=== PATIENT | female | born 1970 | race Caucasian/White ===

== ENCOUNTER 2023-03-22 15:35 | Emergency (ER) | payer OTHER, SELFPAY ==
[2023-03-22 15:43] VITALS: BP 128/84; PULSE 119; RESP 20; TEMP 36.8; O2SAT 96; BMI 32.2
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
== END 2023-03-22 16:57 | disposition home or self-care (01) ==
PROVIDERS: Emergency Provider Emergency Medicine; PCP Family Medicine
DX: S20.211A Contusion of right front wall of thorax, initial encounter (principal); V53.5XXA Driver of pick-up truck or van injured in collision with car, pick-up truck or van in traffic accident, initial encounter
CPT/HCPCS: 71045; 99283

== ENCOUNTER 2023-04-21 08:10 | Outpatient (OUT) | payer OTHER, SELFPAY ==
--- NOTE | 2023-04-21 08:18 | US_ITS ---
The [address] [address] Patient Name: JACQUI SANTIAGO MRN: [id number] date: 1970 Sex: F Assigned Patient Location: US Current Patient Location: US Accession/Order Number: [id number] Exam Date: 04/21/2023 08:25 Report Date: 04/21/2023 09:17 At the request of: JORGE TORRES Procedure: US right upper quadrant EXAM: US right upper quadrant HISTORY: RUQ PAIN R10.11 COMPARISON: None. TECHNIQUE: Grayscale, color and Doppler FINDINGS: The liver is normal in size, contour and echotexture with no focal mass. Liver measures 15.1 cm in length. Hepatopedal flow in the main portal vein with velocity of 39 cm/s. The gallbladder is normal in size. The wall measures 1.7 mm, normal. The common bile duct measures 3.1 mm, normal. Negative sonographic Vee sign. The visualized pancreas is normal The right kidney is normal measuring 10.2 x 4.1 x 4.8 cm with no solid mass or hydronephrosis. US/US right upper quadrant IMPRESSION: Normal exam Electronically authenticated by: GIUSEPPE WHATLEY Date: 04/21/2023 09:17
== END 2023-04-21 08:11 | disposition home or self-care (01) ==
LOC: US 08:10
PROVIDERS: PCP Family Medicine; Visit Provider Family Medicine
DX: R10.11 Right upper quadrant pain (principal)
CPT/HCPCS: 76705

== ENCOUNTER 2023-11-12 07:24 | Outpatient (OUT) | payer OTHER, SELFPAY ==
--- NOTE | 2023-11-12 07:26 | MM_ITS ---
Patient Name: JACQUI SANTIAGO MR#: [id number] : 1970 Exam Date: 11/12/2023 Ordering Doctor: DR JORGE TORRES RADIOLOGY REPORT PROCEDURE: MM TOMOSYNTHESIS SCREENING BI COMPARISON: MG MAMM SCREEN 3D PAMELA CAD, 08/29/2021. MG MAMM SCREEN PAMELA W CAD, 02/20/2019. MG MAMM SCREEN PAMELA W CAD, 12/10/2017. MG MAMM PAMELA SCRN W CAD DIG, 11/20/2013. INDICATIONS: screening Calculator Name NCI Breast Cancer Risk Assessment Tool 5 Year Breast Cancer Risk 1.50% Lifetime Breast Cancer Risk 13.00% Personal Breast Cancer No Personal Ovarian Cancer No Treatments None Family Cancers Father with renal cell cancer at age 62; Grandfather-maternal with bone cancer at age ~70. LOCATION: [facility] BREAST COMPOSITION: Heterogeneously dense,which may obscure small masses. FINDINGS: DIAGNOSTIC CATEGORY 2--BENIGN FINDING: RIGHT BREAST: No significant suspicious finding. Scattered benign-appearing lymph nodes are present. No significant change has occurred. LEFT BREAST: No significant suspicious finding. Stable, chronic scattered asymmetries. No significant change has occurred. RECOMMENDATIONS: ROUTINE MAMMOGRAM AND CLINICAL EVALUATION IN 12 MONTHS. PLEASE NOTE: A NORMAL MAMMOGRAM DOES NOT EXCLUDE THE POSSIBILITY OF BREAST CANCER. A CLINICALLY SUSPICIOUS PALPABLE LUMP SHOULD BE BIOPSIED. Dictated by: Sahhbaz Denny M.D. on 11/14/2023 at 10:35 Approved by: Shahbaz Denny M.D. on 11/14/2023 at 10:47
== END 2023-11-12 07:25 | disposition home or self-care (01) ==
LOC: MAMMO 07:24
PROVIDERS: PCP Family Medicine; Visit Provider Family Medicine
DX: Z12.31 Encounter for screening mammogram for malignant neoplasm of breast (principal); Z80.51 Family history of malignant neoplasm of kidney; Z80.8 Family history of malignant neoplasm of other organs or systems
CPT/HCPCS: 77063; 77067

== ENCOUNTER 2024-11-21 13:20 | Outpatient (OUT) | payer OTHER, SELFPAY ==
--- NOTE | 2024-11-21 13:23 | MM_ITS ---
Patient Name: JACQUI SANTIAGO MR#: [id number] : 1970 Exam Date: 11/21/2024 Ordering Doctor: DONI SANCHES RADIOLOGY REPORT PROCEDURE: MM TOMOSYNTHESIS SCREENING BI COMPARISON: MM TOMOSYNTHESIS SCREENING BI, 11/12/2023. MG MAMM SCREEN 3D PAMELA CAD, 08/29/2021. MG MAMM SCREEN PAMELA W CAD, 02/20/2019. MG MAMM PAMELA SCRN W CAD DIG, 11/20/2013. INDICATIONS: Screening Calculator Name NCI Breast Cancer Risk Assessment Tool 5 Year Breast Cancer Risk 1.60% Lifetime Breast Cancer Risk 12.80% Personal Breast Cancer No Personal Ovarian Cancer No Treatments None Family Cancers Father with renal cell cancer at age 62; Grandfather-maternal with bone cancer at age ~70. LOCATION: [facility] BREAST COMPOSITION: The breasts are heterogeneously dense,which may obscure small masses. FINDINGS: RIGHT BREAST: No significant suspicious finding. LEFT BREAST: No significant suspicious finding. DIAGNOSTIC CATEGORY 1--NEGATIVE. RECOMMENDATIONS: ROUTINE MAMMOGRAM AND CLINICAL EVALUATION IN 12 MONTHS. PLEASE NOTE: A NORMAL MAMMOGRAM DOES NOT EXCLUDE THE POSSIBILITY OF BREAST CANCER. A CLINICALLY SUSPICIOUS PALPABLE LUMP SHOULD BE BIOPSIED. Dictated by: Leonardo Gordon DO on 11/21/2024 at 15:33 Approved by: Leonardo Gordon DO on 11/21/2024 at 15:35
== END 2024-11-21 13:21 | disposition home or self-care (01) ==
LOC: MAMMO 13:20
PROVIDERS: PCP Family Medicine; Visit Provider Nurse Practitioner
DX: Z12.31 Encounter for screening mammogram for malignant neoplasm of breast (principal); Z78.0 Asymptomatic menopausal state; Z13.820 Encounter for screening for osteoporosis; Z80.8 Family history of malignant neoplasm of other organs or systems
CPT/HCPCS: 77063; 77067; 77080

== ENCOUNTER 2025-03-26 09:15 | Outpatient (OUT) | payer OTHER, SELFPAY ==
--- OUTSIDE RECORDS SUMMARY | 2023-11-22 11:00 | XMS_ITS ---
Author Organization [facility] in [place] Address [address] [place] [address] Care Team Providers Care Pump Service Supervisor Name Role Phone None, Unknown or Primary Care Provider Unavailab anh Toya Morgan Unavailable [phone] Allergies No Known Allergies REASON FOR VISIT [...] Encounters Encounter Location Date Provider Diagnosis [facility] (PODIATRY) [address] [place] [address] [place] [address] 11/22/2023 Toya Morgan Nail dystrophy L60.3 Assessments [...] Notes * CHRISHong JONESiDOB:1970 (53 yo F)Acc No.[id number]:11/22/2023 New Patient Patient: Ciarra IVEY Provider: Ifeoma Morgan PA-C :1970 A ge:53 Y S ex:Female Date:11/22/2023 Address[facility] [id number] Pcp:Unknown or None Check In:02:47 PM ESTCheck [...] M usculoskeletal: Bone/Joint Symptoms d enies. C snf Pain d enies.?Leg cramps d enies. N [...] Procedure Codes: * Preventive Medicine: Screenings/Counseling: B [place] ACTION PLAN Above Normal BMI Follow-up D ietary management education, guidance, and counseling * Follow Up: p rn * * Sign off status: Completed Visit Status: C JOHNIE (Check Out) true * Provider: Ifeoma Morgan PA-C Date: 0 11/22/2023 Generated for Bright spicer/Kami/eTransmitting on: 0 03/26/2025 09:19 AM EDT History and Physical Notes * Examination [...]
--- OUTSIDE RECORDS SUMMARY | 2025-03-24 14:00 | XMS_ITS | Encounter Summary ---
Author Organization [facility] Address [id number] [address] [place] [address] Care Team Providers Care Still Operator Batch Or Continuous Name Role Phone Willi Ridley DO Primary Care Provider + [phone] Reason for Visit * Reason Comments Painful Shoulder Encounter Details Date Type Department Care Team (Late st Contact Info) Description 03/24/2025 2:00 PM EDT Office Visit [facility] Internal Medicine - Family Medicine [address] [place] [address] Willi Ridley DO [address], [place] [address] Trigger point of right shoulder region (Primary Dx) Social History Tobacco Use Types Packs/Day Years Used Date Smoking Tobacco: Former Cigarettes 0.5 20 Smokeless Tobacco: Never Alcohol Use Standard Drinks/Week Comments Never 0 (1 standard drink = 0.6 oz pur e alcohol) [facility] Utilities Answer Date Recorded In the past 12 months has [employer], gas, oil, or water [employer] threatened to shut off services in your home? No 11/06/2023 Social Connection and Isolat ion Panel [NHANES] Answer Date Recorded In a typical week, how many times do you talk on the phone with family, friends, or neighbors? More than three times a week 11/14/2022 How often do you get togethe r with friends or relatives? Once a week 11/14/2022 How often do you attend [facility] or sikh services? More than 4 times per year 11/14/2022 Do you belong to any clubs o r organizations such as jew groups, unions, fraternal or athletic groups, or school groups? No 11/14/2022 How often do you attend meet ings of the clubs or organizations you belong to? Never 11/14/2022 Are you , , di vorced, , never , or living with a partner? 11/14/2022 AUDIT-C Answer Date Recorded Q1: How often do you have a drink containing alcohol? Never 11/14/2022 Q2: How many drinks containi ng alcohol do you have on a typical day when you are drinking? Patient does not drink Q3: How often do you have si x or more drinks on one occasion? Never 11/14/2022 Overall Financial Resource Strain (CARDIA) Answe r Date Recorded How hard is it for you to pa y for the very basics like food, housing, medical care, and heating? Not hard at all 11/14/2022 PHQ-2 Answer Date Recorded Total Score 0 03/24/2025 [facility] of Occupat ional Health - Occupational Stress Questionnaire Answer Date Recorded Do you feel stress - tense, restless, nervous, or anxious, or unable to sleep at night because your mind is troubled all the time - these days? Not at all 11/14/2022 Exercise Vital Sign Answer Date Recorde d On average, how many days pe r week do you engage in moderate to strenuous exercise (like a brisk walk)? 0 days 11/06/2023 On average, how many minutes do you engage in exercise at this level? 0 min 11/06/2023 PRAPARE - Transportation Answer Date Re corded In the past 12 months, has l ack of transportation kept you from medical appointments or from getting medications? No 11/2022 In the past 12 months, has l ack of transportation kept you from meetings, work, or from getting things needed for daily living? No 11/14/2022 Housing Instability Answer Date Recorde d Are you worried or concerned that in the next two months you may not have stable housing that you own, rent or stay in as a part of a household? No 11/14/2022 Childcare Answer Date Recorded Do problems getting child ca re make it difficult for you to work or study? No 11/14/2022 Employment Answer Date Recorded Do you need help finding a [facility] career center and/or a training program? No 11/14/2022 Hunger Screening Answer Date Recorded Within the past 12 months we worried whether our food would run out before we got money to buy more. Never True 03/24/2025 Within the past 12 months th e food we bought just didn't last and we didn't have money to get more. Never True 03/24/2025 Purpose - Life Answer Date Recorded I have a purpose and direction in my life. Stron gly Agree 11/14/2022 Comments No Sex and Gender Information Value Date Recorded Sex Assigned at Not on file Legal Sex Female 11:55 AM EDT Gender Identity Not on file Sexual Orientation Not on file documented as of this encounter Last Filed Vital Signs Vital Sign Reading Time Taken Comments Blood Pressure 110/60 03/24/2025 2:11 PM EDT Pulse 86 03/24/2025 2:11 PM EDT Temperature 36.9 C (98.5 F) 03/24/2025 1:50 PM EDT Respiratory Rate 18 03/24/2025 1:50 PM EDT Oxygen Saturation 91% 03/24/2025 2:11 PM EDT Inhaled Oxygen Concentration - - Weight 88.3 kg (194 lb 9.6 oz) 03/24/2025 1:50 P M EDT Height 172.7 cm (5' 7.99 ) 03/24/2025 1:50 PM ED T Body Mass Index 29.6 03/24/2025 1:50 PM EDT documented in this encounter Progress Notes * Willi Ridley, DO - 03/24/2025 2:00 PM EDT Images from the original note were not included. Subjective Patient ID: Ciarra Perez is a 54 y.o. female. Ciarra presents today for right shoulder pain. She has had an off and on for 10 years. She has tried multiple modalities without any success. She has tried topical agents, oral nonsteroidal anti-inflammatories, muscle relaxers, spinal manipulation and stretching exercises. She has done physical therapy in the past as well. She saw orthopedics in the past who told her that she needed to strengthen her muscles. It is aggravated with movement. Pain gets to be a 10/10 when it is at its worst. It has been flared up in the last few days. She has been doing a lot of overhead work. Sometimes at activity bothers her at other times it does not. There is no pattern to the pain. Does not radiate. The following portions of the patient's history were reviewed and updated as appropriate: allergies, current medications, past family history, past medical history, past social history, past surgicalhistory, problem list, and medication reconciliation was completed including current medication andpost discharge medication. Review of Systems Constitutional: Negative. Musculoskeletal: Positive for arthralgias and back pain. Objective Physical Exam Vitals reviewed. Constitutional: General: She is not in acute distress. Appearance: Normal appearance. She is not ill-appearing. HENT: Head: Normocephalic. Musculoskeletal: Thoracic back: Spasms and tenderness present. No swelling, edema, deformity, signs of trauma, lacerations or bony tenderness. Normal range of motion. No scoliosis. Back: Neurological: General: No focal deficit present. Mental Status: She is alert and oriented to person, place, and time. Psychiatric: Mood and Affect: Mood normal. Behavior: Behavior normal. Thought Content: Thought content normal. Judgment: Judgment normal. Assessment/Plan Ciarra was seen today for painful shoulder. Diagnoses and all orders for this visit: Trigger point of right shoulder region - triamcinolone acetonide (KENALOG-40) injection 40 mg She has tried and failed multiple modalities. We did discuss trigger point injection. She seemed tohave a very tender spot over the superior border of the infraspinatus muscle. We identified the most tender spot and did an injection in a flare pattern. 40 mg of triamcinolone mixed with 4 mL of lidocaine injected in 5 different areas with an mL given an each spot. She did become vasovagal after the procedure was done. She was laid down. Her vital signs were monitored. She never lost consciousness. After a few minutes she felt fine and ambulated on her own out of the office. Other orders - Cancel: $ Arthrocentesis documented in this encounter Plan of Treatment Not on file documented as of this encounter Visit Diagnoses Diagnosis Trigger point of right shoulder region- Primary documented in this encounter Administered Medications Inactive Administered Medications - up to 3 most recent administrations Medication Order MAR Action Action Date Dose Rate Site triamcinolone acetonide (KENALOG-40) injection 40 mg 40 mg, intramuscular, Once, On Sun03/24/25 at 1515, For 1 doseIndications:Trigger point of right shoulder region Given 03/24/2025 3:18 PM EDT 40 mg Other documented in this encounter Additional Health Concerns Assessment Noted Time PHQ-9 Depression Total Score: 0 03/24/20 1:50 PM EDT A Body Mass Index follow-up plan has been documented for the patient 10/15/2024 5:09 PM EST documented as of this encounter Care Teams Still Operator Batch Or Continuous Relationship Specialty Start Date End Date Willi Ridley DO [address], [facility] [place] [address] PCP - General Family Medicine 05/19/22 documented as of this encounter
--- OUTSIDE RECORDS SUMMARY | 2025-03-26 09:19 | XMS_ITS | Encounter Summary ---
Author Organization [facility] Address [id number] [address] [place] [address] Care Team Providers Care Steam Distribution Supervisor Name Role Phone Willi Ridley DO Primary Care Provider + [phone] Reason for Visit * Reason Onset Date Comments Med Refill 02/19/2023 Encounter Details Date Type Department Care Team (Late st Contact Info) Description 02/19/2023 Refill [facility] Internal Medicine - Family Medicine [address] [place] [address] Willi Ridley DO [address], [facility] [place] [address] Social History Tobacco Use Types Packs/Day Years Used Date Smoking Tobacco: Former Smokeless Tobacco: Never Alcohol Use Standard Drinks/Week Comments Never 0 (1 standard drink = 0.6 oz pur e alcohol) Social Connection and Isolat ion Panel [NHANES] Answer Date Recorded In a typical week, how many times do you talk on the phone with family, friends, or neighbors? More than three times a week 11/14/2022 How often do you get togethe r with friends or relatives? Once a week 11/14/2022 How often do you attend chur ch or caodaism services? More than 4 times per year 11/14/2022 Do you belong to any clubs o r organizations such as hindu groups, unions, fraternal or athletic groups, or [...] PHQ-2 Answer Date Recorded Total Score 0 12/14/2022 [facility] of Occupat ional Health - Occupational Stress [...] to strenuous exercise (like a brisk walk)? 3 days 11/14/2022 On average, how many minutes do you engage in exercise at this level? 30 min 11/14/2022 PRAPARE - Transportation Answer Date Re corded [...] Recorded Do you need help finding a [facility] career center and/or a training program? No 11/14/2022 Purpose - Life Answer Date Recorded I have a purpose and direction in my life. Stron gly Agree 11/14/2022 Comments No Sex and Gender Information Value Date Recorded Sex Assigned at Not on file Legal Sex Female 11:55 AM EDT Gender Identity Not on file Sexual Orientation Not on file documented as of this encounter Plan of Treatment Not on file documented as of this encounter Visit Diagnoses Not on filedocumented in this encounter Additional Health Concerns Assessment Noted Time PHQ-9 Depression Total Score: 0 12/15/19 23 4:33 PM EDT A Body Mass Index follow-up plan has been documented for the patient 10/19/2022 11:02 AM EST documented as of this encounter Care Teams Steam Distribution Supervisor Relationship Specialty Start Date End Date Willi Ridley DO [address], [facility] [place] [address] PCP - General Family Medicine 05/19/22 documented as of this encounter
--- OUTSIDE RECORDS SUMMARY | 2025-03-26 09:19 | XMS_ITS | Encounter Summary ---
Author Organization [employer] [facility] Address [id number] [address] [place] [address] Care Team Providers Care Automation And Controls Manager Name Role Phone Willi Ridley DO Primary Care Provider + [phone] Encounter Details Date Type Department Care Team (Late st Contact Info) Description 01/01/2023 Telephone [facility] Internal Medicine - Family Medicine [address] [place] [id number] Willi Ridley DO [address], [facility] [address] Social History Tobacco Use Types Packs/Day Years [...] often do you attend chur ch or baptism services? More than 4 times per year 11/14/2022 Do you belong to any clubs o r organizations such as synagogue groups, unions, fraternal or athletic groups, or [...] Answer Date Recorded Total Score 0 12/14/2022 [facility] [place] of Occupat ional Health - Occupational Stress [...] Recorded Do you need help finding a l ocal career center and/or a training program? No 11/14/2022 Purpose - Life Answer Date Recorded I have a purpose and direction in my life. Stron gly Agree 11/14/2022 Comments No Sex and Gender Information Value Date Recorded Sex Assigned at Not on file Legal Sex Female 11:55 AM EDT Gender Identity Not on file Sexual Orientation Not on file documented as of this encounter Miscellaneous Notes * Telephone Encounter - Diane Velasquez - 01/01/2023 12:31 PM EDT Patient called and wanted to let you know that she stopped the adipex, she did not have time to follow it correctly documented in this encounter Plan of Treatment Not on file documented as of this encounter Visit Diagnoses Not on filedocumented in this encounter Additional Health Concerns Assessment Noted Time PHQ-9 Depression Total Score: 0 12/15/19 4:33 PM EDT A Body Mass Index follow-up plan has been documented for the patient 10/19/2022 11:02 AM EST documented as of this encounter Care Teams Automation And Controls Manager Relationship Specialty Start Date End Date Willi Ridley DO [address], [facility] [address] PCP - General Family Medicine 05/19/22 documented as of this encounter
--- OUTSIDE RECORDS SUMMARY | 2025-03-26 09:19 | XMS_ITS | Encounter Summary ---
Author Organization [employer] [facility] [employer] Address [id number] [address] [place] [address] Care Team Providers Care Garnisher Name Role Phone Willi Ridley DO Primary Care Provider + [phone] Encounter Details Date Type Department Care Team (Late st Contact Info) Description 04/13/2023 Orders Only [facility] Internal Medicine - Family Medicine [address] [place] [id number] Willi Ridley DO [address], [facility] [place] [address] Social History Tobacco Use Types Packs/Day Years [...] often do you attend chur ch or sabianism services? More than 4 times per year 11/14/2022 Do you belong to any clubs o r organizations such as jehovah's witness groups, unions, fraternal or athletic groups, or [...] PHQ-2 Answer Date Recorded Total Score 0 04/10/2023 [facility] of Occupat ional Health - Occupational Stress [...] Do you need help finding a l al career center and/or a training program? No 11/14/2022 Hunger Screening Answer Date Recorded Within the past 12 months we worried whether our food would run out before we got money to buy more. Never True 04/10/2023 Within the past 12 months th e food we bought just didn't last and we didn't have money to get more. Never True 04/10/2023 Purpose - Life Answer Date Recorded I [...] on file documented as of this encounter Procedures Procedure Name Priority Date/Time Associated Diagnosis Comments HM COLOGUARD Routine 10/23/2021 11:23 AM EDT documented in this encounter Results * HM COLOGUARD (10/23/2021 11:23 AM EDT) us Willi Ridley DO HEALTH MAINTENANCE Final Res ult MANUALLY TRANSCRIBED RESULTS documented in this encounter Visit Diagnoses Not on filedocumented in this encounter Additional Health Concerns Assessment Noted Time PHQ-9 Depression Total Score: 0 04/10/20 23 3:33 PM EDT A Body Mass Index follow-up plan has been documented for the patient 10/19/2022 11:02 AM EST documented as of this encounter Care Teams Garnisher Relationship Specialty Start Date End Date Willi Ridley DO [address] [facility], [place] [address] PCP - General Family Medicine 05/19/22 documented as of this encounter
--- OUTSIDE RECORDS SUMMARY | 2025-03-26 09:19 | XMS_ITS | Encounter Summary ---
Author Organization [facility] [facility] Address [id number] [address] [place] [address] Care Team Providers Care Composition Siding Worker Name Role Phone KeyanaWilli Cathryn BOTELLO Primary Care Provider + [phone] Encounter Details Date Type Department Care Team (Late st Contact Info) Description 04/24/2023 Orders Only [facility] Internal Medicine - Family Medicine [address] [place] [address] Melody Gonsalez CMA Right upper quadrant pain Social History Tobacco Use Types Packs/Day Years [...] 11/14/2022 How often do you attend chur or voodoo services? More than 4 times per year 11/14/2022 Do you belong to any clubs o r organizations such as spiritism groups, unions, fraternal or athletic groups, or [...] Answer Date Recorded Total Score 0 04/10/2023 [facility] of Occupat ional Health - Occupational Stress [...] Recorded Do you need help finding a [facility] career center and/or a training program? No [...] Procedure Name Priority Date/Time Associated Diagnosis Comments US ABDOMEN LMTD Routine 04/24/2023 8:04 AM EDT Right upper quadrant pain documented in this encounter Results * Ultrasound abdomen limited (04/24/2023 8:04 AM EDT) Anatomical Region Laterality Modality Body, Abdomen Ultrasound us Willi Ridley DO IMG US ORDERABLES Final Resu lt documented in this encounter Visit Diagnoses Diagnosis Right upper quadrant pain Abdominal pain, right upper quadrant documented in this encounter Additional Health Concerns Assessment Noted Time PHQ-9 Depression Total Score: 0 04/10/20 23 3:33 PM EDT A Body Mass Index follow-up plan has been documented for the patient 10/19/2022 11:02 AM EST documented as of this encounter Care Teams Composition Siding Worker Relationship Specialty Start Date End Date Willi Ridley DO [address] [facility] [place] [address] PCP - General Family Medicine 05/19/22 documented as of this encounter
--- OUTSIDE RECORDS SUMMARY | 2025-03-26 09:19 | XMS_ITS | Encounter Summary ---
Author Organization [email or web address] [facility] [employer] Address [id number] [address] [place] [address] Care Team Providers Care Offshore Wind Operations Manager Name Role Phone KeyanaWilli Cathryn BOTELLO Primary Care Provider + [phone] Encounter Details Date Type Department Care Team (Late st Contact Info) Description 12/18/2023 Telephone [facility] Internal Medicine - Family Medicine [address] [place] [address] Jackie Mohan, FRANCISCO J Social History Tobacco Use Types Packs/Day Years Used Date Smoking Tobacco: Former Cigarettes 0.5 20 Smokeless Tobacco: Never Alcohol Use Standard Drinks/Week Comments Never 0 (1 standard drink = 0.6 oz pur e alcohol) [facility] Utilities Answer Date Recorded In the past 12 months has e electric, gas, oil, or water company threatened to shut off services in your [...] often do you attend chur ch or amish services? More than 4 times per year 11/14/2022 Do you belong to any clubs o r organizations such as anabaptist groups, unions, fraternal or athletic groups, or [...] PHQ-2 Answer Date Recorded Total Score 0 11/06/2023 [facility] of Occupat ional Health - Occupational Stress [...] got money to buy more. Never True 11/06/2023 Within the past 12 months th e food we bought just didn't last and we didn't have money to get more. Never True 11/06/2023 Purpose - Life Answer Date Recorded I have a purpose and direction in my life. Jae mas Agree 11/14/2022 Comments No Sex and Gender Information Value Date Recorded Sex Assigned at Not on file Legal Sex Female 11:55 AM EDT Gender Identity Not on file Sexual Orientation Not on file documented as of this encounter Miscellaneous Notes * Telephone Encounter - Jackie Mohan CMA - 12/18/2023 1:38 PM EDT Pt called requesting a referral for a uroligist unless she needs to be seen by you first ? If so she would like it for TB * Telephone Encounter - Willi Ridley DO - 12/18/2023 1:38 PM EDT She probably does because I do not know what she needs the referral for * Telephone Encounter - Jackie Mohan CMA - 12/18/2023 1:38 PM EDT I called her and let her know you want to see her , she said she has to look at her schedule and call back to make an appointment documented in this encounter Plan of Treatment Not on file documented as of this encounter Visit Diagnoses Not on filedocumented in this encounter Additional Health Concerns Assessment Noted Time PHQ-9 Depression Total Score: 0 11/06/19 24 2:40 PM EDT A Body Mass Index follow-up plan has been documented for the patient 10/19/2022 11:02 AM EST documented as of this encounter Care Teams Offshore Wind Operations Manager Relationship Specialty Start Date End Date Willi Ridley DO [address], [facility] [place] [address] PCP - General Family Medicine 05/19/22 documented as of this encounter
--- OUTSIDE RECORDS SUMMARY | 2025-03-26 09:19 | XMS_ITS | Clinical Summary ---
Author Organization [facility] Address [address] [facility] [place] [address] Care Team Providers Care Subassemblies Wirer Name Role Phone Willi Ridley MD Primary Care Provider Allergies No known active allergies Medications methylPREDNISol one (Medrol Dospak) 4 MG tabletsIndicati ons:Plantar fasciitis Take as directed on package. 21 tablet 10/10/2024 Active Family History Relation Name Status Comments Father Mother Alive Social History Tobacco Use Types Packs/Day Years Used Date Smoking Tobacco: Former Cigarettes Tobacco Cessation:Counseling Given: Not Answered Alcohol Use Standard Drinks/Week Comments Never 0 (1 standard drink = 0.6 oz pur e alcohol) Comments Unknown Sex and Gender Information Value Date Recorded Sex Assigned at Not on file Legal Sex Female 6:46 PM EDT Gender Identity Not on file Sexual Orientation Not on file Last Filed Vital Signs Vital Sign Reading Time Taken Comments Blood Pressure 117/75 10/21/2021 12:00 PM EST Pulse - - Temperature - - Respiratory Rate - - Oxygen Saturation - - Inhaled Oxygen Concentration - - Weight 86.2 kg (190 lb) 10/10/2024 8:56 AM EST Height 172.7 cm (5' 8 ) 10/10/2024 8:56 AM EST Body Mass Index 28.89 10/10/2024 8:56 AM EST Plan of Treatment Not on file Insurance [employer] Care Teams Subassemblies Wirer Relationship Specialty Start Date End Date Willi Ridley MD PCP - General Family Medicine 10/10/24
--- OUTSIDE RECORDS SUMMARY | 2025-03-26 09:19 | XMS_ITS | Encounter Summary ---
[facility] [id number] [address] [place] [address] Care Team Providers Care Batch Room Technician Name Role Phone JajaWilli simon Primary Care Provider + [phone] Encounter Details Date Type Department Care Team (Late st Contact Info) Description 03/23/2023 Orders Only [facility] - Family Medicine [address] [place] [address] External, Scanning Provider Social History Tobacco Use Types Packs/Day Years [...] often do you attend chur ch or synagogue services? More than 4 times per year 11/14/2022 Do you belong to any clubs o r organizations such as zoroastrian groups, unions, fraternal or athletic groups, or [...] Answer Date Recorded Total Score 0 12/14/2022 [facility] of Occupat ional Health - Occupational Stress [...] Recorded Do you need help finding a [facility] and/or a training program? No [...] Procedure Name Priority Date/Time Associated Diagnosis Comments XR CHEST 1 VW Routine 03/22/2023 10:23 AM EDT documented in this encounter Results * X-ray chest 1 view (03/22/2023 10:23 AM EDT) Anatomical Region Laterality Modality Body, Chest N/A Computed Radiogr aphy us Scanning Provider External IMG DIAGNOSTIC IMAGIN G ORDERABLES Final Result documented in this encounter Visit Diagnoses Not on filedocumented in this encounter Additional Health Concerns Assessment Noted Time PHQ-9 Depression Total Score: 0 12/15/19 4:33 PM EDT A Body Mass Index follow-up plan has been documented for the patient 10/19/2022 11:02 AM EST documented as of this encounter Care Teams Batch Room Technician Relationship Specialty Start Date End Date Willi Ridley DO [address] [facility], [place] [address] PCP - General Family Medicine 05/19/22 documented as of this encounter
--- OUTSIDE RECORDS SUMMARY | 2025-03-26 09:20 | XMS_ITS | Encounter Summary ---
Author Organization [employer] Address [facility] [id number] [address] [place] [address] Care Team Providers Care Fiber Technologist Name Role Phone KeyanaWilli Cathryn BOTELLO Primary Care Provider + [phone] Encounter Details Date Type Department Care Team (Late st Contact Info) Description 03/25/2025 Telephone [facility] - Family Medicine [address] [place] [address] Israel Duran CMA Social History Tobacco Use Types Packs/Day Years Used Date Smoking Tobacco: Former Cigarettes 0.5 20 Smokeless Tobacco: Never Alcohol Use Standard Drinks/Week Comments Never 0 (1 standard drink = 0.6 oz pur e alcohol) [facility] Utilities Answer Date Recorded In the past [...] often do you attend chur ch or worship services? More than 4 times per year 11/14/2022 Do you belong to any clubs o r organizations such as mandaeism groups, unions, fraternal or athletic groups, or [...] Answer Date Recorded Total Score 0 03/24/2025 [facility] of Occupat ional Health - Occupational Stress [...] Recorded Do you need help finding a [facility] career center and/or a training program? [...] encounter Miscellaneous Notes * Telephone Encounter - Israel Duran CMA - 03/25/2025 9:45 AM EDT Cortisone shot 03/24 did nothing. She is still having the pain. In the Shoulder. Please advise. * Telephone Encounter - Willi Ridley DO - 03/25/2025 9:45 AM EDT I will send in an order for an x-ray of her scapula. She had an x-ray of her shoulder many years ago but I want to get 1 dedicated to her scapula * Telephone Encounter - Israel Duran CMA - 03/25/2025 9:45 AM EDT Please send the order to [facility] documented in this encounter Plan of Treatment Not on file documented as of this encounter Visit Diagnoses Not on filedocumented in this encounter Additional Health Concerns Assessment Noted Time PHQ-9 Depression Total Score: 0 03/24/20 25 1:50 PM EDT A Body Mass Index follow-up plan has been documented for the patient 10/15/2024 5:09 PM EST documented as of this encounter Care Teams Fiber Technologist Relationship Specialty Start Date End Date Willi Ridley DO [address] [facility], [facility] [address] PCP - General Family Medicine 05/19/22 documented as of this encounter
--- OUTSIDE RECORDS SUMMARY | 2025-03-26 09:20 | XMS_ITS | Patient Health Record ---
Author Organization [facility] [place] Address [address] [place] [address] Care Team Providers Care Director Underwriter Sales Name Role Phone None, Unknown or Primary Care Provider Unavailab le Allergies No Known Allergies Reason For Referral No Information Medications Medication SIG (Take, Route, Fr equency, Duration) Notes Start Date End Date Status Multi For Her - as directed Orally Active PriLOSEC 2.5 MG as directed Orally Active Social History Tobacco Use: Social History Observation Description Date Details (start date - stop date) Former Smoker NA - NA Tobacco Use/Smoking Question Answer Notes Patient is a former smoker Plan Of Treatment No Information Insurance Providers Payer Name Payer Address Payer Phone Subscriber Number Group Number Insured Name Patient Relationship to Insured Coverage Start Date Coverage End Date [employer] [address] [address] [place] [phone] [id number] [phone] Ciarra Perez Self - patient is the insured Medical (General) History Medical History History ICD Code Arthritis M19.90 Surgical History Surgery Date(Month/Year) hysterectomy heat ablation
--- OUTSIDE RECORDS SUMMARY | 2025-03-26 09:20 | XMS_ITS | Encounter Summary ---
Author Organization [employer] Address [facility] [id number] [address] [place] [address] Care Team Providers Care Teradata Architect Name Role Phone AmarjitWilli spicer Primary Care Provider + [phone] Encounter Details Date Type Department Care Team (Late st Contact Info) Description 12/09/2024 Telephone [facility] - Family Medicine [address] [place] [address] Elisha Vail CMA Social History Tobacco Use Types Packs/Day Years Used Date Smoking Tobacco: Former Cigarettes 0.5 20 Smokeless Tobacco: Never Alcohol Use Standard Drinks/Week Comments Never 0 (1 standard drink = 0.6 oz pur e alcohol) [facility] Utilities Answer Date Recorded In [...] often do you attend chur ch or yarsani services? More than 4 times per year 11/14/2022 Do you belong to any clubs o r organizations such as advent groups, unions, fraternal or athletic groups, or [...] PHQ-2 Answer Date Recorded Total Score 0 10/15/2024 [facility] - Occupational Stress Questionnaire Answer Date [...] Recorded Do you need help finding a [facility] career [facility] and/or a training program? No 11/14/2022 Hunger Screening Answer Date Recorded Within the past 12 months we worried whether our food would run out before we got money to buy more. Never True 10/15/2024 Within the past 12 months th e food we bought just didn't last and we didn't have money to get more. Never True 10/15/2024 Purpose - Life Answer Date Recorded I have a purpose and direction in my life. Jae gly Agree 11/14/2022 Comments No Sex and Gender Information Value Date Recorded Sex Assigned at Not on file Legal Sex Female 11:55 AM EDT Gender Identity Not on file Sexual Orientation Not on file documented as of this encounter Miscellaneous Notes * Telephone Encounter - Elisha Vail CMA - 12/09/2024 9:50 AM EDT Pt called wanting to know about her son Vik Perez, scrotum ultrasound results. She said they were read on the . Please advise. * Telephone Encounter - Willi Ridley DO - 12/09/2024 9:50 AM EDT It just came through. I put recommendations on the report. * Telephone Encounter - Elisha Vail CMA - 12/09/2024 9:50 AM EDT Called pt's mom and spoke with her regarding results. She wants to be referred to Urology at [facility]. documented in this encounter Plan of Treatment Not on file documented as of this encounter Visit Diagnoses Not on filedocumented in this encounter Additional Health Concerns Assessment Noted Time PHQ-9 Depression Total Score: 0 10/16/19 25 4:33 PM EST A Body Mass Index follow-up plan has been documented for the patient 10/15/2024 5:09 PM EST documented as of this encounter Care Teams Teradata Architect Relationship Specialty Start Date End Date Willi Ridley DO [address] [facility], [place] [address] PCP - General Family Medicine 05/19/22 documented as of this encounter
--- OUTSIDE RECORDS SUMMARY | 2025-03-26 09:20 | XMS_ITS | Encounter Summary ---
Author Organization [employer] Address [facility] [id number] [address] [place] [address] Care Team Providers Care Nursing Care Partner Name Role Phone Willi Ridley Primary Care Provider [phone] Encounter Details Date Type Department Care Team (Latest Contact Info) Description 03/24/2025 Travel Social History Tobacco Use Types Packs/Day Years Used Date Smoking Tobacco: Former Cigarettes 0.5 20 Smokeless Tobacco: Never Alcohol Use Standard Drinks/Week Comments Never 0 (1 standard drink = 0.6 oz pur e alcohol) [facility] Utilities Answer Date Recorded In the past 12 months has [employer] electric, gas, oil, or water company threatened [...] How often do you attend chur or mandaeism services? More than 4 times per year 11/14/2022 Do you belong to any clubs o r organizations such as pentecostal groups, unions, fraternal or athletic groups, or [...] Answer Date Recorded Total Score 0 03/24/2025 [facility] of Occupat ional Health - Occupational [...] Recorded Do you need help finding a [facility] career center and/or a training [...] documented as of this encounter Care Teams Nursing Care Partner Relationship Specialty Start Date End Date Willi Ridley DO [address], [facility] [place] [address] PCP - General Family Medicine 05/19/22 documented as of this encounter
--- OUTSIDE RECORDS SUMMARY | 2025-03-26 09:20 | XMS_ITS | Encounter Summary ---
Author Organization [facility] Address [facility] [id number] [address] [place] [address] Care Team Providers Care Cinder Snapper Name Role Phone Willi Ridley DO Primary Care Provider + [phone] Encounter Details Date Type Department Care Team (Late st Contact Info) Description 11/15/2022 Orders Only [facility] - Family Medicine [address] [place] [id number] Willi Ridley DO [address], [facility] [address] Social History Tobacco Use Types Packs/Day Years [...] often do you attend chur ch or mosque services? More than 4 times per year 11/14/2022 Do you belong to any clubs o r organizations such as amish groups, unions, fraternal or athletic groups, or [...] PHQ-2 Answer Date Recorded Total Score 0 11/14/2022 [facility] of Occupat ional Health - Occupational Stress [...] on file Sexual Orientation Not on file COVID-19 Exposure Response Date Recorded In the last month, have you been in contact with someone who was confirmed or suspected to have Coronavirus / COVID-19? No / Unsure 11/14/2022 4:20 PM EDT documented as of this encounter Plan of Treatment Not on file documented as of this encounter Procedures Procedure Name Priority Date/Time Associated Diagnosis Comments HM COLOGUARD Routine 10/23/2021 documented in this encounter Results * HM COLOGUARD (10/23/2021) us Willi Ridley DO HEALTH MAINTENANCE Final Res ult MANUALLY TRANSCRIBED RESULTS documented in this encounter Visit Diagnoses Not on filedocumented in this encounter Additional Health Concerns Assessment Noted Time PHQ-9 Depression Total Score: 0 11/15/19 4:27 PM EDT A Body Mass Index follow-up plan has been documented for the patient 10/19/2022 11:02 AM EST documented as of this encounter Care Teams Cinder Snapper Relationship Specialty Start Date End Date Willi Ridley DO [address], [place] [address] PCP - General Family Medicine 05/19/22 documented as of this encounter
--- OUTSIDE RECORDS SUMMARY | 2025-03-26 09:20 | XMS_ITS | Encounter Summary ---
Author Organization [facility] Address [facility] [id number] [address] [place] [address] Care Team Providers Care Sap Sd Analyst Name Role Phone JajaWilli simon Primary Care Provider + [phone] Encounter Details Date Type Department Care Team (Late st Contact Info) Description 12/15/2024 Telephone [facility] - Family Medicine [address] [place] [address] Elisha Vail CMA Social History Tobacco Use Types Packs/Day Years Used Date Smoking Tobacco: Former Cigarettes 0.5 20 Smokeless Tobacco: Never Alcohol Use Standard Drinks/Week Comments Never 0 (1 standard drink = 0.6 oz pur e alcohol) [facility] Utilities Answer Date Recorded In the [...] Answer Date Recorded Total Score 0 10/15/2024 [facility] - Occupational Stress Questionnaire Answer Date [...] Recorded Do you need help finding a [facility] career center and/or a training program? No [...] Telephone Encounter - Elisha Vail CMA - 12/15/2024 10:07 AM EDT Pt called inquiring about her bone density scan results done at the [facility]. Please advise. * Telephone Encounter - Willi Ridley DO - 12/15/2024 10:07 AM EDT Sakina saw her for her wellness and ordered it so I assumed she was going to address it * Telephone Encounter - MARCO ANTONIO Nixon - 12/15/2024 10:[address] scan is normal. Very low risk for osteoporosis fracture. Recommendations to take daily calcium with D vitamins * Telephone Encounter - Elisha Vail CMA - 12/15/2024 10:07 AM EDT Called pt and read results. Pt understood. documented in this encounter Plan of Treatment Not on file documented as of this encounter Visit Diagnoses Not on filedocumented in this encounter Additional Health Concerns Assessment Noted Time PHQ-9 Depression Total Score: 0 10/16/19 25 4:33 PM EST A Body Mass Index follow-up plan has been documented for the patient 10/15/2024 5:09 PM EST documented as of this encounter Care Teams Sap Sd Analyst Relationship Specialty Start Date End Date Willi Ridley DO [address], [facility] [place] [address] PCP - General Family Medicine 05/19/22 documented as of this encounter
--- OUTSIDE RECORDS SUMMARY | 2025-03-26 09:20 | XMS_ITS | Encounter Summary ---
Author Organization [employer] Address [facility] [id number] [address] [place] [address] Care Team Providers Care Freight Elevator Operator Name Role Phone Willi Ridley DO Primary Care Provider + [phone] Encounter Details Date Type Department Care Team (Late st Contact Info) Description 03/25/2025 Orders Only [facility] - Family Medicine [address] [place] [id number] Willi Ridley DO [address], [place] [address] Pain of right scapula (Primary Dx) Social History Tobacco Use Types Packs/Day Years Used Date Smoking Tobacco: Former Cigarettes 0.5 20 Smokeless Tobacco: Never Alcohol Use Standard Drinks/Week Comments Never 0 (1 standard drink = 0.6 oz pur e alcohol) [facility] Utilities Answer Date Recorded In the past 12 months has [employer], oil, or water [employer] threatened to shut off services in your [...] How often do you attend chur or yazidi services? More than 4 times per year 11/14/2022 Do you belong to any clubs o r organizations such as anabaptism groups, unions, fraternal or athletic groups, or [...] Answer Date Recorded Total Score 0 03/24/2025 [facility] of Occupat ional Health - Occupational [...] Recorded Do you need help finding a [facility] career center and/or a training program? No [...] as of this encounter Plan of Treatment Scheduled Orders Name Type Priority Associated Diagnoses Orde r Schedule X-ray scapula right Imaging Routine Pain of right scapula Expected: 03/25/2025, Expires: 03/25/2026 documented as of this encounter Visit Diagnoses Diagnosis Pain of right scapula- Primary documented in this encounter Additional Health Concerns Assessment Noted Time PHQ-9 Depression Total Score: 0 03/24/20 25 1:50 PM EDT A Body Mass Index follow-up plan has been documented for the patient 10/15/2024 5:09 PM EST documented as of this encounter Care Teams Freight Elevator Operator Relationship Specialty Start Date End Date Willi Ridley DO [address] [facility], [place] [address] PCP - General Family Medicine 05/19/22 documented as of this encounter
--- OUTSIDE RECORDS SUMMARY | 2025-03-26 09:20 | XMS_ITS | Encounter Summary ---
Author Organization [facility] Address [address] [facility] [place] [address] Care Team Providers Care Manager Hi Name Role Phone Willi Ridley MD Primary Care Provider [phone] Reason for Visit * Reason Comments Med Refill Encounter Details Date Type Department Care Team (Late st Contact Info) Description 11/03/2024 Refill [facility] [address] [place] [phone] Kamran Garibay DPM [address] [place] [address] Plantar fasciitis Social History Tobacco Use Types Packs/Day Years Used Date Smoking Tobacco: Former Cigarettes Alcohol Use Standard Drinks/Week Comments Never 0 (1 standard drink = 0.6 oz pur e alcohol) Comments Unknown Sex and Gender Information Value Date Recorded Sex Assigned at Not on file Legal Sex Female 6:46 PM EDT Gender Identity Not on file Sexual Orientation Not on file documented as of this encounter Miscellaneous Notes * Telephone Encounter - Kamran Garibay DPM - 11/03/2024 9:08 AM EDT No refills ordered. documented in this encounter Plan of Treatment Not on file documented as of this encounter Visit Diagnoses Diagnosis Plantar fasciitis Plantar fascial fibromatosis documented in this encounter Care Teams Manager Hi Relationship Specialty Start Date End Date Willi Ridley MD PCP - General Family Medicine 10/10/24 documented as of this encounter
--- OUTSIDE RECORDS SUMMARY | 2025-03-26 09:20 | XMS_ITS | Clinical Summary ---
Author Organization Intercom[employer] tem Address [id number] [address] [place] [address] Care Team Providers Care Batch Still Operator Name Role Phone AmarjitWilli spicer Primary Care Provider [phone] Allergies No known active allergies Medications fish,bora,flax oils-om3,6,9no 1 (OMEGA 3-6-9) 1,200 mg capsule Take 2 capsules by mouth in the morning. 60 capsule 3 Active Additional Information Patient not taking.Reported on 03/24/2025 b complex vitamins tablet Take 1 tablet by mouth in the morning. 100 tablet 3 Active calcium carb,gluc/mag ox,gluc (CALCIUM MAGNESIUM ORAL) Take by mouth. Activ e omeprazole (PriLOSEC OTC) 20 mg EC tablet Take 1 tablet (20 mg total) by mouth in the morning. Active ascorbic acid (VITAMIN C) 500 mg tablet Take 1 tablet (500 mg total) by mouth in the morning. Active turmeric 400 mg capsule Take 500 mg by mouth. 2 025 Discontinu ed(Patient Stopped On Own) methylPREDNISo lone (MEDROL, ALEC,) 4 mg tablet See Admin Instructions. 5 025 Discontinu ed(Therapy completed) Hospital, Clinic, or Other Facility Administered Medication Ordered Dose Route Frequency Start Date End Date Status triamcinolone acetonide (KENALOG-40) injection 40 mgIndications:Trigger point of right shoulder region 40 mg IM Once 03/24/2025 03/24/2025 Ended Active Problems Problem Noted Date Diagnosed Date Constipation 11/06/2023 Class 1 obesity due to exces s calories with serious comorbidity and body mass index (BMI) of 30.0 to 30.9 in adult 11/06/2023 Degeneration of intervertebral disc of lumbar re gion 10/19/2022 Gastroesophageal reflux disease 10/19/2022 Hyperlipidemia 10/19/2022 Resolved Problems Problem Noted Date Diagnosed Date Resolved Date Supraventricular tachycardia 10/19/2022 11/06/2023 Encounters Date Type Department Care Team Description 03/25/2025 Orders Only [facility] - Family Medicine [address] [place] [address] Willi Ridley, Pain of right scapula (Primary Dx) 03/25/2025 Orders Only [facility] [address] [place] [address] Willi Ridley, Pain of right scapula (Primary Dx) 03/25/2025 Telephone [facility] [address] [place] [address] Israel Duran CMA 03/24/2025 2:00 PM EDT Office Visit [facility] [address] [place] [address] Willi Ridley, Trigger point of right shoulder region (Primary Dx) 03/24/2025 Travel from Last 3 Months Immunizations Immunization Administration Dates Next Due Tdap 10/26/2014 Family History Medical History Relation Name Comments Hyperlipidemia Brother Kidney cancer Father Hyperlipidemia Mother Hypertension Mother Lung disease Son Didier Relation Name Status Comments Brother Alive Father Mother Alive Son Didier Alive Social History Tobacco Use Types Packs/Day Years Used Date Smoking Tobacco: Former Cigarettes 0.5 20 Smokeless Tobacco: Never Tobacco Cessation:Counseling Given: Not Answered Alcohol Use Standard Drinks/Week Comments Never 0 (1 standard drink = 0.6 oz pur e alcohol) [facility] Utilities Answer Date Recorded In the past 12 months has [employer], gas, oil, or water company threatened to [...] often do you attend chur ch or confucianism services? More than 4 times per year 11/14/2022 Do you belong to any clubs o r organizations such as sabianism groups, unions, fraternal or athletic groups, or [...] Answer Date Recorded Total Score 0 03/24/2025 [facility] Questionnaire Answer Date Recorded [...] Recorded Do you need help finding a [facility] career center and/or a training [...] Mass Index 29.6 03/24/2025 1:50 PM EDT Plan of Treatment Health Maintenance Due Date Last Done Comments Zoster (Shingles) Vaccine (1 of 2) 2022 DTaP,Tdap and Td Vaccines (2 - Td or Tdap) 10/26/2024 10/26/2014 Influenza Vaccine 04/13/2025 Adult BMI Follow Up Plan 10/15/2025 10/15/2024 Mammogram 11/21/2025 11/21/2024, 11/12/2023 Adult BMI Screening 03/24/2026 03/24/2025 Depression Screening 03/24/2026 03/24/2025 Tobacco Screening 03/24/2026 03/24/2025 Colon Cancer Screening 3 Vishnu ahn Cologuard 11/10/2027 11/09/2024, 10/23/2021, 10/23/2021 Medical Devices Not on file Procedures Procedure Name Priority Date/Time Associated Diagnosis Comments MAMMOGRAPHY Routine 11/21/2024 11:08 AM EDT COLOGUARD NON-[facility] Routine 11/09/2024 1:50 PM EDT Special screening for malignant neoplasm of colon from Last 3 Months or Most Recently Relevant to Health Maintenance Results * MAMMOGRAPHY (11/21/2024 11:08 AM EDT) Anatomical Region Laterality Modality Other us Not In System Ref Prov HEALTH MAINTENANCE Final Result * Cologuard Non[facility] (11/09/2024 1:50 PM EDT) EXTERNAL COLOGUARD Negative Negative 2024 2:09 PM EDT [facility] (CLIA #:[id number]) Comment: NEGATIVE TEST RESULT. A negative Cologuard result indicates a low likelihood that a colorectal cancer (CRC) or advanced adenoma (adenomatous polyps with more advanced pre-malignant features) is present. The chance that a person with a negative Cologuard test has a colorectal cancer is less than 1 in 1500 (negative predictive value >99.9%) or has an advanced adenoma is less than 5.3% (negative predictive value 94.7%). These data are based on a prospective cross-sectional study of 10,000 individuals at average risk for colorectal cancer who were screened with both Cologuard and colonoscopy. (Sarah Blackman al, N Engl J Med 2014;370(14):7693-8328) The normal value (reference range) for this assay is negative. COLOGUARD RE-SCREENING RECOMMENDATION: Periodic colorectal cancer screening is an important part of preventive healthcare for asymptomatic individuals at average risk for colorectal cancer. Following a negative Cologuard result, the [place] Cancer Society and U.S. Multi-Society Task Force screening guidelines recommend a Cologuard re-screening interval of 3 years. References: [place] [employer] Society Guideline for Colorectal Cancer Screening: https://www.cancer.org/cancer/dtyox-fhypkh-sbkdus/kpjstromg-mxfswsvul-tgyykno/ac s-rec ommendations.html.; Jose DK, Sudheer BRYANT, Ervin BrownK, Colorectal Cancer Screening: Recommendations for Physicians and Patients from the U.S. Multi-Society Task Force on Colorectal Cancer Screening , Am J Gastroenterology 2017; 112:9953-6359. TEST DESCRIPTION: Composite algorithmic analysis of stool DNA-biomarkers with hemoglobin immunoassay. Quantitative values of individual biomarkers are not reportable and are not associated with individual biomarker result reference ranges. Cologuard is intended for colorectal cancer screening of adults of either sex, 45 years or older, who are at average-risk for colorectal cancer (CRC). Cologuard has been approved for use by the U.S. FDA. The performance of Cologuard was established in a cross sectional study of average-risk adults aged 50-84. Cologuard performance in patients ages 45 to 49 years was estimated by sub-group analysis of near-age groups. Colonoscopies performed for a positive result may find as the most clinically significant lesion: colorectal cancer [4.0%], advanced adenoma (including sessile serrated polyps greater than or equal to 1cm diameter) [20%] or non- advanced adenoma [31%]; or no colorectal neoplasia [45%]. These estimates are derived from a prospective cross-sectional screening study of 10,000 individuals at average risk for colorectal cancer who were screened with both Cologuard and colonoscopy. (Sarah Siddiqi et al, N Engl J Med 2014;370(14):7567-3830.) Cologuard may produce a false negative or false positive result (no colorectal cancer or precancerous polyp present at colonoscopy follow up). A negative Cologuard test result does not guarantee the absence of CRC or advanced adenoma (pre-cancer). The current Cologuard screening interval is every 3 years. ([place] Cancer Society and U.S. Multi-Society Task Force). Cologuard performance data in a 10,000 patient pivotal study using colonoscopy as the reference method can be accessed at the following location: www.[facility] (Listn).Biocartis/results. Additional description of the Cologuard test process, warnings and precautions can be found at www.cologuard.com. Stool specimen (specimen) Rectum structure / Unknown 11/09/2024 1:50 PM EDT 11/11/2024 12:21 PM EDT Madison Rios CLINICAL PROJECT ASSISTANT-HOTEL SERVICE MANAGER LAB ORDERABLES Zeina luis Result [facility] (CLIA #:[id number]) [address] [place] [address], from Last 3 Months or Most Recently Relevant to Health Maintenance Insurance [employer] Care Teams Batch Still Operator Relationship Specialty Start Date End Date Willi Ridley DO [address] [facility] [place] [address] PCP - General Family Medicine 05/19/22
--- OUTSIDE RECORDS SUMMARY | 2025-03-26 09:20 | XMS_ITS | Clinical Summary ---
Author Organization Hernán Coel[facility] Address [address], [address] [place] [address] Care Team Providers Care Auto Headlight Mechanic Name Role Phone Unavailable Primary Care Provider Unavailabl e Social History Tobacco Use Types Packs/Day Years Used Date Smoking Tobacco: Never Assessed Comments Unknown Sex and Gender Information Value Date Recorded Sex Assigned at Not on file Legal Sex Female 10:03 AM EST Gender Identity Not on file Sexual Orientation Not on file Plan of Treatment Not on file Insurance [place] [address]
--- OUTSIDE RECORDS SUMMARY | 2025-03-26 09:20 | XMS_ITS | Encounter Summary ---
Author Organization [employer] tem Address [id number] [address] [place] [address] Care Team Providers Care Digital Photographer Name Role Phone Willi Ridley DO Primary Care Provider + [phone] Encounter Details Date Type Department Care Team (Late st Contact Info) Description 03/25/2025 Orders Only [facility] - Family Medicine [address] [place] [id number] Willi Ridley DO [address], [place] [address] Pain of right scapula (Primary Dx) Social History Tobacco Use Types Packs/Day Years Used Date Smoking Tobacco: Former Cigarettes 0.5 20 Smokeless Tobacco: Never Alcohol Use Standard Drinks/Week Comments Never 0 (1 standard drink = 0.6 oz pur e alcohol) [facility] Utilities Answer Date Recorded In the past 12 months has [employer], [employer], oil, or water [employer] threatened to shut off services in your [...] How often do you attend chur or holiness services? More than 4 times per year 11/14/2022 Do you belong to any clubs o r organizations such as worship groups, unions, fraternal or athletic groups, or [...] Answer Date Recorded Total Score 0 03/24/2025 [facility] of Occupat ional Health - Occupational Stress [...] Recorded Do you need help finding a [facility] career center and/or a training program? [...] documented as of this encounter Care Teams Digital Photographer Relationship Specialty Start Date End Date Willi Ridley DO [address] [facility] [place] [address] PCP - General Family Medicine 05/19/22 documented as of this encounter
--- OUTSIDE RECORDS SUMMARY | 2025-03-26 09:20 | XMS_ITS | Encounter Summary ---
Author Organization [facility] Address [facility] [place] [place]-[id number] [address] [place] [address] Care Team Providers Care X Ray Service Technician Name Role Phone Willi Ridley Primary Care Provider + [phone] Encounter Details Date Type Department Care Team (Late st Contact Info) Description 12/08/2024 Orders Only [facility] - Family Medicine [address] [place] [id number] Ref Prov, [place] [address] Social History Tobacco Use Types Packs/Day Years Used Date Smoking Tobacco: Former Cigarettes 0.5 20 Smokeless Tobacco: Never Alcohol Use Standard Drinks/Week Comments Never 0 (1 standard drink = 0.6 oz pur e alcohol) [facility] Utilities Answer Date Recorded In the past 12 months has [employer], gas, oil, or water company threatened [...] often do you attend chur ch or hinduism services? More than 4 times per year 11/14/2022 Do you belong to any clubs o r organizations such as mormonism groups, unions, fraternal or athletic groups, or [...] Answer Date Recorded Total Score 0 10/15/2024 [facility] of Occupat ional Health - [...] Recorded Do you need help finding a [facility] career [facility] and/or a training [...] Procedure Name Priority Date/Time Associated Diagnosis Comments DEXA SCAN CENTRAL SKELETAL Routine 11/21/2024 11:11 AM EDT HM MAMMOGRAPHY Routine 11/21/2024 11:08 AM EDT documented in this encounter Results * Dexa scan central skeletal (11/21/2024 11:11 AM EDT) Anatomical Region Laterality Modality N/A Radiographic Blaire ging us Not In System Ref Prov IMG DXA ORDERABLES Final Result * HM MAMMOGRAPHY (11/21/2024 11:08 AM EDT) Anatomical Region Laterality Modality Other us Not In System Ref Prov HEALTH MAINTENANCE Final Result documented in this encounter Visit Diagnoses Not on filedocumented in this encounter Additional Health Concerns Assessment Noted Time PHQ-9 Depression Total Score: 0 10/16/19 25 4:33 PM EST A Body Mass Index follow-up plan has been documented for the patient 10/15/2024 5:09 PM EST documented as of this encounter Care Teams X Ray Service Technician Relationship Specialty Start Date End Date Willi Ridley DO [address] [place] [address] PCP - General Family Medicine 05/19/22 documented as of this encounter
--- OUTSIDE RECORDS SUMMARY | 2025-03-26 09:20 | XMS_ITS | Encounter Summary ---
Author Organization [employer] Address [id number] [address] [place] [address] Care Team Providers Care Wholesale Account Executive Name Role Phone AmarjitWilli spicer Primary Care Provider + [phone] Encounter Details Date Type Department Care Team (Late st Contact Info) Description 12/08/2024 Telephone [facility] - Family Medicine [address] [place] [address] Elisha Vail CMA Social History Tobacco Use Types Packs/Day Years Used Date Smoking Tobacco: Former Cigarettes 0.5 20 Smokeless Tobacco: Never Alcohol Use Standard Drinks/Week Comments Never 0 (1 standard drink = 0.6 oz pur e alcohol) [facility] Utilities Answer Date Recorded In the [...] often do you attend chur ch or mandaen services? More than 4 times per year [...] Answer Date Recorded Total Score 0 10/15/2024 [facility] - Occupational Stress Questionnaire [...] Recorded Do you need help finding a [facility] career [facility] and/or a training program? [...] Telephone Encounter - Elisha Vail CMA - 12/08/2024 8:47 AM EDT Pt called in asking about her bone density test, and to see if the results were read.Please advise. * Telephone Encounter - Willi Ridley DO - 12/08/2024 8:47 AM EDT Looks like Sakina saw her and ordered it so it should have gone to her. I do not see it anywhere. Check with the patient to see where she got and track it down please * Telephone Encounter - MARCO ANTONIO Nixon - 12/08/2024 8:47 AM EDT I see it was ordered in October but it appears it was not done yet. We have no results. * Telephone Encounter - Elisha Vail CMA - 12/08/2024 8:47 AM EDT I called [facility] and they are re-faxing her results. documented in this encounter Plan of Treatment Not on file documented as of this encounter Visit Diagnoses Not on filedocumented in this encounter Additional Health Concerns Assessment Noted Time PHQ-9 Depression Total Score: 0 10/16/19 25 4:33 PM EST A Body Mass Index follow-up plan has been documented for the patient 10/15/2024 5:09 PM EST documented as of this encounter Care Teams Wholesale Account Executive Relationship Specialty Start Date End Date Willi Ridley DO [address] [facility] [place] [address] PCP - General Family Medicine 05/19/22 documented as of this encounter
--- OUTSIDE RECORDS SUMMARY | 2025-03-26 09:20 | XMS_ITS | Encounter Summary ---
Author Organization [employer] Address [id number] [address] [place] [address] Care Team Providers Care Social Welfare Research Worker Name Role Phone AmarjitWilli spicer Primary Care Provider + [phone] Encounter Details Date Type Department Care Team (Late st Contact Info) Description 12/09/2024 Telephone [facility] - Family Medicine [address] [place] [address] Elisha Vail CMA Social History Tobacco Use Types Packs/Day Years Used Date Smoking Tobacco: Former Cigarettes 0.5 20 Smokeless Tobacco: Never Alcohol Use Standard Drinks/Week Comments Never 0 (1 standard drink = 0.6 oz pur e alcohol) [facility] Utilities Answer Date Recorded In the [...] often do you attend chur ch or pentecostal services? More than 4 times per year 11/14/2022 Do you belong to any clubs o r organizations such as baptist groups, unions, fraternal or athletic groups, or [...] Answer Date Recorded Total Score 0 10/15/2024 [facility] - Occupational Stress Questionnaire Answer Date [...] Recorded Do you need help finding a [facility] career [facility] and/or a training program? [...] Encounter - Elisha Vail CMA - 12/09/2024 12:06 PM EDT Spoke to pt's mom and read results. She would like to be referred to Urology at the [facility]. Call mom if any questions or concerns. * Telephone Encounter - Willi Ridley DO - 12/09/2024 12:06 PM EDT Referral sent for Vik documented in this encounter Plan of Treatment Not on file documented as of this encounter Visit Diagnoses Not on filedocumented in this encounter Additional Health Concerns Assessment Noted Time PHQ-9 Depression Total Score: 0 10/16/19 25 4:33 PM EST A Body Mass Index follow-up plan has been documented for the patient 10/15/2024 5:09 PM EST documented as of this encounter Care Teams Social Welfare Research Worker Relationship Specialty Start Date End Date Willi Ridley DO [address], [place] [address] PCP - General Family Medicine 05/19/22 documented as of this encounter
--- OUTSIDE RECORDS SUMMARY | 2025-03-26 09:20 | XMS_ITS | Encounter Summary ---
Author Organization [employer] Address [facility] [place]-[id number] [address] [place] [address] Care Team Providers Care Recording Studio Internship Name Role Phone Willi Ridley DO Primary Care Provider +[phone] Encounter Details Date Type Department Care Team (Late st Contact Info) Description 06/30/2022 [facility] [address] [place] [address] Alona Mejia MA Social History Tobacco Use Types Packs/Day Years Used Date Smoking Tobacco: Former Smokeless Tobacco: Never Alcohol Use Standard Drinks/Week Comments Never 0 (1 standard drink = 0.6 oz pur e alcohol) Childcare Answer Date Recorded Childcare Unknown 01/22/2019 Employment Answer Date Recorded Employment Unknown 01/22/2019 Comments No Sex and Gender Information Value Date Recorded Sex Assigned at Not on file Legal Sex Female 11:55 AM EDT Gender Identity Not on file Sexual Orientation Not on file documented as of this encounter Miscellaneous Notes * Telephone Encounter - Alona Mejia MA - 06/30/2022 12:36 PM EST Patient called asking for lab work, as she has been very tired. Would you like us to just schedule her an appt? * Telephone Encounter - Willi Ridley DO - 06/30/2022 12:36 PM EST Yes-schedule appt * Telephone Encounter - Anabel Yan CMA - 06/30/2022 12:36 PM EST Patient did not want to schedule and said she would call back. documented in this encounter Plan of Treatment Not on file documented as of this encounter Visit Diagnoses Not on filedocumented in this encounter Care Teams Recording Studio Internship Relationship Specialty Start Date End Date Willi Ridley DO [address] [facility] [facility] [place] [address] PCP - General Family Medicine 05/19/22 documented as of this encounter
--- NOTE | 2025-03-26 09:21 | XR_ITS ---
The [place] [id number] Patient Name: JACQUI SANTIAGO MRN: [id number] date: 1970 Sex: F Assigned Patient Location: [facility] Current Patient Location: [facility] Accession/Order Number: [id number] Exam Date: 03/26/2025 09:52 Report Date: 03/26/2025 09:53 At the request of: JORGE TORRES Procedure: XR scapula RT RIGHT SCAPULA - 2 views CLINICAL HISTORY: Right Scapular Pain, Fall COMPARISON: Right shoulder series 12/16/2021 FINDINGS: No acute bony process. Mild degenerative changes AC joint. XR/XR scapula RT IMPRESSION: No acute findings. Impression dictated by: Kaiden Scales Jr., D.O. 03/26/2025 9:53 AM Dictation Location: [place] [address] Electronically authenticated by: [id number] Date: 03/26/2025 09:53
--- OUTSIDE RECORDS SUMMARY | 2025-03-26 09:21 | XMS_ITS | CCD ---
Author Organization [facility] Care Team Providers Care Artificial Insemination Technician Name Role Phone Unavailable Primary Care Provider Unavailabl e RICH, BILL Referring Unavailable RICH, BILL Referring Unavailable RICH, BILL Referring Unavailable RICH, BILL Referring Unavailable RICH, BILL Referring Unavailable RICH, BILL Referring Unavailable RICH, BILL Referring Unavailable RICH, BILL Referring Unavailable RICH, BILL Referring Unavailable RICH, BILL Referring Unavailable Olexa Bull Unavailable BRIAN, DR WILLI Lockett Admitting Unavailable FURLONG, DR WILLI Lockett Attending Unavailable FURLONG, DR WILLI Lockett Primary Care Unavailable FURLONG, DR WILLI Lockett Admitting Unavailable FURLONG, DR WILLI Lockett Attending Unavailable FURLONG, DR WILLI Lockett Primary Care Unavailable FURLONG, DR WILLI Lockett Consulting Unavailable PORTSMOUTH, DR GIUSEPPE Cardoso Consulting Unavailable MARTINEZYAN De Los Santos Consulting Unavailable Furlong Willi BOTELLO Primary Care Provider Willi Ridley MD Primary Care Provider Unavailable Primary Care Provider UnavailKAMRAN Wang Attending Unavailable KAMRAN GARIBAY Referring Unavailable WILLI RIDLEY Referring Unavailable FURLOWILLI CAROLINA Primary Care Unavailable DONI RIOS Referring Unavailable LIZETLOWILLI CAROLINA Primary Care Unavailable Furlong Willi BOTELLO Primary Care Provider [phone] DONI RIOS Attending Unavailable WILLI RIDLEY Referring Unavailable FURLONGWILLI Primary Care Unavailable FURLONGWILLI Attending Unavailable LIZETLONGWILLI Referring Unavailable FURLONGWILLI Primary Care Unavailable Medications Current Medications Medication Drug Class(es) Dates Sig (Normalized) Sig (Original) ascorbic acid 500 mg oral tablet (3 sources) Vitamin C take 1 tablet by mouth in the morning ascorbic acid (VITAMIN C) 500 mg tablet Take 1 tablet (500 mg total) by mouth in the morning. Active Calcium (1 source) Phosphate Binder, Calcium Calcium Active calcium carb,gluc/mag ox,gluc (CALCIUM MAGNESIUM ORAL) (6 sources) calcium carb,gluc/mag ox,gluc (CALCIUM MAGNESIUM ORAL) Take by mouth. Active calcium carb,glu c/mag ox,gluc (CALCIUM MAGNESIUM ORAL) Take by mouth. 0 Active fish,bora,flax oils-om3,6,9no1 (OMEGA 3-6-9) 1,200 mg capsule (6 sources) Start: 11-14-2022 take 2 capsules by mouth in the morning fish,bora,flax oils-om3,6,9no1 (OMEGA 3-6-9) 1,200 mg capsule Take 2 capsules by mouth in the morning. 60 capsule 11/14/2022 Active Start: 11-14-2022 take 2 capsules by m outh in the morning fish,bora,flax oils-om3,6,9no1 (OMEGA 3-6-9) 1,200 mg capsule Take 2 capsules by mouth in the morning. 60 capsule 0 11/14/2022 Active Magnesium (1 source) Magnesium Active meloxicam 15 mg oral tablet (2 sources) Nonsteroidal Anti-inflammatory Drug Start: 5 End: 5 take 1 tablet by mouth once daily meloxicam (Mobic) 15 MG tablet Indications: Plantar fasciitis Take 1 tablet (15 mg) by mouth Daily for 21 days 21 tablet 10/10/2024 10/31/2024 Active omeprazole 20 mg delayed release oral tablet (4 sources) Proton Pump Inhibitor take 1 tablet by mouth in the morning omeprazole (PriLOSEC OTC) 20 mg EC tablet Take 1 tablet (20 mg total) by mouth in the morning. Active Vit D2 (1 source) Vit D2 Active Vitamin B Complex (6 sources) Start: 3 take 1 tablet by mouth in the morning b complex vitamins tablet Take 1 tablet by mouth in the morning. 100 tablet 11/14/2022 Active Start: 11-14-2022 take 1 tablet by meche th in the morning b complex vitamins tablet Take 1 tablet by mouth in the morning. 100 tablet 0 11/14/2022 Active Completed/Discontinued Medications Medication Drug Class(es) Dates Sig (Normalized) Sig (Original) ascorbic acid 200 mg / beta carotene 1000 unt / cuprous oxide 2 mg / dl-alpha tocopheryl acetate 60 unt / lutein 2 mg / sodium selenate 0.055 mg / zinc oxide 40 mg oral tablet (1 source) Vitamin C Start: 2 End: vit A,C and H-paeiwv-ywdxspwk (OCUVITE) 300 mcg-200 mg-27 mg-2 mg tablet Take 1,000 mg by mouth. 0 10/12/2021 11/06/2023 Discontinued (Therapy completed) methylPREDNISolone (4 sources) Corticosteroid Start: 5 End: 5 methylPREDNISolone (MEDROL, ALEC,) 4 mg tablet See Admin Instructions. 10/10/2024 03/24/2025 Discontinued (Therapy completed) Start: 10-10-2024 methylPREDNISo lone (MEDROL, ALEC,) 4 mg tablet See Admin Instructions. 10/10/2024 Active Start: 10-10-2024 methylPREDNISo lone (Medrol Dospak) 4 MG tablets Indications: Plantar fasciitis Take as directed on package. 21 tablet 10/10/2024 Active 1 ml triamcinolone acetonide 40 mg/ml injection (2 sources) Corticosteroid Start: 03-24-2025 End: 03-24-2025 triamcinolone acetonide (KENALOG-40) injection 40 mg Start: 03-24-2025 End: 03-24-2025 inject 40 mg by intramuscular injection once 40 mg, intramuscular, Once, On Sun03/24/25 at 1515, For 1 dose Turmeric extract (4 sources) Start: 10-12-2021 End: 03-24-2025 turmeric 400 mg capsule Take 500 mg by mouth. 10/12/2021 03/24/2025 Discontinued (Patient Stopped On Own) Start: 10-12-2021 turmeric 400 m g capsule Take 500 mg by mouth. 10/12/2021 Active Start: 10-12-2021 turmeric 400 m g capsule Take 500 mg by mouth. 0 10/12/2021 Active ZINC CITRATE (1 source) Start: 10-12-2021 End: 11-06-2023 zinc citrate 11 mg tablet,ch ewable Chew and swallow. 0 10/12/2021 11/06/2023 Discontinued (Therapy completed) Problems Active Problems Problem Classification Problem Date Documented Date Episodic/Chronic Disorders of lipid metabolism (7 sources) Hyperlipidemia; Translations: [Hyperlipidemia, unspecified] Onset: 10-19-2022 11-06-2023 Chronic Esophageal disorders (7 sources) Gastroesophageal reflux disease; Translations: [GERD (gastroesophageal reflux disease)] Onset: 10-19-2022 10-19-2022 Chronic Other acquired deformities (2 sources) Equinus contracture of the ankle; Translations: [Contracture, right ankle] 10-10-2024 Chronic Other bone disease and musculoskeletal deformities (2 sources) Pain of right shoulder blade; Translations: [Other specified disorders of bone, shoulder] 03-25-2025 Episodic Other connective tissue disease (2 sources) Plantar fasciitis; Translations: [Plantar fascial fibromatosis] 10-10-2024 Episodic Other connective tissue disease (2 sources) Pain in right foot; Translations: [Pain in right foot] 10-10-2024 Episodic Other non-traumatic joint disorders (1 source) Shoulder joint pain; Translations: [Pain in right shoulder] 03-24-2025 Episodic Other nutritional; endocrine; and metabolic disorders (7 sources) Obesity caused by energy imbalance; Translations: [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] Onset: 11-06-2023 11-06-2023 Chronic Other nutritional; endocrine; and metabolic disorders (1 source) 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; Translations: [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] Onset: 11-06-2023 Chronic Other nutritional; endocrine; and metabolic disorders (1 source) Body mass index (BMI) 30.0-30.9, adult; Translations: [Body mass index (BMI) 30.0-30.9, adult] Onset: 11-06-2023 Chronic Residual codes; unclassified (1 source) Menopause present; Translations: [Asymptomatic menopausal state] 10-15-2024 Episodic Spondylosis; intervertebral disc disorders; other back problems (6 sources) Degeneration of lumbar intervertebral disc; Translations: [Other intervertebral disc degeneration, lumbar region] Onset: 10-19-2022 10-19-2022 Chronic Unclassified (1 source) Painful Shoulder Onset: 03-24-2025 Unclassified (1 source) Annual Exam Onset: 10-15-2024 Past or Other Problems Problem Classification Problem Date Documented Da te Episodic/Chronic Cardiac dysrhythmias (7 sources) Supraventricular tachycardia; Translations: [Supraventricular tachycardia (CMS-HCC)] Onset: 3 Resolved: 4 11-06-2023 Chronic Mood disorders (6 sources) Mood disorders Onset: 4 Resolved: 5 11-06-2023 Other connective tissue disease (1 source) Other enthesopathies, not elsewhere classified Onset: 2 Resolved: 2 Episodic Other gastrointestinal disorders (7 sources) Constipation; Translations: [Constipation, unspecified] Onset: 4 11-06-2023 Episodic Other non-traumatic joint disorders (1 source) Pain in right shoulder; Translations: [PAIN IN RIGHT SHOULDER] Onset: 2 Episodic Other screening for suspected conditions (not mental disorders or infectious disease) (7 sources) Patient encounter status; Translations: [Encounter for screening mammogram for malignant neoplasm of breast] Onset: 5 11-06-2023 Episodic Residual codes; unclassified (1 source) Asymptomatic menopausal state; Translations: [Asymptomatic menopausal state] Onset: 5 Episodic Spondylosis; intervertebral disc disorders; other back problems (4 sources) Pain in thoracic spine; Translations: [PAIN IN THORACIC SPINE] Onset: 2 Episodic Unclassified (6 sources) Onset: 3 Resolved: 5 10-19-2022 Results Test Name Value Interpretation Reference Range Facility CBC AND AUTO DIFFon 10-16-19 Erythrocyte distribution width (RBC) [Ratio] 14.2 % Normal 11.5-15.0 [facility] Comment on above: Performed By: #### 2 4331-1, HA1C, CBCA, CMP #### [facility] ([id number]) [address] [place] [address] Hematocrit (Bld) [Volume fraction] 38.7 % Normal 35-47 [facility] Comment on above: Performed By: #### 2 4331-1, HA1C, CBCA, CMP #### [facility] ([id number]) [address] [address] Hemoglobin (Bld) [Mass/Vol] 12.8 g/dL Normal 11.7-15.5 [facility] Comment on above: Performed By: #### 2 4331-1, HA1C, CBCA, CMP #### [facility] ([id number]) [address] [address] Lymphocytes (Bld) [#/Vol] 2.7 10*3/uL Normal 1.0-3.5 [facility] Comment on above: Performed By: #### 2 4331-1, HA1C, CBCA, CMP #### [facility] ([id number]) [address] [address] Lymphocytes/100 WBC (Bld) 27.9 % Normal [facility] Comment on above: Performed By: #### 2 4331-1, HA1C, CBCA, CMP #### [facility] ([id number]) [address] [address] MCH (RBC) [Entitic mass] 30.6 pg Normal 27-34 [facility] Comment on above: Performed By: #### 2 4331-1, HA1C, CBCA, CMP #### [facility] ([id number]) [address] [address] MCHC (RBC) [Mass/Vol] 33.0 g/dL Normal 32-36 [facility] Comment on above: Performed By: #### 2 4331-1, HA1C, CBCA, CMP #### [facility] ([id number]) [address], [facility] [address] [place] [address] MCV (RBC) [Entitic vol] 93 fL Normal 80-100 [facility] Comment on above: Performed By: #### 2 4331-1, HA1C, CBCA, CMP #### [facility] ([id number]) [address], [address] [place] [address] Monocytes (Bld) [#/Vol] 0.5 10*3/uL Normal 0-0.9 [facility] Comment on above: Performed By: #### 2 4331-1, HA1C, CBCA, CMP #### [facility] ([id number]) [address], [facility] [address] [place] [address] Monocytes/100 WBC (Bld) 4.8 % Normal [facility] Comment on above: Performed By: #### 2 4331-1, HA1C, CBCA, CMP #### [facility] ([id number]) [address], [facility] [address] [place] [address] Neutrophils (Bld) [#/Vol] 6.5 10*3/uL Normal 1.5-6.6 [facility] Comment on above: Performed By: #### 2 4331-1, HA1C, CBCA, CMP #### [facility] ([id number]) [address], [facility] [address] [place] [address] Platelet mean volume (Bld) [Entitic vol] 10.3 fL Normal 7-12 [facility] Comment on above: Performed By: #### 2 4331-1, HA1C, CBCA, CMP #### [facility] ([id number]) [address], [facility] [address] [place] [address] Platelets (Bld) [#/Vol] 268 10*3/uL Normal 150-450 [facility] Comment on above: Performed By: #### 2 4331-1, HA1C, CBCA, CMP #### [facility] ([id number]) [address], [address] [place] [address] RBC COUNT 4.17 X10E12/L Normal 3.80-5.20 [facility] Comment on above: Performed By: #### 2 4331-1, HA1C, CBCA, CMP #### [facility] ([id number]) [address] [address] RBC morphology finding Nom (Bld) NORMAL Normal [facility] Comment on above: Performed By: #### 2 4331-1, HA1C, CBCA, CMP #### [facility] ([id number]) [address] [address] SEG NEUTROPHIL 67.3 % Normal [facility] Comment on above: Performed By: #### 2 4331-1, HA1C, CBCA, CMP #### [facility] ([id number]) [address], [address] [address] WBC (Bld) [#/Vol] 9.7 10*3/uL Normal 4.0-11.0 [facility] Comment on above: Performed By: #### 2 4331-1, HA1C, CBCA, CMP #### [facility] ([id number]) [address], [address] [address] COMPREHENSIVE METABOLIC PANE Bl[place] 10-15-2024 Albumin [Mass/Vol] 4.4 g/dL Normal 3.2-5.3 [facility] Comment on above: Performed By: #### 2 4331-1, HA1C, CBCA, CMP #### [facility] ([id number]) [address] [address] ALP [Catalytic activity/Vol] 87 U/L Normal 39-130 [facility] Comment on above: Performed By: #### 2 4331-1, HA1C, CBCA, CMP #### [facility] ([id number]) [address], [address] [place] [address] ALT [Catalytic activity/Vol] 19 U/L Normal 0-31 [facility] Comment on above: Performed By: #### 2 4331-1, HA1C, CBCA, CMP #### [facility] ([id number]) [address], [address] [place] [address] Anion gap [Moles/Vol] 10 mmol/L Normal 5-15 [facility] Comment on above: Performed By: #### 2 4331-1, HA1C, CBCA, CMP #### [facility] ([id number]) [address], [address] [place] [address] AST [Catalytic activity/Vol] 16 U/L Normal 0-41 [facility] Comment on above: Performed By: #### 2 4331-1, HA1C, CBCA, CMP #### [facility] ([id number]) [address], [address] [place] [address] Bilirubin [Mass/Vol] 0.3 mg/dL Normal 0.3-1.2 [facility] Comment on above: Performed By: #### 2 4331-1, HA1C, CBCA, CMP #### [facility] ([id number]) [address], [address] [place] [address] Calcium [Mass/Vol] 9.5 mg/dL Normal 8.5-10.5 [facility] Comment on above: Performed By: #### 2 4331-1, HA1C, CBCA, CMP #### [facility] ([id number]) [address], [address] [place] [address] Chloride [Moles/Vol] 102 mmol/L Normal 98-109 [facility] Comment on above: Performed By: #### 2 4331-1, HA1C, CBCA, CMP #### [facility] ([id number]) [address], [address] [place] [address] CO2 [Moles/Vol] 28 mmol/L Normal 22-32 [facility] Comment on above: Performed By: #### 2 4331-1, HA1C, CBCA, CMP #### [facility] ([id number]) [address], [facility] [address] [place] [address] Creatinine [Mass/Vol] 0.76 mg/dL Normal 0.40-1.00 [facility] Comment on above: Result Comment: METH OD TRACEABLE TO IDMS STANDARD Performed By: #### 2 4331-1, HA1C, CBCA, CMP #### [facility] ([id number]) [address], [address] [address] eGFR (CKD-EPI) NON-RACE DEPENDENT >90 Normal >59 [facility] Comment on above: Result Comment: Reported eGFR is based on the CKD-EPI 2020 equation that does not use a race coefficient. Performed By: #### 2 4331-1, HA1C, CBCA, CMP #### [facility] ([id number]) [address], [address] [address] Glucose [Mass/Vol] 111 mg/dL High 65-99 [facility] Comment on above: Performed By: #### 2 4331-1, HA1C, CBCA, CMP #### [facility] ([id number]) [address], [facility] [address] [place] [address] Potassium [Moles/Vol] 3.9 mmol/L Normal 3.5-5.0 [facility] Comment on above: Performed By: #### 2 4331-1, HA1C, CBCA, CMP #### [facility] ([id number]) [address] [address] Protein [Mass/Vol] 7.2 g/dL Normal 6.0-8.0 [facility] Comment on above: Performed By: #### 2 4331-1, HA1C, CBCA, CMP #### [facility] ([id number]) [address], [address] [place] [address] Sodium [Moles/Vol] 140 mmol/L Normal 134-146 [facility] Comment on above: Performed By: #### 2 4331-1, HA1C, CBCA, CMP #### [facility] ([id number]) [address], [facility] [address] [place] [address] Urea nitrogen [Mass/Vol] 25 mg/dL High 5-23 [facility] Comment on above: Performed By: #### 2 4331-1, HA1C, CBCA, CMP #### [facility] ([id number]) [address], [facility] [address] [place] [address] HGB A1C (GLYCO-HGB)on 2024 Glucose [Mass/Vol] 105 mg/dL Normal [facility] Comment on above: Performed By: #### 2 4331-1, HA1C, CBCA, CMP #### [facility] ([id number]) [address], [address] [place] [address] HbA1c (Bld) [Mass fraction] 5.3 % Normal 4.4-5.6 [facility] Comment on above: Result Comment: NOTE ADA Guidelines Result HgbA1c Normal : less than 5.7 % Prediabetes : 5.7 % to 6.4 % Diabetes : > 6.4 % Use with caution in patients with abnormal hemoglobin variants as the half-life of red blood cells and in vivo glycation rates are affected. Performed By: #### 2 4331-1, HA1C, CBCA, CMP #### [facility] ([id number]) [address], [address] [place] [address] Lipid 1996 panelon 5 Cholesterol [Mass/Vol] 210 mg/dL High 150-200 [facility] Comment on above: Performed By: #### 2 4331-1, HA1C, CBCA, CMP #### [facility] ([id number]) [address], [address] [place] [address] Cholesterol in HDL [Mass/Vol] 72 mg/dL Normal >39 [facility] Comment on above: Result Comment: HDL <40 mg/dL - High Risk HDL > or = 40mg/dL- Desirable HDL >60 mg/dL - Negative Risk Performed By: #### 2 4331-1, HA1C, CBCA, CMP #### [facility] ([id number]) [address], [address] [place] [address] Cholesterol in LDL [Mass/Vol] 120 mg/dL Normal <130 [facility] Comment on above: Result Comment: LDL <100 mg/dL - Desirable LDL >160 mg/dL - High Risk Performed By: #### 2 4331-1, HA1C, CBCA, CMP #### [facility] ([id number]) [address], [address] [place] [address] Cholesterol in VLDL [Mass/Vol] 18 mg/dL Normal 0-30 [facility] Comment on above: Performed By: #### 2 4331-1, HA1C, CBCA, CMP #### [facility] ([id number]) [address], [address] [place] [address] CHOLESTEROL:HDL 2.9 Normal 1.0-5.0 [facility] Comment on above: Performed By: #### 2 4331-1, HA1C, CBCA, CMP #### [facility] ([id number]) [address], [address] [address] Triglyceride [Mass/Vol] 92 mg/dL Normal 27-150 [facility] Comment on above: Performed By: #### 2 4331-1, HA1C, CBCA, CMP #### [facility] ([id number]) [address] [place] [address] XR Calcaneus - right 2 Views on 10-10-2024 Imaging Result: Lateral, calcaneal axial views are weight-bearing. Slight 1st ray elevation. Enthesophyte at the insertion of the Achilles tendon and plantar fascia. Joints appear well-maintained. No fractures or dislocations. [facility] (narrative) [facility] Comprehensive metabolic pane blanco 11-07-2023 Albumin [Mass/Vol] 4.5 g/dL 3.2 - 5.3 g/dL [facility] ALP [Catalytic activity/Vol] 78 U/L 39 - 130 U/L [facility] ALT No additional P-5'-P [Catalytic activity/Vol] 33 U/L High 0 - 31 U/L [facility] Anion gap [Moles/Vol] 9 mmol/L 5 - 15 mmol/L [facility] AST [Catalytic activity/Vol] 23 U/L 0 - 41 U/L [facility] Bilirubin [Mass/Vol] 0.4 mg/dL 0.3 - 1.2 mg/dL [facility] Calcium [Mass/Vol] 9.8 mg/dL 8.5 - 10. 5 mg/dL [facility] Chloride [Moles/Vol] 102 mmol/L 98 - 109 mmol/L [facility] CO2 [Moles/Vol] 28 mmol/L 22 - 32 mmol/L [facility] Creatinine [Mass/Vol] 0.65 mg/dL 0.40 - 1.00 mg/dL [facility] Comment on above: METHOD TRACEABLE TO IDMS STANDARD eGFR (CKD-EPI)non-race dependent - PINF [facility] Comment on above: Reported eGFR is based on the CKD-EPI 2020 equation that does not use a race coefficient. Glucose [Mass/Vol] 82 mg/dL 65 - 99 mg/dL [facility] Potassium [Moles/Vol] 3.5 mmol/L 3.5 - 5.0 mmol/L [facility] Protein [Mass/Vol] 7.1 g/dL 6.0 - 8.0 g/dL [facility] Sodium [Moles/Vol] 139 mmol/L 134 - 146 mmol/L [facility] Urea nitrogen [Mass/Vol] 19 mg/dL 5 - 23 mg/dL [facility] Lipid 1996 panelon Cholesterol [Mass/Vol] 230 mg/dL High 150 - 200 mg/dL [facility] Cholesterol in HDL [Mass/Vol] 75 mg/dL 39 - PINF mg/dL [facility] Comment on above: HDL <40 mg/dL - High Risk HDL > or = 40mg/dL- Desirable HDL >60 mg/dL - Negative Risk Cholesterol in LDL [Mass/Vol] 139 mg/dL High NINF - 130 mg/dL [facility] Comment on above: LDL <100 mg/dL - Desirable LDL >160 mg/dL - High Risk Cholesterol in VLDL [Mass/Vol] 16 mg/dL 0 - 30 mg/dL [facility] Cholesterol.total/ Cholesterol in HDL [Mass ratio] 3.1 {ratio} 1.0 - 5.0 [facility] Triglyceride [Mass/Vol] 80 mg/dL 27 - 150 mg/dL [facility] No Panel Informationon 11-06 Interpretation and review of laboratory results Abnormal [facility] COMPREHENSIVE METABOLIC PANE Blanco 11-06-2023 Albumin [Mass/Vol] 4.5 g/dL Normal 3.2-5.3 [facility] Comment on above: Performed By: #### 2 4331-1, 3016-3, CMP #### [facility] ([id number]) [address], [address] [place] [address] ALP [Catalytic activity/Vol] 78 U/L Normal 39-130 [facility] Comment on above: Performed By: #### 2 4331-1, 3016-3, CMP #### [facility] ([id number]) [address], [address] [place] [address] ALT [Catalytic activity/Vol] 33 U/L High 0-31 [facility] Comment on above: Performed By: #### 2 4331-1, 6-3, CMP #### [facility] ([id number]) [address], [address] [place] [address] Anion gap [Moles/Vol] 9 mmol/L Normal 5-15 [facility] Comment on above: Performed By: #### 2 4331-1, 3015-3, CMP #### [facility] ([id number]) [address], [address] [place] [address] AST [Catalytic activity/Vol] 23 U/L Normal 0-41 [facility] Comment on above: Performed By: #### 2 4331-1, 3015-3, CMP #### [facility] ([id number]) [address], [address] [place] [address] Bilirubin [Mass/Vol] 0.4 mg/dL Normal 0.3-1.2 [facility] Comment on above: Performed By: #### 2 4331-1, 6-3, CMP #### [facility] ([id number]) [address], [address] [place] [address] Calcium [Mass/Vol] 9.8 mg/dL Normal 8.5-10.5 [facility] Comment on above: Performed By: #### 2 4331-1, 6-3, CMP #### [facility] ([id number]) [address], [address] [place] [address] Chloride [Moles/Vol] 102 mmol/L Normal 98-109 [facility] Comment on above: Performed By: #### 2 4331-1, 3015-3, CMP #### [facility] ([id number]) [address], [facility] [address] [place] [address] CO2 [Moles/Vol] 28 mmol/L Normal 22-32 [facility] Comment on above: Performed By: #### 2 4331-1, 3015-3, CMP #### [facility] ([id number]) [address] [address] Creatinine [Mass/Vol] 0.65 mg/dL Normal 0.40-1.00 [facility] Comment on above: Result Comment: METH OD TRACEABLE TO IDMS STANDARD Performed By: #### 2 4331-1, 3015-3, CMP #### [facility] ([id number]) [address], [address] [place] [address] eGFR (CKD-EPI) NON-RACE DEPENDENT >90 Normal >59 [facility] Comment on above: Result Comment: Reported eGFR is based on the CKD-EPI 2020 equation that does not use a race coefficient. Performed By: #### 2 4331-1, 3015-3, CMP #### [facility] ([id number]) [address], [facility] [address] [place] [address] Glucose [Mass/Vol] 82 mg/dL Normal 65-99 [facility] Comment on above: Performed By: #### 2 4331-1, 3015-3, CMP #### [facility] ([id number]) [address] [place] [address] Potassium [Moles/Vol] 3.5 mmol/L Normal 3.5-5.0 [facility] Comment on above: Performed By: #### 2 4331-1, 3015-3, CMP #### [facility] ([id number]) [address] [place] [address] Protein [Mass/Vol] 7.1 g/dL Normal 6.0-8.0 [facility] Comment on above: Performed By: #### 2 4331-1, 3015-3, CMP #### [facility] ([id number]) [address], [facility] [address] [place] [address] Sodium [Moles/Vol] 139 mmol/L Normal 134-146 [facility] Comment on above: Performed By: #### 2 4331-1, 3015-3, CMP #### [facility] ([id number]) [address], [facility] [address] [place] [address] Urea nitrogen [Mass/Vol] 19 mg/dL Normal 5-23 [facility] Comment on above: Performed By: #### 2 4331-1, 3015-3, CMP #### [facility] ([id number]) [address] [place] [address] Lipid 1996 panelon 4 Cholesterol [Mass/Vol] 230 mg/dL High 150-200 [facility] Comment on above: Performed By: #### 2 4331-1, 3015-3, CMP #### [facility] ([id number]) [address], [facility] [address] [place] [address] Cholesterol in HDL [Mass/Vol] 75 mg/dL Normal >39 [facility] Comment on above: Result Comment: HDL <40 mg/dL - High Risk HDL > or = 40mg/dL- Desirable HDL >60 mg/dL - Negative Risk Performed By: #### 2 4331-1, 6-3, CMP #### [facility] ([id number]) [address], [facility] [address] [place] [address] Cholesterol in LDL [Mass/Vol] 139 mg/dL High <130 [facility] Comment on above: Result Comment: LDL <100 mg/dL - Desirable LDL >160 mg/dL - High Risk Performed By: #### 2 4331-1, 3016-3, CMP #### [facility] ([id number]) [address] [place] [address] Cholesterol in VLDL [Mass/Vol] 16 mg/dL Normal 0-30 [facility] Comment on above: Performed By: #### 2 4331-1, 6-3, CMP #### [facility] ([id number]) [address] [place] [address] CHOLESTEROL:HDL 3.1 Normal 1.0-5.0 [facility] Comment on above: Performed By: #### 2 4331-1, 6-3, CMP #### [facility] ([id number]) [address] [place] [address] Triglyceride [Mass/Vol] 80 mg/dL Normal 27-150 [facility] Comment on above: Performed By: #### 2 4331-1, 6-3, CMP #### [facility] ([id number]) [address], [facility] [address] [place] [address] TSH Qnon 11-06-2023 TSH 1.97 uIU/mL Normal 0.49-4.67 [facility] Comment on above: Performed By: #### 2 4331-1, 3016-3, CMP #### [facility] ([id number]) [address] [place] [address] XR SHOULDER RT 2V or >on XR SHOULDER RT 2V or > EXAM: XR SHOULDER RT 2V or > HISTORY: Pain of right shoulder joint Exam: XR SHOULDER RT 2V or > Clinical Indication: Pain of right shoulder joint. Comparison: None. FINDINGS: The 3 views of the shoulder show normal alignment at the glenohumeral joint. There are no fractures or dislocations. The acromioclavicular joint and coracoclavicular spaces are intact. The acromion and coracoid processes appear unremarkable. The subacromial space is unremarkable. The visualized scapula and clavicle are unremarkable. There are no radiopaque foreign bodies or soft tissue swelling. If there is further concern, followup radiographs or MRI of the shoulder may be performed for complete assessment. IMPRESSION: 1. No fractures or dislocations of the right shoulder. Normal exam SL: [id number] Electronically authenticated by: YAN MARTINEZ Date: 2021-12-16 16:27 Normal [facility] IntraOperative Documentson 0 10-21-2021 IntraOperative Documents [id number]# 1.00CD:127 Normal [facility] Operative Reporton 2 Operative Report SURGERY DATE: 10/13/2021 PRIMARY CARE PHYSICIAN: Willi Ridley D.O. PREOPERATIVE DIAGNOSIS: Left submandibular sialolithiasis POSTOPERATIVE DIAGNOSIS: Left submandibular sialolithiasis OPERATION: Removal of left submandibular stone ANESTHESIA: General endotracheal COMPLICATIONS: None FINDINGS: Sharp irregularly shaped stone protruding from the left submandibular duct into the floor of mouth against the ventral surface of the tongue approximately 1 cm in length with a markedly irregular shape. INDICATIONS: This 50 year old woman presented to the office yesterday with a submandibular stone protruding into her left floor of mouth and limiting her ability to speak and chew and swallow because the stone was sticking into the ventral surface of the tongue through the floor of mouth. An attempt was made to remove the stone in the office but this was unsuccessful. PROCEDURE: The patient identified in the Holding Area and taken back to the Operating Room where she was placed in the supine position after induction of general endotracheal anesthesia. A rubber tipped self-retaining retractor was used to open the mouth and the tongue was retracted superiorly exposing the left floor of mouth. The floor of mouth was prepped with Betadine around the visible stone protruding into the floor of mouth from the submandibular duct. Then lidocaine 1% with 1:100,000 Epinephrine was infiltrated around the stone and in the course of the infiltration the hydraulic pressure of the injection pushed the stone out of the duct. It was removed with a forceps and sent for pathologic analysis. Then a Normal Saline with an 18 gauge angiocatheter was used to irrigate the submandibular duct and wound. The patient was then awakened and taken to the Recovery Room in good condition. Bettina Ocampo Jr., M.D. lr Dictated: 10/13/2021 [id number] Transcribed: 10/13/2021 cc:Willi Ridley D.O. [facility] Comment on above: Result Comment: Elec tronically Signed By: Bettina Ocampo MD\.br\Date and Time Signed: 10/20/21 08:25 EST Postoperative Documentson Postoperative Documents [id number]# 1.00CD:127 [facility] Main OR Intraoperative Recor don 10-18-2021 Main OR Intraoperative Record IntraOp Document Type FT Summary Primary Physician: Bettina Ocampo MD Finalized Date/Time: 10/18/21 14:18:21 Pt. Name: JACQUI PEREZ/Sex: 1970 Female Med Rec #: [id number] Physician: Bettina Ocampo MD Financial #: [id number] Pt. Type: A Room/Bed: [place] [address] Admit/Disch: 10/13/21 09:52:43 - 10/13/21 13:50:00 Institution: Case Times FT Entry 1 Patient Times In Room 10/13/21 11:33:00 Out Room 10/13/21 12:03:00 Procedure Times Start 10/13/21 11:42:00 Stop 10/13/21 11:57:00 Anesthesia Times Start 10/13/21 11:33:00 Stop 10/13/21 12:03:00 Last Modified By: EMILIA YEE RN 10/13/21 12:03:54 General Comments: 10/18/21 Chart opened to review and send charges [facility]oth CSFA Case Attendance FT Entry 1 Entry 2 Entry 3 Case Attendee Vivek LAU, Anabel Ocampo MD, Bettina Gage TANNERY WORKER, Jenny Garvin Role Performed Anesthesiologist Surgeon - Primary TANNERY WORKER/SA Glass Science Engineer Time In 10/13/21 11:33:00 10/13/21 11:33:00 10/13/21 11:33:00 Time Out 10/13/21 12:03:00 10/13/21 12:03:00 10/13/21 12:03:00 Procedure SUBMANDIBULAR CYST SUBMANDIBULAR CYST SUBMANDIBULAR CYST EXCISION EXCISION EXCISION SIALOLITHOTO(Left) SIALOLITHOTO(Left) SIALOLITHOTO(Left) Comments DR. TELLO SUPERVISING Last Modified By: JOSELITO RN, EMILIA YEE RN, EMILIA YEE RN, EMILIA Brown 10/13/21 12:05:05 10/13/21 12:05:05 10/13/21 12:05:05 Entry 4 Entry 5 Entry 6 Case Attendee Chris STRICKLAND, Toya YEE RN, EMILIA Diaz CST, Elidia Dia Role Performed Optometry Assistant - Primary Optometry Assistant - Primary Scrub - Primary Time In 10/13/21 11:33:00 10/13/21 11:33:00 10/13/21 11:33:00 Time Out 10/13/21 12:03:00 10/13/21 12:03:00 10/13/21 12:03:00 Procedure SUBMANDIBULAR CYST SUBMANDIBULAR CYST SUBMANDIBULAR CYST EXCISION EXCISION EXCISION SIALOLITHOTO(Left) SIALOLITHOTO(Left) SIALOLITHOTO(Left) Comments Last Modified By: JOSELITO STRICKLAND, EMILIA YEE RN, EMILIA YEE RN, EMILIA Brown 10/13/21 12:05:05 10/13/21 12:05:05 10/13/21 12:05:05 Entry 7 Case Attendee Phillip SIMMS, Jose Luis Arnett Role Performed Scrub - Primary Time In 10/13/21 11:33:00 Time Out 10/13/21 12:03:00 Procedure SUBMANDIBULAR CYST EXCISION SIALOLITHOTO(Left) Comments Last Modified By: EMILIA YEE RN 10/13/21 12:05:05 Perioperative Protocols FT Pre-Care Text: Implements protective measures prior to operative or invasive procedure, confirms identity before the operative or invasive procedure, verifies operative procedure, surgical site, and laterality Entry 1 Procedure(s) SUBMANDIBULAR CYST Patient Identity Birthday, ID Band EXCISION Verified (select at Check, Patient SIALOLITHOTO(Left) least 2): Participation Consents / H and P Anesthesia Consent, Operative Site Present Verified HandP, Surgery/Procedure Marking Verified Consent Surgical Site Yes Laterality Verified Yes Verified Procedure Verified Yes Correct Patient Yes Position Verified Availability Equipment, Medication Prep Dry n/a Verified (If Applicable) PreOp Antibiotic No Time Out Vivek LAU, Anabel M, Given Participants Terrence VALLE, Bettina Middleton, Merari SIMMS, Chris Medina RN, JOSELITO Rodriguez RN, Joe VALDES CST, Elidia Dia Time Out Complete 10/13/21 11:42:00 Outcomes Met? Yes Last Modified By: EMILIA YEE RN 10/13/21 13:36:06 Post-Care Text: The patient is free from signs and symptoms of injury caused by extraneous objects Allergy Information FT Pre-Care Text: Verifies allergies Entry 1 Allergies Reviewed? Yes Allergies Reviewed Self/Patient With Outcomes Met? Yes Last Modified By: EMILIA YEE RN 10/13/21 11:38:59 Post-Care Text: The patient received appropriate medication(s) safely administered during the perioperative period Surgical Procedures FT Entry 1 Procedure Description Procedure SUBMANDIBULAR CYST Modifiers Left EXCISION SIALOLITHOTOMY ORAL APPROACH Surgeon Description REMOVAL LEFT SUBMANDIBULAR STONE, SIALODOCHOPLASTY Primary Procedure Yes Primary Surgeon Bettina Ocampo MD Start 10/13/21 11:42:00 Stop 10/13/21 11:57:00 Anesthesia Type General Surgical Service ENT Wound Class 2 - Clean-Contaminated Last Modified By: EMILIA YEE RN 10/13/21 13:36:13 General Case Data FT Pre-Care Text: Classifies surgical wound, implements aseptic technique, initiates traffic control Entry 1 Case Information OR OR 2 FT Case Level Level 3 Wound Class 2 - Clean-Contaminated Specialty ENT ASA Class 2 Preop Diagnosis LEFT SUBMANDIBULAR STONE Postop Same As Preop Yes Postop Diagnosis LEFT SUBMANDIBULAR STONE Outcomes Met? Yes Last Modified By: EMILIA YEE RN 10/13/21 11:39:20 Post-Care Text: The patient is free from signs and symptoms of infection Skin Assessment (Pre Procedure) FT Pre-Care Text: Implements protective measures to prevent skin/ tissue injury due to thermal or mechanical sources Evaluates for signs and symptoms of physical injury to skin and tissue Entry 1 (more content not included)... Normal [facility] Coding Summary.on 10-14-2021 Coding Summary. CD:[id number]:[id number] G h0bWw+PGhlYWQ+MD0GVVR jD32bkSQzbF0QE5kCHI7B TIFGHIUIJU4KTX0deUR9U AqwT3VzlbKu JgquwZVkKC19PAb9QDK4k IraXMivpB3pnTZfQ0a7Xq EmAM35qF47QPwfZBNlYsF 3LjZpbjsgbWFy N7qxMwGiaWYxQtj+PHRhY mxlIHdpZHRoPScxMDAlJy XxtLapWR0mWg6zNGXwLJK vbGxhcHNlOiBj c5arPCKmOTvmQH8pzNoxD 4KrcEY5IAYiu3b3Bm71uI I+RQEhNMY7cVfjPPtpv84 2MePqu3voWRL5 nIPtTNtoYUO3X82aw2W4J NNgHNVuPWQ4wCX5oD4qxR gewkhvS0JniEMvRyU0JQL 2lSPefC0seChm naylmZ5uSvq+U17MOZ0AN GCHBM2GYdq1Q4ZiAkvulL I+JW03RNRiOE60wDEzhPM ci4jnbVl0YjJt LNNfUXD2iUtrMKoil1JhK DYwZ17muTZja8Y7NFUmsE hsoBKhAiWcjPA8rZ6xRWi sulysb1ujvkbp Rckll1fgfm22cU30N36sA PmqPDCpVWW1GYYxTSCebD wxdt8kkU0wIh5+LYtey8r vy4ydlDp1VsNv UYMxgrHmaLumDKF2d9RtS j40E1NovCmet7OjNwu8vm 02eQVdf0D2rII9ZBerHTQ ckY6gMJrqBcK6 QMCwJfDbgI80oXGnFJdnT i4xwOtchGgoWN2kTXYugh ryOPAqhP0yGQTluTQmhPf mAW3tMKHtbqrp v908RlVqSII7QAGfxOLbH 2ZjyQ0iSzNhSLWjLVUaJ4 GvyPFgWIwoL429DXhmBuP 9XTEeizRyV8Me YTHswSbwBcO6h2S6Kz3Zr 0RtwmyhOJS6LRluFZZvMs Y5BuImRbG5U4MtWtl4YHF xtBfgIP2yL0Oj NHYylsfgctmtaTJ0VUOwL WEjlQ08bGAhWUxeVr3ua1 H3d375OTNzPLYvlE11Cn7 udDogMTBwdCBU oC2akxmhc4aovhwhWiHuB EFzXAr3NTu9VRVswEluKr SmCGQ8CvW8SNO7sADopW3 naFvcyoqsaT6r Oyc+F71oeC5gEYC0IER4l jmgJZZbnvAnZL17IO81I1 RyPjwvdGFibGU+PGRpdiB wnMeuTY9eRcSd k8kbx4PlCTppM8IdZTLkX BsiSzt7WPMaKXW0tWZ5vZ 8lNHJdXKcsb2A7qMW0E9C rzcAieo4hi7eg QOPvBMeoV71idEEeq5L7H WWroPI4ZVCarPfkMvWqwD 93Oyc+RXTzdLfml0AsNet cl6rno2jmnMr5 PeQrEOEwqrEclXpnJCU6a 9GgAu82S72tWPydLICgOR JxYSXuJEKjzWjexe9hdI1 wIi8+PGNvbCB3 eQF2lN2oUWLtTfG3WUjaU 894EsUheDPvButdj6rro4 mnrJk8WsGvFXLffoZabLb tGCK1u3WbHp03 B44tIZvvEUKzOJBrJRSbM SRzyCduxx1flF5xBg7+PC 2eo8nhri82yY47eQW+PHR dYXV4gLzuWAab FMNgxY9tQKjjQeW6EVSeV lUmaJ46iDHcRTixCf7xkP bgvAhfUL7sQZCbvshfa93 8BdYmq5kqYQXu cYZsBKmnREJ4V91cw6P4G SDkJKHyEEA2zBS8dN2tpQ lnbjogbGVmdDsgdmVydGl mEIzmQMjrC389 IHRvcDsnPlBhdGllbnQgT eXiXLe1K9EnMol5GCBbjS exXK2byKLfNAteEy2ufVu jeEndDN3uTFDv hyvys060GdJdn5zdLPJjc EJwWKrpONB8X91xe6I8TW KtUOFnWOB9tZH6jO5acJk nbjogbGVmdDsg kmWjpNekRDolBXbaK042Q HRvcDsnPkJpcnRoIERhdG E3OS34KM16bDZze3M8gQP 5W9MqVCBggdkl pazspHE9HPQeWIFzfM44U u4zpTysPq5aQXNpCAB6HB ZsuAYgG5FaoY6yPhQnYFS kVTXqA7StkXIq WKhdY259PMosClJ7OFDbd rMsH2RsVBJviCkaIaE0q3 J4Vn5CU4T2HA31VZ79pQY qh8X6lKH7H5Et ZFFwolqiqzzyxZZ3FCPhA KTfmI36Mm6wlNicEp5lGE OpAYA3JEXjbAJfL6JvpB8 yOiAjMDAwMDAw M5LzbFFqPQwzD198LTikN fL0PIAlyaIgE9DzCDVgcS gpMpN2l1K9Ll7ZICu6AK8 6YV92mZQfx9L8 vOC5P5HyEYTxqbplegjma NK5IEIyLGZajD21Bf0maX yqAm2yDBQhOHX6DJNjuZT tN8CalR2vSmCh WNVhPAPpW4ZdkBOrXBesC 983CApxZgZ5FOYlbzCaC5 VrNDFxnSysJtN5o0O0Nw1 UMCTfMQ35IDP7 rJQ0EH58EE36E7DoAwujx GFibGU+PHRhYmxlIHdpZH RoPScxMDAlJyBzdHlsZT0 vMb1lCELnVVNi jDjebVJqIfIgy9keZIKfS NpbCM0emMukD5SraTE3YP Zhi6a5Vq61S41fH2BvlRW +MEObtIR5hJF7 kB2cNsWuKgW4GCxwG844P rNqfXUlRxdma5vrg2kwgN k6TwQ0DLCjuuOstSxgNKF 5j7MvOg61I78u IHdpZHRoPSIxNSUiIHZhb Npkml8yeK4iBi1+PGNvbC A1wCN7rK8iTeNwRwQ2YYn lH824KhDqxFYa Oxdlu3rgu4qkbLf5VvWfG DPbysUecEoxGEN8o9LnQa 03P9PpoSblm5MhOcv8fz5 0bGDyg3R7vAD1 X2WnBDTqsoqrfEXnrYczR C1bSWFzssvyUGRnzB9eJW LgU0z4JiMiJtW2KVrxV5P tspS9GMLfeZWz CLngHLW6R16hp8H6FGHdL DUxSJH7wXJ4bG2ckBwcdr ogbGVmdDsgdmVydGljYWw iHHtfC352KSXi sLwxTAYqpR5qLESjeJWkf XbrUU6gMQYztbpoTqARBr iUSQ5fOQKCEvj6B5ZlCrx 9GAQgaSoyUT1l qYXrRTthGr8ogBqluFnwU D6mOSSzzxzzBYRnmP9zOW FrrGAxpPenYG8mIDLzedp fy507ZbGkLIT6 ILZukTUvG4OcfM5tRtYpK UOkEUEhD8MqoKXkPVzxF8 42IObcJlH2KNYodzOyV7B sLWFsaWduOiB0 x1P5Ls9sOq4lXD4vSOluT S56PN23dKRcj2L0mJL2Z4 NgQFYjisilxwlvtTY6WQP vWSJnoT99qRLi ERwuZi7qz5V0v616UFDaE SXrwM64Wa7gcPpcUNRewV NVhY8fymjrz8bobwbaIhD cTFHfZYp0GZr6 JWTmlYxbZhLrALN5UaN3G YY1eOHzyS8czSemuhuxoQ 9wOyc+TQppSCTscpI8U5X wDph2LEKuiFir BG1bpDClTNgvEd3eyBypt QeeKG1xGRXxsqqqUDXilE 3qKUOhpKJwcCnuNW5dMAI bqmnnu389AsFc COY8TSXkzZNqY5KenA5zW zTtTMAfZWXmU7ZnjUYxTX rbV825HWgsViQ7MKFuhjJ fB4BtRFYsoJpz HtI1m6B6Az2PHG6exVU9Y 9UbVhm4SOTsfXlwUZ9lbF LnDFqxTh8kuRgfeEdeXB2 wNTBpbjtwYWRk vZ0mLUVpiNWigLroVO4lE BKawwfam308LjFiMPL9YP YrcYFxB3OojI7jByXpSQZ cPTCkM7ZncYNy URolY369CYqpCiG3FMKps gMmG7GpQOKsyNvkDhJ3j2 D7Bt0XgHZ6fTU9v6D8Y1J ajLBbVVT7ICX5 fbrdvsw7O6LyFlrfdGN+P K78VQZpJU08cDIdqVZzd8 mbsWj5LpMiSYTsPBG2xPo qATnmc2AiJZId V75yyHGsg1F0AKBesHtzm FOkMcXpbHF7hD4sSHflzn ahq1uzigofRyxpn9kjis2 5bS09A57tGYec ZHRoPSIzMCUiIHZhbGlnb g9zpL9vPg2+HMJxsJU6iE J0cI8bKrNpRvN3YTenY95 9InRvcCIvPjxj o4rec0cjcGw8FbVgGQYmz yGldHnpVPI5w0OnUq93U1 9sIHdpZHRoPSIyMCUiIHZ riIkuor4lkH7e Ii8+DQ1to0ahzj83cM44i HI+UQXmSTU6gMtdOZlkGX KweZ5pBJhzVeX8JIXsSjF vbF66gZKhJSeb Wz1ryDrmhMzcBL2wBHPoc grud923EzUkc7ciJWDeiE XhTVanWMM4D05nd2K4UPI wPUZtDKB0eTN6 mE9laVqivwqwgFJcwZbqi kZumTcdXQnjBPhdP773JF WymSncKwNntFLtZ8qwzyZ RCW1dWuzeiJF+ UWHgRVF4pEliYJfnONUuu J2zTYVcQ2k4PfOdBkK1IM vwY9VgfnL5FURfrGAyLAK nvJBWxL6lmmdm o4glshteMyPaAYAhJEn4N Ux3SCArtQmbGxZtREH3Un K1KXF1zXAbbG6hoCeucnf taM6qKqf+RklO OjwvdGQ+BCJqXVF1hZwnI QuqLQZzrN5iRDTgF1d8Pm TvBsZ9MUdcU0RtohW4OZD vbGQgMTBwdCBU bG8gllrsu7ofptxyZnPgP GXiJZf6EWf7PSPayCeuPr UfKUQ4AfJ6UDU7nNVcuP2 oaBqbhqwdoK9g Oyc+TVJOOjwvdGQ+PHRkI AX6bEbjTGzbDUKbhB7bFH BkD4r5OvGkAdZ0TCogP1J kyqF5EYAnzMNo XJIxlSMIrZ4bqugfh6xpn tqtLwGnYLXhDTq4AKh7GT MasEnbScWmJCM9RkV4RHQ 1sBWamO9vhAof zeahqR5fAel+GYA4YAY6V Q63IC72U4UvRbbziEXyzU U+PHRhYmxlIHdpZHRoPSc xMDAlJyBzdHls ZT0n (more content not included)... [facility] Consent for Anesthesiaon Consent for Anesthesia [id number]#1 .00CD:127 [facility] Discharge Instructionson Discharge Instructions [id number]#1 .00CD:127 [facility] Physician Orderon 10-14-2021 Physician Order [id number]#1 .00CD:127 [facility] Physician Order [id number]#1 .00CD:127 [facility] Physician Order [id number]#1 .00CD:127 [facility] Preoperative Documentson Preoperative Documents [id number]#1 .00CD:127 [facility] Prescriptions/Work Noteson 0 10-14-2021 Prescriptions/Work Notes [id number]#1 .00CD:127 [facility] Coding Summary.on 10-13-2021 Coding Summary. CD:[id number]:[id number] G h0bWw+PGhlYWQ+KC0GVUU rO54ncZUtaM8VQ7tWHM6A OYQYKWVLUA3VGR7rfZX8H HsfW2RpcxCw LciqgOGxXC30JKq2GMS3c VobBDwwiA7qlSHtL7z1Zw QhWA33kG66COqlJPUpBsH 3LjZpbjsgbWFy Q9zkIjWwpJEaOgh+PHRhY mxlIHdpZHRoPScxMDAlJy LxoXtoRA1jTg2pWEQcIOT vbGxhcHNlOiBj o5cgJMSiQAoqOO4hiSssO 1VckXG0RVCxc1l8Fj60dY I+BVYgRIS7wLkpBSmlb23 1BfIqi4spWMI0 pUKkEAjuLKJ4K70qj1M3V VKrBWTiPKT3bAD2nB6vvT ctwelmK8XxnUZjFiS7ABR 0bBOioW4csMnt gbicsF6sZhq+Z81RQG7XU JGCRG2GVli6Z6FsVrxyoF I+YP29ZPIlST55dRDywRE ig5tmtRa1MfVd PPObJUX0dHyjITzcp5ZiY BCxL61zbYCpe9G2XFCvnP cunEBrAdJztOD6qN6kDIb lsyafy4jkirou Takpk0mprf69vS33J99aV VqiEGQcKZQ1EVVcFCEmvV goka2egW5kGl4+JUrul3n qw2mrbIy5MpFb XBMpbqWrlZarILU5l1QbJ p48E9OwxCvhv3MlSwd6yi 54gJUkj0U7iFF1PNldXCS sbA1lNWgiRfD4 SUOfGrOzvQ44lEMqUJozX o9akVvsnQuxSF7vSXMujn ofYVDyrH0xPCIgaMQlaYa sCY9rJMMeazpy i557GmGeXRG4POCpwBRwB 2MiaG3rZlOsDWQeIUCqS0 EgcRMfYYgkV786FVaoFuM 1GIJvgsAbD2Pv MVBynUxfZiH0z2K8Dh8Bj 7ZswdcyDVS8GXkzCSCpRw SuHoJbJnB3V3PoXxk2MPR rlRhsVN2xZ3Bj IDLqeluiltfolWM9WFCsF PWygA06cYUlENnsXk7gy5 H9v226QTBfYTFaiF99Uq1 udDogMTBwdCBU wG3yobyqp4fhctgdEyUaL VAjNMa4XOo0YUYydEvuEl FmQWC8HsQ7TDG4vRScdN5 fxKqrhwstlX0a Oyc+C26fbM2qZOK0ZDI2m tlqEHCjsaTvZE10MQ22B7 RyPjwvdGFibGU+PGRpdiB pbDwxGG5tBzXu l7obh3JvWMbyI5BxDYHlR KtmYrj3CRXmMJD5eWM9rC 1uNVLqHRnbq0Q9gJA2Q0K qkxPnez0xg3cz YETlWRtwK14vtNCmi5R4U VOtjGN8AVBpkAyiXoKtnO 93Oyc+DQYrxEjiw0JnXqz io0dvd8mtmPi1 NdWiQIOoauWnvKdyLHU9u 7ZdUf62L95zUBggIJSzVG NnINQeKTDvlKgcgx8uaI4 wIi8+PGNvbCB3 cZS8iC4lBGZxZfN5EFcbX 002HlWhrKCsUtwzx5myb3 qppVr1YzYvJCUvwjUgzJf gIGA2j9ZvKy98 C64fJVicKBSiLLMtMHWkP ZGqaOfuom3hpH3mTq3+PC 6jf9ixct12eD36oEN+PHR jEND0pPezBPqy MIVqfP7kRUklXeQ5UMWiX fCkuP69eRBtVPnzKz5wgI vczIyyDE9nZFZglcnnh99 5RlCmr5keOQMm yQGsWCgxVOW4G61rb0L3I FViJLIiHFL9aNS3zJ3jfL lnbjogbGVmdDsgdmVydGl iQLwoLNkpP676 IHRvcDsnPlBhdGllbnQgT rXzYRv2U7TcKns2KSDxpA kjON1bnORvOXogVa8bwYt iaJgdWU0uZXZu nntvy600EjFfc0loJWImi TDdECsxTIJ6L70gv3N7ES EyHJZdLRA0lUO7iZ6bkAl nbjogbGVmdDsg wpLhgGpjXGoqFOjjX187N HRvcDsnPkJpcnRoIERhdG D1CF76KD62cLAqp6K6pYL 1N7SkSWDlzsxj mlekzUL9BQBeLHBbwE46L y4bdScgRb7rFBRsUCR8ML GpaLGfS6BtoA6vUdPjOMA zZKXcX0KkkVXy ZYhmQ909VPnxTbA2HQSiv bNlQ4KpPSJotMxhRoM2p1 S6Vc9JL9C4NN59PF41xJH cw1V1vFT1K8Nh AFLhqdkozbnbaFL3FWIfB VIqoQ36Hs9dwQmeDv6nRS CrHQM8CQLgtMUbM0SauR8 yOiAjMDAwMDAw G8LknXWpICxsO289PPtxP qY5GXDcjsZpK5IkOHRurP diLpW9n9Y7Lq9PHHy8RB4 6WZ67wCTim8P7 vPM3T1KhOVCbgcozpydvs NT8YFYbBWXyuX74Eh1ucO avJd8kTBMfLZY6QOTzvSZ nJ9AlvC2dHrSw EXMnYUEcZ5YswLCpIFguC 287FYreTnQ1DJZtqwFhZ6 SlHTDgrAixJgY0q1P4Vg7 BNLGxQO31YTD0 wYH1BS27BG19A5HhAgmlv GFibGU+PHRhYmxlIHdpZH RoPScxMDAlJyBzdHlsZT0 tDq2qABQqRLLh dUaynCXbYcFxc2pvLMDgK LpvVY4mvTehA0CsqNS2LB Mhb3v7Jl48G74zE1VeaIH +JMBaoHU9jZD2 qY0dBkKoBuD0UEhpB806H rGzqIXcUnoqm0enu4yyuR k5TmT0RXJhobFfaWkdGUW 2f8WcPq63Z35e IHdpZHRoPSIxNSUiIHZhb Ulohg8cfN6iZf6+PGNvbC M7eHT1yH3yIlAvRaU7IZx jS482FtYjaWXg Qavlx9wbc5ifoHq9CiIlR HKkwaKsvWeyWSR2a3WaWl 89O0ZbcZgfa8DpXki1vg4 2qCGej9D1gEK9 T3JwGWNrhqowvLXfeBjlE O8zZFEvblqnVDEdcS1uPE EcH2r2VqCcBzO2QPypS4W svvC4NFSlnZHo VZreFXA6N45as9J9GJZwC TGdOOW0bFQ2vK9ybEpziu ogbGVmdDsgdmVydGljYWw jNCfuG217BGZb yGqwYZXwoY0zTWQohTBro JncHN0sXSAalkblLbZKHy sLQF6aVJEUKsx0V3VaAsx 6ORZalCsxCZ5r aJJwDRqyPt3wjVmkpZxtY H6hQCVlbvflDXSejW4dTV UlmDVxoFunCM3hRCPpeil xf475OoLpRHT9 CMXymPPzT1SheX7xWiWsA KNbRDZjA4FqsVCtMLerD2 55NRwwXjG6YFJppdPjZ5V sLWFsaWduOiB0 w6O5Wg9kGn5pJF9zQYvcD H76XL03zGNjt0K0cWS8B3 ZrINQhniuwifwxjDT5WVV gHBCylP09iMBh LHqmFk0wj6R8d618QKTpW ZLjzD06Nb8hnHwcJINflP BOlQ6vyioki3smklnrZeV qKQAgEEp6HAv6 MCEbnFcdRzUhUUX6CrG5P XX4mTLvlS8hwJhanuqhvF 9wOyc+XHwvINClbeT8C4A wEul5AYBjbXxf DZ4zhEIdTTwxBl1bvGomm NtaHJ6kOSBdjdyhTDRpkP 7hMUAcuRDzxVcdLP9uSEF msnsnp633XuQn OFK7VCLalJOtP4RwpN7mL rJeQALcOJPeB8WqbIWsSK fmG517LWlvCvX3SZSvfiL pY2TuGDNyhAvl KhZ1w5W9Xq9HDL2yvQV6Z 5ErBnf4JAAtcLtmTH1ywU JkVJbqZm9txBnrmJwrDJ4 wNTBpbjtwYWRk qY8nEIMgqCDinDyoMG1wR ZCmykwjd516GnEoBQR1JH KfoGFyC2DvpU6sBhNcJOC aYHNoV9DaqYYw AJwnB358JWocTbB9YIJbs cKnV2FzNRZzbZngFzF1m2 C1Ua7QvXIaKGSsLN06EU4 8GJ96B8LtMave dGFibGU+PHRhYmxlIHdpZ HRoPScxMDAlJyBzdHlsZT 9uBu3lULAdTNWxeAjuwGW dWhCxv0gnUDAa KWtyWY9ibVmnS6PceKO3B UHsn6k8Ay66W46yP0QcqF A+CQFihPO4qVO6cH8dUmI uEfB7BZqgM929 UpErjBNxAvkvb9xxg9itk Ms6PrVvUSRzwdGcpWdjRI O3b8DeUu12O76xNDyhSAZ oPSIyMCUiIHZh uRvkes0czN4wIg1+PGNvb XC8wSO7vR1dFdDmMlI0BR gbG931XgEnvDHiSltvC91 pL9QtoTV+PHRy Lha6SOVcqIlkMY4mzFRkW FksTy7kPZM9NkByBlAcND cqR9UhSIUicogjweycnDW 1YUFaWHSvcD28 Sf9ehIgfMq8eWQCcTEE0Z WUnfJDmB8QvhG7tMsJcTK LqBAYeQ9JcqNInNYaaT37 8FIidJoO8YYJm hvAwZ0VoFQJqsOetKmQ9b 2A9Mg3VwTadqTZbCS0xBu PpEYw0T9ZvEvu9KDAxvFh fTT6owRDrTFlg Rr2lsBbwdJvnWS4pGIJds ogrs349QoAdn4nfMXFqtD YzCTlvVHS7X96ft5Q8ETV kOMYfCHO5vSN6 rC0rxQordibvzOCjuFrvm xUltDzmSOgvAVcvZ560VE CzdFwkLkLSRhr9F3GfLvo 0KJIynBttRJ5v gOJfZAawVl3rpHrpkDlvQ L9aCYXzpvtiy083VbXmg8 ijVRRxkJTgARirBCS5L46 uk5K1AQXiOQJn OGK1dCU6vV1zzIjeetrgl GVmdDsgdmVydGljYWwtYW tgX049AUZprZerJb9CRix 4F6CqLhq4SHBn hZkyAH9vvTTwCHmrCn4lg XbolZnjOU1kGZZnsmbfh2 75DoCoc4ekFGGhxNBuQJy fFUB5U23rn9F3 EEBsKIJxTJZ6fTB0sC3sz GlnbjogbGVmdDsgdmVydG lfMOgmKJjvV825QXWbdOr nPlBheWVyOjwv dGQ+EY49sb17D4KnZxcpV tl2DFXpOND7dMQ8nZ0fRD VeRLoey7E5lAK3S6EekiA liq1yz8noSIDm ZTog (more content not included)... Normal [facility] Consent for Treatmenton Consent for Treatment [id number] [email or web address] Normal [facility] H&P Updateon 10-13-2021 H&P Update [id number] [email or web address] Normal [facility] Inpatient Patient Summaryon 10-13-2021 Inpatient Patient Summary [place] [id number] [facility] Clinical Discharge Instructions PERSON INFORMATION Name: [facility] Admitting Physician: Bettina Ocampo MD Attending Physician: Bettina Ocampo MD PCP: WILLI RIDLEY DO Discharge Diagnosis: Sialolithiasis of submandibular gland Comment: PATIENT EDUCATION INFORMATION Instructions: Post Op Patient Instructions - FT (CUSTOM) Medication Leaflets: Follow up: With: Address: When: Bettina Ocampo Comments: Keep scheduled appointment MEDICATION LIST Medications to Continue with No Changes Other Medications ascorbic acid (Vitamin C 1000 mg oral tablet) 1 Tablets By Mouth every day. cholecalciferol (Vitamin D 1000 intl units Tab) 1 Tablets By Mouth every day. clindamycin (clindamycin 300 mg oral cap) 1 Capsules By Mouth every 6 hours. multivitamin (Cod Liver Oil oral capsule) 1 Capsules By Mouth every day. Turmeric (turmeric 500 mg oral capsule) 1 Capsules By Mouth every day. zinc citrate 1 cap By Mouth every day. Comment: Normal [facility] IntraOperative Documentson 0 10-13-2021 IntraOperative Documents [id number] .[id number]:127 Normal [facility] IntraOperative Documents [id number] .[id number]:127 [facility] Main OR PACU I Recordon Main OR PACU I Record PACU Phase I Document Type FT Summary Primary Physician: Bettina Ocampo MD Finalized Date/Time: 10/13/21 12:45:08 Pt. Name: JACQUI PEREZ /Sex: 1970 Female Med Rec #: [id number] Physician: Bettina Ocampo MD Financial #: [id number] Pt. Type: A Room/Bed: [place] [address] Admit/Disch: 10/13/21 09:52:43 - Institution: Case Times PACU I FT Pre-Care Text: Identifies barriers to communication and implements measures to provide psychological support Develops individualized plan of care, and ensures continuity of care Maintains patient's dignity and privacy, and maintains patient confidentiality Identifies and reports philosophical, cultural, and spiritual beliefs and values Identifies individual values and wishes concerning care Implements aseptic technique, and administers prescribed antibiotic therapy and immunizing agents as ordered Evaluates postoperative tissue perfusion Implements thermoregulation measures, and monitors body temperature Evaluates postoperative respiratory status Evaluates postoperative cardiac status Evaluates postoperative neurological status Assesses pain control, collaborated in initiating patient-controlled analgesia and implements alternative methods of pain control Verifies allergies, administers prescribed medications and solutions, evaluates response to medications Entry 1 In PACU I 10/13/21 12:05:00 Discharge from PACU 10/13/21 12:35:00 I Outcomes Met? Yes Last Modified By: Deanna Alvarez RN 10/13/21 12:44:36 Post-Care Text: The patient demonstrates knowledge of the expected response to the operative or invasive procedure The patient's care is consistent with the individualized perioperative plan of care The patient's right to privacy is maintained The patient's value system, lifestyle, ethnicity, and culture are considered, respected, and incorporated into the perioperative plan of care The patient participates in decisions affecting his or her perioperative plan of care The patient is free from signs and symptoms of infection The patient has wound/tissue perfusion consistent with or improved from baseline levels established preoperatively The patient is at or returning to normothermia at the conclusion of the immediate postoperative period The patient's respiratory function is consistent with or improved from baseline levels established preoperatively The patient's cardiovascular status is consistent with or improved from baseline levels established preoperatively The patient's cardiovascular status is consistent with or improved from baseline levels established preoperatively The patient demonstrates and/or reports adequate pain control throughout the perioperative period The patient received appropriate medication(s), safely administered during the perioperative period Acuity Level PACU I FT Entry 1 Start Time 10/13/21 12:05:00 Stop Time 10/13/21 12:35:00 Acuity Level Acuity Level I Last Modified By: Deanna Alvarez RN 10/13/21 12:45:02 Finalized By: Deanna Alvarez RN Document Signatures Signed By: Deanna Alvarez RN 10/13/21 12:45 Normal [facility] Main OR PACU II Recordon Main OR PACU II Record PACU Phase II Document Type FT Summary Primary Physician: Bettina Ocampo MD Finalized Date/Time: 10/13/21 13:54:02 Pt. Name: JACKJACQUI./Sex: 1970 Female Med Rec #: [id number] Physician: Bettina Ocampo MD Financial #: [id number] Pt. Type: A Room/Bed: [place] [address] Admit/Disch: 10/13/21 09:52:43 - Institution: Case Times PACU II FT Pre-Care Text: Identifies barriers to communication and implements measures to provide psychological support and determines knowledge level Develops individualized plan of care, and ensures continuity of care Maintains patient's dignity and privacy, and maintains patient confidentiality Identifies and reports philosophical, cultural, and spiritual beliefs and values Identifies individual values and wishes concerning care administers prescribed antibiotic therapy and immunizing agents as ordered, Evaluates postoperative tissue perfusion Implements thermoregulation measures, and monitors body temperature Evaluates postoperative respiratory status Evaluates postoperative cardiac status Evaluates postoperative neurological status Assesses pain control, collaborated in initiating patient-controlled analgesia and implements alternative methods of pain control Verifies allergies, administers prescribed medications and solutions, evaluates response to medications Entry 1 In PACU II 10/13/21 12:40:00 Discharge from PACU 10/13/21 13:50:00 II Outcomes Met? Yes Last Modified By: Ophelia Bourne RN 10/13/21 13:54:01 Post-Care Text: The patient demonstrates knowledge of the expected response to the operative or invasive procedure The patient's care is consistent with the individualized perioperative plan of care The patient's right to privacy is maintained The patient's value system, lifestyle, ethnicity, and culture are considered, respected, and incorporated into the perioperative plan of care The patient participates in decisions affecting his or her perioperative plan of care. The patient is free from signs and symptoms of infection The patient has wound/tissue perfusion consistent with or improved from baseline levels established preoperatively The patient is at or returning to normothermia at the conclusion of the immediate postoperative period The patient's respiratory function is consistent with or improved from baseline levels established preoperatively The patient's cardiovascular status is consistent with or improved from baseline levels established preoperatively The patient's neurological status is consistent with or improved from baseline levels established preoperatively The patient demonstrates and/or reports adequate pain control throughout the perioperative period The patient received appropriate medication(s), safely administered during the perioperative period Finalized By: Ophelia Bourne RN Document Signatures Signed By: Ophelia Bourne RN 10/13/21 13:54 Normal [facility] Main OR Preoperative Recordo n 10-13-2021 Main OR Preoperative Record PreOp Document Type FT Summary Primary Physician: Bettina Ocampo MD Finalized Date/Time: 10/13/21 11:37:46 Pt. Name: JACKJACQUI/Sex: 1970 Female Med Rec #: [id number] Physician: Bettina Ocampo MD Financial #: [id number] Pt. Type: A Room/Bed: [place] [address] Admit/Disch: 10/13/21 09:52:43 - Institution: Case Times PreOp FT Pre-Care Text: Verifies consent for planned procedure, identifies individual values and wishes concerning care, includes family members in perioperative teaching Entry 1 Patient Times. In Pre Surgery 10/13/21 09:55:00 Out Pre Surgery 10/13/21 11:31:00 Outcomes Met? Yes Last Modified By: EMILIA YEE RN 10/13/21 11:37:41 Post-Care Text: The patient participates in decisions affecting his or her perioperative plan of care Finalized By: EMILIA YEE RN Document Signatures Signed By: EMILIA YEE RN 10/13/21 11:37 Normal [facility] Monitor Recordon 10-13-2021 Monitor Record [id number]# 1.00CD:127 Normal [facility] Monitor Record [id number] 1.00CD:127 Normal [facility] Outpatient Surgery Discharge Instructionon 10-13-2021 Outpatient Surgery Discharge Instruction [place] [id number] Patient Discharge Instructions PERSON INFORMATION Name: JACQUI PEREZ Date of : 1970 Current Date: 10/13/2021 12:34:16 PHYSICIANS Admitting Physician: Terrence VALLE, Bettina Middleton Discharge Diagnosis: Sialolithiasis of submandibular gland JACK JACQUI has been given the following list of follow-up instructions, prescriptions, and patient education materials: PATIENT FOLLOW-UP INFORMATION Diet: Regular Discharge Activity: Expect mild pain, Expect minimal amount of drainage and/or bleeding, Activity as tolerated Additional Instructions: Maintain good hydration Sour candy, lemon drop, or lemon wedge hourly whil awake till seen IF UNABLE TO CONTACT YOUR PHYSICIAN AND YOU FEEL IT IS AN EMERGENCY, GO TO THE NEAREST EMERGENCY ROOM OR CALL 911 I, JACQUI PEREZ, have received the attached patient education materials/instruction s and have verbalized understanding: May we do a follow up call? Yes No I was present when discharge instructions were given Patient Signature Date Clinican/Nurse Signature Date Follow up: With: Address: When: Bettina Ocampo Comments: Keep scheduled appointment Pharmacy Information: You may receive a survey from [employer] asking you to rate your care experience. Your feedback is important and will help us understand what we do well and how we can improve the quality of care we provide to you, your loved ones and our community. It?s an honor to serve you. Thank you for choosing [facility] HERE ARE THE MEDICATION CHANGES THAT OCCURRED DURING YOUR HOSPITAL STAY Medications to Continue with No Changes Other Medications ascorbic acid (Vitamin C 1000 mg oral tablet) 1 Tablets By Mouth every day. cholecalciferol (Vitamin D 1000 intl units Tab) 1 Tablets By Mouth every day. clindamycin (clindamycin 300 mg oral cap) 1 Capsules By Mouth every 6 hours. multivitamin (Cod Liver Oil oral capsule) 1 Capsules By Mouth every day. Turmeric (turmeric 500 mg oral capsule) 1 Capsules By Mouth every day. zinc citrate 1 cap By Mouth every day. PATIENT EDUCATION INFORMATION Instructions: Medication Leaflets: Normal [facility] Patient Education - Texton 0 10-13-2021 Patient Education - Text Normal [facility] Progress Note-Physicianon Progress Note-Physician Patient: JACQUI PEREZ Age: 50 years Sex: Female : 1970 Associated Diagnoses: None Author: Jayjay Tello JR, DO Postoperative Information Post Operative Note: Post Anesthesia Care Unit. Anesthetic utilized: General, Monitored anesthesia care. Health Status Allergies: Allergic Reactions (Selected) No Known Allergies Current medications: (Selected) Inpatient Medications Ordered Lactated Ringers IV Lelia 1000 mL 1,000 mL: 1,000 mL, IV, 150 mL/hr, Routine, Start date 10/13/21 10:00:00 EST, 6.7 hour(s), Total volume (mL): 1,000 Documented Medications Documented Cod Liver Oil oral capsule: 1 cap(s), Oral, Daily Vitamin C 1000 mg oral tablet: 1,000 mg = 1 tab(s), Oral, Daily, Refills(s) 0, Prophylaxis Vitamin D 1000 intl units Tab: 25 mcg = 1 tab(s), Oral, Daily, Prophylaxis clindamycin 300 mg oral cap: 300 mg = 1 cap(s), Oral, q6hr, Infection or prophylaxis for antibiotics turmeric 500 mg oral capsule: 500 mg = 1 cap(s), Oral, Daily, Prophylaxis zinc citrate: 1 cap, Oral, Daily, Prophylaxis Problem list: All Problems SVT (supraventricular tachycardia) / SNOMED CT 65109205 / Confirmed Heart palpitations / SNOMED CT 723791710 / Confirmed GERD (gastroesophageal reflux disease) / SNOMED CT 561166476 / Confirmed Basal cell carcinoma on nose / SNOMED CT 166563990 / Confirmed DDD (degenerative disc disease), lumbar / SNOMED CT 73876592 / Confirmed Hyperlipidemia / SNOMED CT 79983332 / Confirmed Physical Examination Intake and Output Denies significant n/v and is tolerating p.o. Vital Signs (last 24 hrs) Last Charted Temp Oral 36.5 DegC (OCT 13 10:09) Heart Rate Apical 74 bpm (OCT 13 10:) Resp Rate 20 br/min (OCT 13 12:30) SBP 130 mmHg (OCT 13 12:40) DBP 85 mmHg (OCT 13 12:40) SpO2 98 % (OCT 13 12:40) Pain assessment: Pain Assessment 10/13/2021 12:40 EST Pain Symptoms Self Report No, able to self report Patient Preferred Pain Tool Numeric rating Numeric Pain Scale 0 = No pain Numeric Pain Score 0 10/13/2021 12:30 EST Pain Symptoms Self Report No, able to self report Numeric Pain Scale 0 = No pain Numeric Pain Score 0 10/13/2021 12:05 EST Pain Symptoms Self Report No, able to self report Numeric Pain Scale 0 = No pain Numeric Pain Score 0 10/13/2021 10:09 EST Preliminary Pain Scale 4 10/13/2021 10:09 EST Pain Symptoms Self Report Yes, able to self report Primary Pain Location Mouth Patient Preferred Pain Tool Numeric rating Numeric Pain Scale 4 Numeric Pain Score 4 . Respiratory: Adequate air exchange with anabaptist of preoperative function.. Cardiovascular: Cardiovascular function is stable and has returned to preoperative levels.. Neurologic: Pt has returned to preoperative baseline.. Review / Management Condition: Stable. Assessment Anesthetic outcome No anesthetic complications noted. Plan Transfer/ Discharge: Patient can be discharged from PACU when criteria met. Condition good. Normal [facility] Comment on above: Result Comment: Elec tronically Signed By: Jayjay Tello JR, DO\.br\Date and Time Signed: 10/13/21 13:31 EST Progress Note-Physician Patient: JACQUI PEREZ Age: 50 years Sex: Female : 1970 Associated Diagnoses: None Author: Jayjay Tello JR, DO Postoperative Information Post Operative Note: Post Anesthesia Care Unit. Anesthetic utilized: General, Monitored anesthesia care. Health Status Allergies: No active allergies have been recorded. Problem list: No problem items selected or recorded. Physical Examination Intake and Output Denies significant n/v and is tolerating p.o. No qualifying data available Respiratory: Adequate air exchange with anabaptist of preoperative function.. Cardiovascular: Cardiovascular function is stable and has returned to preoperative levels.. Neurologic: Pt has returned to preoperative baseline.. Review / Management Condition: Stable. Assessment Anesthetic outcome No anesthetic complications noted. Plan Transfer/ Discharge: Patient can be discharged from PACU when criteria met. Condition good. Normal [facility] Comment on above: Result Comment: Elec tronically Signed By: Jayjay Tello JR, DO Auto Diffon 10-12-2021 Basophils/100 WBC (Bld) 0.6 % Normal 0.0-2.0 [facility] Comment on above: Order Comment: Order Added by Discern Expert. Performed By: #### 2 [id number], [id number], [id number] #### [facility] [address] [place] [address]59 Basophils/Leukocyt es Auto (Bld) [Pure # fraction] 0.0 E9/L Normal 0.0-0.2 [facility] Comment on above: Order Comment: Order Added by Discern Expert. Performed By: #### 2 [id number], [id number], [id number] #### [facility] [address] [place] [address] 94936 Eosinophils/100 WBC (Bld) 3.1 % Normal 0.0-8.0 [facility] Comment on above: Order Comment: Order Added by Discern Expert. Performed By: #### 2 [id number], [id number], [id number] #### [facility] [address] [place] [address]179 Eosinophils/Leukoc ytes Auto (Bld) [Pure # fraction] 0.2 E9/L Normal 0.0-0.5 [facility] Comment on above: Order Comment: Order Added by Discern Expert. Performed By: #### 2 549258, [id number], [id number] #### [facility] [address] [place] [address] 07493 Lymphocytes/100 WBC (Bld) 40.9 % Normal 14.0-50.0 [facility] Comment on above: Order Comment: Order Added by Discern Expert. Performed By: #### 2 572879, [id number], [id number] #### [facility] [address] [place] [address] 81360 Lymphocytes/Leukoc ytes Auto (Bld) [Pure # fraction] 2.4 E9/L Normal 1.0-4.0 [facility] Comment on above: Order Comment: Order Added by Discern Expert. Performed By: #### 2 820588, [id number], [id number] #### [facility] [address] [place] [address] 10217 Monocytes/100 WBC (Bld) 4.5 % Normal 4.0-14.0 [facility] Comment on above: Order Comment: Order Added by Discern Expert. Performed By: #### 2 918491, 5699485, [id number] #### [facility] [address] [place] [address] 39881 Monocytes/Leukocyt es Auto (Bld) [Pure # fraction] 0.3 E9/L Normal 0.2-1.0 [facility] Comment on above: Order Comment: Order Added by Discern Expert. Performed By: #### 2 866123, 4452681, [id number] #### [facility] [address] [place] [address] Neutrophils/100 WBC (Bld) 50.9 % Normal 36.0-75.0 [facility] Comment on above: Order Comment: Order Added by Discern Expert. Performed By: #### 2 041112, 6474930, [id number] #### [facility] [address] [place] [address] Neutrophils/Leukoc ytes Auto (Bld) [Pure # fraction] 3.0 E9/L Normal 2.0-7.5 [facility] Comment on above: Order Comment: Order Added by Discern Expert. Performed By: #### 2 549964, 6451844, [id number] #### [facility] [address] [place] [address] BUNon 10-12-2021 Urea nitrogen [Mass/Vol] 21 mg/dL Normal 5-21 [facility] Comment on above: Performed By: #### 1 [id number], 3554161, 0953083, 3168528, [id number] #### [facility] [address] [place] [address] 95[address] CBC w/ Auto Diffon Erythrocyte distribution width (RBC) [Ratio] 14.2 % Normal 10.9-14.2 [facility] Comment on above: Performed By: #### 2 260743, 5256304, [id number] #### [facility] [address] [place] [address] Hematocrit (Bld) [Volume fraction] 40.1 % Normal 34.0-46.0 [facility] Comment on above: Performed By: #### 2 845288, 3289517, [id number] #### [facility] [address] [place] [address] Hemoglobin (Bld) [Mass/Vol] 13.6 g/dL Normal 12.0-16.0 [facility] Comment on above: Performed By: #### 2 799465, 4472054, [id number] #### [facility] [address] [place] [address] 19930 MCH (RBC) [Entitic mass] 29.9 pg Normal 27.0-34.0 [facility] Comment on above: Performed By: #### 2 690940, 9129289, 89060162 #### [facility] [address] [place] [address] 59914 MCHC (RBC) [Mass/Vol] 33.9 g/dL Normal 31.4-36.0 [facility] Comment on above: Performed By: #### 2 902436, 8889256, 23834411 #### [facility] [address] [place] [address] 88155 MCV (RBC) [Entitic vol] 88.4 fL Normal 80.0-100.0 [facility] Comment on above: Performed By: #### 2 771217, 1179320, 52342551 #### [facility] [address] [place] [address] 89569 Platelet mean volume (Bld) [Entitic vol] 9.3 fL Normal 6.4-10.8 [facility] Comment on above: Performed By: #### 2 342257, 0286797, [id number] #### [facility] [address] [place] [address] 13865 Platelets (Bld) [#/Vol] 261.0 E9/L Normal 150.0-500.0 [facility] Comment on above: Performed By: #### 2 795380, 2917760, 19555890 #### [facility] [address] [place] [address] 29129 RBC (Bld) [#/Vol] 4.5 E12/L Normal 4.3-5.9 [facility] Comment on above: Performed By: #### 2 261675, 8423485, [id number] #### [facility] [address] [place] [address] WBC corrected for nucl RBC Auto (Bld) [#/Vol] 5.9 E9/L Normal 4.0-11.0 [facility] Comment on above: Performed By: #### 2 644528, 7615821, [id number] #### [facility] [address] [place] [address] COVID-19 (MC)on 10-12-2021 SARS-CoV-2 (COVID-19) RNA CHANDLER+probe Ql (Resp) Not detected Normal Not Detected [facility] Comment on above: Result Comment: This test result should be correlated with clinical presentations and medical history by a healthcare provider to determine its clinical significance. This assay was performed by a reverse transcriptase real-time polymerase chain reaction (rt PCR) method on the [employer] system. This test has been authorized only for the detection of nucleic acid from SARS-CoV-2, not for any other viruses or pathogens. This test has not been FDA cleared or approved. This test has been authorized by FDA under an Emergency Use Authorization (EUA). This test is only authorized for the duration of time the declaration on that circumstances exist justifying the authorization emergency use of in vitro diagnostic tests for detection and/or diagnosis of COVID-19 infection under section 564 (b) (1) of the Act, 21 U.S.C. 360 bbb-3 (b) (1), unless authorization is terminated or revoked sooner. Performed By: #### 2 [id number] #### [facility] [address] [place] [id number] SARS-CoV-2 (COVID-19) RNA CHANDLER+probe Ql (Unsp spec) Pass Normal Pass [facility] Comment on above: Performed By: #### 2 [id number] #### [facility] [address] [place] [address] Specimen source Nom (Unsp spec) Nasal Normal [facility] Comment on above: Performed By: #### 2 [id number] #### [facility] [address] [place] [address] ADMITTED TO INTENSIVE CARE UNIT FOR CONDITION OF INTEREST:FIND:PT: NO Normal [facility] Comment on above: Performed By: #### 2 [id number] #### [facility] [address] [place] [address] EMPLOYED IN A HEALTHCARE SETTING:FIND:PT: Unknown Normal [facility] Comment on above: Performed By: #### 2 [id number] #### [facility] [address] [place] [address] FIRST TEST FOR CONDITION OF INTEREST:FIND:PT: Unknown Normal [facility] Comment on above: Performed By: #### 2 [id number] #### [facility] [address] [place] [address] HAS SYMPTOMS RELATED TO CONDITION OF INTEREST:FIND:PT: NO Normal [facility] Comment on above: Performed By: #### 2 [id number] #### [facility] [address] [place] [address] HOSPITALIZED FOR CONDITION OF INTEREST:FIND:PT: NO Normal [facility] Comment on above: Performed By: #### 2 [id number] #### [facility] [address] [place] [address] STATUS:FIND:PT: NO Normal [facility] Comment on above: Performed By: #### 2 [id number] #### [facility] [address] [place] [address] RESIDES IN A [facility] SET[facility]:FIND:PT: NO Normal [facility] Comment on above: Performed By: #### 2 [id number] #### [facility] [address] [place] [address] CT Soft Tissue Neck w/o Cont rocío 10-12-2021 CT Soft Tissue Neck w/o Contrast Exam Date/Time: 10/12/2021 13:36 EST Reason for Exam: LEFT SUBMANDIBULAR STONE Report IMPRESSION: 9 mm left and 3 mm right Monroe duct sialoliths prominence of the left Elier's duct. CT Soft Tissue Neck w/o Contrast HISTORY: LEFT SUBMANDIBULAR STONE COMPARISON: None TECHNIQUE: Series of contiguous helical scans from the skull base to the aortic arch following bolus injection of contrast. CONTRAST: iopamidol (ISOVUE-300) intravenous of [address] scans at this facility use dose modulation, iterative reconstruction, and/or weight based dosing when appropriate to reduce radiation dose to as low as reasonably achievable. RESULT: Neck: Nasal cavity and oral cavity are unremarkable within limitations of artifact from dental amalgam. Pharyngeal mucosal space is normal in appearance. Vallecula and epiglottis are within normal limits and the pre-epiglottic fat is maintained. The parotid glands are unremarkable. Submandibular glands are within normal limits. There are 9 mm left and 3 mm right submandibular duct sialoliths. There is mild prominence of the left Elier's duct. Thyroid gland unremarkable. Carotid arteries and jugular veins are unremarkable. Remainder of fascial spaces of the neck and contents are normal. Cervical Lymph Nodes: No lymphadenopathy by size criteria. Brain: Visualized intracranial contents are normal in appearance. Orbits are grossly normal. Visualized paranasal sinuses are clear and the mastoid air cells are well aerated bilaterally. Lung Apices: Imaged lung apices are clear. Infraglottic airway is patent. Report Bones: No acute osseous findings. FINAL REPORT Dictated: 10/12/2021 3:54 pm Lucio Smyth MD Signed (Electronic Signature): 10/12/2021 3:54 pm Signed by: Lucio Smyth MD Transcribed by: KIRK Technologist: SB [facility] Consent for Procedure/Surger yon 10-12-2021 Consent for Procedure/Surgery [id number]# 1.00CD:127 [facility] Consent for Treatmenton 0 Consent for Treatment [id number]#1 .00CD:127 [facility] Consent for Treatment [id number] .00CD:127 [facility] Creatinineon 10-12-2021 Creatinine [Mass/Vol] 0.7 mg/dL Normal 0.5-1.3 [facility] Comment on above: Performed By: #### 1 [id number], [id number], 6815717, 1315964, 6761162 #### [facility] [address] [place] [address] Glucoseon 10-12-2021 Glucose [Mass/Vol] 94 mg/dL Normal 55-199 [facility] Comment on above: Performed By: #### 1 [id number], 0102374, 8953947, 1252810, 1281966 #### [facility] [address] [place] [address] Lyteson 10-12-2021 Anion gap [Moles/Vol] 14 mmol/L Normal 6-16 [facility] Comment on above: Performed By: #### 1 [id number], 7235195, 8954336, 2962295, 0185207 #### [facility] [address] [place] [address] Chloride [Moles/Vol] 102 mmol/L Normal 101-111 [facility] Comment on above: Performed By: #### 1 [id number], 6687757, 2734701, 4656390, 7022938 #### [facility] [address] [place] [address] CO2 [Moles/Vol] 25 mmol/L Normal 21-31 [facility] Comment on above: Performed By: #### 1 [id number], 2320625, 8935599, 7394730, 0923587 #### [facility] [address] [place] [address] Potassium [Moles/Vol] 3.7 mmol/L Normal 3.5-5.3 [facility] Comment on above: Performed By: #### 1 4797597, 5591757, 3053028, 5911837, 6563663 #### [facility] [address] [place] [address] Sodium [Moles/Vol] 137 mmol/L Normal 135-145 [facility] Comment on above: Performed By: #### 1 9302837, 3005427, 2643995, 1799225, 2852991 #### [facility] [address] [place] [address] PT & PTTon 10-12-2021 aPTT Coag (PPP) [Time] 44.4 second(s) High 25.1-36.5 [facility] Comment on above: Result Comment: Hepa rin therapeutic range (represented by Anti-Factor Xa activity of 0.2 - 0.4 U/mL) corresponds to PTT of 56.6 - 109.0 sec. Performed By: #### 2 276112, 3575392, [id number] #### [facility] [address] [place] [address] INR Coag (PPP) [Relative time] 1.2 {INR} Invalid Interpretation Code [facility] Comment on above: Result Comment: INR results are specifically intended to assess patients stabilized on long-term Anticoagulation therapy suggested INR?s ?Less Intensive Anticoagulation? 2.0 ? 3.0 Conventional Range 3.0 ? 4.5 Performed By: #### 2 087952, 8511195, [id number] #### [facility] [address] [place] [address] PT Coag (PPP) [Time] 13.9 second(s) High 10.2-12.9 [facility] Comment on above: Performed By: #### 2 369044, 4937942, [id number] #### [facility] [address] [place] [address] Physician Orderon 10-12-2021 Physician Order [id number] .00CD:127 Normal [facility] Progress Note-Physicianon Progress Note-Physician Patient: JACQUI PEREZ Age: 50 years Sex: Female : 1970 Associated Diagnoses: None Author: Jayjay Tello JR, DO Preoperative Information Anesthesia history: Patient History: Pt./ family denies any personal or family hx of problems/difficulties with anesthesia.. Re-eval prior to induction: Inital eval reviewed: No significant interval change, NPO 10 hours.. Review of Systems Constitutional: See nursing assessment.. Cardiovascular: Cardiac risk assessment performed. Pt. denies any significant change in their cv hx.. Respiratory: Pt. denies any signicant change in their respiratory status.. Neurologic: Pt. denies any acute neurological changes.. Health Status Allergies: No active allergies have been recorded., No qualifying data available Current medications: (Selected) , No qualifying data available Problem list: No problem items selected or recorded., No qualifying data available Histories Past Medical History: No active or resolved past medical history items have been selected or recorded. Family History: No family history items have been selected or recorded. Procedure history: No active procedure history items have been selected or recorded. Social History Social & Psychosocial Habits No Data Available . Physical Examination No qualifying data available Airway: Normal oral/pharyngeal anatomy.. Respiratory: Adequate air exchange.. Cardiovascular: Adequate perfusion and function. Review / Management Results review: No qualifying data available . Plan [place] [employer]hes[employer] (ASA) physical status classification: Class II. Anesthetic Preoperative Plan Anesthesia: General. . Anesthetic plan, risks, benefits, and alternatives discussed with the patient and/or family. Pt. and/or family present and agree to proceed as planned.. Discussed the importance of abstaining from tobacco products, and offered counseling if desired. [facility] Comment on above: Result Comment: Elec tronically Signed By: Jayjay Tello JR, DO\.br\Date and Time Signed: 10/12/21 10:11 EST XR Chest 2 Viewson XR Chest 2 Views Exam Date/Time: 10/12/2021 13:51 EST Reason for Exam: pre op Report IMPRESSION: NO EVIDENCE OF ACTIVE CHEST DISEASE. CLINICAL HISTORY: pre op. COMMENT: The heart is normal in size. The mediastinum is unremarkable. The lungs appear clear. No infiltration nor pleural effusion is evident. FINAL REPORT Dictated: 10/12/2021 2:09 pm Zack Contreras M.D. Signed (Electronic Signature): 10/12/2021 2:09 pm Signed by: Zack Contreras M.D. Transcribed by: KIRK Technologist: LIO [facility] eGFRon 10-12-2021 GFR/1.73 sq M.predicted among blacks MDRD (S/P/Bld) [Vol rate/Area] mL/min/{1.73_m2} Normal >=59 [facility] Comment on above: Order Comment: Order added by Discern Expert. Result Comment: eGFR is race adjusted. AA=. Performed By: #### 1 [id number], 0294039, 4508987, 5129021, 0588893 #### [facility] [address] [place] [address] GFR/1.73 sq M.predicted among non-blacks MDRD (S/P/Bld) [Vol rate/Area] mL/min/{1.73_m2} Normal >=59 [facility] Comment on above: Order Comment: Order added by Discern Expert. Result Comment: Training Program Manager wayne kidney disease could be indicated at eGFR's of less than 60 mL/min/1.73m2. Kidney failure is indicated at less than 15 mL/min/1.73m2. Performed By: #### 1 [id number], 5713771, 4323197, 1191439, 1956964 #### [facility] [address] [place] [address] COMPREHENSIVE METABOLIC PANE [facility] 09-20-2021 Albumin [Mass/Vol] 4.7 g/dL Normal 3.6-5.1 [facility] Comment on above: Performed By: #### 7 600, 91607 #### [facility] [address], [address] [place], [place] [id number] Microwave Supervisor: Rei Esteban MD Albumin/Globulin [Mass ratio] 1.7 {ratio} Normal 1.0-2.5 [facility] Comment on above: Performed By: #### 7 600, 02977 #### [facility] [address], [address] [place], [place] [id number] Microwave Supervisor: Rei Esteban MD ALP [Catalytic activity/Vol] 75 U/L Normal 31-125 [facility] Comment on above: Performed By: #### 7 600, 70425 #### [facility] [address], [address] [place], [place] [id number] Microwave Supervisor: Rei Esteban MD ALT [Catalytic activity/Vol] 12 U/L Normal 6-29 [facility] Comment on above: Performed By: #### 7 600, 39846 #### [facility] of [address], [address] [place] [address] Microwave Supervisor: Rei Esteban MD AST [Catalytic activity/Vol] 13 U/L Normal 10-35 [facility] Comment on above: Performed By: #### 7 600, 92143 #### [facility] of [address], [address] [place] [address] Microwave Supervisor: Rei Esteban MD Bilirubin [Mass/Vol] 0.5 mg/dL Normal 0.2-1.2 [facility] Comment on above: Performed By: #### 7 600, 07187 #### [facility] of [address], [address] [place] [address] Microwave Supervisor: Rei Esteban MD BUN/CREATININE RATIO NOT APPLICABLE Normal 6-22 [facility] Comment on above: Performed By: #### 7 600, 66063 #### [facility] of [address], [address] [place] [address] Microwave Supervisor: Rei Esteban MD Calcium [Mass/Vol] 10.1 mg/dL Normal 8.6-10.2 [facility] Comment on above: Performed By: #### 7 600, 75904 #### [facility] of [address], [address] [place] [address] Microwave Supervisor: Rei Esteban MD Chloride [Moles/Vol] 101 mmol/L Normal 98-110 [facility] Comment on above: Performed By: #### 7 600, 76871 #### [facility] of [address], [address] [place] [address] Microwave Supervisor: Rei Esteban MD CO2 [Moles/Vol] 31 mmol/L Normal 20-32 [facility] Comment on above: Performed By: #### 7 600, 02039 #### [facility] of [address], [address] [place] [address] Microwave Supervisor: Rei Esteban MD Creatinine [Mass/Vol] 0.76 mg/dL Normal 0.50-1.10 [facility] Comment on above: Performed By: #### 7 600, 52538 #### [facility] [place] [address] Microwave Supervisor: Rei Esteban MD eGFR NON-AFR. SAUDI ARABIAN 93 mL/min/1.73m2 Normal > OR = 60 [facility] Comment on above: Performed By: #### 7 600, 65087 #### [facility] of [place] [address] Microwave Supervisor: Rei Esteban MD GFR/1.73 sq M.predicted among blacks MDRD (S/P/Bld) [Vol rate/Area] 108 mL/min/{1.73_m2} Normal > OR = 60 [facility] Comment on above: Performed By: #### 7 600, 14293 #### [facility] of [place] [address] Microwave Supervisor: Rei Esteban MD Globulin (S) [Mass/Vol] 2.7 g/dL Normal 1.9-3.7 [facility] Comment on above: Performed By: #### 7 600, 70482 #### [facility] [place] [address] Microwave Supervisor: Rei Esteban MD Glucose [Mass/Vol] 86 mg/dL Normal 65-99 [facility] Comment on above: Result Comment: Fasting reference interval Performed By: #### 7 600, 87484 #### [facility] [place] [address] Microwave Supervisor: Rei Esteban MD Potassium [Moles/Vol] 3.9 mmol/L Normal 3.5-5.3 [facility] Comment on above: Performed By: #### 7 600, 00589 #### [facility] of [place] [address] Microwave Supervisor: Rei Esteban MD Protein [Mass/Vol] 7.4 g/dL Normal 6.1-8.1 [facility] Comment on above: Performed By: #### 7 600, 07774 #### [facility] [place] [address] Microwave Supervisor: Rei Esteban MD Sodium [Moles/Vol] 140 mmol/L Normal 135-146 [facility] Comment on above: Performed By: #### 7 600, 47255 #### [facility] [place] [address] Microwave Supervisor: Rei Esteban MD Urea nitrogen [Mass/Vol] 13 mg/dL Normal 7-25 [facility] Comment on above: Performed By: #### 7 600, 27862 #### [facility] [place] [address] Microwave Supervisor: Rei Esteban MD LIPID PANEL, [facility] Cholesterol [Mass/Vol] 248 mg/dL High <200 [facility] Comment on above: Order Comment: FASTI NG:YES FASTING: YES Performed By: #### 7 600, 46064 #### [facility] [place] [address] Microwave Supervisor: Rei Esteban MD Cholesterol in HDL [Mass/Vol] 68 mg/dL Normal > OR = 50 [facility] Comment on above: Order Comment: FASTI NG:YES FASTING: YES Performed By: #### 7 600, 75766 #### [facility] [place] [address] Microwave Supervisor: Rei Esteban MD Cholesterol in LDL [Mass/Vol] 157 mg/dL High [facility] Comment on above: Order Comment: FASTI NG:YES FASTING: YES Result Comment: Refe rence range: <100 Desirable range <100 mg/dL for primary prevention; <70 mg/dL for patients with CHD or diabetic patients with > or = 2 CHD risk factors. LDL-C is now calculated using the Keshia calculation, which is a validated novel method providing better accuracy than the Friedewald equation in the estimation of LDL-C. Ed ADAMS et al. FOZIA. 2013;310(19): 3555-9127 (http://education.[employer].Sonarworks/faq/RCI473) Performed By: #### 7 600, 38997 #### [facility] [address], [address] [place] [address] Microwave Supervisor: Rei Esteban MD Cholesterol.total/ Cholesterol in HDL [Mass ratio] 3.6 {ratio} Normal <5.0 [facility] Comment on above: Order Comment: FASTI NG:YES FASTING: YES Performed By: #### 7 600, 79161 #### [facility] [address], [address] [place] [address] Microwave Supervisor: Rei Esteban MD NON HDL CHOLESTEROL 180 mg/dL (calc) High <130 [facility] Comment on above: Order Comment: FASTI NG:YES FASTING: YES Result Comment: For patients with diabetes plus 1 major ASCVD risk factor, treating to a non-HDL-C goal of <100 mg/dL (LDL-C of <70 mg/dL) is considered a therapeutic option. Performed By: #### 7 600, 91453 #### [facility] [place] [address] Microwave Supervisor: Rei Esteban MD Triglyceride [Mass/Vol] 110 mg/dL Normal <150 [facility] Comment on above: Order Comment: FASTI NG:YES FASTING: YES Performed By: #### 7 600, 26689 #### [facility] [place] [address] Microwave Supervisor: Rei Esteban MD CBC (INCLUDES DIFF/PLT)on Basophils (Bld) [#/Vol] 0.032 10*3/uL Normal 0-200 [facility] Comment on above: Performed By: #### 5 8961, 62064, 6399 #### [facility] [place] [address] Microwave Supervisor: Rei Esteban MD Basophils/100 WBC (Bld) 0.4 % Normal [facility] Comment on above: Performed By: #### 5 8984, , 6399 #### [facility] of [address], [address] [place] [address] Microwave Supervisor: Rei Esteban MD Eosinophils (Bld) [#/Vol] 0.205 10*3/uL Normal 15-500 [facility] Comment on above: Performed By: #### 5 8984, , 6399 #### [facility] of [address], [address] [place] [address] Microwave Supervisor: Rei Esteban MD Eosinophils/100 WBC (Bld) 2.6 % Normal [facility] Comment on above: Performed By: #### 5 8984, , 6399 #### [facility] of [place] [address] Microwave Supervisor: Rei Esteban MD Erythrocyte distribution width (RBC) [Ratio] 13.2 % Normal 11.0-15.0 [facility] Comment on above: Performed By: #### 5 8984, , 6399 #### [facility] of [place] [address] Microwave Supervisor: Rei Esteban MD Hematocrit (Bld) [Volume fraction] 39.6 % Normal 35.0-45.0 [facility] Comment on above: Performed By: #### 5 8984, , 6399 #### [facility] of [place] [address] Microwave Supervisor: Rei Esteban MD Hemoglobin (Bld) [Mass/Vol] 13.1 g/dL Normal 11.7-15.5 [facility] Comment on above: Performed By: #### 5 8984, 56893, 6399 #### [facility] of [place] [address] Microwave Supervisor: Rei Esteban MD Lymphocytes (Bld) [#/Vol] 3.042 10*3/uL Normal 850-3900 [facility] Comment on above: Performed By: #### 5 8984, , 6399 #### [facility] of [address], [address] [place] [address] Microwave Supervisor: Rei Esteban MD Lymphocytes/100 WBC (Bld) 38.5 % Normal [facility] Comment on above: Performed By: #### 5 8984, 38136, 6399 #### [facility] of [address], [address] [place] [address] Microwave Supervisor: Rei Esteban MD MCH (RBC) [Entitic mass] 29.6 pg Normal 27.0-33.0 [facility] Comment on above: Performed By: #### 5 89, 76554, 6399 #### [facility] of [address], [address] [place] [address] Microwave Supervisor: Rei Esteban MD MCHC (RBC) [Mass/Vol] 33.1 g/dL Normal 32.0-36.0 [facility] Comment on above: Performed By: #### 5 89, 97066, 6399 #### [facility] of [address], [address] [place] [address] Microwave Supervisor: Rei Esteban MD MCV (RBC) [Entitic vol] 89.4 fL Normal 80.0-100.0 [facility] Comment on above: Performed By: #### 5 89, 54808, 6399 #### [facility] of [address], [address] [place] [address] Microwave Supervisor: Rei Esteban MD Monocytes (Bld) [#/Vol] 0.316 10*3/uL Normal 200-950 [facility] Comment on above: Performed By: #### 5 89, 19630, 6399 #### [facility] of [address], [address] [place] [address] Microwave Supervisor: Rei Esteban MD Monocytes/100 WBC (Bld) 4.0 % Normal [facility] Comment on above: Performed By: #### 5 89, 97337, 6399 #### [facility] of [address], [address] [place] [address] Microwave Supervisor: Rei Esteban MD Neutrophils (Bld) [#/Vol] 4.306 10*3/uL Normal 4272-7436 [facility] Comment on above: Performed By: #### 5 8984, 81967, 6399 #### [facility] of [address], [address] [place] [address] Microwave Supervisor: Rei Esteban MD Neutrophils/100 WBC (Bld) 54.5 % Normal [facility] Comment on above: Performed By: #### 5 8984, 40030, 6399 #### [facility] of [address], [address] [place] [address] Microwave Supervisor: Rei Esteban MD Platelet mean volume (Bld) [Entitic vol] 11.5 fL Normal 7.5-12.5 [facility] Comment on above: Performed By: #### 5 8984, , 6399 #### [facility] of [address], [address] [place] [address] Microwave Supervisor: Rei Esteban MD Platelets (Bld) [#/Vol] 296 10*3/uL Normal 140-400 [facility] Comment on above: Performed By: #### 5 8984, 67215, 6399 #### [facility] of [address], [address] [place] [address] Microwave Supervisor: Rei Esteban MD RBC (Bld) [#/Vol] 4.43 10*6/uL Normal 3.80-5.10 [facility] Comment on above: Performed By: #### 5 8984, 41323, 6399 #### [facility] of [address], [address] [place] [address] Microwave Supervisor: Rei Esteban MD WBC (Bld) [#/Vol] 7.9 10*3/uL Normal 3.8-10.8 [facility] Comment on above: Performed By: #### 5 8984, 77260, 6399 #### [facility] of [address], [address] [place] [address] Microwave Supervisor: Rei Esteban MD COMPREHENSIVE METABOLIC [facility] 07-13-2021 Albumin [Mass/Vol] 4.6 g/dL Normal 3.6-5.1 [facility] Comment on above: Performed By: #### 5 8984, 91654, 6399 #### [facility] of [address], [address] [place] [address] Microwave Supervisor: Rei Esteban MD Albumin/Globulin [Mass ratio] 1.6 {ratio} Normal 1.0-2.5 [facility] Comment on above: Performed By: #### 5 8984, 44151, 6399 #### [facility] of [address], [address] [place] [address] Microwave Supervisor: Rei Esteban MD ALP [Catalytic activity/Vol] 88 U/L Normal 31-125 [facility] Comment on above: Performed By: #### 5 8984, 03920, 6399 #### [facility] of [address], [address] [place] [address] Microwave Supervisor: Rei Esteban MD ALT [Catalytic activity/Vol] 21 U/L Normal 6-29 [facility] Comment on above: Performed By: #### 5 8984, 78721, 6399 #### [facility] of [place] [address] Microwave Supervisor: Rei Esteban MD AST [Catalytic activity/Vol] 18 U/L Normal 10-35 [facility] Comment on above: Performed By: #### 5 8984, 83209, 6399 #### [facility] of [address], [address] [place] [address] Microwave Supervisor: Rei Esteban MD Bilirubin [Mass/Vol] 0.3 mg/dL Normal 0.2-1.2 [facility] Comment on above: Performed By: #### 5 8984, 19459, 6399 #### [facility] of [place] [address] Microwave Supervisor: Rei Esteban MD BUN/CREATININE RATIO NOT APPLICABLE Normal 6-22 [facility] Comment on above: Performed By: #### 5 8984, 77377, 6399 #### [facility] of [address], [address] [place] [address] Microwave Supervisor: Rei Esteban MD Calcium [Mass/Vol] 9.3 mg/dL Normal 8.6-10.2 [facility] Comment on above: Performed By: #### 5 8984, 14131, 6399 #### [facility] of [address], [address] [place] [address] Microwave Supervisor: Rei Esteban MD Chloride [Moles/Vol] 103 mmol/L Normal 98-110 [facility] Comment on above: Performed By: #### 5 8984, , 6399 #### [facility] of [address], [address] [place] [address] Microwave Supervisor: Rei Esteban MD CO2 [Moles/Vol] 26 mmol/L Normal 20-32 [facility] Comment on above: Performed By: #### 5 8984, , 6399 #### [facility] of [address], [address] [place] [address] Microwave Supervisor: Rei Esteban MD Creatinine [Mass/Vol] 0.80 mg/dL Normal 0.50-1.10 [facility] Comment on above: Performed By: #### 5 8984, 70773, 6399 #### [facility] of [place] [address] Microwave Supervisor: Rei Esteban MD eGFR NON-AFR. SAUDI ARABIAN 87 mL/min/1.73m2 Normal > OR = 60 [facility] Comment on above: Performed By: #### 5 8984, 93849, 6399 #### [facility] of [place] [address] Microwave Supervisor: Rei Esteban MD GFR/1.73 sq M.predicted among blacks MDRD (S/P/Bld) [Vol rate/Area] 101 mL/min/{1.73_m2} Normal > OR = 60 [facility] Comment on above: Performed By: #### 5 8984, 29004, 6399 #### [facility] [place] [address] Microwave Supervisor: Rei Esteban MD Globulin (S) [Mass/Vol] 2.8 g/dL Normal 1.9-3.7 [facility] Comment on above: Performed By: #### 5 8984, 36445, 6399 #### [facility] [place] [address] Microwave Supervisor: Rei Esteban MD Glucose [Mass/Vol] 118 mg/dL High 65-99 [facility] Comment on above: Result Comment: Fasting reference interval For someone without known diabetes, a glucose value between 100 and 125 mg/dL is consistent with prediabetes and should be confirmed with a follow-up test. Performed By: #### 5 8984, 12947, 6399 #### [facility] [place] [address] Microwave Supervisor: Rei Esteban MD Potassium [Moles/Vol] 4.0 mmol/L Normal 3.5-5.3 [facility] Comment on above: Performed By: #### 5 8984, 52969, 6399 #### [facility] [place] [address] Microwave Supervisor: Rei Esteban MD Protein [Mass/Vol] 7.4 g/dL Normal 6.1-8.1 [facility] Comment on above: Performed By: #### 5 8984, 21417, 6399 #### [facility] [place] [address] Microwave Supervisor: Rei Esteban MD Sodium [Moles/Vol] 141 mmol/L Normal 135-146 [facility] Comment on above: Performed By: #### 5 8984, 73159, 6399 #### [facility] [place] [address] Microwave Supervisor: Rei Esteban MD Urea nitrogen [Mass/Vol] 18 mg/dL Normal 7-25 [facility] Comment on above: Performed By: #### 5 [id number], [id number], [id number] #### [facility] [address], [address] [place] [address] Microwave Supervisor: Rei Esteban MD TSH+FREE T4on 07-13-2021 Free T4 [Mass/Vol] 1.2 ng/dL Normal 0.8-1.8 [facility] Comment on above: Performed By: #### 5 8984, 26924, 6399 #### [facility] [address], [address] [place] [address] Microwave Supervisor: Rei Esteban MD TSH Qn 2.93 m[IU]/L Normal [facility] Comment on above: Result Comment: Refe rence Range > or = 20 Years 0.40-4.50 Ranges First trimester 0.26-2.66 Second trimester 0.55-2.73 Third trimester 0.43-2.91 Performed By: #### 5 8984, 56090, 6399 #### [facility] [address], [address] [place] [address] Microwave Supervisor: Rei Esteban MD SARS COV 2 AB (IGG) SPIKE, S ABBY QNon 01-26-2021 SARS-CoV-2 (COVID-19) Ab IA Qn 4.65 index High <1.00 [facility] Comment on above: Result Comment: Reference Range INDEX INTERPRETATION <1.00 Negative > or = 1.00 Positive This test is intended to help identify individuals with antibodies to SARS-CoV-2 (COVID-19). The results of this semi-quantitative test should not be interpreted as an indication or degree of immunity or protection from reinfection. A test result that is 1.00 or more (Positive) means antibodies to SARS-CoV-2 were detected in the blood sample by the test. This could mean that the individual may have an immune response to a recent or prior infection with SARS-CoV-2. Positive results may occur after COVID-19 vaccination, but the clinical significance of a positive antibody result for individuals that have received a COVID-19 vaccine is unknown, and the performance of the test has not been established in COVID-19 vaccinees. False positive results for the test may occur due to cross- reactivity from pre-existing antibodies or other possible causes. A test result that is less than 1.00 (Negative) means that antibodies were not detected in the blood sample by the test. This could mean that the individual has not been previously infected with SARS-CoV-2. The clinical significance of a negative antibody result for individuals that have received a COVID-19 vaccine is unknown. The performance of the test has not been established in COVID-19 vaccinees. False negative results for the test may occur if the individual's antibodies have not reached a sufficient level for the test to be able to detect them. Antibodies can take up to two to three weeks (sometimes longer) to develop after someone is infected. How long antibodies to SARS-CoV-2 last after infection is not known. This test should not be used to diagnose an active SARS- CoV-2 infection. If an active infection is suspected, direct molecular or antigen testing for SARS-CoV-2 is recommended. Please review the Fact Sheets available for healthcare providers and patients using the following websites: https://www.[employer].Sonarworks/home/Covid-19/HCP/antibody/ fact-sheet8 https://www.[employer]ar[employer]/home/Covid-19/Patients/ antibody/fact-sheet8 Healthcare Providers: For additional information please refer to: http://education.[employer]/faq/KCH802 (This link is being provided for informational/ educational purposes only.) This test has been authorized by the FDA under an Emergency Use Authorization (EUA) for use by authorized laboratories. The FDA authorized labeling is available on the [employer] website: www.[employer]arworks/Covid19. Performed By: #### 3 [id number] #### [facility] [address], [address] [place], [place] [id number] Microwave Supervisor: Rei Esteban MD CBC (INCLUDES DIFF/PLT)on Basophils (Bld) [#/Vol] 0.017 10*3/uL Normal 0-200 [facility] Comment on above: Performed By: #### 6 399 #### [facility] [address], [address] [place], [place] [id number] Microwave Supervisor: Rei Esteban MD Basophils/100 WBC (Bld) 0.2 % Normal [facility] Comment on above: Performed By: #### 6 399 #### [facility] [place] [address] Microwave Supervisor: Rei Esteban MD Eosinophils (Bld) [#/Vol] 0.252 10*3/uL Normal 15-500 [facility] Comment on above: Performed By: #### 6 399 #### [facility] of [address], [address] [place] [address] Microwave Supervisor: Rei Esteban MD Eosinophils/100 WBC (Bld) 3.0 % Normal [facility] Comment on above: Performed By: #### 6 399 #### [facility] [place] [address] Microwave Supervisor: Rei Esteban MD Erythrocyte distribution width (RBC) [Ratio] 12.7 % Normal 11.0-15.0 [facility] Comment on above: Performed By: #### 6 399 #### [facility] [place] [address] Microwave Supervisor: Rei Esteban MD Hematocrit (Bld) [Volume fraction] 39.4 % Normal 35.0-45.0 [facility] Comment on above: Performed By: #### 6 399 #### [facility] [place] [address] Microwave Supervisor: Rei Esteban MD Hemoglobin (Bld) [Mass/Vol] 13.1 g/dL Normal 11.7-15.5 [facility] Comment on above: Performed By: #### 6 399 #### [facility] [place] [address] Microwave Supervisor: Rei Esteban MD Lymphocytes (Bld) [#/Vol] 2.654 10*3/uL Normal 850-3900 [facility] Comment on above: Performed By: #### 6 399 #### [facility] [place] [address] Microwave Supervisor: Rei Esteban MD Lymphocytes/100 WBC (Bld) 31.6 % Normal [facility] Comment on above: Performed By: #### 6 399 #### [facility] [place] [address] Microwave Supervisor: Rei Esteban MD MCH (RBC) [Entitic mass] 29.9 pg Normal 27.0-33.0 [facility] Comment on above: Performed By: #### 6 399 #### [facility] [place] [address] Microwave Supervisor: Rei Esteban MD MCHC (RBC) [Mass/Vol] 33.2 g/dL Normal 32.0-36.0 [facility] Comment on above: Performed By: #### 6 399 #### [facility] [place] [address] Microwave Supervisor: Rei Esteban MD MCV (RBC) [Entitic vol] 90.0 fL Normal 80.0-100.0 [facility] Comment on above: Performed By: #### 6 399 #### [facility] [place] [address] Microwave Supervisor: Rei Esteban MD Monocytes (Bld) [#/Vol] 0.42 10*3/uL Normal 200-950 [facility] Comment on above: Performed By: #### 6 399 #### [facility] [place] [address] Microwave Supervisor: Rei Esteban MD Monocytes/100 WBC (Bld) 5.0 % Normal [facility] Comment on above: Performed By: #### 6 399 #### [facility] [place] [address] Microwave Supervisor: Rei Esteban MD Neutrophils (Bld) [#/Vol] 5.057 10*3/uL Normal 5492-9630 [facility] Comment on above: Performed By: #### 6 399 #### [facility] [place] [id number] Microwave Supervisor: Rei Esteban MD Neutrophils/100 WBC (Bld) 60.2 % Normal [facility] Comment on above: Performed By: #### 6 399 #### [facility] [place] [address] Microwave Supervisor: Rei Esteban MD Platelet mean volume (Bld) [Entitic vol] 11.6 fL Normal 7.5-12.5 [facility] Comment on above: Performed By: #### 6 399 #### [facility] [place] [address] Microwave Supervisor: Rei Esteban MD Platelets (Bld) [#/Vol] 278 10*3/uL Normal 140-400 [facility] Comment on above: Performed By: #### 6 399 #### [facility] [place] [address] Microwave Supervisor: Rei Esteban MD RBC (Bld) [#/Vol] 4.38 10*6/uL Normal 3.80-5.10 [facility] Comment on above: Performed By: #### 6 399 #### [facility] [place] [address] Microwave Supervisor: Rei Esteban MD WBC (Bld) [#/Vol] 8.4 10*3/uL Normal 3.8-10.8 [facility] Comment on above: Performed By: #### 6 399 #### [facility] [place] [address] Microwave Supervisor: Rei Esteban MD [id number] 10-14-2020 SARS-CoV-2 Not Detected Normal [facility] Comment on above: Result Comment: The specimen is NEGATIVE for SARS-CoV-2, the novel coronavirus associated with COVID-19. A negative result does not rule out COVID-19. [facility] SARS-CoV-2 for use on the [employer] 6800/8800 [employer] is a real-time RT-PCR test intended for the qualitative detection of nucleic acids from SARS-CoV-2 in clinician-collected nasal, nasopharyngeal, and oropharyngeal swab specimens from individuals who meet COVID-19 clinical and/or epidemiological criteria. [facility] SARS-CoV-2 is for use only under Emergency Use Authorization (EUA) in laboratories certified under Clinical Laboratory Improvement Amendments of 1988 (CLIA), 42 U.S.C. ?263a, that meet requirements to perform high or moderate complexity tests. An individual without symptoms of COVID-19 and who is not shedding SARS-CoV-2 virus would expect to have a negative (not detected) result in this assay. Fact sheet for Healthcare Providers: https://www.fda.gov/media/699622/download Fact sheet for Patients: https://www.fda.gov/media/434288/download METHODOLOGY: RT-PCR Performed By: #### C OVID #### [address] [id number] Drying Rack Changer: Rico Puentes MD SARS-CoV-2 [facility] Comment on above: Performed By: #### C OVID #### [facility] [address] [place] [id number] Drying Rack Changer: Rico Puentes MD [id number] 10-13-2020 SARS-CoV-2 Source .NASOPHARYNGEAL SWAB [facility] Comment on above: Performed By: #### C OVID #### [address] [id number] Drying Rack Changer: Rico Puentes MD [id number] 10-07-2020 SARS-CoV-2 Not Detected [facility] Comment on above: Result Comment: The specimen is NEGATIVE for SARS-CoV-2, the novel coronavirus associated with COVID-19. A negative result does not rule out COVID-19. [facility] SARS-CoV-2 for use on the [employer]88[employer] is a real-time RT-PCR test intended for the qualitative detection of nucleic acids from SARS-CoV-2 in clinician-collected nasal, nasopharyngeal, and oropharyngeal swab specimens from individuals who meet COVID-19 clinical and/or epidemiological criteria. [facility] SARS-CoV-2 is for use only under Emergency Use Authorization (EUA) in laboratories certified under Clinical Laboratory Improvement Amendments of 1988 (CLIA), 42 U.S.C. ?263a, that meet requirements to perform high or moderate complexity tests. An individual without symptoms of COVID-19 and who is not shedding SARS-CoV-2 virus would expect to have a negative (not detected) result in this assay. Fact sheet for Healthcare Providers: https://www.fda.gov/media/923106/download Fact sheet for Patients: https://www.fda.gov/media/217064/download METHODOLOGY: RT-PCR Performed By: #### C OVID #### [address] [id number] Drying Rack Changer: Rico Puentes MD SARS-CoV-2 [facility] Comment on above: Performed By: #### C OVID #### [address] [id number] Drying Rack Changer: Rico Puentes MD [id number] 10-06-2020 SARS-CoV-2 Source .NASOPHARYNGEAL SWAB [facility] Comment on above: Performed By: #### C OVID #### [address] [id number] Drying Rack Changer: Rico Puentes MD [id number] 09-20-2020 SARS-CoV-2 Not Detected [facility] Comment on above: Result Comment: The specimen is NEGATIVE for SARS-CoV-2, the novel coronavirus associated with COVID-19. A negative result does not rule out COVID-19. [facility] SARS-CoV-2 for use on the [employer] is a real-time RT-PCR test intended for the qualitative detection of nucleic acids from SARS-CoV-2 in clinician-collected nasal, nasopharyngeal, and oropharyngeal swab specimens from individuals who meet COVID-19 clinical and/or epidemiological criteria. [facility] SARS-CoV-2 is for use only under Emergency Use Authorization (EUA) in laboratories certified under Clinical Laboratory Improvement Amendments of 1988 (CLIA), 42 U.S.C. ?263a, that meet requirements to perform high or moderate complexity tests. An individual without symptoms of COVID-19 and who is not shedding SARS-CoV-2 virus would expect to have a negative (not detected) result in this assay. Fact sheet for Healthcare Providers: https://www.fda.gov/media/828297/download Fact sheet for Patients: https://www.fda.gov/media/680927/download METHODOLOGY: RT-PCR Performed By: #### C OVID #### [address] [address] Drying Rack Changer: Rico Puentes MD SARS-CoV-2 [facility] Comment on above: Performed By: #### C OVID #### [address] [address] Drying Rack Changer: Rico Puentes MD SARS-CoV-2,[facility] Comment on above: Performed By: #### C OVID #### [address] [address] Drying Rack Changer: Rico Puentes MD [id number] 09-18-2020 SARS-CoV-2 Source .NASOPHARYNGEAL SWAB [facility] Comment on above: Performed By: #### C OVID #### [address] [address] Drying Rack Changer: Rico Puentes MD [id number] 09-03-2020 SARS-CoV-2 Not Detected [facility] Comment on above: Result Comment: The specimen is NEGATIVE for SARS-CoV-2, the novel coronavirus associated with COVID-19. A negative result does not rule out COVID-19. [facility] SARS-CoV-2 for use on the [employer]88[employer] is a real-time RT-PCR test intended for the qualitative detection of nucleic acids from SARS-CoV-2 in clinician-collected nasal, nasopharyngeal, and oropharyngeal swab specimens from individuals who meet COVID-19 clinical and/or epidemiological criteria. [facility] SARS-CoV-2 is for use only under Emergency Use Authorization (EUA) in laboratories certified under Clinical Laboratory Improvement Amendments of 1988 (CLIA), 42 U.S.C. ?263a, that meet requirements to perform high or moderate complexity tests. An individual without symptoms of COVID-19 and who is not shedding SARS-CoV-2 virus would expect to have a negative (not detected) result in this assay. Fact sheet for Healthcare Providers: https://www.fda.gov/media/303303/download Fact sheet for Patients: https://www.fda.gov/media/504516/download METHODOLOGY: RT-PCR Performed By: #### C OVID #### [address] [address] Drying Rack Changer: Rico Puentes MD SARS-CoV-2 [facility] Comment on above: Performed By: #### C OVID #### [address] [address] Drying Rack Changer: Rico Puentes MD SARS-CoV-2,Rapid Normal [facility] Comment on above: Performed By: #### C OVID #### [address] [address] Drying Rack Changer: Rico Puentes MD [id number] 09-02-2020 SARS-CoV-2 Source .NASOPHARYNGEAL SWAB Normal [facility] Comment on above: Performed By: #### C OVID #### [address] [address] Drying Rack Changer: Rico Puentes MD [id number] 08-21-2020 SARS-CoV-2 Not Detected Normal Not Detected [facility] Comment on above: Result Comment: (NOT E) This nucleic acid amplification test was developed and its performance characteristics determined by [facility]. Nucleic acid amplification tests include PCR and TMA. This test has not been FDA cleared or approved. This test has been authorized by FDA under an Emergency Use Authorization (EUA). This test is only authorized for the duration of time the declaration that circumstances exist justifying the authorization of the emergency use of in vitro diagnostic tests for detection of SARS-CoV-2 virus and/or diagnosis of COVID-19 infection under section 564(b)(1) of the Act, 21 U.S.C. 360bbb-3(b) (1), unless the authorization is terminated or revoked sooner. When diagnostic testing is negative, the possibility of a false negative result should be considered in the context of a patient's recent exposures and the presence of clinical signs and symptoms consistent with COVID-19. An individual without symptoms of COVID- 19 and who is not shedding SARS-CoV-2 virus would expect to have a negative (not detected) result in this assay. Performed At: [facility] [id number] Roxi Donis PhD Ph:[phone] Performed By: #### A COV #### [facility] [address] [place] [address] Drying Rack Changer: Phillip Schumacher MD [id number] 08-14-2020 SARS-CoV-2 Not Detected Normal Not Detected [facility] Comment on above: Result Comment: (NOT E) This nucleic acid amplification test was developed and its performance characteristics determined by [facility]. Nucleic acid amplification tests include PCR and TMA. This test has not been FDA cleared or approved. This test has been authorized by FDA under an Emergency Use Authorization (EUA). This test is only authorized for the duration of time the declaration that circumstances exist justifying the authorization of the emergency use of in vitro diagnostic tests for detection of SARS-CoV-2 virus and/or diagnosis of COVID-19 infection under section 564(b)(1) of the Act, 21 U.S.C. 360bbb-3(b) (1), unless the authorization is terminated or revoked sooner. When diagnostic testing is negative, the possibility of a false negative result should be considered in the context of a patient's recent exposures and the presence of clinical signs and symptoms consistent with COVID-19. An individual without symptoms of COVID- 19 and who is not shedding SARS-CoV-2 virus would expect to have a negative (not detected) result in this assay. Performed At: [facility] [employer] [place], [place] [id number] Jan Dailey MD Ph:[phone] Performed By: #### A COV #### [facility] [address] [place], [place] [id number] Drying Rack Changer: Phillip Schumacher MD [id number] 07-30-2020 SARS-CoV-2 Not Detected Normal Not Detected [facility] Comment on above: Result Comment: (NOT E) This nucleic acid amplification test was developed and its performance characteristics determined by [facility]. Nucleic acid amplification tests include PCR and TMA. This test has not been FDA cleared or approved. This test has been authorized by FDA under an Emergency Use Authorization (EUA). This test is only authorized for the duration of time the declaration that circumstances exist justifying the authorization of the emergency use of in vitro diagnostic tests for detection of SARS-CoV-2 virus and/or diagnosis of COVID-19 infection under section 564(b)(1) of the Act, 21 U.S.C. 360bbb-3(b) (1), unless the authorization is terminated or revoked sooner. When diagnostic testing is negative, the possibility of a false negative result should be considered in the context of a patient's recent exposures and the presence of clinical signs and symptoms consistent with COVID-19. An individual without symptoms of COVID- 19 and who is not shedding SARS-CoV-2 virus would expect to have a negative (not detected) result in this assay. Performed At: [facility] [place] [address] [employer] [place], [place] [id number] Jan Dailey MD Ph:[phone] Performed By: #### A COV #### [facility] [address] [place] [address] Drying Rack Changer: Phillip Schumacher MD [id number] 07-25-2020 SARS-CoV-2 Not Detected Normal Not Detected [facility] Comment on above: Result Comment: (NOT E) This nucleic acid amplification test was developed and its performance characteristics determined by [facility]. Nucleic acid amplification tests include PCR and TMA. This test has not been FDA cleared or approved. This test has been authorized by FDA under an Emergency Use Authorization (EUA). This test is only authorized for the duration of time the declaration that circumstances exist justifying the authorization of the emergency use of in vitro diagnostic tests for detection of SARS-CoV-2 virus and/or diagnosis of COVID-19 infection under section 564(b)(1) of the Act, 21 U.S.C. 360bbb-3(b) (1), unless the authorization is terminated or revoked sooner. When diagnostic testing is negative, the possibility of a false negative result should be considered in the context of a patient's recent exposures and the presence of clinical signs and symptoms consistent with COVID-19. An individual without symptoms of COVID- 19 and who is not shedding SARS-CoV-2 virus would expect to have a negative (not detected) result in this assay. Performed At: [facility] [address] [place], [place] [id number] Jan Dailey MD Ph:[phone] Performed By: #### A COV #### [facility] [address] [place] [address] Drying Rack Changer: Phillip Schumacher MD [id number] 07-18-2020 SARS-CoV-2 Not Detected Normal Not Detected [facility] Comment on above: Result Comment: (NOT E) Testing was performed using the [employer] SARS-CoV-2 assay. This nucleic acid amplification test was developed and its performance characteristics determined by [facility]. Nucleic acid amplification tests include PCR and TMA. This test has not been FDA cleared or approved. This test has been authorized by FDA under an Emergency Use Authorization (EUA). This test is only authorized for the duration of time the declaration that circumstances exist justifying the authorization of the emergency use of in vitro diagnostic tests for detection of SARS-CoV-2 virus and/or diagnosis of COVID-19 infection under section 564(b)(1) of the Act, 21 U.S.C. 360bbb-3(b) (1), unless the authorization is terminated or revoked sooner. When diagnostic testing is negative, the possibility of a false negative result should be considered in the context of a patient's recent exposures and the presence of clinical signs and symptoms consistent with COVID-19. An individual without symptoms of COVID- 19 and who is not shedding SARS-CoV-2 virus would expect to have a negative (not detected) result in this assay. Performed At: [address] [id number] Lewis Vaughn MD Ph:[phone] Performed By: #### A COV #### [facility] [address] [place] [address] Drying Rack Changer: Phillip Schumacher MD [id number] 07-03-2020 SARS-CoV-2 Not Detected Normal Not Detected [facility] Comment on above: Result Comment: (NOT E) This nucleic acid amplification test was developed and its performance characteristics determined by [facility]. Nucleic acid amplification tests include PCR and TMA. This test has not been FDA cleared or approved. This test has been authorized by FDA under an Emergency Use Authorization (EUA). This test is only authorized for the duration of time the declaration that circumstances exist justifying the authorization of the emergency use of in vitro diagnostic tests for detection of SARS-CoV-2 virus and/or diagnosis of COVID-19 infection under section 564(b)(1) of the Act, 21 U.S.C. 360bbb-3(b) (1), unless the authorization is terminated or revoked sooner. When diagnostic testing is negative, the possibility of a false negative result should be considered in the context of a patient's recent exposures and the presence of clinical signs and symptoms consistent with COVID-19. An individual without symptoms of COVID- 19 and who is not shedding SARS-CoV-2 virus would expect to have a negative (not detected) result in this assay. Performed At: [facility] [address] [facility], [place] [id number] Jan Dailey MD Ph:[phone] Performed By: #### A COV #### [facility] [address] [place] [address] Drying Rack Changer: Phillip Schumacher MD Vital Signs Date Time Vital Sign Value Performing Clinician Facility 03-24-2025 14:11-0400 Diastolic blood pressure 60 mm[Hg] Willi Furlong DO Work Phone: [facility] [employer] 03-24-2025 14:11-0400 Heart rate 86 /min Willi Furlong DO Work Phone: [facility] [employer] [facility] 03-24-2025 14:11-0400 SaO2% (BldA) [Mass fraction] 91 % Willi Furlong DO Work Phone: [facility] [employer] [facility] 03-24-2025 14:11-0400 Systolic blood pressure 110 mm[Hg] Willi Furlong DO Work Phone: [facility] [employer] [facility] 03-24-2025 13:50-0400 Body height 172.7 cm Willi Furlong DO Work Phone: [facility] [employer] [facility] 03-24-2025 13:50-0400 Body mass index (BMI) [Ratio] 29.6 kg/m2 Willi Furlong DO Work Phone: [facility] [employer] 03-24-2025 13:50-0400 Body temperature 98.49 [degF] Willi Wilkinsonlong DO Work Phone: [facility] [facility] [employer] 03-24-2025 13:50-0400 Body weight 88.27 kg Willi Wilkinsonlong DO Work Phone: [facility] [employer] 03-24-2025 13:50-0400 Respiratory rate 18 /min Willijarrell Wilkinsonlong DO Work Phone: [facility] [employer] [facility] 10-15-2024 16:35-0500 Body height 172.7 cm Doni Rios CONTINUOUS [employer]URN BUTTERMAKER-POKER ROOM MANAGER Work Phone: [facility] [employer] 10-15-2024 16:35-0500 Body mass index (BMI) [Ratio] 29.74 kg/m2 Doni Rios CONTINUOUS [employer]URN BUTTERMAKER-POKER ROOM MANAGER Work Phone: [facility] [employer] 10-15-2024 16:35-0500 Body temperature 98.6 [degF] Doni Rios CONTINUOUS [employer]URN BUTTERMAKER-POKER ROOM MANAGER Work Phone: [facility] [employer] [facility] 10-15-2024 16:35-0500 Body weight 88.72 kg Doni Rios APRN-DILIA Work Phone: [facility] 10-15-2024 16:35-0500 Diastolic blood pressure 82 mm[Hg] Doni Rios APRN-DILIA Work Phone: [facility] 10-15-2024 16:35-0500 Heart rate 79 /min Doni Rios APRN-DILIA Work Phone: [facility] [employer] [facility] 10-15-2024 16:35-0500 Respiratory rate 18 /min Doni Rios APRN-DILIA Work Phone: [facility] 10-15-2024 16:35-0500 SaO2% (BldA) [Mass fraction] 99 % Doni Rios APRN-DILIA Work Phone: [facility] 10-15-2024 16:35-0500 Systolic blood pressure 110 mm[Hg] Doni Rios APRN-DILIA Work Phone: [facility] 10-10-2024 08:56-0500 Body height 172.7 cm Kamran Garibay DPM Work Phone: [facility] 10-10-2024 08:56-0500 Body mass index (BMI) [Ratio] 28.89 kg/m2 Kamran Rusher DPM Work Phone: [facility] 10-10-2024 08:56-0500 Body weight 86.18 kg Kamran Rusher DPM Work Phone: [facility] 11-06-2023 14:44-0400 Body height 172.7 cm Willi Furlong DO Work Phone: [facility] [employer] [facility] 11-06-2023 14:44-0400 Body mass index (BMI) [Ratio] 30.71 kg/m2 Willi Furlong DO Work Phone: [employer] 11-06-2023 14:44-0400 Body temperature 97.81 [degF] Willi Ridley DO [facility] 11-06-2023 14:44-0400 Body weight 91.63 kg Willi Wilkinsonlong DO Work Phone[facility] 11-06-2023 14:44-0400 Diastolic blood pressure 70 mm[Hg] Willi Ocasiong DO Work Phone: [facility] 11-06-2023 14:44-0400 Heart rate 77 /min Willi Ocasiong DO Work Phone: [facility] 11-06-2023 14:44-0400 SaO2% (BldA) [Mass fraction] 97 % Willi [facility]asiong DO [facility] 11-06-2023 14:44-0400 Systolic blood pressure 110 mm[Hg] Willi Ocasiong DO [facility] 01-17-2022 14:15-0400 Body height 172.72 cm Bull Gonzalez Other [employer] Other 01-17-2022 14:15-0400 Body mass index (BMI) [Ratio] 30.86 kg/m2 Bull Olexa Other [employer] Other 01-17-2022 14:15-0400 Body weight 92.08 kg Bull Olexa Other [employer] Other Encounters Encounter Date Encounter Type Care Provider Facility Start: 03-25-2025 End: 03-25-2025 Orders Only Willi Ridley DO Work Phone: [facility] Comment on above: Pain of right scapul a (Primary Dx) Start: 03-24-2025 End: 03-24-2025 Office outpatient visit 15 minutes Willi Ridley DO Work Phone: [facility] Comment on above: Trigger point of rig ht shoulder region (Primary Dx) Start: 03-24-2025 End: 03-24-2025 ambulatory [facility] Start: 10-15-2024 End: 10-15-2024 ambulatory [facility] Start: 10-15-2024 End: 10-15-2024 Patient encounter procedure Doni Stephanie [facility] CONTINUOUS CHURN BUTTERMAKER-POKER ROOM MANAGER Work Phone: [facility] Start: 10-15-2024 End: 10-15-2024 Periodic preventive med est patient 40-64yrs Doni Brown Gabriel CONTINUOUS [employer]URN BUTTERMAKER-POKER ROOM MANAGER Work Phone: [facility] Comment on above: Annual physical exam (Primary Dx); Blood tests for routine general physical examination; Encounter for screening mammogram for malignant neoplasm of breast; Asymptomatic menopausal state; Encounter for screening for osteoporosis; Special screening for malignant neoplasm of colon Start: 10-15-2024 End: 10-15-2024 Physical examination [facility] CONTINUOUS CHURN BUTTERMAKER-POKER ROOM MANAGER Work Phone: [facility] Work Phone: Start: 10-15-2024 End: 10-15-2024 ambulatory [facility] Start: 10-15-2024 Encounter for genera l adult medical examination without abnormal findings [facility] Start: 10-10-2024 End: 10-10-2024 Bamboo flowsheet Kamran Garibay DPM Work Phone: [facility] Start: 10-10-2024 End: 10-10-2024 Bamboo flowsheet Kamran Garibay DPM Work Phone: [facility] Start: 10-10-2024 End: 10-10-2024 ambulatory KAMRAN GARIBAY Not Available Start: 10-10-2024 End: 10-10-2024 Office outpatient new 45 minutes Kamran Garibay DPM Work Phone: [facility] Comment on above: Plantar fasciitis (P rimary Dx); Right foot pain; Equinus contracture of right ankle Start: 11-09-2023 Telephone encounter Mel[facility]onsalez C[facility] Start: 11-06-2023 End: 11-06-2023 ambulatory WILLI Lockett LIZETNAYAN [facility] Start: 11-06-2023 Encounter for genera l adult medical examination without abnormal findings [facility] Start: 11-06-2023 End: 11-06-2023 Patient encounter status Willi Cathryn Amarjitnayan DO Work Phone: [employer] Work Phone: Start: 11-06-2023 End: 11-06-2023 Periodic preventive med est patient 40-64yrs Willi Ridley DO Work Phone: [facility] Comment on above: Well adult health nehemias (Primary Dx); Class 1 obesity due to excess calories with serious comorbidity and body mass index (BMI) of 30.0 to 30.9 in adult; Encounter for screening mammogram for malignant neoplasm of breast; Constipation, unspecified constipation type; Supraventricular tachycardia; Hyperlipidemia, unspecified hyperlipidemia type Start: 11-24-[address] WILLI RIDLEY Fac ility:[facility] Start: 01-17-2022 End: 01-17-2022 ambulatory Bull Gonzalez Other [employer] Other Start: 01-17-2022 Office outpatient ne w 30 minutes Bull Gonzalez [facility] Start: 12-16-2021 End: 12-17-[address] WILLI RIDLEY Facility:[facility] Start: 10-13-2020 End: 10-14-2020 Patient encounter procedure AYDE RICH [facility] Start: 10-13-2020 End: 10-13-2020 Subsequent hospital visit by physician NAEEM BUITRAGO LAB DOCTOR Start: 10-06-2020 End: 10-07-2020 Patient encounter procedure BILLVirgie RICH [facility] Start: 10-06-2020 End: 10-06-2020 Subsequent hospital visit by physician NAEEM STARR DOCTOR Start: 09-18-2020 End: 09-19-2020 Patient encounter procedure AYDE RICH [facility] Start: 09-01-2020 End: 09-02-2020 Patient encounter procedure BILLSUN RICH [facility] Start: 09-01-2020 End: 09-01-2020 Subsequent hospital visit by physician NAEEM STARR DOCTOR Start: 08-19-2020 End: 08-20-2020 Patient encounter procedure AYDE RICH [facility] Start: 08-19-2020 End: 08-19-2020 Subsequent hospital visit by physician NAEEM STARR DOCTOR Start: 08-11-2020 End: 08-12-2020 Patient encounter procedure AYDE RICH [facility] Start: 08-11-2020 End: 08-11-2020 Subsequent hospital visit by physician NAEEM STARR DOCTOR Start: 07-29-2020 End: 07-30-2020 Patient encounter procedure AYDE RICH [facility] Start: 07-29-2020 End: 07-29-2020 Subsequent hospital visit by physician NAEEM STARR DOCTOR Start: 07-22-2020 End: 07-23-2020 Patient encounter procedure AYDE RICH [facility] Start: 07-22-2020 End: 07-22-2020 Subsequent hospital visit by physician NAEEM STARR DOCTOR Start: 07-15-2020 End: 07-16-2020 Patient encounter procedure BILLVirgie RICH [facility] Start: 07-15-2020 End: 07-15-2020 Subsequent hospital visit by physician NAEEM STARR DOCTOR Start: 06-30-2020 End: 07-01-2020 Patient encounter procedure BILLSUN RICH [facility] Start: 06-30-2020 End: 06-30-2020 Subsequent hospital visit by physician NAEEM STARR DOCTOR Procedures Date Procedure Procedure Detail Performing Clinician Start: 03-24-2025 Adult depression scr eening assessment Willi Furlong DO Work Phone: Start: 11-21-2024 Mammography Wilil Wilkinson long DO Work Phone: Start: 10-15-2024 Adult depression scr eening assessment Doni Rios CONTINUOUS CHURN BUTTERMAKER-POKER ROOM MANAGER Work Phone: Start: 10-10-2024 Radex calcaneus mini mum 2 views Kamran Garibay DPM Work Phone: Start: 11-12-2023 Mammography Doni haddad CONTINUOUS CHURN BUTTERMAKER-POKER ROOM MANAGER Work Phone: Start: 11-06-2023 Adult depression scr eening assessment Willi Wilkinsonlong DO Work Phone: Start: 07-29-2020 COVID-19 AMBULATORY LEENA S RICH Start: 07-22-2020 COVID-19 AMBULATORY LEENA S RICH Start: 07-15-2020 COVID-19 AMBULATORY LEENA S RICH Start: 06-30-2020 COVID-19 AMBULATORY LEENA S RICH Plan of Treatment Date Care Activity Detail Author Start: 11-10-2027 Screening for malign ant neoplasm of colon Colon Cancer Screening 3 Year Cologuard [facility] Start: 03-24-2026 Adult BMI Screening Adult BMI Screen ing [facility] Start: 03-24-2026 Depression Screening Depression Scre ening [facility] Start: 03-24-2026 Tobacco Screening Tobacco Screening [facility] Start: 11-21-2025 Screening for malign ant neoplasm of breast Mammogram [facility] Start: 10-15-2025 Adult BMI Follow Up Plan Adult BMI Follow Up Plan [facility] Start: 10-15-2025 Adult BMI Screening Adult BMI Screen ing [facility] Start: 10-15-2025 Depression Screening Depression Scre ening [facility] Start: 10-15-2025 Tobacco Screening Tobacco Screening [facility] Start: 04-13-2025 Influenza vaccination Influenza Vacc ine [facility] Start: 03-25-2025 End: 03-25-2026 XR Scapula - right Views X-ray scapula right Imaging Routine Pain of right scapula Expected: 03/25/2025, Expires: 03/25/2026 [employer] Work Phone: Comment on above: Expected: 03/25/2025 , Expires: 03/25/2026 Start: 11-19-2024 End: 11-19-2024 Patient encounter procedure 11/19/2024 4:00 PM EDT Office Visit [facility] [address] [place] [id number] Kamran Garibay, DPM [address] [place] [address] [facility] Start: 11-11-2024 Screening for malign ant neoplasm of breast Mammogram [facility] Start: 11-05-2024 Adult BMI Screening Adult BMI Screen ing [facility] Start: 11-05-2024 Depression Screening Depression Scre ening [facility] Start: 11-05-2024 Tobacco Screening Tobacco Screening [facility] Start: 10-26-2024 DTaP,Tdap and Td Vac cines (2 - Td or Tdap) DTaP,Tdap and Td Vaccines (2 - Td or Tdap) [facility] Start: 10-23-2024 Screening for malign ant neoplasm of colon Colon Cancer Screening 3 Year Cologuard [facility] Start: 10-15-2024 End: 10-15-2025 DBT Breast - bilateral screening Mammography screening bilateral with CAD Imaging Routine Encounter for screening mammogram for malignant neoplasm of breast Expected: 10/15/2024, Expires: 10/15/2025 [facility] Comment on above: Expected: 10/15/2024 , Expires: 10/15/2025 Start: 10-15-2024 End: 10-15-2025 DXA Skeletal system Views for bone density Dexa scan central skeletal Imaging Routine Asymptomatic menopausal state Encounter for screening for osteoporosis Expected: 10/15/2024, Expires: 10/15/2025 [facility] Comment on above: Expected: 10/15/2024 , Expires: 10/15/2025 Start: 04-13-2024 Influenza vaccination Influenza Vacc ine [facility] Start: 11-15-2023 Administration of varicella zoster vaccine Zoster (Shingles) Vaccine (1 of 2) [facility] Comment on above: Postponed from 10/30 (Patient Refused) Start: 11-11-2023 Influenza vaccination Influenza Vacc ine [facility] Comment on above: Postponed from 04/13 (Patient Refused) Start: 11-06-2023 End: 11-05-2024 DBT Breast - bilateral screening Mammography screening bilateral with CAD Imaging Routine Encounter for screening mammogram for malignant neoplasm of breast Expected: 11/06/2023, Expires: 11/05/2024 [facility] Work Phone: Comment on above: Expected: 11/06/2023 , Expires: 11/05/2024 Start: 10-20-2023 Adult BMI Follow Up Plan Adult BMI Follow Up Plan [facility] Start: 2022 Administration of varicella zoster vaccine Zoster (Shingles) Vaccine (1 of 2) [facility] Start: 04-13-2020 Influenza vaccination Flu vaccine (# 1) [place], [place] Start: 2012 Lipid panel Lipid screen [place], [place] Start: 2012 Screening for malign ant neoplasm of breast Mammogram [facility] Start: 1993 Screening for malign ant neoplasm of cervix Cervical cancer screen [place], [place] Start: 10-31-1991 DTaP/Tdap/Td vaccine (1 - Tdap) DTaP/Tdap/Td vaccine (1 - Tdap) [place], [place] Start: 10-31-1987 HIV screening HIV screen [place], [place] Start: 1972 Hepatitis C screening Hepatitis C sc reen [place], [place] End: 10-15-2025 CBC W Auto Differential panel - Blood CBC auto differential Lab Routine Blood tests for routine general physical examination 1 Occurrences starting 10/15/2024 until 10/15/2025 [facility] Comment on above: 1 Occurrences starti ng 10/15/2024 until 10/15/2025 Cologuard [facility] Cologuar d [facility] Lab Routine Special screening for malignant neoplasm of colon Ordered: 10/15/2024 [facility] Comment on above: Ordered: 10/15/2024 End: 10-15-2025 Comprehensive metabolic 2000 panel - Serum or Plasma Comprehensive metabolic panel Lab Routine Blood tests for routine general physical examination 1 Occurrences starting 10/15/2024 until 10/15/2025 [employer] Work Phone: Comment on above: 1 Occurrences starti ng 10/15/2024 until 10/15/2025 End: 09-01-2020 COVID-19 COVID-19 Lab Routine Once for 1 Occurrences starting 09/01/2020 until 09/01/2020 [facility] [place] Comment on above: Once for 1 Occurrenc es starting 09/01/2020 until 09/01/2020 COVID-19 [facility] [place] End: 10-06-2020 COVID-19 COVID-19 Lab Routine Once for 1 Occurrences starting 10/06/2020 until 10/06/2020 [employer] Phone: Comment on above: Once for 1 Occurrenc es starting 10/06/2020 until 10/06/2020 End: 10-13-2020 COVID-19 COVID-19 Lab Routine Once for 1 Occurrences starting 10/13/2020 until 10/13/2020 [employer] Phone: Comment on above: Once for 1 Occurrenc es starting 10/13/2020 until 10/13/2020 End: 07-15-2020 Covid-19 Ambulatory Covid-19 Ambulatory Lab Routine Once for 1 Occurrences starting 07/15/2020 until 07/15/2020 [facility], [place] Comment on above: Once for 1 Occurrenc es starting 07/15/2020 until 07/15/2020 Covid-19 Ambulatory [facility] [place] End: 07-22-2020 Covid-19 Ambulatory Covid-19 Ambulatory Lab Routine Once for 1 Occurrences starting 07/22/2020 until 07/22/2020 [facility], [place] Comment on above: Once for 1 Occurrenc es starting 07/22/2020 until 07/22/2020 End: 07-29-2020 Covid-19 Ambulatory Covid-19 Ambulatory Lab Routine Once for 1 Occurrences starting 07/29/2020 until 07/29/2020 [facility], [place] Comment on above: Once for 1 Occurrenc es starting 07/29/2020 until 07/29/2020 End: 08-11-2020 Covid-19 Ambulatory Covid-19 Ambulatory Lab Routine Once for 1 Occurrences starting 08/11/2020 until 08/11/2020 [facility], [place] Comment on above: Once for 1 Occurrenc es starting 08/11/2020 until 08/11/2020 End: 08-19-2020 Covid-19 Ambulatory Covid-19 Ambulatory Lab Routine Once for 1 Occurrences starting 08/19/2020 until 08/19/2020 [facility] [place] Comment on above: Once for 1 Occurrenc es starting 08/19/2020 until 08/19/2020 End: 06-30-2020 Covid-19 Ambulatory Covid-19 Ambulatory Lab Routine Once for 1 Occurrences starting 06/30/2020 until 06/30/[facility] Comment on above: Once for 1 Occurrenc es starting 06/30/2020 until 06/30/2020 End: 10-15-2025 Hemoglobin A1c/Hemoglobin.total in Blood Hemoglobin A1c Lab Routine Blood tests for routine general physical examination 1 Occurrences starting 10/15/2024 until 10/15/2025 [facility] Comment on above: 1 Occurrences starti ng 10/15/2024 until 10/15/2025 End: 10-15-2025 Lipid 1996 panel - Serum or Plasma Lipid profile Lab Routine Blood tests for routine general physical examination 1 Occurrences starting 10/15/2024 until 10/15/2025 [facility] Comment on above: 1 Occurrences starti ng 10/15/2024 until 10/15/2025 End: 11-05-2024 Thyrotropin [Units/volume] in Serum or Plasma TSH Lab Routine Class 1 obesity due to excess calories with serious comorbidity and body mass index (BMI) of 30.0 to 30.9 in adult 1 Occurrences starting 11/06/2023 until 11/05/2024 [facility] Comment on above: 1 Occurrences starti ng 11/06/2023 until 11/05/2024 Thyrotropin [Units/volume] in Serum or Plasma TSH Lab Routine Class 1 obesity due to excess calories with serious comorbidity and body mass index (BMI) of 30.0 to 30.9 in adult 11/06/2023 10:01 PM EDT [employer] Immunizations Immunization Date Immunization Notes Care Provider Kulwinder castellanos 10-26-2014 tetanus toxoid, redu charo diphtheria toxoid, and acellular pertussis vaccine, adsorbed Willi Ridley DO Work Phone: [employer] Payers Date Payer Category Payer Managed Care Other (unspecified) [employer] [id number] 2022 Private Health Insurance [id number] 2022 Unknown [id number] 1972 Unknown [id number] 2.16.840.1.132336.3.579. 2.175 1972 Unknown [id number] 2.16.840.1.126777.3.579. 2.175 1972 Unknown [id number] 2.16.840.1.392047.3.579. 2.175 1972 Unknown [id number] 2.16.840.1.697634.3.579. 2.175 1972 Unknown [id number] 2.16.840.1.068269.3.579. 2.175 1972 Unknown [id number] 2.16.840.1.936932.3.579. 2.175 1972 Unknown [id number] 2.16.840.1.173041.3.579. 2.175 1972 Unknown [id number] 2.16.840.1.940868.3.579. 2.175 1972 Unknown [id number] 2.16.840.1.222960.3.579. 2.175 1972 Unknown [id number] 2.16.840.1.220705.3.579. 2.175 1972 Unknown [id number] 2.16.840.1.212525.3.579. 2.593 1972 Unknown [id number] 2.16.840.1.970964.3.579. 2.593 1972 Unknown [id number] 2.16.840.1.657005.3.579. 2.1259 1972 Unknown [id number] 2.16.840.1.277417.3.579. 2.1259 1972 Unknown [id number] 2.16.840.1.375130.3.579. 2.1286 1972 Unknown [id number] 2.16.840.1.513373.3.579. 2.1286 1972 Unknown [id number] 2.16.840.1.029733.3.579. 2.1286 1972 Unknown [id number] 2.16.840.1.534930.3.579. 2.1286 1959 Self-pay [id number] 1959 Unknown [id number] [id number]. [id number] Social History Date Type Detail Facility Tobacco smoking stat [facility] Unknown if ever smoked [place], [place] Start: 1970 Sex Assigned At Not on file [facility] [place] Start: 11-14-2022 End: 11-06-2023 Sex Assigned At [facility] [employer] Other Start: 11-06-2023 End: 10-10-2024 Tobacco smoking status NHIS Ex-smoker [facility] History of tobacco use Current smoker [facility] History of tobacco use Cigarette Smoker P [facility] Start: 11-14-2022 End: 11-06-2023 Cigarettes smoked current (pack per day) - Reported 0.5 [facility] Start: 11-06-2023 Tobacco use and exposure Smokeless tobacco non-user [facility] Start: 11-06-2023 End: 03-24-2025 Alcohol intake Lifetime non-drinker (finding) [facility] Has the [employer], oil, or water [employer] threatened to shut off services in your home in past 12Mo No [facility] Are you now , , , , never or living with a partner? [facility] How often to you hav e a drink containing alcohol? Never [facility] How many standard drinks containing alcohol do you have on a typical day? Patient does not drink [facility] Do you feel stress - tense, restless, nervous, or anxious, or unable to sleep at night because your mind is troubled all the time - these days [OSQ] Not at all [facility] Tobacco smoking stat [facility] Tobacco smoking consumption unknown [facility] Start: 03-18-2015 Sex Female (finding) [facility] tem Clinical Notes 10-12-2021 to 03-24-2025 Willi Ridley, DO - 03/24/2025 2:00 PM EDTDoni Rios APRN-DILIA - 10/15/2024 4:40 PM Derrick Garibay DPM - 10/10/2024 8:45 AM Montse Ridley, DO - 11/06/2023 2:50 PM EDT Note Date & Type Note Facility 03-24-2025 History of Presen t illness Narrative Images from the original note were not included. Subjective Patient ID: Jacqui Perez is a 54 y.o. female. Jacqui presents today for right shoulder pain. She [...] past medical history, past social history, past surgical history, problem list, and medication reconciliation was completed including current medication and post discharge medication. Review of Systems Constitutional: Negative. [...] Thought content normal. Judgment: Judgment normal. Assessment/Plan Jacqui was seen today for painful shoulder. Diagnoses and all orders for this visit: Trigger point of right shoulder region - triamcinolone acetonide (KENALOG-40) injection 40 mg She has tried and failed multiple modalities. We did discuss trigger point injection. She seemed to have a very tender spot over the superior [...] Cancel: $ Arthrocentesis documented in this encounter [facility] 10-15-2024 History of Presen t illness Narrative Images from the original note were not included. [address] [place] [id number] SUBJECTIVE: Patient ID: Jacqui Perez is a 53 y.o. female. Chief Complaint Patient presents with Annual Exam Presents for annual physical She works in transportation for local nursing facility. She has two grown children. Does not smoke. Offers no complaints today Annual Exam Pertinent negatives include no chest pain, chills or fever. The following portions of the patient's history were reviewed and updated as appropriate: allergies, current medications, past family history, past medical history, past social history, past surgical history and problem list. Past Surgical History: Procedure Laterality Date HYSTERECTOMY Past Medical History: Diagnosis Date Tachycardia Immunization History Administered Date(s) Administered Tdap 10/26/2014 REVIEW OF SYSTEMS: Review of Systems Constitutional: Negative for chills and fever. HENT: Negative. Eyes: Negative for visual disturbance. Respiratory: Negative for chest tightness and shortness of breath. Cardiovascular: Negative for chest pain and palpitations. Gastrointestinal: Negative. Endocrine: Negative. Genitourinary: Negative for menstrual problem and pelvic pain. Musculoskeletal: Negative. Skin: Negative. Allergic/Immunologic: Negative. Neurological: Negative for syncope and facial asymmetry. Hematological: Does not bruise/bleed easily. Psychiatric/Behavioral: Negative. PHYSICAL EXAMINATION: Vitals: 10/15/24 1635 BP: 110/82 BP Site: Left Arm BP Postition: Sitting Pulse: 79 Resp: 18 Temp: 37 C (98.6 F) TempSrc: Oral SpO2: 99% Weight: 88.7 kg (195 lb 9.6 oz) Height: 172.7 cm (5' 8 ) Patient noted to have elevated BMI and the following intervention(s) were applied: encouragement to exercise. Physical Exam Vitals and nursing note reviewed. Constitutional: General: She is not in acute distress. Appearance: She is well-developed. She is not diaphoretic. HENT: Head: Normocephalic and atraumatic. Right Ear: Tympanic membrane and external ear normal. Left Ear: Tympanic membrane and external ear normal. Nose: Nose normal. Mouth/Throat: Mouth: Mucous membranes are moist. Pharynx: No oropharyngeal exudate. Eyes: General: Right eye: No discharge. Left eye: No discharge. Conjunctiva/sclera: Conjunctivae normal. Pupils: Pupils are equal, round, and reactive to light. Neck: Thyroid: No thyromegaly. Vascular: No JVD. Cardiovascular: Rate and Rhythm: Normal rate and regular rhythm. Heart sounds: Normal heart sounds. No murmur heard. No friction rub. No gallop. Pulmonary: Effort: Pulmonary effort is normal. Breath sounds: Normal breath sounds. Abdominal: General: Bowel sounds are normal. There is no distension. Palpations: Abdomen is soft. There is no mass. Tenderness: There is no abdominal tenderness. Musculoskeletal: General: Normal range of motion. Cervical back: Normal range of motion and neck supple. Lymphadenopathy: Cervical: No cervical adenopathy. Skin: General: Skin is warm and dry. Capillary Refill: Capillary refill takes less than 2 seconds. Neurological: Mental Status: She is alert and oriented to person, place, and time. Deep Tendon Reflexes: Reflexes are normal and symmetric. Psychiatric: Mood and Affect: Mood normal. Behavior: Behavior normal. Thought Content: Thought content normal. Judgment: Judgment normal. ASSESSMENT/PLAN: Jacqui was seen today for annual exam. Diagnoses and all orders for this visit: Annual physical exam Blood tests for routine general physical examination - Comprehensive metabolic panel; Future - CBC auto differential; Future - Lipid profile; Future - Hemoglobin A1c; Future Encounter for screening mammogram for malignant neoplasm of breast - Mammography screening bilateral with CAD; Future Asymptomatic menopausal state - Dexa scan central skeletal; Future Encounter for screening for osteoporosis - Dexa scan central skeletal; Future Special screening for malignant neoplasm of colon - Cologuard Non-[facility] labs drawn in office today Colonoscopy screening discussed today. Risk and benefits of procedure explained. Patient completed Cologuard in 2021, she would like to proceed with Cologuard for 2024. Body mass index is 29.74 kg/m . Patient noted to have elevated BMI and the following intervention(s) were applied: Discussed current weight today. Consider healthy food choices, portion control. Avoid sugary beverages and high concentrated sweets. Routine exercise regimen encouraged. Mammogram and DEXA screenings ordered Depression: Not at risk (10/15/2024) PHQ-2 PHQ-2 Score: 0 ALL QUESTIONS ANSWERED Total time spent was 30 minutes: Preparing to see the patient (e.g., review of tests) Obtaining and/or reviewing separately obtained history Performing a medically appropriate examination and/or evaluation Counseling and educating the patient/family/caregiver Ordering medications, tests, or procedures Follow-up: One year Annual physical MARCO ANTONIO Nixon 10/15/24 1700 documented in this encounter [facility] 10-10-2024 History of Presen t illness Narrative Images from the original note were not included. Subjective Patient ID: Jacqui Perez is a 53 y.o. female who presents for Foot Pain (Jacqui Perez 53yo, Patient was last seen 2020. Patient presents with Right heel pain. Patient relates pain started around 06/2025 when patient purchased a pair of Hooka shoes. Patient has stopped wearing that pair, she is not sure if coincidence and has returned to her old shoes, with Powerteps. Patient states pain is after resting, stabbing at times and hard to put weight on. SS 11). HPI This is a new patient who presents to clinic with concerns of right heel pain. Symptoms have been present for about 3 months. She describes sharp, stabbing pain along the plantar aspect of the heel. Symptoms are worse when getting out of bed in the morning as well as when getting up from periods of rest. She has not tried any treatment. Review of Systems Constitutional: Negative for activity change and appetite change. Respiratory: Negative for chest tightness and shortness of breath. Cardiovascular: Negative for chest pain. Musculoskeletal: Positive for arthralgias and gait problem. Skin: Negative for color change and wound. Neurological: Negative for weakness and numbness. Psychiatric/Behavioral: Negative for agitation and behavioral problems. Hematological: Does not bruise/bleed easily. Endocrine: Negative for cold intolerance and heat intolerance. Allergic/Immunologic: Negative for immunocompromised state. Past medical History Past Medical History: Diagnosis Date Basal cell carcinoma nose Medications Current Outpatient Medications: meloxicam (Mobic) 15 MG tablet, Take 1 tablet (15 mg) by mouth Daily for 21 days, Disp: 21 tablet, Rfl: 0 methylPREDNISolone (Medrol Dospak) 4 MG tablets, Take as directed on package., Disp: 21 tablet, Rfl: 0 Allergies Patient has no known allergies. Past Surgical History Past Surgical History: Procedure Laterality Date HYSTERECTOMY 2009 Family History No family history on file. Objective Physical Exam HENT: Head: Normocephalic and atraumatic. Cardiovascular: Pulses: Normal pulses. Pulmonary: Effort: Pulmonary effort is normal. No respiratory distress. Abdominal: Palpations: There is no mass. Musculoskeletal: Cervical back: No rigidity. Comments: Weightbearing examination reveals pes planovalgus morphology. She is able to perform a double heel rise test which invert the hindfoot. Right foot: Isolated and maximal tenderness along the medial and lateral calcaneal tubercles. She also has some mild tenderness to palpation along the medial and central bands of the plantar fascia at the mid arch. Muscle strength 5/5 for all quadrants without tenderness. Ankle dorsiflexion 0 degrees with the knee extended, 5 degrees with the knee flexed. Weakly positive heel squeeze test. Skin: Capillary Refill: Capillary refill takes less than 2 seconds. Findings: No lesion or rash. Neurological: Mental Status: She is alert. Comments: No loss of protective sensation, gross sensation intact. Psychiatric: Mood and Affect: Mood normal. Behavior: Behavior normal. XR calcaneus 2 views right Imaging Result: Lateral, calcaneal axial views are weight-bearing. Slight 1st ray elevation. Enthesophyte at the insertion of the Achilles tendon and plantar fascia. Joints appear well-maintained. No fractures or dislocations. Assessment/Plan ICD-10-CM 1. Plantar fasciitis M72.2 XR calcaneus 2 views right meloxicam (Mobic) 15 MG tablet methylPREDNISolone (Medrol Dospak) 4 MG tablets 2. Right foot pain M79.671 XR calcaneus 2 views right 3. Equinus contracture of right ankle M24.571 Patient was examined and evaluated. 2 views of the affected foot were taken in office today and I discussed my findings. Causes and treatment options for plantar fasciitis were covered in detail. I discussed and stressed the importance of stretching exercises. I recommended a home exercise program focusing on Stretching the Achilles complex as well as anti-inflammatory modalities. Home stretching program was printed off and given to the patient today. I have instructed that this program be performed at least 3 times daily for the next month. I have recommended an anti-inflammatory regimen consisting of a week-long steroid taper followed by 3 weeks of an anti-inflammatory. I have sent these prescriptions appropriately. I have also recommended nightly ice water bottle massage with contrast bathing. I have discussed the importance of supportive shoe gear and recommended orthotic therapy. Patient already uses power steps daily and I recommend that she continue to use them and avoid barefoot walking. We will see how these modalities work for the next month and follow-up in 1 month. This note was created with the assistance of a speech recognition program. While intending to generate a timely document that accurately reflects the content of the visit, no guarantee can be provided that every grammatical or spelling mistake has been or will be identified or corrected. Thank you for your understanding. Kamran Garibay DPM documented in this encounter [facility] 11-09-2023 Miscellaneous Notes ----- Message from Willi Ridley DO sent at 11/08/2023 3:22 PM EDT ----- Her total cholesterol was high at 230 and her bad cholesterol, or LDL, was high at 139. However her CV risk for heart attack and stroke in the next 10 years is still low at 0.8% so no statin is indicated. Her CMP did show a slight bump in 1 of her liver enzymes. Her ALT was 33. She was having some right upper quadrant pain. Ultrasound last year did not show any abnormality. She does take a number of supplements. I would recommend that she stop taking her supplements and recheck the liver in a couple months. If it is still elevated then we should investigate it further. The rest of her CMP was normal. Her other liver enzymes were normal. Her sugar was fine. Her kidney tests were great. Patient notified and understands documented in this encounter [facility] 11-09-2023 Telephone encounter Note ----- Message from Willi Ridley DO sent at 11/08/2023 3:22 PM EDT ----- Her total cholesterol was high at 230 and her bad cholesterol, or LDL, was high at 139. However her CV risk for heart attack and stroke in the next 10 years is still low at 0.8% so no statin is indicated. Her CMP did show a slight bump in 1 of her liver enzymes. Her ALT was 33. She was having some right upper quadrant pain. Ultrasound last year did not show any abnormality. She does take a number of supplements. I would recommend that she stop taking her supplements and recheck the liver in a couple months. If it is still elevated then we should investigate it further. The rest of her CMP was normal. Her other liver enzymes were normal. Her sugar was fine. Her kidney tests were great. [facility] 11-09-2023 Telephone encounter Note Patient notified and understands [facility] 11-06-2023 History of Presen t illness Narrative Subjective Patient ID: Jacqui Perez is a 53 y.o. female. Jacqui presents today for her annual wellness. She has lost some weight since her last visit. She was doing the Ozempic but it became too expensive for her. She has weakness with chocolate and a lack of exercise in the winter. She still has occasional right upper quadrant discomfort. She would not qualify it as pain. It is usually sharp. She does have issues with constipation. She goes about every other day. The following portions of the patient's history were reviewed and updated as appropriate: allergies, current medications, past family history, past medical history, past social history, past surgical history, problem list, and medication reconciliation was completed including current medication and post discharge medication. Review of Systems Constitutional: Negative. HENT: Negative. Eyes: Negative. Respiratory: Negative. Cardiovascular: Negative. Gastrointestinal: Positive for constipation. Endocrine: Negative. Genitourinary: Negative. Musculoskeletal: Negative. Skin: Negative. Allergic/Immunologic: Negative. Neurological: Negative. Hematological: Negative. Psychiatric/Behavioral: Negative. Objective Physical Exam Vitals reviewed. Constitutional: General: She is not in acute distress. Appearance: She is obese. She is not ill-appearing. HENT: Head: Normocephalic and atraumatic. Right Ear: Tympanic membrane, ear canal and external ear normal. Left Ear: Tympanic membrane, ear canal and external ear normal. Nose: Nose normal. Mouth/Throat: Lips: [place]. Mouth: Mucous membranes are moist. Pharynx: Oropharynx is clear. Eyes: Extraocular Movements: Extraocular movements intact. Conjunctiva/sclera: Conjunctivae normal. Pupils: Pupils are equal, round, and reactive to light. Neck: Vascular: No carotid bruit. Cardiovascular: Rate and Rhythm: Normal rate and regular rhythm. Pulses: Normal pulses. Heart sounds: Normal heart sounds. No murmur heard. No gallop. Pulmonary: Effort: Pulmonary effort is normal. No respiratory distress. Breath sounds: Normal breath sounds. No wheezing, rhonchi or rales. Abdominal: General: Bowel sounds are normal. There is no distension. Palpations: Abdomen is soft. There is no mass. Tenderness: There is no abdominal tenderness. Hernia: No hernia is present. Musculoskeletal: Cervical back: Neck supple. Right lower leg: No edema. Left lower leg: No edema. Lymphadenopathy: Cervical: No cervical adenopathy. Skin: General: Skin is warm. Findings: No lesion or rash. Neurological: General: No focal deficit present. Mental Status: She is alert and oriented to person, place, and time. Cranial Nerves: Cranial nerves 2-12 are intact. No cranial nerve deficit. Gait: Gait is intact. Psychiatric: Attention and Perception: Attention and perception normal. Mood and Affect: Mood normal. Speech: Speech normal. Behavior: Behavior normal. Behavior is cooperative. Thought Content: Thought content normal. Cognition and Memory: Cognition and memory normal. Judgment: Judgment normal. Assessment/Plan Jacqui was seen today for annual exam. Diagnoses and all orders for this visit: Well adult health check - Lipid panel; Future - Comprehensive metabolic panel; Future Class 1 obesity due to excess calories with serious comorbidity and body mass index (BMI) of 30.0 to 30.9 in adult - TSH; Future Encounter for screening mammogram for malignant neoplasm of breast - Mammography screening bilateral with CAD; Future Constipation, unspecified constipation type Supraventricular tachycardia Hyperlipidemia, unspecified hyperlipidemia type Health maintenance discussed. Check CMP and lipids. Recommended vaccines. She will think about the shingles vaccine. She refuses flu vaccine. She will try MiraLax for her constipation. She is obese. She would benefit from weight loss. She had lost some weight with Ozempic and was congratulated. She does not do any physical exercise so she was encouraged to incorporate some into her daily routine. Behavior modification tips given for dietary cravings. She tried Adipex in the past but it aggravated her SVT. Other medications such as Contrave discussed. She will check with her formulary and do research on her own and let us know she wants to try something. Check TSH. documented in this encounter [facility] 01-17-2022 Evaluation note Encounter Date Diagnosis Assessment Notes Jan, Right shoulder tendinitis (ICD-10 - M77.8) This appears to be pain secondary to subacromial bursitis / rotator cuff tendonitis. We discussed and demonstrated gentle motion exercise and rotator cuff strengthening exercise. Discussed the use of non-steroidal anti-inflammator y medication. Patient instructed on use of occasional heat to area and motion exercise. Patient given order for physical therapy Also appears to have trigger point tenderness along the medial scapula. We discussed exercise which can be helpful. This is not a surgical problem [facility] Other 05-06-2022 NotePROCEDURE: XR SCAPULA RT COMPARISON: 12/16/2021 shoulder HISTORY: Pain in thoracic spine FINDINGS: BONES:No fracture, acute abnormality, or significant arthropathy. SOFT TISSUES:Negative. No visible soft tissue swelling. EFFUSION:None visible. OTHER: Negative. IMPRESSION: Normal examination. Electronically authenticated by: GIUSEPPE WHATLEY Date: 2021-12-16 17:06[facility]03-02-2022 [id number]:127 [facility] Diagnosis Well adult health check- Primary Unspecified general medical examination Class 1 obesity due to excess calories with serious comorbidity and body mass index (BMI) of 30.0 to 30.9 in adult Encounter for screening mammogram for malignant neoplasm of breast Constipation, unspecified constipation type Supraventricular tachycardia (CMS-HCC) Other specified cardiac dysrhythmias Hyperlipidemia, unspecified hyperlipidemia type [facility]* Diagnosis Plantar fasciitis- Primary Plantar fascial fibromatosis Right foot pain Pain in soft tissues of limb Equinus contracture of right ankle documented in this encounter [facility]* Diagnosis Annual physical exam- Primary Routine general medical examination at a health care facility Blood tests for routine general physical examination Laboratory examination ordered as part of a routine general medical examination Encounter for screening mammogram for malignant neoplasm of breast Asymptomatic menopausal state Encounter for screening for osteoporosis Special screening for malignant neoplasm of colon Special screening for malignant neoplasms, colon documented [facility]* Diagnosis Trigger point of right shoulder region- Primary documented in this encounter [facility]* Diagnosis Pain of right scapula- Primary [facility]* Diagnosis Pain of right scapula- Primary documented in [facility] System[facility] general Narrative - Reported* Type Description Date Medical History GERD Medical History Supraventricular Tachycardia Surgical History Cardiac ablation 1996 Surgical History total hysterectomy 2012 Hospitalization History see above [facility] Other InstructionsNot on filedocumented in this encounter [facility] [employer] SystemInstructionsNot on filedocumented in this encounter [facility] [employer] SystemInstructions* Attachments The following attachments cannot be sent through Care Everywhere. * Diet and health (Albanian) documented in [facility] SystemInstructionsNot on file [facility] [employer] [facility] Summary Purpose Family History No Family History Records FoundNo Family History Records FoundNo Family History Records FoundNo Family History Records FoundNo Family History Records FoundNo Family History Records FoundNo Family History Records Found Advance Directives No Advanced Directives Records FoundNo Advanced Directives Records FoundNo Advanced Directives Records FoundNo Advanced Directives Records FoundNo Advanced Directives Records FoundNo Advanced Directives Records FoundNo Advanced Directives Records Found Additional Source Comments INFORMATION SOURCE (unrecogn ized section and content) DATE CREATED AUTHOR 10/14/2020 [facility] DATE CREATED AUTHOR AUTHOR'S ORGANIZ ATION 09/20/2021 [facility] DATE CREATED AUTHOR AUTHOR'S ORGANIZ ATION 2021 [facility] DATE CREATED AUTHOR AUTHOR'S ORGANIZ ATION 11/18/2022 [facility] DATE CREATED AUTHOR AUTHOR'S ORGANIZ ATION 10/12/2024 [facility] DATE CREATED AUTHOR AUTHOR'S ORGANIZ ATION 10/18/2024 [facility] DATE CREATED AUTHOR AUTHOR'S ORGANIZ ATION 03/26/2025 [facility] REASON FOR VISIT (unrecogniz ed section and content) Reason Comments Annual Exam Reason Comments Foot Pain Jacqui Perez 53yo, P atient was last seen 2020. Patient presents with Right heel pain. Patient relates pain started around 06/2025 when patient purchased a pair of Hooka shoes. Patient has stopped wearing that pair, she is not sure if coincidence and has returned to her old shoes, with Powerteps. Patient states pain is after resting, stabbing at times and hard to put weight on. SS 11 Reason Comments Painful Shoulder Care Teams (unrecognized sec tion and content) Artificial Insemination Technician Relationship Specialty Start Date End Date Willi Ridley DO [address] [place] [address] PCP - General Family Medicine 05/19/22 Artificial Insemination Technician Relationship Specialty Start Date End Date Willi Ridley DO [address] [place] [address] PCP - General Family Medicine 05/19/22 Artificial Insemination Technician Relationship Specialty Start Date End Date Willi Ridley MD [address] [place] [address] PCP - General Family Medicine 10/10/24 Artificial Insemination Technician Relationship Specialty Start Date End Date Willi Ridley DO [address] [place] [address] PCP - [facility] Medicine 05/19/22 Artificial Insemination Technician Relationship Specialty Start Date End Date Willi Ridley DO [address] [place] [address] PCP - [facility] 05/19/22 Artificial Insemination Technician Relationship Specialty Start Date End Date Willi Ridley DO [address] [place] [address] PCP - [facility] Family Medicine 05/19/22 FOR RECORDS PERTAINING TO PATIENTS WHO ARE OR HAVE BEEN ENROLLED IN A CHEMICAL DEPENDENCY/SUBSTANCEABUSE PROGRAM, SOME INFORMATION MAY BE OMITTED. This clinical summary was aggregated from multiple sources. Caution should be exercised in using it in the provision of clinical care. This summary normalizes information from multiple sources, and as a consequence, information in this document may materially change the coding, format and clinical context of patient data. In addition, data may be omitted in some cases. CLINICAL DECISIONS SHOULD BE BASED ON THE PRIMARY CLINICAL RECORDS. [employer] [facility]. provides no warranty or guarantee of the accuracy or completeness of information in this document.
== END 2025-03-26 09:16 | disposition home or self-care (01) ==
LOC: RAD 09:17
PROVIDERS: PCP Family Medicine; Visit Provider Family Medicine
DX: M89.8X1 Other specified disorders of bone, shoulder (principal)
CPT/HCPCS: 73010

== ENCOUNTER 2025-04-09 18:31 | Emergency (ER) | payer OTHER, SELFPAY ==
--- OUTSIDE RECORDS SUMMARY | 2023-11-22 11:00 | XMS_ITS ---
Author Organization The [facility] in [place] Address [address] [place] [address] Care Team Providers Care Coach Operator Name Role Phone None, Unknown or Primary Care Provider Unavailab anh Toya Morgan Unavailable [phone] Allergies No Known Allergies REASON FOR VISIT fungal nails Medications Medication SIG (Take, Route, Fr equency, Duration) Notes Start Date End Date Status Multi For Her - as directed Orally Active PriLOSEC 2.5 MG as directed Orally Active Social History Tobacco Use: Social History Observation Description Date Details (start date - stop date) Former Smoker NA - NA Tobacco Use/Smoking Question Answer Notes Patient is a former smoker Vital Signs Temperature 98 degrees Fahrenheit 11/22/2023 Heart Rate 70 /min 11/22/2023 Height 68 in 11/22/2023 Weight 198 lbs 11/22/2023 BMI 30.1 kg/m2 11/22/2023 Oximetry 98 % 11/22/2023 Encounters Encounter Location Date Provider Diagnosis [facility] (PODIATRY) [address] [place] [address] [place] [address] 11/22/2023 Toya Morgan Nail dystrophy L60.3 Assessments Encounter Date Diagnosis (ICD Code) Assessment Notes Treatment Notes Treatment Clinical Notes Section Notes 11/22/2023 Nail dystrophy (ICD-10 - L60.3) The patient is a pleasant 53-year-old female who presents for evaluation of dystrophic appearance and thickening of the left hallux toenail. The entire nail is affected and partially detached. The patient was advised that antifungal treatment is unreliable. It is very possible nail trauma damaged the nail matrix and is causing her nail to grow and thickened and unsightly. The nail does not cause her discomfort and there is no sign of infection. I recommend she use fixed VapoRub topically to soften the nail. This will make it easier to trim and file. She was advised that if the nail becomes painful in the future we could consider chemical matrixectomy. The patient states she'll try the fixed VapoRub and follow-up as needed. As a courtesy today, the nail was trimmed using nail nippers without incident. Plan Of Treatment Treatment Notes Assessment Notes Nail dystrophy The patient is a pleasant 53-year-old female who presents for evaluation of dystrophic appearance and thickening of the left hallux toenail. The entire nail is affected and partially detached. The patient was advised that antifungal treatment is unreliable. It is very possible nail trauma damaged the nail matrix and is causing her nail to grow and thickened and unsightly. The nail does not cause her discomfort and there is no sign of infection. I recommend she use fixed VapoRub topically to soften the nail. This will make it easier to trim and file. She was advised that if the nail becomes painful in the future we could consider chemical matrixectomy. The patient states she'll try the fixed VapoRub and follow-up as needed. As a courtesy today, the nail was trimmed using nail nippers without incident. Next Appt Details Follow Up: prn, Reason: Progress Notes * CHRISHong JONESiDOB:1970 (53 yo F)Acc No.[id number]:11/22/2023 New Patient Patient: Ciarra IVEY Provider: Ifeoma Morgan PA-C :1970 A ge:53 Y S ex:Female Date:11/22/2023 [facility] [id number] Pcp:Unknown or None Check In:02:47 PM ESTCheck O ut:03:20 PM EST Subjective: * Chief Complaints: * F ungal nails * HPI: G eneral: pt is here for her left great toe nail. It is thick and has fungus. She has seen rusher in the past. Her nail coems to a point and digs into her skin. * ROS: G eneral/Constitutional: Chills d enies. F ever d enies. W eight gain?denies. W eight loss d enies. S kin: Skin Ulcers d enies. S kin lesion(s) d enies. ? C ardiovascular: Difficulty breathing on exertion d enies. L eg cramps?denies. E sushant d enies. C hest pain d enies. R espiratory: Difficulty breathing d enies. D yspnea d enies.?Cough d enies. G astrointestinal: Diarrhea d enies. N ausea d enies. V omiting?denies. M usculoskeletal: Bone/Joint Symptoms d enies. C halfway Pain d enies.?Leg cramps d enies. N eurologic: Numbness d enies. T ingling d enies . G ait abnormality d enies. ? H ematology: Anemia D enies. E asy bruising d enies. ? A ll Other Systems: Review of Systems (ROS) S HPI for details,All others negative except those mentioned in HPI. * Active Problem List ?Problem List has not been verified* Medical History: * Surgical History: h ysterectomy heat ablation * Hospitalization/Major Diagno stic Procedure: N o Hospitalization History. * Family History: F ather: diagnosed with Cancer. M other: diagnosed with Hypertension. * Social History: T obacco Use: T obacco Use/Smoking P atjenny is a f ormer smoker * Medications: T akingMulti For Her(Multiple Vitamins-Minerals) - Tablet as directed Orally PriLOSEC(Omeprazole Magnesium) 2.5 MG Packet as directed Orally Medication List reviewed and reconciled with the patientTaking Multi For Her(Multiple Vitamins-Minerals) - Tablet as directed Orally Taking PriLOSEC(Omeprazole Magnesium) 2.5 MG Packet as directed Orally Medication List reviewed and reconciled with the patient * Allergies: N .K.D.A.no[Allergies Verified] Objective: * Vitals: W t:198lbs, Ht: 68 in, Temp:98F, HR:70/min, BMI:30.1Index, Pain scale:11-10, Oxygen sat %:98%, Ht-cm: 172.72 cm, Wt-k.81 kg. * Examination: P odiatry Examination: SKIN: s kin intact, n o sign of infection Left hallux toenail is thickened, dystrophic, and incurvated with subungual debris. No evidence of paronychia.. MUSCULOSKELETAL: N o pain on palpation, Range of motion of ankle and foot is within normal limits, Muscle strength is 5/5 in all planes. NEUROLOGICAL: L ight touch sensation is intact in all nerve distributions, Normal muscle tone. VASCULAR: P alpable pedal pulses, No swelling, No calf pain on squeeze Digital hair present. Assessment: * Assessment: 1. N ail dystrophy - L60.3 (Primary) Plan: * Treatment: * Procedure Codes: * Preventive Medicine: Screenings/Counseling: B [place] ACTION PLAN Above Normal BMI Follow-up D ietary management education, guidance, and counseling * Follow Up: p rn * * Sign off status: Completed Visit Status: C JOHNIE (Check Out) true * Provider: Ifeoma Morgan PA-C Date: 0 11/22/2023 Generated for Bright spicer/Kami/eTransmitting on: 0 04/09/2025 06:35 PM EDT History and Physical Notes * Examination Category Sub-Category Detail Notes Category Not es Podiatry Examination SKIN: skin intact , no sign of infection Left hallux toenail is thickened, dystrophic, and incurvated with subungual debris. No evidence of paronychia. MUSCULOSKELETAL: No pain on palpation , Range of motion of ankle and foot is within normal limits, Muscle strength is 5/5 in all planes NEUROLOGICAL: Light touch sensatio n is intact in all nerve distributions, Normal muscle tone VASCULAR: Palpable pedal pulse s, No swelling, No calf pain on squeeze Digital hair present
--- OUTSIDE RECORDS SUMMARY | 2025-04-09 18:35 | XMS_ITS | Encounter Summary ---
Author Organization [facility] Address [facility]-[id number] [address] [place] [address] Care Team Providers Care Production Stage Manager Name Role Phone Willi Ridley DO Primary Care Provider + [phone] Reason for Visit * Reason Onset Date Comments Med Refill 02/19/2023 Encounter Details Date Type Department Care Team (Late st Contact Info) Description 02/19/2023 Refill [facility] Internal [facility] - Family Medicine [address] [place] [address] Willi Ridley DO [address], [facility] [address] Social History Tobacco Use Types Packs/Day Years [...] often do you attend chur ch or yazidism services? More than 4 times per year 11/14/2022 Do you belong to any clubs o r organizations such as roman catholic groups, unions, fraternal or athletic groups, or [...] Answer Date Recorded Total Score 0 12/14/2022 [facility] [place] of Occupat ional Health - Occupational Stress [...] Recorded Do you need help finding a [facility] and/or a training program? [...] as of this encounter Plan of Treatment Upcoming Encounters Date Type Department Care Team (Late st Contact Info) Description 04/14/2025 10:45 AM EDT Appointment [facility] [address] [place] [address] Disorder of right rotator cuff documented as of this encounter Visit Diagnoses Not on filedocumented in this encounter Additional Health Concerns Assessment Noted Time PHQ-9 Depression Total Score: 0 12/15/19 23 4:33 PM EDT A Body Mass Index follow-up plan has been documented for the patient 10/19/2022 11:02 AM EST documented as of this encounter Care Teams Production Stage Manager Relationship Specialty Start Date End Date Willi Ridley DO [address], [place] [address] PCP - General Family Medicine 05/19/22 documented as of this encounter
--- OUTSIDE RECORDS SUMMARY | 2025-04-09 18:35 | XMS_ITS | Encounter Summary ---
Author Organization [employer] s tem Address [facility]-[id number] [address] [place] [address] Care Team Providers Care Operator Receptionist Name Role Phone Willi Ridley DO Primary Care Provider + [phone] Encounter Details Date Type Department Care Team (Late st Contact Info) Description 01/01/2023 Telephone [facility] Internal Medicine - Family Medicine [address] [place] [phone] Willi Ridley DO [address], [facility] [place] [address] Social History Tobacco Use Types Packs/Day Years [...] often do you attend chur ch or bahai services? More than 4 times per year [...] Answer Date Recorded Total Score 0 12/14/[address] [facility] [place] of Occupat ional Health - Occupational Stress [...] Miscellaneous Notes * Telephone Encounter - Diane Ron - 01/01/2023 12:31 PM EDT Patient called and wanted to let you know that she stopped the adipex, she did not have time to follow it correctly documented in this encounter Plan of Treatment Upcoming Encounters Date Type Department Care Team (Late st Contact Info) Description 04/14/2025 10:45 AM EDT Appointment [facility] [address] [place] [address] Disorder of right rotator cuff documented as of this encounter Visit Diagnoses Not on filedocumented in this encounter Additional Health Concerns Assessment Noted Time PHQ-9 Depression Total Score: 0 12/15/19 23 4:33 PM EDT A Body Mass Index follow-up plan has been documented for the patient 10/19/2022 11:02 AM EST documented as of this encounter Care Teams Operator Receptionist Relationship Specialty Start Date End Date Willi Ridley DO [address], [place] [address] PCP - General Family Medicine 05/19/22 documented as of this encounter
--- OUTSIDE RECORDS SUMMARY | 2025-04-09 18:35 | XMS_ITS | Encounter Summary ---
Author Organization [employer] Sys tem Address [facility]-[id number] [address] [place] [address] Care Team Providers Care Hand Stone Polisher Name Role Phone KeyanaWilli Cathryn BOTELLO Primary Care Provider + [phone] Encounter Details Date Type Department Care Team (Late st Contact Info) Description 04/24/2023 Orders Only [facility] Internal [facility] - Family Medicine [address] [place] [address] Melody Gonsalez CMA Right upper [...] How often do you attend chur or latter-day services? More than 4 times per year 11/14/2022 Do you belong to any clubs o r organizations such as gnosticist groups, unions, fraternal or athletic groups, or [...] Answer Date Recorded Total Score 0 04/10/2023 [facility] of Occupat ional Health - Occupational [...] Recorded Do you need help finding a [facility] career center and/or a training program? [...] Description 04/14/2025 10:45 AM EDT Appointment [facility] [address] [place] [address] Disorder of right rotator cuff documented as of this encounter Procedures Procedure [...] quadrant pain Abdominal pain, right upper quadrant Disorder of right rotator cuff documented in this encounter Additional Health Concerns Assessment Noted Time PHQ-9 Depression Total Score: 0 04/10/20 23 3:33 PM EDT A Body Mass Index follow-up plan has been documented for the patient 10/19/2022 11:02 AM EST documented as of this encounter Care Teams Hand Stone Polisher Relationship Specialty Start Date End Date Willi Ridley DO [address], [place] [address] PCP - General Family Medicine 05/19/22 documented as of this encounter
--- OUTSIDE RECORDS SUMMARY | 2025-04-09 18:35 | XMS_ITS | Encounter Summary ---
Author Organization [facility] Address [facility]-[id number] [address] [place] [address] Care Team Providers Care German Instructor Name Role Phone JajaWilli simon Primary Care Provider + [phone] Encounter Details Date Type Department Care Team (Late st Contact Info) Description 03/23/2023 Orders Only [facility] Internal Medicine - Family Medicine [address] [place] [address] External, Scanning Provider Social History [...] often do you attend chur ch or christianity services? More than 4 times per year 11/14/2022 Do you belong to any clubs o r organizations such as uatsdin groups, unions, fraternal or athletic groups, or [...] Answer Date Recorded Total Score 0 12/14/2022 [employer] of Occupat ional Health - Occupational Stress [...] - [facility] [address] [place] [address] Disorder of right rotator cuff documented as [...] documented as of this encounter Care Teams German Instructor Relationship Specialty Start Date End Date Willi Ridley DO [address], [place] [address] PCP - General Family Medicine 05/19/22 documented as of this encounter
--- OUTSIDE RECORDS SUMMARY | 2025-04-09 18:35 | XMS_ITS | Encounter Summary ---
Author Organization [employer] Sys tem Address [id number] [address] [place] [address] Care Team Providers Care Engine Research Engineer Name Role Phone KeyanaWilli Cathryn BOTELLO Primary Care Provider + [phone] Encounter Details Date Type Department Care Team (Late st Contact Info) Description 12/18/2023 Telephone [facility] - Family Medicine [address] [place] [address] Jackie Mohan, FRANICSCO J Social History Tobacco Use Types Packs/Day Years Used Date Smoking Tobacco: Former Cigarettes 0.5 20 Smokeless Tobacco: Never Alcohol Use Standard Drinks/Week Comments Never 0 (1 standard drink = 0.6 oz pur e alcohol) [facility] Utilities Answer Date Recorded In the [...] often do you attend chur ch or buddhist services? More than 4 times per year [...] Answer Date Recorded Total Score 0 11/06/2023 [facility] of Occupat ional Health - [...] Info) Description 04/14/2025 10:45 AM EDT Appointment [facility] [address] [place] [address] Disorder of right rotator cuff documented as of this encounter Visit Diagnoses Not on filedocumented in this encounter Additional Health Concerns Assessment Noted Time PHQ-9 Depression Total Score: 0 11/06/19 24 2:40 PM EDT A Body Mass Index follow-up plan has been documented for the patient 10/19/2022 11:02 AM EST documented as of this encounter Care Teams Engine Research Engineer Relationship Specialty Start Date End Date Willi Ridley DO [address], [place] [address] PCP - General Family Medicine 05/19/22 documented as of this encounter
--- OUTSIDE RECORDS SUMMARY | 2025-04-09 18:36 | XMS_ITS | Encounter Summary ---
Author Organization [employer] Sys tem Address [facility]-[id number] [address] [place] [address] Care Team Providers Care Museum Assistant Name Role Phone AmarjitWilli spicer Primary Care Provider + [phone] Encounter Details Date Type Department Care Team (Late st Contact Info) Description 12/09/2024 Telephone [facility] - Family Medicine [address] [place] [address] Elisha Vail CMA Social History Tobacco Use Types Packs/Day Years Used Date Smoking Tobacco: Former Cigarettes 0.5 20 Smokeless Tobacco: Never Alcohol Use Standard Drinks/Week Comments Never 0 (1 standard drink = 0.6 oz pur e alcohol) [facility] Utilities Answer Date Recorded In the past [...] often do you attend chur ch or latter day services? More than 4 times per year 11/14/2022 Do you belong to any clubs o r organizations such as nondenominational groups, unions, fraternal or athletic groups, or [...] Answer Date Recorded Total Score 0 10/15/2024 [facility]at [facility] - Occupational Stress Questionnaire Answer [...] Recorded Do you need help finding a [facility] career [facility] and/or a training [...] wants to be referred to Urology at [facility]. documented in this encounter Plan of Treatment Upcoming Encounters Date Type Department Care Team (Late st Contact Info) Description 04/14/2025 10:45 AM EDT Appointment [facility] [address] [place] [address] Disorder of right rotator cuff documented as of this encounter Visit Diagnoses Not on filedocumented in this encounter Additional Health Concerns Assessment Noted Time PHQ-9 Depression Total Score: 0 10/16/19 25 4:33 PM EST A Body Mass Index follow-up plan has been documented for the patient 10/15/2024 5:09 PM EST documented as of this encounter Care Teams Museum Assistant Relationship Specialty Start Date End Date Willi Ridley DO [address], [facility] [address] PCP - General Family Medicine 05/19/22 documented as of this encounter
--- OUTSIDE RECORDS SUMMARY | 2025-04-09 18:36 | XMS_ITS | Encounter Summary ---
Author Organization [facility] Address [facility]-[id number] [address] [place] [address] Care Team Providers Care Puller Over Name Role Phone Willi Ridley Primary Care Provider + [phone] Encounter Details Date Type Department Care Team (Late st Contact Info) Description 12/08/2024 Orders Only [facility] Internal [facility] - Family Medicine [address] [place] [address] Ref Prov, [place] [address] Social History Tobacco Use Types Packs/Day Years Used Date Smoking Tobacco: Former Cigarettes 0.5 20 Smokeless Tobacco: Never Alcohol Use Standard Drinks/Week Comments Never 0 (1 standard drink = 0.6 oz pur e alcohol) [facility] Utilities Answer Date Recorded In the past 12 months has [employer] electric, gas, oil, or water company threatened [...] often do you attend chur ch or restorationist services? More than 4 times per year 11/14/2022 Do you belong to any clubs o r organizations such as restorationist groups, unions, fraternal or athletic groups, or [...] Answer Date Recorded Total Score 0 10/15/2024 [facility] of Occupat ional Health - Occupational [...] Do you need help finding a [facility] career center and/or a training [...] - [facility] [address] [place] [address] Disorder of right rotator cuff documented as of this encounter Procedures Procedure Name Priority Date/Time Associated Diagnosis Comments DEXA SCAN CENTRAL SKELETAL Routine 11/21/2024 11:11 AM EDT MAMMOGRAPHY Routine 11/21/2024 11:08 AM EDT documented in this encounter Results * Dexa scan central skeletal (11/21/2024 11:11 AM EDT) Anatomical Region Laterality Modality N/A Radiographic Blaire ging us Not In System Ref Prov IMG DXA ORDERABLES Final Result * MAMMOGRAPHY (11/21/2024 11:08 AM EDT) Anatomical [...] documented as of this encounter Care Teams Puller Over Relationship Specialty Start Date End Date Willi Ridley DO [address], [place] [address] PCP - General Family Medicine 05/19/22 documented as of this encounter
--- OUTSIDE RECORDS SUMMARY | 2025-04-09 18:36 | XMS_ITS | Patient Health Record ---
Author Organization [facility] [place] Address [address] [place] [address] Care Team Providers Care Clinical Veterinarian Name Role Phone None, Unknown or Primary [...] Coverage End Date [employer] [address] [address] [place] [address] [id number] [phone] Ciarra Perez Self - patient is the insured Medical (General) History Medical History History ICD Code Arthritis M19.90 Surgical History Surgery Date(Month/Year) hysterectomy heat ablation
--- OUTSIDE RECORDS SUMMARY | 2025-04-09 18:36 | XMS_ITS | Clinical Summary ---
Author Organization [facility] Address [address] [place] [address] Care Team Providers Care Sr. Consultant Name Role Phone Willi Ridley MD Primary [...] Not on file Insurance [employer] Care Teams Sr. Consultant Relationship Specialty Start Date End Date Willi Ridley MD PCP - General Family Medicine 10/10/24
--- OUTSIDE RECORDS SUMMARY | 2025-04-09 18:36 | XMS_ITS | Encounter Summary ---
Author Organization [employer] Sys tem Address [facility]-[id number] [address] [place] [address] Care Team Providers Care Faucet Polisher Name Role Phone Willi Ridley Primary Care Provider + [phone] Encounter Details Date Type Department Care Team (Latest Contact Info) Description 04/06/2025 Travel Social History Tobacco Use Types Packs/Day Years Used Date Smoking Tobacco: Former Cigarettes 0.5 20 Smokeless Tobacco: Never Alcohol Use Standard Drinks/Week Comments Never 0 (1 standard drink = 0.6 oz pur e alcohol) [facility] Utilities Answer Date Recorded In the past 12 months has [employer] electric, gas, oil, or water company threatened [...] any clubs o r organizations such as orthodox groups, unions, fraternal or athletic groups, or [...] Answer Date Recorded Total Score 0 03/24/2025 [facility] of Occupat ional Health - Occupational [...] Recorded Do you need help finding a [facility] career center and/or a training [...] Description 04/14/2025 10:45 AM EDT Appointment [facility] [address] [place] [address] Disorder of right rotator cuff documented as of this encounter Visit Diagnoses Not on filedocumented in this encounter Additional Health Concerns Assessment Noted Time PHQ-9 Depression Total Score: 0 03/24/20 25 1:50 PM EDT A Body Mass Index follow-up plan has been documented for the patient 10/15/2024 5:09 PM EST documented as of this encounter Care Teams Faucet Polisher Relationship Specialty Start Date End Date Willi Ridley DO [address], [place] [address] PCP - General Family Medicine 05/19/22 documented as of this encounter
--- OUTSIDE RECORDS SUMMARY | 2025-04-09 18:36 | XMS_ITS | Encounter Summary ---
Author Organization [employer] Sys tem Address [facility]-[id number] [address] [place] [address] Care Team Providers Care Brewery Worker Name Role Phone JajaWilli simon Cathryn BOTELLO Primary Care Provider + [phone] Encounter Details Date Type Department Care Team (Late st Contact Info) Description 04/01/2025 Orders Only [facility] Internal Medicine - Family Medicine [address] [place] [address] Melody Gonsalez CMA Pain of right scapula Social History Tobacco Use Types Packs/Day Years Used Date Smoking Tobacco: Former Cigarettes 0.5 20 Smokeless Tobacco: Never Alcohol Use Standard Drinks/Week Comments Never 0 (1 standard drink = 0.6 oz pur e alcohol) [facility] Utilities Answer Date Recorded In [...] any clubs o r organizations such as restorationism groups, unions, fraternal or athletic groups, or [...] Answer Date Recorded Total Score 0 03/24/2025 [facility] of Occupat ional Health - Occupational [...] Recorded Do you need help finding a [facility] career [facility] and/or a training program? [...] - [facility] [address] [place] [address] Disorder of right rotator cuff documented as of this encounter Procedures Procedure Name Priority Date/Time Associated Diagnosis Comments XR SCAPULA RT Routine 04/01/2025 10:55 AM EDT Pain of right scapula documented in this encounter Results * X-ray scapula right (04/01/2025 10:55 AM EDT) Anatomical Region Laterality Modality MSK, Upper Extremities, Scapula Right Computed Radiography us Willi Ridley DO IM DIAGNOSTIC IMAGING ORDER EVE Final Result documented in this encounter Visit Diagnoses Diagnosis Pain of right scapula Disorder of right rotator cuff documented in this encounter Additional Health Concerns Assessment Noted Time PHQ-9 Depression Total Score: 0 03/24/20 25 1:50 PM EDT A Body Mass Index follow-up plan has been documented for the patient 10/15/2024 5:09 PM EST documented as of this encounter Care Teams Brewery Worker Relationship Specialty Start Date End Date Willi Ridley DO [address], [place] [address] PCP - General Family Medicine 05/19/22 documented as of this encounter
--- OUTSIDE RECORDS SUMMARY | 2025-04-09 18:36 | XMS_ITS | Encounter Summary ---
Author Organization [facility] Address [address] [facility] [place] [address] Care Team Providers Care Early Childhood Director Name Role Phone Willi Ridley MD Primary Care Provider [phone] Reason for Visit * Reason Comments Med Refill Encounter Details Date Type Department Care Team (Late st Contact Info) Description 11/03/2024 Refill [facility] [address] [place] [address] Kamran Garibay DPM [address] [place] [address] Plantar fasciitis Social History Tobacco Use Types [...] fibromatosis documented in this encounter Care Teams Early Childhood Director Relationship Specialty Start Date End Date Willi Ridley MD PCP - General Family Medicine 10/10/24 documented as of this encounter
--- OUTSIDE RECORDS SUMMARY | 2025-04-09 18:36 | XMS_ITS | Encounter Summary ---
Author Organization [employer] Sys tem Address [id number] [address] [place] [address] Care Team Providers Care Site Monitor Name Role Phone Willi Ridley DO Primary Care Provider + [phone] Reason for Referral * Rehabilitation - Outpatient (Routine) - Authorized Specialty Diagnoses / Procedures Referred By Contac t Referred To Contact Rehabilitation Diagnoses Disorder of right rotator cuff Willi Ridley DO [address] [place] [address] Phone: tel: fax: [facility] [address] [place] [address] Phone: tel: fax: Referral ID Status Reason Start Date Expiration Date Visits Requested Visits Authorized [id number] Authorized Specialty Services Required 04/02/2025 10/03/2025 12 12 Encounter Details Date Type Department Care Team (Late st Contact Info) Description 04/02/2025 Orders Only [facility] Internal [facility] - Family Medicine [address] [place] [address] Willi Ridley DO [address] [place] [address] Disorder of right rotator cuff (Primary Dx) Social History Tobacco Use Types Packs/Day Years Used Date Smoking Tobacco: Former Cigarettes 0.5 20 Smokeless Tobacco: Never Alcohol Use Standard Drinks/Week Comments Never 0 (1 standard drink = 0.6 oz pur e alcohol) [facility] Utilities Answer Date Recorded In the past 12 months has th e electric, gas, oil, or water company [...] often do you attend chur ch or anabaptism services? More than 4 times per year 11/14/2022 Do you belong to any clubs o r organizations such as shinto groups, unions, fraternal or athletic groups, or [...] Answer Date Recorded Total Score 0 03/24/2025 [facility] of Occupat ional Health - Occupational Stress [...] Do you need help finding a [facility] career center and/or a training program? [...] [facility] [address] [place] [address] Disorder of right rotator cuff Scheduled Referrals Name Type Priority Associated Diagnoses Order Schedule [facility] [place] [place] Outpatient Referral Routine Disorder of right rotator cuff 1 Occurrences starting 04/02/2025 until 04/02/2026 documented as of this encounter Visit Diagnoses Diagnosis Disorder of right rotator cuff- Primary Disorder of right rotator cuff documented in this encounter Additional Health Concerns Assessment Noted Time PHQ-9 Depression Total Score: 0 03/24/20 25 1:50 PM EDT A Body Mass Index follow-up plan has been documented for the patient 10/15/2024 5:09 PM EST documented as of this encounter Care Teams Site Monitor Relationship Specialty Start Date End Date Willi Ridley DO [address] [facility], [place] [address] PCP - General Family Medicine 05/19/22 documented as of this encounter
--- OUTSIDE RECORDS SUMMARY | 2025-04-09 18:36 | XMS_ITS | Encounter Summary ---
Author Organization [facility] Address [facility]-[id number] [address] [place] [address] Care Team Providers Care Sawmill Hand Name Role Phone Willi Ridley DO Primary Care Provider + [phone] Encounter Details Date Type Department Care Team (Late st Contact Info) Description 11/15/2022 Orders Only [facility] - Family Medicine [address] [place] [address] Willi Ridley DO [address], [facility] [place] [place] [address] Social History Tobacco Use Types Packs/Day Years [...] often do you attend chur ch or temple services? More than 4 times per year 11/14/2022 Do you belong to any clubs o r organizations such as sikh groups, unions, fraternal or athletic groups, or [...] Answer Date Recorded Total Score 0 11/14/2022 [facility] [place] of Occupat ional Health - Occupational Stress [...] Info) Description 04/14/2025 10:45 AM EDT Appointment [facility] [address] [place] [address] Disorder of right rotator cuff documented as [...] Time PHQ-9 Depression Total Score: 0 11/15/19 23 4:27 PM EDT A Body Mass Index follow-up plan has been documented for the patient 10/19/2022 11:02 AM EST documented as of this encounter Care Teams Sawmill Hand Relationship Specialty Start Date End Date Willi Ridley DO [address], [place] [address] PCP - General Family Medicine 05/19/22 documented as of this encounter
--- OUTSIDE RECORDS SUMMARY | 2025-04-09 18:36 | XMS_ITS | Encounter Summary ---
Author Organization [employer] Address [facility]-[id number] [address] [place] [address] Care Team Providers Care System Technologist Name Role Phone Willi Ridley DO Primary Care Provider +[phone] Encounter Details Date Type Department Care Team (Late st Contact Info) Description 06/30/2022 [facility]phone [facility] [address] [place] [address] Alona Mejia MA Social History [...] - Total Rehab [address] [place] [address] Disorder of right rotator cuff documented as of this encounter Visit Diagnoses Not on filedocumented in this encounter Care Teams System Technologist Relationship Specialty Start Date End Date Willi Ridley DO [address], [place] [address] PCP - General Family Medicine 05/19/22 documented as of this encounter
--- OUTSIDE RECORDS SUMMARY | 2025-04-09 18:36 | XMS_ITS | Encounter Summary ---
Author Organization [employer] Address [facility] [place]-[id number] [address] [place] [address] Care Team Providers Care Pit Furnace Melter Name Role Phone AmarjitWilli spicer Primary Care Provider + [phone] Encounter Details Date Type Department Care Team (Late st Contact Info) Description 12/08/2024 Telephone [facility] Internal Medicine - Family Medicine [address] [place] [address] Elisha Vail CMA Social History Tobacco Use Types Packs/Day Years Used Date Smoking Tobacco: Former Cigarettes 0.5 20 Smokeless Tobacco: Never Alcohol Use Standard Drinks/Week Comments Never 0 (1 standard drink = 0.6 oz pur e alcohol) [facility] Utilities Answer Date Recorded In the [...] often do you attend chur ch or gnosticist services? More than 4 times per year 11/14/2022 Do you belong to any clubs o r organizations such as cheondoism groups, unions, fraternal or athletic groups, or [...] Answer Date Recorded Total Score 0 10/15/2024 [facility] of Occupat [facility] unional Health - Occupational Stress Questionnaire Answer Date [...] Recorded Do you need help finding a [facility] career center and/or a training program? [...] - 12/08/2024 8:47 AM EDT I called [facility] and they are re-faxing her results. documented in this encounter Plan of Treatment Upcoming Encounters Date Type Department Care Team (Late st Contact Info) Description 04/14/2025 10:45 AM EDT Appointment [facility] [place] [facility] [address] [place] [address] Disorder of right rotator cuff documented as of this encounter Visit Diagnoses Not on filedocumented in this encounter Additional Health Concerns Assessment Noted Time PHQ-9 Depression Total Score: 0 10/16/19 25 4:33 PM EST A Body Mass Index follow-up plan has been documented for the patient 10/15/2024 5:09 PM EST documented as of this encounter Care Teams Pit Furnace Melter Relationship Specialty Start Date End Date Willi Ridley DO [address], [place] [address] PCP - General Family Medicine 05/19/22 documented as of this encounter
--- OUTSIDE RECORDS SUMMARY | 2025-04-09 18:36 | XMS_ITS | Encounter Summary ---
Author Organization [employer] [facility] [employer] Address [facility]-[id number] [address] [place] [address] Care Team Providers Care Round Boner Name Role Phone Willi Ridley DO Primary Care Provider + [phone] Encounter Details Date Type Department Care Team (Late st Contact Info) Description 04/13/2023 Orders Only [facility] Internal Medicine - Family Medicine [address] [place] [phone] Willi Ridley DO [address], [facility] [place] [address] Social History Tobacco Use Types Packs/Day Years [...] any clubs o r organizations such as yazdanism groups, unions, fraternal or athletic groups, or [...] Answer Date Recorded Total Score 0 04/10/2023 [facility] of Occupat ional Health - Occupational Stress [...] - Total Rehab [address] [place] [address] Disorder of right rotator cuff [...] documented as of this encounter Care Teams Round Boner Relationship Specialty Start Date End Date Willi Ridley DO [address] [place] [address] PCP - General Family Medicine 05/19/22 documented as of this encounter
--- OUTSIDE RECORDS SUMMARY | 2025-04-09 18:36 | XMS_ITS | Clinical Summary ---
Author Organization [facility] Address [address], [address] [place] [address] Care Team Providers Care Racing Car Driver Name Role Phone Unavailable Primary Care Provider [...]
--- OUTSIDE RECORDS SUMMARY | 2025-04-09 18:36 | XMS_ITS | Encounter Summary ---
Author Organization [employer] Address [facility]-[id number] [address] [place] [address] Care Team Providers Care Chip Tester Name Role Phone KeynaaWilli Cathryn BOTELLO Primary Care Provider + [phone] Encounter Details Date Type Department Care Team (Late st Contact Info) Description 03/25/2025 Telephone [facility] Internal Medicine - Family Medicine [address] [place] [address] Israel Duran CMA Social [...] often do you attend chur ch or sikhism services? More than 4 times per year 11/14/2022 Do you belong to any clubs o r organizations such as congregational groups, unions, fraternal or athletic groups, or [...] Answer Date Recorded Total Score 0 03/24/2025 [facility] of Occupat ional Health - Occupational Stress [...] Recorded Do you need help finding a [facility] career center and/or [...] AM EDT Please send the order to [facility] documented in this encounter Plan of Treatment Upcoming Encounters Date Type Department Care Team (Late st Contact Info) Description 04/14/2025 10:45 AM EDT Appointment [facility] [place] - [facility] Re[facility] [address] [place] [address] Disorder of right rotator cuff documented as of this encounter Visit Diagnoses Not on filedocumented in this encounter Additional Health Concerns Assessment Noted Time PHQ-9 Depression Total Score: 0 03/24/20 25 1:50 PM EDT A Body Mass Index follow-up plan has been documented for the patient 10/15/2024 5:09 PM EST documented as of this encounter Care Teams Chip Tester Relationship Specialty Start Date End Date Willi Ridley DO [address], [facility] [place] [address] PCP - General Family Medicine 05/19/22 documented as of this encounter
--- OUTSIDE RECORDS SUMMARY | 2025-04-09 18:36 | XMS_ITS | Encounter Summary ---
Author Organization [employer] Address [facility]-[id number] [address] [place] [address] Care Team Providers Care Group Leader Semiconductor Processing Name Role Phone AmarjitWilli spicer Primary Care Provider + [phone] Encounter Details Date Type Department Care Team (Late st Contact Info) Description 12/09/2024 Telephone [facility] Internal Medicine - Family Medicine [address] [place] [address] Elisha Vail CMA Social History Tobacco Use Types Packs/Day Years Used Date Smoking Tobacco: Former Cigarettes 0.5 20 Smokeless Tobacco: Never Alcohol Use Standard Drinks/Week Comments Never 0 (1 standard drink = 0.6 oz pur e alcohol) [facility] Utilities Answer Date Recorded In the [...] often do you attend chur ch or adventism services? More than 4 times per year 11/14/2022 Do you belong to any clubs o r organizations such as pentecostalism groups, unions, fraternal or athletic groups, or [...] Answer Date Recorded Total Score 0 10/15/2024 [facility]at [facility] - Occupational Stress Questionnaire Answer [...] Recorded Do you need help finding a [facility] career center and/or a training [...] to be referred to Urology at the [facility]. Call mom if any questions or concerns. * Telephone Encounter - Willi Ridley DO - 12/09/2024 12:06 PM EDT Referral sent for Vik documented in this encounter Plan of Treatment Upcoming Encounters Date Type Department Care Team (Late st Contact Info) Description 04/14/2025 10:45 AM EDT Appointment [facility] [place] [facility] [address] [place] [phone] Disorder of right rotator cuff documented as of this encounter Visit Diagnoses Not on filedocumented in this encounter Additional Health Concerns Assessment Noted Time PHQ-9 Depression Total Score: 0 10/16/19 25 4:33 PM EST A Body Mass Index follow-up plan has been documented for the patient 10/15/2024 5:09 PM EST documented as of this encounter Care Teams Group Leader Semiconductor Processing Relationship Specialty Start Date End Date Willi Ridley DO [address], [place] [address] PCP - General Family Medicine 05/19/22 documented as of this encounter
--- OUTSIDE RECORDS SUMMARY | 2025-04-09 18:36 | XMS_ITS | Clinical Summary ---
Author Organization [employer] Address [facility] [place]-[id number] [address] [place] [address] Care Team Providers Care Network Security Officer Name Role Phone AmarjitWilli spicer Primary Care Provider [phone] Allergies No known active allergies Medications fish,bora,flax [...] Encounters Date Type Department Care Team Description 04/06/2025 Travel 04/02/2025 Orders Only [facility] Internal Medicine - Family Medicine [address] [place] [address] Willi Ridley, DO Disorder of right rotator cuff (Primary Dx) 04/01/2025 Results Follow-Up [facility] Internal Medicine - Family Medicine [address] [place] [address] Willi Ridley, DO X-ray scapula right 04/01/2025 Orders Only [facility] Internal Medicine - Family Medicine [address] [place] [address] Melody Gonsalez CMA Pain of right scapula 03/31/2025 Telephone [facility] Internal Medicine - Family Medicine [address] [place] [address] [facility] 03/25/2025 Orders Only [facility] Internal Medicine - Family Medicine [address] [place] [address] Willi Ridley, DO Pain of right scapula (Primary Dx) 03/25/2025 Orders Only [facility] Internal Medicine - Family Medicine [address] [place] [address] Willi Ridley, DO Pain of right scapula (Primary Dx) 03/25/2025 Telephone [facility] Internal Medicine - Family Medicine [address] [place] [address] [facility] 03/24/2025 2:00 PM EDT Office Visit [facility] Medicine - Family Medicine [address] [facility] [place] [address] Willi Ridley, Trigger point of right shoulder [...] drink = 0.6 oz pur e alcohol) [facility] Utilities Answer Date Recorded In [...] often do you attend chur ch or samaritan services? More than 4 times per year 11/14/2022 Do you belong to any clubs o r organizations such as methodist groups, unions, fraternal or athletic groups, or [...] Recorded Total Score 0 03/24/2025 [facility] of Occupat ional Health - Occupational [...] Recorded Do you need help finding a [facility] career center and/or a training program? No [...] 03/24/2025 1:50 PM EDT Plan of Treatment Upcoming Encounters Date Type Department Care Team (Late st Contact Info) Description 04/14/2025 10:45 AM EDT Appointment [facility] [place] - Total Rehab [address] [place] [address] Disorder of right rotator cuff Health Maintenance Due Date Last Done Comments Zoster (Shingles) Vaccine (1 of 2) 2022 DTaP,Tdap and Td Vaccines (2 - Td or Tdap) 10/26/2024 10/26/2014 Influenza Vaccine 04/13/2025 Adult BMI Follow Up Plan 10/15/2025 10/15/2024 Mammogram 11/21/2025 11/21/2024, 11/12/2023 Adult BMI Screening 03/24/2026 03/24/2025 Depression Screening 03/24/2026 03/24/2025 Tobacco Screening 03/24/2026 03/24/2025 Colon Cancer Screening 3 Yea r Cologuard 11/10/2027 11/09/2024, 10/23/2021, 10/23/2021 Medical Devices Not on file Procedures Procedure Name Priority Date/Time Associated Diagnosis Comments XR SCAPULA RT Routine 04/01/2025 10:55 AM EDT Pain of right scapula HM MAMMOGRAPHY Routine 11/21/2024 11:08 AM EDT COLOGUARD NON-[facility] Routine 11/09/2024 1:50 PM EDT Special screening for malignant neoplasm of colon from Last 3 Months or Most Recently Relevant to Health Maintenance Results * X-ray scapula right (04/01/2025 10:55 AM EDT) Anatomical Region Laterality Modality MSK, Upper Extremities, Scapula Right Computed Radiography us Willi Ridley DO IMG DIAGNOSTIC IMAGING ORDER EVE Final Result * HM MAMMOGRAPHY (11/21/2024 11:08 AM EDT) Anatomical Region Laterality Modality Other us Not In System Ref Prov HEALTH MAINTENANCE Final Result * Cologuard Non-[facility] (11/09/2024 1:50 PM EDT) EXTERNAL COLOGUARD Negative Negative 2024 2:09 PM EDT [employer] (CLIA #:[id number]) Comment: NEGATIVE TEST RESULT. A negative Cologuard [...] screened with both Cologuard and colonoscopy. (Sarah Figueroa. et al, N Engl J Med 2014;370(14):0530-7653) The normal value (reference range) for this assay is negative. COLOGUARD RE-SCREENING RECOMMENDATION: Periodic colorectal cancer screening is an important part of preventive healthcare for asymptomatic individuals at average risk for colorectal cancer. Following a negative Cologuard result, the [place] Cancer Society and U.S. Multi-Society Task Force screening guidelines recommend a Cologuard re-screening interval of 3 years. References: [place] Cancer Society Guideline for Colorectal Cancer Screening: https://www.cancer.org/cancer/ahssh-htgtad-pjpdcf/tjwasgumb-intpznnnm-zzexnxr/ac s-rec ommendations.html.; Jose CLEANING, Sudheer BRYANT, Ervin BOBBY, Colorectal Cancer Screening: Recommendations for Physicians and Patients from the U.S. Multi-Society Task Force on Colorectal Cancer Screening , Am J Gastroenterology 2017; 112:6255-7521. TEST DESCRIPTION: Composite algorithmic analysis of stool [...] (Sarah Blackman al, N Engl J Med 2014;370(14):4485-9256.) Cologuard may produce a false negative or false positive result (no colorectal cancer or precancerous polyp present at colonoscopy follow up). A negative Cologuard test result does not guarantee the absence of CRC or advanced adenoma (pre-cancer). The current Cologuard screening interval is every 3 years. ([place]izen [place] Cancer Society and U.S. Multi-Society Task Force). Cologuard performance data in a 10,000 patient pivotal study using colonoscopy as the reference method can be accessed at the following location: www.Cloze.Fruitday.com/results. Additional description of the Cologuard test process, warnings and precautions can be found at www.SnapRetailogMocanard.com. Stool specimen (specimen) Rectum structure / Unknown 11/09/2024 1:50 PM EDT 11/11/2024 12:21 PM EDT us [place] Stephanie Rios SALES CLOSER-RACK MAKER LAB ORDERABLES Zeina smith Result [employer] (CLIA #:[id number]) [address] [place] [address], [place] [phone] from Last 3 Months or Most Recently Relevant to Health Maintenance Insurance [employer] Care Teams Network Security Officer Relationship Specialty Start Date End Date Willi Ridley DO [address], [place] [address] PCP - General Family Medicine 05/19/22
--- OUTSIDE RECORDS SUMMARY | 2025-04-09 18:36 | XMS_ITS | Encounter Summary ---
Author Organization [employer] Address [facility]-[id number] [address] [place] [address] Care Team Providers Care License Issuer Name Role Phone JajaWilli simon Primary Care Provider + [phone] Encounter Details Date Type Department Care Team (Late st Contact Info) Description 12/15/2024 Telephone [facility] Internal Medicine - Family Medicine [address] [place] [address] Elisha Vail CMA Social History Tobacco Use Types Packs/Day Years Used Date Smoking Tobacco: Former Cigarettes 0.5 20 Smokeless Tobacco: Never Alcohol Use Standard Drinks/Week Comments Never 0 (1 standard drink = 0.6 oz pur e alcohol) [facility] Utilities Answer Date Recorded In the [...] often do you attend chur ch or jain services? More than 4 times per year [...] Answer Date Recorded Total Score 0 10/15/2024 [facility] - Occupational Stress Questionnaire Answer [...] Recorded Do you need help finding a [facility] career center and/or a training [...] bone density scan results done at the [facility]. Please advise. * Telephone Encounter - Willi [...] - Total Rehab [address] [place] [address] Disorder of right rotator cuff documented as of this encounter Visit Diagnoses Not on filedocumented in this encounter Additional Health Concerns Assessment Noted Time PHQ-9 Depression Total Score: 0 10/16/19 25 4:33 PM EST A Body Mass Index follow-up plan has been documented for the patient 10/15/2024 5:09 PM EST documented as of this encounter Care Teams License Issuer Relationship Specialty Start Date End Date Willi Ridley DO [address], [facility] [place] [address] PCP - General Family Medicine 05/19/22 documented as of this encounter
--- OUTSIDE RECORDS SUMMARY | 2025-04-09 18:36 | XMS_ITS | Encounter Summary ---
Author Organization [employer] Address [facility] [place]-[id number] [address] [place] [address] Care Team Providers Care Mold Closer Helper Name Role Phone AmarjitWilli spicer Primary Care Provider + [phone] Encounter Details Date Type Department Care Team (Late st Contact Info) Description 03/31/2025 Telephone [facility] Internal Medicine - Family Medicine [address] [place] [address] Elisha Vail CMA Social History Tobacco Use Types Packs/Day Years Used Date Smoking Tobacco: Former Cigarettes 0.5 20 Smokeless Tobacco: Never Alcohol Use Standard Drinks/Week Comments Never 0 (1 standard drink = 0.6 oz pur e alcohol) [facility] Utilities Answer Date Recorded In the past [...] often do you attend chur ch or scientology services? More than 4 times per year 11/14/2022 Do you belong to any clubs o r organizations such as faith groups, unions, fraternal or athletic groups, or [...] Answer Date Recorded Total Score 0 03/24/2025 [facility] - Occupational Stress Questionnaire [...] Telephone Encounter - Elisha Vail CMA - 03/31/2025 4:16 PM EDT Pt was calling regarding her results of her X-Ray of the shoulder. Thank you. * Telephone Encounter - Willi Ridley DO - 03/31/2025 4:16 PM EDT I do not have the results yet. Please call [facility] and have them send it over * Telephone Encounter - Elisha Vail CMA - 03/31/2025 4:16 PM EDT Yes, I will call this morning. Thank you. * Telephone Encounter - Elisha Vail CMA - 03/31/2025 4:16 PM EDT Melody scanned results into pt's chart. documented in this encounter Plan of Treatment Upcoming Encounters Date Type Department Care Team (Late st Contact Info) Description 04/14/2025 10:45 AM EDT Appointment [facility] [place] - Total Rehab [address] [place] [address] Disorder of right rotator cuff documented as of this encounter Visit Diagnoses Not on filedocumented in this encounter Additional Health Concerns Assessment Noted Time PHQ-9 Depression Total Score: 0 03/24/20 25 1:50 PM EDT A Body Mass Index follow-up plan has been documented for the patient 10/15/2024 5:09 PM EST documented as of this encounter Care Teams Mold Closer Helper Relationship Specialty Start Date End Date Willi Ridley DO [address] [facility] [place] [place] [address] PCP - General Family Medicine 05/19/22 documented as of this encounter
--- OUTSIDE RECORDS SUMMARY | 2025-04-09 18:36 | XMS_ITS | Encounter Summary ---
Author Organization [facility] Address [facility]-[id number] [address] [place] [address] Care Team Providers Care Overedge Machine Operator Name Role Phone Willi Ridley DO Primary Care Provider + [phone] Encounter Details Date Type Department Care Team (Late st Contact Info) Description 04/01/2025 Results Follow-Up [facility] Internal Medicine - Family Medicine [address] [place] [address] Willi Ridley DO [address], [place] [address] X-ray scapula right Social History Tobacco Use Types Packs/Day Years Used Date Smoking Tobacco: Former Cigarettes 0.5 20 Smokeless Tobacco: Never Alcohol Use Standard Drinks/Week Comments Never 0 (1 standard drink = 0.6 oz pur e alcohol) [facility] Utilities Answer Date Recorded In the past 12 months has [employer], [employer], oil, or water [employer] threatened to shut off services in your [...] How often do you attend chur or sabianist services? More than 4 times per year 11/14/2022 Do you belong to any clubs o r organizations such as jewish groups, unions, fraternal or athletic groups, or [...] Answer Date Recorded Total Score 0 03/24/2025 [facility] of Occupat ional [facility] - Occupational Stress Questionnaire Answer Date [...] Do you need help finding a [facility] career center and/or a training program? [...] Telephone Encounter - Israel Duran CMA - 04/01/2025 3:26 PM EDT ----- Message from Willi Ridley DO sent at 04/01/2025 3:34 PM EDT ----- The x-ray of her scapula was negative. There was no fracture or bony lesions seen. I did review herorthopedic consult from a few years ago and they thought she had a supraspinatus tendonitis. That is in a different area from where I gave her a cortisone shot. We could try a cortisone injection into her subacromial space. Ice after activities and rest can also help. ----- Message ----- From: Melody Gonsalez CMA Sent: 04/01/2025 10:56 AM EDT To: Willi Ridley DO documented in this encounter Plan of Treatment Upcoming Encounters Date Type Department Care Team (Late st Contact Info) Description 04/14/2025 10:45 AM EDT Appointment [facility] [address] [place] [address] Disorder of right rotator cuff documented as of this encounter Visit Diagnoses Not on filedocumented in this encounter Additional Health Concerns Assessment Noted Time PHQ-9 Depression Total Score: 0 03/24/20 25 1:50 PM EDT A Body Mass Index follow-up plan has been documented for the patient 10/15/2024 5:09 PM EST documented as of this encounter Care Teams Overedge Machine Operator Relationship Specialty Start Date End Date Willi Ridley DO [address] [facility], [place] [address] PCP - General Family Medicine 05/19/22 documented as of this encounter
--- OUTSIDE RECORDS SUMMARY | 2025-04-09 18:37 | XMS_ITS | CCD ---
Author Organization [facility] Informat ion Partnership [facility] Care Team Providers Care Recreation Aide Name Role Phone Unavailable Primary Care Provider [...] Unavailable FURLONG, DR WILLI Lockett Consulting Unavailable LONG GROVE, DR GIUSEPPE Cardoso Consulting Unavailable [facility] Consulting Unavailable Furlong Willi BOTELLO Primary Care Provider Willi Ridley MD Primary Care Provider Unavailable Primary Care Provider UnavailKAMRAN Wang Attending Unavailable KAMRAN GARIBAY Referring Unavailable WILLI RIDLEY Referring Unavailable FURLONGWILLI Primary Care Unavailable DONI RIOS Referring Unavailable FURLOWILLI CAROLINA Primary Care Unavailable Furlong Willi BOTELLO Primary Care Provider DONI RIOS Attending Unavailable WILLI RIDLEY Referring Unavailable FURLONGWILLI Primary Care Unavailable FURLOWILLI [place] Attending Unavailable JAJALONGWILLI Referring Unavailable FURLONG, WILLI G Primary Care Unavailable WILLI RIDLEY Referring Unavailable WILLI RIDLEY Primary Care Unavailable Medications Current Medications Medication Drug Class(es) Dates Sig (Normalized) Sig (Original) ascorbic acid 500 mg oral tablet (4 sources) Vitamin C take 1 tablet by mouth in the morning ascorbic acid (VITAMIN C) 500 mg tablet Take 1 tablet (500 mg total) by mouth in the morning. Active Calcium (1 source) Phosphate Binder, Calcium Calcium Active calcium carb,gluc/mag ox,gluc (CALCIUM MAGNESIUM ORAL) (7 sources) calcium carb,gluc/mag ox,gluc (CALCIUM MAGNESIUM ORAL) Take by mouth. Active calcium carb,glu c/mag ox,gluc (CALCIUM MAGNESIUM ORAL) Take by mouth. 0 Active fish,bora,flax oils-om3,6,9no1 (OMEGA 3-6-9) 1,200 mg capsule (7 sources) Start: 11-14-2022 take 2 capsules by [...] omeprazole 20 mg delayed release oral tablet (5 sources) Proton Pump Inhibitor take 1 tablet by mouth in the morning omeprazole (PriLOSEC OTC) 20 mg EC tablet Take 1 tablet (20 mg total) by mouth in the morning. Active Vit D2 (1 source) Vit D2 Active Vitamin B Complex (7 sources) Start: 3 take 1 tablet by [...] (1 source) Vitamin C Start: 2 End: 4 vit A,C and V-zidtfm-zfbyjzzh (OCUVITE) 300 mcg-200 mg-27 mg-2 mg tablet Take 1,000 mg by mouth. 0 10/12/2021 11/06/2023 Discontinued (Therapy completed) methylPREDNISolone (4 sources) Corticosteroid Start: 5 End: methylPREDNISolone (MEDROL, ALEC,) 4 mg tablet See [...] Documented Date Episodic/Chronic Disorders of lipid metabolism (8 sources) Hyperlipidemia; Translations: [Hyperlipidemia, unspecified] Onset: 10-19-2022 11-06-2023 Chronic Esophageal disorders (8 sources) Gastroesophageal reflux disease; Translations: [GERD (gastroesophageal [...] [Pain in right foot] 10-10-2024 Episodic Other connective tissue disease (2 sources) Disorder of rotator cuff; Translations: [Unspecified disorder of synovium and tendon, right shoulder] 04-02-2025 Episodic Other connective tissue disease (1 source) Unspecified disorder of synovium and tendon, right shoulder; Translations: [Unspecified disorder of synovium and tendon, right shoulder] Onset: 04-06-2025 Episodic Other non-traumatic joint disorders (1 source) Shoulder joint pain; Translations: [Pain in right shoulder] 03-24-2025 Episodic Other nutritional; endocrine; and metabolic disorders (8 sources) Obesity caused by energy imbalance; Translations: [...] Spondylosis; intervertebral disc disorders; other back problems (7 sources) Degeneration of lumbar intervertebral disc; Translations: [Other intervertebral disc degeneration, lumbar region] Onset: 10-19-2022 10-19-2022 Chronic Unclassified (1 source) Painful Shoulder Onset: 03-24-2025 Unclassified (1 source) Annual Exam Onset: 10-15-2024 Past or Other Problems Problem Classification Problem Date Documented Da te Episodic/Chronic Cardiac dysrhythmias (8 sources) Supraventricular tachycardia; Translations: [Supraventricular tachycardia (CMS-HCC)] Onset: 3 Resolved: 4 11-06-2023 Chronic Mood disorders (7 sources) Mood disorders Onset: 4 Resolved: 5 11-06-2023 Other connective tissue disease (1 source) Other enthesopathies, not elsewhere classified Onset: 2 Resolved: 2 Episodic Other gastrointestinal disorders (8 sources) Constipation; Translations: [Constipation, unspecified] Onset: 4 [...] IN THORACIC SPINE] Onset: 2 Episodic Unclassified (7 sources) Onset: 3 Resolved: 5 10-19-2022 Results Test Name Value Interpretation Reference Range Facility CBC AND AUTO DIFFon 10-16-19 25 Erythrocyte distribution width (RBC) [Ratio] 14.2 % Normal 11.5-15.0 [facility] Comment on above: Performed By: #### 2 4331-1, HA1C, CBCA, CMP #### [facility] ([id number]) [address] [address] Hematocrit (Bld) [Volume fraction] 38.7 % Normal 35-47 [facility] Comment on above: Performed By: #### 2 4331-1, HA1C, CBCA, CMP #### [facility] ([id number]) [address] [address] Hemoglobin (Bld) [Mass/Vol] 12.8 g/dL Normal 11.7-15.5 [facility] Comment on above: Performed By: #### 2 4331-1, HA1C, CBCA, CMP #### [facility] ([id number]) [address] [address] Lymphocytes (Bld) [#/Vol] 2.7 10*3/uL Normal 1.0-3.5 [facility] Comment on above: Performed By: #### 2 4331-1, HA1C, CBCA, CMP #### [facility] ([id number]) [address] [address] Lymphocytes/100 WBC (Bld) 27.9 % Normal [facility] Comment on above: Performed By: #### 2 4331-1, HA1C, CBCA, CMP #### [facility] ([id number]) [address] [address] MCH (RBC) [Entitic mass] 30.6 pg Normal 27-34 [facility] Comment on above: Performed By: #### 2 4331-1, HA1C, CBCA, CMP #### [facility] ([id number]) [address], [address] [place] [address] MCHC (RBC) [Mass/Vol] 33.0 g/dL Normal 32-36 [facility] Comment on above: Performed By: #### 2 4331-1, HA1C, CBCA, CMP #### [facility] ([id number]) [address], [facility] [address] [place] [address] MCV (RBC) [Entitic vol] 93 fL Normal 80-100 [facility] Comment on above: Performed By: #### 2 4331-1, HA1C, CBCA, CMP #### [facility] ([id number]) [address], [facility] [address] [place] [address] Monocytes (Bld) [#/Vol] 0.5 10*3/uL Normal 0-0.9 [facility] Comment on above: Performed By: #### 2 4331-1, HA1C, CBCA, CMP #### [facility] ([id number]) [address], [address] [place] [address] Monocytes/100 WBC (Bld) 4.8 % Normal [facility] Comment on above: Performed By: #### 2 4331-1, HA1C, CBCA, CMP #### [facility] ([id number]) [address], [facility] [address] [place] [address] Neutrophils (Bld) [#/Vol] 6.5 10*3/uL Normal 1.5-6.6 [facility] Comment on above: Performed By: #### 2 4331-1, HA1C, CBCA, CMP #### [facility] ([id number]) [address], [facility] [address] [place] [address] Platelet mean volume (Bld) [Entitic vol] 10.3 fL Normal 7-12 [facility] Comment on above: Performed By: #### 2 4331-1, HA1C, CBCA, CMP #### [facility] ([id number]) [address], [facility] [address] [place] [address] Platelets (Bld) [#/Vol] 268 10*3/uL Normal 150-450 [facility] Comment on above: Performed By: #### 2 4331-1, HA1C, CBCA, CMP #### [facility] ([id number]) [address], [facility] [address] [place] [address] RBC COUNT 4.17 X10E12/L Normal 3.80-5.20 [facility] Comment on above: Performed By: #### 2 4331-1, HA1C, CBCA, CMP #### [facility] ([id number]) [address], [facility] [address] [place] [address] RBC morphology finding Nom (Bld) NORMAL Normal [facility] Comment on above: Performed By: #### 2 4331-1, HA1C, CBCA, CMP #### [facility] ([id number]) [address] [address] SEG NEUTROPHIL 67.3 % Normal [facility] Comment on above: Performed By: #### 2 4331-1, HA1C, CBCA, CMP #### [facility] ([id number]) [address] [address] WBC (Bld) [#/Vol] 9.7 10*3/uL Normal 4.0-11.0 [facility] Comment on above: Performed By: #### 2 4331-1, HA1C, CBCA, CMP #### [facility] ([id number]) [address], [facility] [address] [place] [address] COMPREHENSIVE METABOLIC PANE Blanco 10-15-2024 Albumin [Mass/Vol] 4.4 g/dL Normal 3.2-5.3 [facility] Comment on above: Performed By: #### 2 4331-1, HA1C, CBCA, CMP #### [facility] ([id number]) [address], [address] [place] [address] ALP [Catalytic activity/Vol] 87 U/L Normal 39-130 [facility] Comment on above: Performed By: #### 2 4331-1, HA1C, CBCA, CMP #### [facility] ([id number]) [address], [address] [place] [address] ALT [Catalytic activity/Vol] 19 U/L Normal 0-31 [facility] Comment on above: Performed By: #### 2 4331-1, HA1C, CBCA, CMP #### [facility] ([id number]) [address] [place] [address] Anion gap [Moles/Vol] 10 mmol/L Normal 5-15 [facility] Comment on above: Performed By: #### 2 4331-1, HA1C, CBCA, CMP #### [facility] ([id number]) [address], [address] [place] [address] AST [Catalytic activity/Vol] 16 U/L Normal 0-41 [facility] Comment on above: Performed By: #### 2 4331-1, HA1C, CBCA, CMP #### [facility] ([id number]) [address], [address] [place] [address] Bilirubin [Mass/Vol] 0.3 mg/dL Normal 0.3-1.2 [facility] Comment on above: Performed By: #### 2 4331-1, HA1C, CBCA, CMP #### [facility] ([id number]) [address], [address] [place] [address] Calcium [Mass/Vol] 9.5 mg/dL Normal 8.5-10.5 [facility] Comment on above: Performed By: #### 2 4331-1, HA1C, CBCA, CMP #### [facility] ([id number]) [address], [address] [place] [address] Chloride [Moles/Vol] 102 mmol/L Normal 98-109 [facility] Comment on above: Performed By: #### 2 4331-1, HA1C, CBCA, CMP #### [facility] ([id number]) [address], [facility] [address] [place] [address] CO2 [Moles/Vol] 28 mmol/L Normal 22-32 [facility] Comment on above: Performed By: #### 2 4331-1, HA1C, CBCA, CMP #### [facility] ([id number]) [address] [address] [place] [address] Creatinine [Mass/Vol] 0.76 mg/dL Normal 0.40-1.00 [facility] Comment on above: Result Comment: METH OD TRACEABLE TO IDMS STANDARD Performed By: #### 2 4331-1, HA1C, CBCA, CMP #### [facility] ([id number]) [address] [address] [place] [address] eGFR (CKD-EPI) NON-RACE DEPENDENT >90 Normal >59 [facility] Comment on above: Result Comment: Reported eGFR is based on the CKD-EPI 2020 equation that does not use a race coefficient. Performed By: #### 2 4331-1, HA1C, CBCA, CMP #### [facility] ([id number]) [address] [address] [place] [address] Glucose [Mass/Vol] 111 mg/dL High 65-99 [facility] Comment on above: Performed By: #### 2 4331-1, HA1C, CBCA, CMP #### [facility] ([id number]) [address] [address] [place] [address] Potassium [Moles/Vol] 3.9 mmol/L Normal 3.5-5.0 [facility] Comment on above: Performed By: #### 2 4331-1, HA1C, CBCA, CMP #### [facility] ([id number]) [address], [address] [place] [address] Protein [Mass/Vol] 7.2 g/dL Normal 6.0-8.0 [facility] Comment on above: Performed By: #### 2 4331-1, HA1C, CBCA, CMP #### [facility] ([id number]) [address], [address] [place] [address] Sodium [Moles/Vol] 140 mmol/L Normal 134-146 [facility] Comment on above: Performed By: #### 2 4331-1, HA1C, CBCA, CMP #### [facility] ([id number]) [address], [address] [place] [address] Urea nitrogen [Mass/Vol] 25 mg/dL High 5-23 [facility] Comment on above: Performed By: #### 2 4331-1, HA1C, CBCA, CMP #### [facility] ([id number]) [address], [address] [place] [address] HGB A1C (GLYCO-HGB)on 2024 Glucose [Mass/Vol] 105 mg/dL Normal [facility] Comment on above: Performed By: #### 2 4331-1, HA1C, CBCA, CMP #### [facility] ([id number]) [address], [address] [place] [address] HbA1c (Bld) [Mass fraction] 5.3 % Normal 4.4-5.6 [facility] Comment on above: Result Comment: NOTE ADA Guidelines Result HgbA1c Normal : less than 5.7 % Prediabetes : 5.7 % to 6.4 % Diabetes : > 6.4 % Use with caution in patients with abnormal hemoglobin variants as the half-life of red blood cells and in vivo glycation rates are affected. Performed By: #### 2 4331-1, HA1C, CBCA, CMP #### [facility] ([id number]) [address], [address] [place] [address] Lipid 1996 panelon 5 Cholesterol [Mass/Vol] 210 mg/dL High 150-200 [facility] Comment on above: Performed By: #### 2 4331-1, HA1C, CBCA, CMP #### [facility] ([id number]) [address] [place] [address] Cholesterol in HDL [Mass/Vol] 72 mg/dL Normal >39 [facility] Comment on above: Result Comment: HDL <40 mg/dL - High Risk HDL > or = 40mg/dL- Desirable HDL >60 mg/dL - Negative Risk Performed By: #### 2 4331-1, HA1C, CBCA, CMP #### [facility] ([id number]) [address] [place] [address] Cholesterol in LDL [Mass/Vol] 120 mg/dL Normal <130 [facility] Comment on above: Result Comment: LDL <100 mg/dL - Desirable LDL >160 mg/dL - High Risk Performed By: #### 2 4331-1, HA1C, CBCA, CMP #### [facility] ([id number]) [address], [address] [place] [address] Cholesterol in VLDL [Mass/Vol] 18 mg/dL Normal 0-30 [facility] Comment on above: Performed By: #### 2 4331-1, HA1C, CBCA, CMP #### [facility] ([id number]) [address], [address] [place] [address] CHOLESTEROL:HDL 2.9 Normal 1.0-5.0 [facility] Comment on above: Performed By: #### 2 4331-1, HA1C, CBCA, CMP #### [facility] ([id number]) [address], [address] [place] [address] Triglyceride [Mass/Vol] 92 mg/dL Normal 27-150 [facility] Comment on above: Performed By: #### 2 4331-1, HA1C, CBCA, CMP #### [facility] ([id number]) [address] [place] [address] XR Calcaneus - right 2 Views on 10-10-2024 Imaging Result: Lateral, calcaneal axial views are weight-bearing. Slight 1st ray elevation. Enthesophyte at the insertion of the Achilles tendon and plantar fascia. Joints appear well-maintained. No fractures or dislocations. [facility] (n[facility]ative[facility] Comprehensive metabolic pane blanco 11-07-2023 Albumin [Mass/Vol] 4.5 g/dL 3.2 - 5.3 g/dL [facility] ALP [Catalytic activity/Vol] 78 U/L 39 - 130 U/L [facility] ALT No additional P-5'-P [Catalytic activity/Vol] 33 U/L High 0 - 31 U/L [facility] Anion gap [Moles/Vol] 9 mmol/L 5 - 15 mmol/L [facility] AST [Catalytic activity/Vol] 23 U/L 0 - 41 U/L [facility] Bilirubin [Mass/Vol] 0.4 mg/dL 0.3 - 1.2 mg/dL [facility] Calcium [Mass/Vol] 9.8 mg/dL 8.5 - 10. 5 mg/dL [facility] Chloride [Moles/Vol] 102 mmol/L 98 - 109 mmol/L [facility] CO2 [Moles/Vol] 28 mmol/L 22 - 32 mmol/L [facility] Creatinine [Mass/Vol] 0.65 mg/dL 0.40 - 1.00 mg/dL [facility] Comment on above: METHOD TRACEABLE TO [facility] STANDARD eGFR (CKD-EPI)non-race dependent - PINF [facility] Comment on above: Reported eGFR is based on the CKD-EPI 2020 equation that does not use a race coefficient. Glucose [Mass/Vol] 82 mg/dL 65 - 99 mg/dL [facility] Potassium [Moles/Vol] 3.5 mmol/L 3.5 - 5.0 mmol/L [facility] Protein [Mass/Vol] 7.1 g/dL 6.0 - 8.0 g/dL [facility] Sodium [Moles/Vol] 139 mmol/L 134 - 146 mmol/L [facility] Urea nitrogen [Mass/Vol] 19 mg/dL 5 - 23 mg/dL [facility] Lipid 1996 panelon Cholesterol [Mass/Vol] 230 mg/dL High 150 - 200 mg/dL [facility] Cholesterol in HDL [Mass/Vol] 75 mg/dL 39 - PINF mg/dL [facility] Comment on above: HDL <40 mg/dL - High Risk HDL > or = 40mg/dL- Desirable HDL >60 mg/dL - Negative Risk Cholesterol in LDL [Mass/Vol] 139 mg/dL High NINF - 130 mg/dL [facility] Comment on above: LDL <100 mg/dL - Desirable LDL >160 mg/dL - High Risk Cholesterol in VLDL [Mass/Vol] 16 mg/dL 0 - 30 mg/dL [facility] Cholesterol.total/ Cholesterol in HDL [Mass ratio] 3.1 {ratio} 1.0 - 5.0 [facility] Triglyceride [Mass/Vol] 80 mg/dL 27 - 150 mg/dL [facility] No Panel Informationon 11-06 Interpretation and review of laboratory results Abnormal [facility] COMPREHENSIVE METABOLIC PANE Blanco 11-06-2023 Albumin [Mass/Vol] 4.5 g/dL Normal 3.2-5.3 [facility] Comment on above: Performed By: #### 2 4331-1, 3016-3, CMP #### [facility] ([id number]) [address], [address] [place] [address] ALP [Catalytic activity/Vol] 78 U/L Normal 39-130 [facility] Comment on above: Performed By: #### 2 4331-1, 6-3, CMP #### [facility] ([id number]) [address], [address] [place] [address] ALT [Catalytic activity/Vol] 33 U/L High 0-31 [facility] Comment on above: Performed By: #### 2 4331-1, 6-3, CMP #### [facility] ([id number]) [address], [address] [place] [address] Anion gap [Moles/Vol] 9 mmol/L Normal 5-15 [facility] Comment on above: Performed By: #### 2 4331-1, 3015-3, CMP #### [facility] ([id number]) [address] [place] [address] AST [Catalytic activity/Vol] 23 U/L Normal 0-41 [facility] Comment on above: Performed By: #### 2 4331-1, 6-3, CMP #### [facility] ([id number]) [address], [address] [place] [address] Bilirubin [Mass/Vol] 0.4 mg/dL Normal 0.3-1.2 [facility] Comment on above: Performed By: #### 2 4331-1, 6-3, CMP #### [facility] ([id number]) [address], [address] [place] [address] Calcium [Mass/Vol] 9.8 mg/dL Normal 8.5-10.5 [facility] Comment on above: Performed By: #### 2 4331-1, 3015-3, CMP #### [facility] ([id number]) [address], [facility] [address] [place] [address] Chloride [Moles/Vol] 102 mmol/L Normal 98-109 [facility] Comment on above: Performed By: #### 2 4331-1, 3015-3, CMP #### [facility] ([id number]) [address], [facility] [address] [place] [address] CO2 [Moles/Vol] 28 mmol/L Normal 22-32 [facility] Comment on above: Performed By: #### 2 4331-1, 3015-3, CMP #### [facility] ([id number]) [address] [place] [address] Creatinine [Mass/Vol] 0.65 mg/dL Normal 0.40-1.00 [facility] Comment on above: Result Comment: METH OD TRACEABLE TO IDMS STANDARD Performed By: #### 2 4331-1, 3, CMP #### [facility] ([id number]) [address] [place] [address] eGFR (CKD-EPI) NON-RACE DEPENDENT >90 Normal >59 [facility] Comment on above: Result Comment: Reported eGFR is based on the CKD-EPI 2020 equation that does not use a race coefficient. Performed By: #### 2 4331-1, 3015-3, CMP #### [facility] ([id number]) [address], [address] [place] [address] Glucose [Mass/Vol] 82 mg/dL Normal 65-99 [facility] Comment on above: Performed By: #### 2 4331-1, 3015-3, CMP #### [facility] ([id number]) [address] [place] [address] Potassium [Moles/Vol] 3.5 mmol/L Normal 3.5-5.0 [facility] Comment on above: Performed By: #### 2 4331-1, 6-3, CMP #### [facility] ([id number]) [address] [place] [address] Protein [Mass/Vol] 7.1 g/dL Normal 6.0-8.0 [facility] Comment on above: Performed By: #### 2 4331-1, 3015-3, CMP #### [facility] ([id number]) [address], [address] [place] [address] Sodium [Moles/Vol] 139 mmol/L Normal 134-146 [facility] Comment on above: Performed By: #### 2 4331-1, 3015-3, CMP #### [facility] ([id number]) [address], [address] [place] [address] Urea nitrogen [Mass/Vol] 19 mg/dL Normal 5-23 [facility] Comment on above: Performed By: #### 2 4331-1, 3015-3, CMP #### [facility] ([id number]) [address], [address] [place] [address] Lipid 1996 panelon 4 Cholesterol [Mass/Vol] 230 mg/dL High 150-200 [facility] Comment on above: Performed By: #### 2 4331-1, 6-3, CMP #### [facility] ([id number]) [address], [address] [place] [address] Cholesterol in HDL [Mass/Vol] 75 mg/dL Normal >39 [facility] Comment on above: Result Comment: HDL <40 mg/dL - High Risk HDL > or = 40mg/dL- Desirable HDL >60 mg/dL - Negative Risk Performed By: #### 2 4331-1, 3016-3, CMP #### [facility] ([id number]) [address] [place] [address] Cholesterol in LDL [Mass/Vol] 139 mg/dL High <130 [facility] Comment on above: Result Comment: LDL <100 mg/dL - Desirable LDL >160 mg/dL - High Risk Performed By: #### 2 4331-1, 3016-3, CMP #### [facility] ([id number]) [address] [place] [address] Cholesterol in VLDL [Mass/Vol] 16 mg/dL Normal 0-30 [facility] Comment on above: Performed By: #### 2 4331-1, 3016-3, CMP #### [facility] ([id number]) [address], [address] [place] [address] CHOLESTEROL:HDL 3.1 Normal 1.0-5.0 [facility] Comment on above: Performed By: #### 2 4331-1, 3016-3, CMP #### [facility] ([id number]) [address] [place] [address] Triglyceride [Mass/Vol] 80 mg/dL Normal 27-150 [facility] Comment on above: Performed By: #### 2 4331-1, 3016-3, CMP #### [facility] ([id number]) [address] [place] [address] TSH Qnon 11-06-2023 TSH 1.97 uIU/mL Normal 0.49-4.67 [facility] Comment on above: Performed By: #### 2 4331-1, 3016-3, [facility] #### [facility] ([id number]) [address] [place] [address] XR SHOULDER RT 2V or >on XR [...] by: YAN MARTINEZ Date: 2021-12-16 16:27 Normal [facility] IntraOperative Documentson 0 10-21-2021 IntraOperative Documents [id number]# 1.00CD:127 Normal [facility] Operative Reporton Operative Report SURGERY DATE: 10/13/2021 PRIMARY CARE [...] to the Recovery Room in good condition. Mariya Tobar Jr. Dictated: 10/13/2021 [id number] Transcribed: 10/13/2021 cc:Willi Ridley D.O. [facility] Comment on above: Result Comment: Elec tronically Signed By: Bettina Ocampo MD\.br\Date and Time Signed: 10/20/21 08:25 EST Postoperative Documentson Postoperative Documents [id number] 1.00CD:[address] [facility] Main OR Intraoperative Recor don 10-18-2021 Main OR Intraoperative Record IntraOp Document Type FT Summary Primary Physician: Bettina Ocampo MD Finalized Date/Time: 10/18/21 14:18:21 Pt. Name: JACQUI PEREZ/Sex: 1970 Female Med Rec #: [id number] Physician: Bettina Ocampo MD Financial #: [id number] Pt. Type: A Room/Bed: AS18/01 Admit/Disch: 10/13/21 09:52:43 - 10/13/21 13:50:00 Institution: Case Times FT Entry 1 Patient Times In Room 10/13/21 11:33:00 Out Room 10/13/21 12:03:00 Procedure Times Start 10/13/21 11:42:00 Stop 10/13/21 11:57:00 Anesthesia Times Start 10/13/21 11:33:00 Stop 10/13/21 12:03:00 Last Modified By: JOSELITO RN, EMILIA Brown 10/13/21 12:03:54 General Comments: 10/18/21 Chart opened to review and send charges [facility] Case Attendance FT Entry 1 Entry 2 Entry 3 Case Attendee Vivek LAU, Anabel Ocampo MD, Bettina Gage [employer], Jenny Garvin Role Performed Anesthesiologist Surgeon - Primary [employer]ER/[facility] Emergency Medical Services Coordinator Time In 10/13/21 11:33:00 10/13/21 11:33:00 10/13/21 11:33:00 Time Out 10/13/21 12:03:00 10/13/21 12:03:00 10/13/21 12:03:00 Procedure SUBMANDIBULAR CYST SUBMANDIBULAR CYST SUBMANDIBULAR CYST EXCISION EXCISION EXCISION SIALOLITHOTO(Left) SIALOLITHOTO(Left) SIALOLITHOTO(Left) Comments DR. TELLO SUPERVISING Last Modified By: JOSELITO RN, EMILIA YEE RN, EMILIA YEE RN, EMILAI Brown 10/13/21 12:05:05 10/13/21 12:05:05 10/13/21 12:05:05 Entry 4 Entry 5 Entry 6 Case Attendee Chris RN, Toya YEE RN, EMILIA Diaz [employer]ER, Elidia Dia Role Performed Front Office Help - Primary Front Office Help - Primary Scrub - Primary Time In 10/13/21 11:33:00 10/13/21 11:33:00 10/13/21 11:33:00 Time Out 10/13/21 12:03:00 10/13/21 12:03:00 10/13/21 12:03:00 Procedure SUBMANDIBULAR CYST SUBMANDIBULAR CYST SUBMANDIBULAR CYST EXCISION EXCISION EXCISION SIALOLITHOTO(Left) SIALOLITHOTO(Left) SIALOLITHOTO(Left) Comments Last Modified By: JOSELITO RN, EMILIA YEE [...] LAU, Anabel M, Given Participants Terrence VALLE, Merari Enrique CST, Chris Medina RN, JOSELITO Rodriguez RN, Joe [...] Entry 1 (more content not included)... [facility] Coding Summary.on 10-14-2021 Coding Summary. CD:[id number] G h0bWw+PGhlYWQ+FV3XVBP gX91skSQchI3QA4eWIJ2P QZBJVNYRQX1SKQ2guGR3D LhhO3NsjyFi WcmpiKSdDB51IMs8CJB2b EwePLygwL5ciEYkY9b5Or KeGT17zZ44EMjnDGXeTxF 3LjZpbjsgbWFy O9cqStGyiSSoRkr+PHRhY mxlIHdpZHRoPScxMDAlJy EoaFtsEO4zRl0bSZBlUYU vbGxhcHNlOiBj m4evSSJuIRjbSA3cpHuaA 6HswUV7ZIWvl9a7Wi26fW I+TELxNOP0nWflLVblb55 7IwTkd7mfTJV4 jSSiJAvqVBB2B14ws4T5M RMjZEQmDXN6uJJ8jR3bgI djjhmtG4SgpBRjBoI1OXF 4vSWyuK3crLmy fggdjX4pOiu+C13ZMZ5HE PRTXW2BTbl0Q2PnDvssrM I+PQ78GDRqUB72mMBqbOA td8rhzWh4HqXp GDUcGHH3jUpfNIgsq1CrW NHpJ56mvPWin8S4GSZmqK wdqWLtYsLxpGQ4hG6pAHz nrkxfj5hxoqss Jwysf0gwwf72jM79P57pY OueHHSjIZZ3LRWgDLKodM arkw6wqB9gWm7+KHvnj4f vf1mpqCt3HnFs FIBubbStgEqhVIG2o5DsC j36Y2QxwNwxw0DfPgk7fl 27bADsg4T3eON6RBirPKW dwR5qCSxbYzM6 DPStEcXesM33oSXgRXzoZ f9qoMdtdCziZH7wVRFhsl qbRFCehU2gTNRbbLLguBo uRO6mGOZvmylf y298HtDkNVZ3TQVqjBAeU 8ExeE3oBqDvNGDnOEFdO6 VpiWJvXJjvJ739XDfbFfB 9NKCdjmPcD0Wi NJXgbSreKnQ4r1G3Nn9Xw 3TzuqveUME3SRdoRVTdEj R5RuDsKmD3V0HzLiw0YNM azVbrNJ6cC5Gz OIYeskrvkkuwmUV4NYDuG JNrhY74iFJqIItzCd7tz5 B7j439ZSRvETQfuD62Bb6 udDogMTBwdCBU cV9xdqvsi9bngaxtAsIeJ LMpHCt8XWr6MBDxhKqsQi HfEBI1KbH5WMZ7xFQddH6 auXgstkvlfP2i Oyc+D50hhB7bQAC5ZZK7n ytcJXJswjGoXR12QJ50M5 RyPjwvdGFibGU+PGRpdiB pnPxaUN1iThLr p9joi2MqDMunJ3YhRBUmF GrpWlw1DZVcGYF8dZM7vG 9dDHRrYLibg9K2iYE4Q3O pkwWugv9ee0ni XCUtCWcjM85jyJFjv9E5Z QZowBQ4LWWflJjjNkGbfA 93Oyc+NLDllFezw5LeWib ac2eoz1bueIv7 TsSvWDDsktNcvQgjPUG1o 1GqMi97R40mVQlwFWDaAG KqIDZxUAAswSsckr0zxJ8 wIi8+PGNvbCB3 iMW9qF3uPNJwYdT7SJucJ 029LuPcuWUcDsmii9mqr7 jfmPt6PvXyFDZtgfGsbZn lIJW0g3AwAr52 J53xJHtdHCPqDXRiQQMgV GNpdEowme6xvN3uNd0+PC 5xo5skgn53pM11aOL+PHR aMFF9pEqfQOfp MOFkcL9bOUllYrY5HQVoX jJktA62pUUlMVnjHk1gwO kkrEkmHZ7iBGJcpsutq03 0DcHgk8yeBBBq bYEmCIhhRBM3Z23wy8K4F PNbGZXrOLU6iPS0lK6oyW lnbjogbGVmdDsgdmVydGl xABluOHkxF474 IHRvcDsnPlBhdGllbnQgT nEbWCh0R5FfAye7MAYbsG ytAK7afTNbQFodGq8dbKa nxRagJL2gOIYm cgjpd080AnIoq0lvQPNbx YMcKHaeSWM7Z17fj0D3RP PxKWGiVMH1cYZ9gC6fhOs nbjogbGVmdDsg qoXqoKtqVRakQNmjN741H HRvcDsnPkJpcnRoIERhdG P8DB48ZT28mYAeu9V7oIM 6Q2RaXDLgyfxx ufeuvXS7BGRaLTBffH31W u3wzBrvMu6hAMCsHUL8LY CwlWKnB3BgtK6nXiCvOVA rULYdF4XlySYa HLaeV487QGvzCzO0BYJhl xWcQ3SvMHRvlEtwFuQ1v2 A1Ic0HW4A6NN21HA12iIK gv5Q1jPX0R8Nb MHVrcuuzrazxaFT4QGGcC WPztQ22Gy6dbIceBg7yID OsMEU2MOMrnJHdB3YvyC5 yOiAjMDAwMDAw M1TlcMLiCOexR333HYrlE rF4FMEibjInQ9OxNHVxtO eoSiW7m6A4Hh2XLHi7TM4 6OT31yKHoy7R0 lIC4N9WlCTLqzhlqmlrem FU2MWPeZCYzbT92Mg4yxB chAc6rVLXzGHG1KKYebJY vZ2SnbF7cDjUy ZRYnZXYhJ4KekAAeZWebY 101KRugKzG2GPWztwToK4 XeGWIalFmwXyC6f2Q1Vk5 ZSMNxUP86ZQX8 uZF3FM57KS57O2QvUblvr GFibGU+PHRhYmxlIHdpZH RoPScxMDAlJyBzdHlsZT0 xOw5aVRWlRTAu uIconAGyNfMkr3jmJHLmS YwcCN4suRidB7RvxVL6UK Ffo8d4Ii19P31xK6DrxLC +UCFptYN4oSC4 iX6iShRsPzK2XNyyH132N yHqeOWcGukoi1thy9ulsK u9YeU0INSoigQazFmrDBO 5i5XdZf71Y64g IHdpZHRoPSIxNSUiIHZhb Xfjfm8fzW5hUy7+PGNvbC K6dWP6tU9uAgLiBeL7GKt sV872NpQfcICp Salsz5ctt3vxnEa7WsFkP VWbdcThmOrbFOS0y2KmQw 28C4TzaSjlr0PxHol9ot2 3dDDmu2I7eRD9 T8QlAUNsahchvJAwmYtnL Y7oJSNwwcspSXGezN0zTQ WpJ1i2UsJhYpP7SJtlV4B knuT9PKJwkAUy KHvrAVJ2E92ws4V7YZUmB PEaQYP2xVY8uG2ifMepez ogbGVmdDsgdmVydGljYWw yDDydW396DWCo gDufPLTfgP5mGQVxrXLzs XuqZD8tSDZpcclqGlJPEm fHID7fSAHTHex5P2GkCev 3LYZhyIktHC2m cTSeITgmOo3dcItdpNwyA B2xMLKmndyhDKUgcL4tRY AmzLMsjFmiZZ0sWKPyxiv pd737FxVzZIZ4 VMHzsBNfB5CrnZ4qHtDyJ XPtDAWiC1JvmZTjFAubM7 55YCknWlY8XIFdmnBfJ6Q sLWFsaWduOiB0 t5L2Bl3xOw5sXR3pMEohB K09OP05xXYdh0H5gFW9Y8 PnIIWywnpnjmagsVV8WJM yPTLyqA12oNMx XDpkNa6qu9Z7f818IEClN MEkuX05Ey3pdQzmUGIzbD JJvR5chhual8rfvkssAmT dNSUkMBu9XNo1 TBVyiBriBoMhIFD2IoL3O NO4aSOusZ3wwFggurzmbK 9wOyc+RZtyRDWnqbS3Z6V aHlm8ZXIcrMzl EN5dhOJwTPcbAc1ldHide MdjGY0yQHIfsczoCEBooB 6aJEOnaFYukCltOU7bVMP xgtdvj712PmGb PQF8CDJtgKVbI3KhoQ9nH lFdSEVvVSFcH7DhuLGzMX vvM614BYjxPlG1GVYbphJ kR0FqAYZmmEjr WhG4z4P0Sl9PNH1stBG6E 2IeJjw1AHRdjJekPD1ufV ZaGEplEo3hvUmylWadZU8 wNTBpbjtwYWRk jO1yPUHnhNSwuYzyES9qA DRavfyzd207MlOjYAG8HH ViiHRhB3WkyO7iBeFaFIT wLKTiC0LitYLd PVdhP822RImwIeV9QOKbn nQkX7LsLDKllSmpEoR4f5 F9Jh7UoQQ3yJH7g0G2U5U sqLKuLYZ3RIX5 lnuxwfu1Q7UdEdhzhYO+P Z21GWWvZC34sAMgyLVne7 lyjQy8JqIoZEDbCSC4zKa tCZqrw2JnHRYg J92ipLIpp8A9WQRxvKpzj HFpQoTotQF3kL4yCZggyo reh2hohuccPogcf5wxvl4 1sF41V42lTXkm ZHRoPSIzMCUiIHZhbGlnb v8ggW4hXd7+ZLZumSG4zZ K9jX9pBeDnKeM6SVpdA85 9InRvcCIvPjxj t1byb4mmeBg4GsMyXEVuh nWavNluWXL9i4JpNj58M3 9sIHdpZHRoPSIyMCUiIHZ kpQojja1ggC9f Ii8+CC9ua1scxw98aO12f HI+PPMmFJK8yRukXQxiNM VywN8gUPrcWyG6WAPnZdI fmM91jXLhBEzu Rh0eoLdrkWrpKL2tKFFmb pedh338RfAyp9gaKCOwkI OnXOncHDL6K29ee5Q6HYD pODUhDOF5aGO3 eT0lzCkwzdhptNVytOqby dSvzRtpNGsnHGxlG103QN OdmEiiCdYleTMdR0viysR NVD5aXqfvdEB+ OUCyNJO0lAekXZsvUREys S8eOXJyR4i1WmAdTmK6VI lpD8IcgwR7AKZreFBgSWE vgLUTiW6ktnzj p9iunaxcQuNlIQCgVFg3Z Uh8HFGkfJuoMnMfPBM0Fo T9NKO9rZPngJ2qmVxsyqt boB2nIyj+RklO OjwvdGQ+GKEuFLZ1tDmuF HjeVXPajA7qVCJbO7k1Ya LxWwU9IQdnM6HllcG2FBX vbGQgMTBwdCBU zU5sdzpye9sktailXvBlI SAuQJk4VBp0CQGbvSizMt ZhDCW0GbG4GBQ4hFIgdT6 rrGlgqpeplE6e Oyc+TVJOOjwvdGQ+PHRkI QH4qPdfFBysMDSihK1kVA MyF4k2JeXxQaE8PDaaQ4L wstH9ZWGdsOKa VUVxjLDEjO1qyiekj2lbd jwfPxReCTHqUYn2GTb4ZI AidAgiLwZzAMN3ZcN5UUS 3jMZxyW0ikCpr kgaaqK5iAyr+QMR8ZSN2R U95OQ55D8PeJenvlERjgF U+PHRhYmxlIHdpZHRoPSc xMDAlJyBzdHls ZT0n (more content not included)... [facility] Consent for Anesthesiaon Consent for Anesthesia [id number]#1 .00CD:[address] [facility] Discharge Instructionson Discharge Instructions [id number]#1 .00CD:[address] [facility] Physician Orderon 10-14-2021 Physician Order [id number]#1 .00CD:[address] [facility] Physician Order [id number]#1 .00CD:[address] [facility] Physician Order [id number]#1 .00CD:[address] [facility] Preoperative Documentson Preoperative Documents [id number]#1 .00CD:[address] [facility] Prescriptions/Work Noteson 0 10-14-2021 Prescriptions/Work Notes [id number]#1 .00CD:127 Normal [facility] Coding Summary.on 10-13-2021 Coding Summary. CD:[id number]:[id number] G h0bWw+PGhlYWQ+KG2TADD bE89pnTOjkQ3XL4pQBH9V HPMOAEAEKT8UJE4dvSA9J UueQ1RhpgGp EjdfyJGeXX75HNv3SUM1u XykSCbkvC4mvYSrD5a7Tb RoDC24bS57MMoaRVHjPuO 3LjZpbjsgbWFy U8ugTrPxgHAmSnl+PHRhY mxlIHdpZHRoPScxMDAlJy OyeJihBF5wFq0oLDBnXYI vbGxhcHNlOiBj f5uuMJBnVHrzYN7wiZslY 7QusPB8DNGao5y9Qr96vL I+RIKwICW2oVbkQMbid02 4BmMkz0maJVP5 uIWnDRnxDOC8D18zj7F6S KYxUEUqXIU4bUN8uJ2piD unvgibA9QdxXFlVkZ1ZMM 7yIEkhX4xsFvp wyvbmO1qYmq+W91IGW4AS SLORI1OKvo9L3JhRdyojT I+ZE83XIOiWA14tSEtiFZ sd3igoEc9VzRk MJZvAIF4jUxlAHfkb6LpD TJlL82lrMKee3E6VBCqmV erlQZfWcKpoAK3eB1wMFg ibfotd7hsderl Gfhlp2dnhx59oP56C39yA QpxVYQoPVQ2CYQxSVMdrX fvle3myM6kDy6+NRoum8y rt3wyiSg0QfKp SBVdhfYwlIeoDSG1n3CgV w85Q2EvzXbxt6VjNde0qv 53kDGaz0B0fCE9VMfeKRK reQ2uDRxgTvE6 ONMfPxYajB33bVAaPDseP j6naCdvfAgkAY7rCGRzyl srSVGfoQ9aTZZgcUDlzSy cRQ9iJQWggvdr h478OkPyLZT9PMMosGOtP 6XiyA1cZqSgTKGjIGKtK0 BpjCJcDYkwS980MPouOqF 7HLNnkgOhV7Yi IOFviUvhVmX5j3A4Zl8Ne 6KrcgjcBIC3DRabCJElFl MkVqHqPzB6Y8GxCxb5KIV duLrhXS1gT0Jf GTGnkpmjnykrrPQ8GVSxR CUglF09pHIiLJykLr9wr7 E8m747NJUgBMErqB41Gc6 udDogMTBwdCBU hA8cxpegm8gatysqStErW JYwPSg7COm5RBPrlXcqCf EqCBM0QjH4PBY3wHZlvW8 owElhpnxusE5d Oyc+A01olN5uJHJ9FOM2r edhSNRfizHvID23HO88L5 RyPjwvdGFibGU+PGRpdiB wiBjtVJ8nSzZg j0oqy9LpRPdlR3OgBTAbC YjqEkj0BGXdIAC9zZM8tU 1aNIPfCTmls1N4oBB2T9L sqzBwjt1vv7dr THKoUXqjA26pcZSoi0J2Q GWmxBL3VJLsyTpwNaFroF 93Oyc+FDYheEkno2FiSqo vy2gqn9pwvLe5 MbAtGAHwvqKkhHtmFLU1q 9RhAt22T75wSAggVPSxFN EsTANbSSDuxQijzb1jlP8 wIi8+PGNvbCB3 fUK2cQ3oJGPiSdS4RRoyM 381GaRzoPSyHytls6bdu0 iihTu8ZxErMGWgtsLirKa rPOX4m8EsIt35 A24lXHxhNHTlWCLjGFXcS CDqvGxqhz5tiA8pUv9+PC 8ee3gdaf80dU05yYA+PHR fIVR7xZlwSBxx XZCdwA3zPXdcMxR1KNVlM lVpjK60rDKpFCepAg2loR nsaDxlTM0rTHEqimsta04 5VmBov6agFMDx pNEaXZtpPOG6Z74bt1A2E CYaDROlCCF6iAW5oE6bdL lnbjogbGVmdDsgdmVydGl pUDpvLUfrA069 IHRvcDsnPlBhdGllbnQgT aQyJSe4X8ToKim8TEGzgM fqJY7zdUVrCZwiSk5hrXm ttTbnFB1iEQGq qotbd081NmLcb5suBBOdo YYtHXsuOLM9S30mv6Z4EW AzRDPtZEG4pEV6qQ9bwRv nbjogbGVmdDsg ebZmwAstSFtdKQxiK640G HRvcDsnPkJpcnRoIERhdG R2OF55UO37kSSku8P5tMQ 2A9WgJASywkph xxisuHD2EBYyEHRnwQ51J q7dxPufNs2zTITpCSC9OO PvrWBkO4ZepE5kBaSdYRR lJFOlX2VolMNg ZBknX243FOivAdQ3ZKOxp qKvA4LmYLDsvYcmNtN1e4 P8Bu1KO0B8IN54HH99zWS me8H5wDF3W8Dj CASpbrskmzzlfCV7IEAmP PYpdS03Nx7ohTrqGa5wRC TpHIF9ETGcvJGvU9QqqT6 yOiAjMDAwMDAw K3XbwFGlCOxoW718HNngI rP6TESiteOtU7YgKHVgsB ldZtK2n6D6Tc7OLIx7LW3 9AO83aWGxn3J6 jSX2G6XcGOSkomxrevgpy FX8YXUgLIFqaC87Ge6ecO rsXf7rMWAwUVV5URXbcCA oL1UelK7nVkUa GELrJPFdF2HzfDZwGOeuE 255YCvyJsW6KCRecyKpE3 CpJUPmaQksMxM3l6S0Fa5 DRYXeIC40AVI1 uJH9PL30DJ19C2AzFokkd GFibGU+PHRhYmxlIHdpZH RoPScxMDAlJyBzdHlsZT0 aPu4vEXBuRJLk gTdeoUAnXdZog2kyJEHyP IdqDS7oyKkbE7UprXX2SW Vom8o0Xl48S88hI9CezRC +QEZtfTQ7dTP4 hE7dMzCeVnE4RXmqP754K vMrgLVeDxqhv5qod3oldD n3IhL6PIUnqtFefBzvTPA 3p2QxNg15W62q IHdpZHRoPSIxNSUiIHZhb Hamcu6vsV9eDa8+PGNvbC F0tDL3rC7ePmWxHlG2MEy xP809AbCfpANt Sgdhq6caw7kxcEs5XsKcB MEcdoTskYzgXLR6f8OfTy 17V4YlzRhbm0HePqo0lm2 0cBCzh4D6cVY1 S7EjBMIaikwukGSelPpcI H1sZSEyykubLPDxbN7dOE EkB6b5MiJwBxD5FAumH0G jtcE9BJClnVVh DGkhGKX0C09tk1W1HZSoZ FPpZQZ1zLJ7gH8aeAnupg ogbGVmdDsgdmVydGljYWw tOAbkR141MPBv vAzxYXZzsZ1tLDRelHOkh NlhTQ9rFYXxswjoTsPFKf qCBT5eRXJHMov6J6CdZsr 4OEGjeBkpVM6k yGWzXKcnZl8bfJyylNwkR T4oYOTtalruNREtgB9wZJ CtiXVlrDqkWN0hDKJbchi dh104UlHlNKC0 UBWbeDJqB7KjxX3uXoWoI ITiXQExR6MxqDSbBLlkY3 16LZckSoP0RMSjydMfJ3Z sLWFsaWduOiB0 j9F3Un1cBr6wXM7aFZpnL G46IH33hNTfc6D4kDY5O2 JeRHNoqnpanqezrBX9QIM eHWGxoD54uLOw FGuoWv5kc8G1z573MMEiU HRxgP40Px9yaBpyLUPtrH ERhE9bxtxdg9diyshlCqV nFHKrPIe0YBq4 RXSkzEftZtYuRWM6EwO3Z FQ6tFDwrD4ujQdxyqhiiS 9wOyc+ZYfwNIVhagI5A5U rKss2NHJztAll HU8acAOsULyrXu6kmQmfc AqmXA3dGNShcyueXPAsfX 4pJSIbsFTkaWuhFJ7xGCF bljeut967IpKl WDE8OLSatDPdY0DxlK3qB jWjDFPmWGLzD6LtpZKzMG bfN108UXlwOxU7OXSudpS mG1SnDLRmjVux DkL9f2I3Qm2NKZ4fgTU5B 2YtTod7TECyjRzaVN9oiW XcDLlpDo3fwUycbZfyCP2 wNTBpbjtwYWRk zJ5jJXHkgXIbmZmoJU4nR JCqgajnv772RaPxKKS8CQ GwzPWdT6DviF8wXfXzQEU qMLUsD1SblXLi ARppV000RXbrJiC8HWSbi vSmQ4AdBXWakOduMyY5k8 S6Ja6PvYNsCRDeJY54XC6 9NU75T2PdDghd dGFibGU+PHRhYmxlIHdpZ HRoPScxMDAlJyBzdHlsZT 6dVy8hDHQxVPKmxQximMR iGzWyy1miXTIw YTtvYJ4vxIddK5QveLD2M ITdl0k9Rz59V46eN1ZuaU A+HNNklJJ2eGD8dF6rVvT qMxH0EKqgU962 XpNyfEYeTewkf6isf4jvs Ve3GsJeJJErwtLysRgaZC V4n2TkZu97G39iYRjqAKY oPSIyMCUiIHZh pNomoi5yhU9sSm7+PGNvb VQ7bZZ2xI2qZySfVlG1CW mmK809QbDldIDkGhkvS37 nR7DvnEI+PHRy Sap0CABoaQyuBI9ecNOjY MziTr7aWPD7AsLrWdJvPN seQ9JySSXsghcfnyctiNU 2EAYsKXVqjA52 Pl3ebQrgIv5rCFDvLQA4H FOfzPUnE7DsbY9zAwKvBZ BpODPcQ7UvsCUtDJmuT24 0EEbpVfX9HDDl oqWcD0PxPPNwkUozDiX1b 2Z8No0OxYiejJXiPZ0bTw VmCLj6J4DyDga7WAXqxIm vOW2xoCTeCOnw Yl4rvXsikSzrUQ6iBDXyt lvml352UkZyu8tpHSUxyV AzMOxcVDY0F85pp6E5YMV jVWArYDJ1dFP3 aN6otMlxfgvshDCmbDucm fZuyGwaOZuiXObpN271ZA RzbRxtPiWQYsh1F4OeCgu 3CTHgwDigCU8b fKZvOAydRu3dyYbtnPylF N6wAQOhuasrr091HcCqi5 ldAGIznGOhGRdxUKW8W01 ja7C1VZSkGIHh AMY8mIV8hN2cmTcgbmcjd GVmdDsgdmVydGljYWwtYW djD031GBHfjBkiJf0YGky 4R8VrOeh5FRYr hSmhWD7xwOQfGZyxQe7nx RlaoXzcKN6bOIMrtacyr1 52RiVag7puOPQmzAEzVDx yCDV1J18en8W7 RUDaFOCnJQU7wYW6jH7oe GlnbjogbGVmdDsgdmVydG jtZVajMCtnI238WKJjtYt nPlBheWVyOjwv dGQ+AE04cg16Q6WgGbxbK tx6BVRfVTO3yUG4rG7cNP SuPWjbr8W2rIW8N6QmldR vxv8wf1arZVLt ZTog (more content not included)... [facility] Consent for Treatmenton Consent for Treatment [id number]#1 .00CD:127 Normal [facility] H&P Updateon 10-13-2021 H&P Update [id number]#1. 00CD:127 Normal [facility] Inpatient Patient Summaryon 10-13-2021 Inpatient Patient Summary [place] [id number] [facility] Clinical Discharge Instructions PERSON INFORMATION Name: [...] cap By Mouth every day. Comment: Normal [facility] IntraOperative Documentson 0 10-13-2021 IntraOperative Documents [id number] .00CD:127 Normal [facility] IntraOperative Documents [id number] .00CD:127 Normal [facility] Main OR PACU I Recordon Main OR PACU I Record PACU Phase I Document Type FT Summary Primary Physician: Bettina Ocampo MD Finalized Date/Time: 10/13/21 12:45:08 Pt. Name: JACQUI PEREZ/Sex: 1970 Female Med Rec #: [id number] Physician: Bettina Ocampo MD Financial #: [id number] Pt. Type: A Room/Bed: [place] [address] Admit/Disch: 10/13/21 09:52:43 - Institution: Case Times [...] By: Deanna Alvarez RN 10/13/21 12:45 Normal [facility] Main OR PACU II Recordon Main OR PACU II Record PACU Phase II Document Type FT Summary Primary Physician: Bettina Ocampo MD Finalized Date/Time: 10/13/21 13:54:02 Pt. Name: JACKJACUQI/Sex: 1970 Female Med Rec #: [id number] Physician: Bettina Ocampo MD Financial #: [id number] Pt. Type: A Room/Bed: [place] [address] Admit/Disch: 10/13/21 09:52:43 - Institution: Case Times [...] By: Ophelia Bourne RN 10/13/21 13:54 Normal [facility] Main OR Preoperative Recordo n 10-13-2021 Main OR Preoperative Record PreOp Document Type FT Summary Primary Physician: Bettina Ocampo MD Finalized Date/Time: 10/13/21 11:37:46 Pt. Name: JACQUI PEREZ/Sex: 1970 Female Med Rec #: [id number] Physician: Bettina Ocampo MD Financial #: [id number] Pt. Type: A Room/Bed: [place] [address] Admit/Disch: 10/13/21 09:52:43 - Institution: Case Times [...] By: EMILIA YEE RN 10/13/21 11:37 Normal [facility] Monitor Recordon 10-13-2021 Monitor Record [id number]# 1.00CD:127 Normal [facility] Monitor Record [id number]# 1.00CD:127 Normal [facility] Outpatient Surgery Discharge Instructionon 10-13-2021 Outpatient Surgery Discharge Instruction [place] [id number] Patient Discharge Instructions PERSON INFORMATION Name: JACQUI PEREZ Date of : 1970 Current Date: 10/13/2021 12:34:16 PHYSICIANS Admitting Physician: Terrence VALLE [facility] Discharge Diagnosis: Sialolithiasis of submandibular gland JACQUI PEREZ has been given the following list of [...] NEAREST EMERGENCY ROOM OR CALL 911 I, JACKESTEBANI, have received the attached patient education materials/instruction s and have verbalized understanding: May we do a follow up call? Yes No I was present when discharge instructions were given Patient Signature Date Clinican/Nurse Signature Date Follow up: With: Address: When: Bettina Ocampo Comments: Keep scheduled appointment Pharmacy Information: You may receive a survey from [employer] asking you to rate your care experience. Your feedback is important and will help us understand what we do well and how we can improve the quality of care we provide to you, your loved ones and our community. It?s an honor to serve you. Thank you for choosing [facility] HERE ARE THE MEDICATION CHANGES THAT OCCURRED [...] PATIENT EDUCATION INFORMATION Instructions: Medication Leaflets: Normal [facility] Patient Education - Texton 0 10-13-2021 Patient Education - Text Normal [facility] Progress Note-Physicianon Progress Note-Physician Patient: JACQUI PEREZ [...] Problems SVT (supraventricular tachycardia) / SNOMED CT 25623391 / Confirmed Heart palpitations / SNOMED CT 286376563 / Confirmed GERD (gastroesophageal reflux disease) / SNOMED CT 979200548 / Confirmed Basal cell carcinoma on nose / SNOMED CT 824409926 / Confirmed DDD (degenerative disc disease), lumbar / SNOMED CT 72861168 / Confirmed Hyperlipidemia / SNOMED CT 80360862 / Confirmed Physical Examination Intake and Output Denies significant n/v and is tolerating p.o. Vital Signs (last 24 hrs) Last Charted Temp Oral 36.5 DegC (OCT 13 10:09) Heart Rate Apical 74 bpm (OCT 13 10:09) Resp Rate 20 br/min (OCT 13 12:30) SBP 130 mmHg (OCT 13 12:40) DBP 85 mmHg (OCT 13 12:40) SpO2 98 % (MAR 03 12:40) Pain assessment: Pain Assessment 10/13/2021 12:40 [...] 4 . Respiratory: Adequate air exchange with scientologist of preoperative function.. Cardiovascular: Cardiovascular function is stable and has returned to preoperative levels.. Neurologic: Pt has returned to preoperative baseline.. Review / Management Condition: Stable. Assessment Anesthetic outcome No anesthetic complications noted. Plan Transfer/ Discharge: Patient can be discharged from PACU when criteria met. Condition good. Normal [facility] Comment on above: Result Comment: Elec [...] data available Respiratory: Adequate air exchange with scientologist of preoperative function.. Cardiovascular: Cardiovascular function is stable and has returned to preoperative levels.. Neurologic: Pt has returned to preoperative baseline.. Review / Management Condition: Stable. Assessment Anesthetic outcome No anesthetic complications noted. Plan Transfer/ Discharge: Patient can be discharged from PACU when criteria met. Condition good. Normal [facility] Comment on above: Result Comment: Elec tronically Signed By: Jayjay Tello JR, DO Auto Diffon 10-12-2021 Basophils/100 WBC (Bld) 0.6 % Normal 0.0-2.0 [facility] Comment on above: Order Comment: Order Added by Discern Expert. Performed By: #### 2 [id number], [id number], [id number] #### [facility] [address] [place] [address] 35172 Basophils/Leukocyt es Auto (Bld) [Pure # fraction] 0.0 E9/L Normal 0.0-0.2 [facility] Comment on above: Order Comment: Order Added by Discern Expert. Performed By: #### 2 955954, [id number], [id number] #### [facility] [address] [place] [address] 87716 Eosinophils/100 WBC (Bld) 3.1 % Normal 0.0-8.0 [facility] Comment on above: Order Comment: Order Added by Discern Expert. Performed By: #### 2 357576, [id number], [id number] #### [facility] [address] [place] [address] 79665 Eosinophils/Leukoc ytes Auto (Bld) [Pure # fraction] 0.2 E9/L Normal 0.0-0.5 [facility] Comment on above: Order Comment: Order Added by Discern Expert. Performed By: #### 2 958743, [id number], [id number] #### [facility] [address] [place] [address] 78524 Lymphocytes/100 WBC (Bld) 40.9 % Normal 14.0-50.0 [facility] Comment on above: Order Comment: Order Added by Discern Expert. Performed By: #### 2 837227, 2841922, [id number] #### [facility] [address] [place] [address] 58209 Lymphocytes/Leukoc ytes Auto (Bld) [Pure # fraction] 2.4 E9/L Normal 1.0-4.0 [facility] Comment on above: Order Comment: Order Added by Discern Expert. Performed By: #### 2 401886, 0306325, [id number] #### [facility] [address] [place] [address] 47929 Monocytes/100 WBC (Bld) 4.5 % Normal 4.0-14.0 [facility] Comment on above: Order Comment: Order Added by Discern Expert. Performed By: #### 2 121304, 3123641, [id number] #### [facility] [address] [place] [address] 21571 Monocytes/Leukocyt es Auto (Bld) [Pure # fraction] 0.3 E9/L Normal 0.2-1.0 [facility] Comment on above: Order Comment: Order Added by Discern Expert. Performed By: #### 2 194237, 5403843, [id number] #### [facility] [address] [place] [address] 12793 Neutrophils/100 WBC (Bld) 50.9 % Normal 36.0-75.0 [facility] Comment on above: Order Comment: Order Added by Discern Expert. Performed By: #### 2 148660, 0844214, [id number] #### [facility] [address] [place] [address] 63889 Neutrophils/Leukoc ytes Auto (Bld) [Pure # fraction] 3.0 E9/L Normal 2.0-7.5 [facility] Comment on above: Order Comment: Order Added by Discern Expert. Performed By: #### 2 045640, 2347705, [id number] #### [facility] [address] [place] [address] 35461 BUNon 10-12-2021 Urea nitrogen [Mass/Vol] 21 mg/dL Normal 5-21 [facility] Comment on above: Performed By: #### 1 [id number], 6302005, 3683524, [id number], [id number] #### [facility] [address] [place] [address] 45833 CBC w/ Auto Diffon Erythrocyte distribution width (RBC) [Ratio] 14.2 % Normal 10.9-14.2 [facility] Comment on above: Performed By: #### 2 726191, 8021964, [id number] #### [facility] [address] [place] [address] Hematocrit (Bld) [Volume fraction] 40.1 % Normal 34.0-46.0 [facility] Comment on above: Performed By: #### 2 928392, 5349912, [id number] #### [facility] [address] [place] [address] Hemoglobin (Bld) [Mass/Vol] 13.6 g/dL Normal 12.0-16.0 [facility] Comment on above: Performed By: #### 2 559988, 6010329, [id number] #### [facility] [address] [place] [address] MCH (RBC) [Entitic mass] 29.9 pg Normal 27.0-34.0 [facility] Comment on above: Performed By: #### 2 308591, 4074197, 80264812 #### [facility] [address] [place] [address] 33917 MCHC (RBC) [Mass/Vol] 33.9 g/dL Normal 31.4-36.0 [facility] Comment on above: Performed By: #### 2 294209, 1343418, [id number] #### [facility] [address] [place] [address] MCV (RBC) [Entitic vol] 88.4 fL Normal 80.0-100.0 [facility] Comment on above: Performed By: #### 2 537145, 8462553, [id number] #### [facility] [address] [place] [address] Platelet mean volume (Bld) [Entitic vol] 9.3 fL Normal 6.4-10.8 [facility] Comment on above: Performed By: #### 2 878557, 7290474, [id number] #### [facility] [address] [place] [address] Platelets (Bld) [#/Vol] 261.0 E9/L Normal 150.0-500.0 [facility] Comment on above: Performed By: #### 2 958247, 4676716, [id number] #### [facility] [address] [place] [address] RBC (Bld) [#/Vol] 4.5 E12/L Normal 4.3-5.9 [facility] Comment on above: Performed By: #### 2 044981, 2945790, [id number] #### [facility] [address] [place] [address] WBC corrected for nucl RBC Auto (Bld) [#/Vol] 5.9 E9/L Normal 4.0-11.0 [facility] Comment on above: Performed By: #### 2 [id number], [id number], [id number] #### [facility] [address] [place] [id number] COVID-19 (MC)on 10-12-2021 SARS-CoV-2 (COVID-19) RNA CHANDLER+probe Ql (Resp) Not detected Normal Not Detected [facility] Comment on above: Result Comment: This test result should be correlated with clinical presentations and medical history by a healthcare provider to determine its clinical significance. This assay was performed by a reverse transcriptase real-time polymerase chain reaction (rt PCR) method on the [employer] system. This test has been authorized only [...] or revoked sooner. Performed By: #### 2 [id number] #### [facility] [address] [place] [address] [id number] SARS-CoV-2 (COVID-19) RNA CHANDLER+probe Ql (Unsp spec) Pass Normal Pass [facility] Comment on above: Performed By: #### 2 [id number] #### [facility] [address] [place] [address] Specimen source Nom (Unsp spec) Nasal Normal [facility] Comment on above: Performed By: #### 2 [id number] #### [facility] [address] [place] [address] ADMITTED TO INTENSIVE CARE UNIT FOR CONDITION OF INTEREST:FIND:PT: NO Normal [facility] Comment on above: Performed By: #### 2 [id number] #### [facility] [address] [place] [address] EMPLOYED IN A HEALTHCARE SETTING:FIND:PT: Unknown Normal [facility] Comment on above: Performed By: #### 2 [id number] #### [facility] [address] [place] [address] FIRST TEST FOR CONDITION OF INTEREST:FIND:PT: Unknown Normal [facility] Comment on above: Performed By: #### 2 [id number] #### [facility] [address] [place] [address] HAS SYMPTOMS RELATED TO CONDITION OF INTEREST:FIND:PT: NO Normal [facility] Comment on above: Performed By: #### 2 [id number] #### [facility] [address] [place] [address] HOSPITALIZED FOR CONDITION OF INTEREST:FIND:PT: NO Normal [facility] Comment on above: Performed By: #### 2 [id number] #### [facility] [address] [place] [address] STATUS:FIND:PT: NO Normal [facility] Comment on above: Performed By: #### 2 [id number] #### [facility] [address] [place] [address] RESIDES IN A CONGREGATE CARE SETTING:FIND:PT: NO Normal [facility] Comment on above: Performed By: #### 2 [id number] #### [facility] [address] [place] [address] CT Soft Tissue Neck w/o Cont rocío 10-12-2021 CT Soft Tissue Neck w/o Contrast Exam Date/Time: 10/12/2021 13:36 EST Reason for Exam: LEFT SUBMANDIBULAR STONE Report IMPRESSION: 9 mm left and 3 mm right Elier duct sialoliths prominence of the left Elier's [...] Lucio Smyth MD Transcribed by: KIRK Technologist: ÁNGEL Normal [facility] Consent for Procedure/Surger yon 10-12-2021 Consent for Procedure/Surgery [id number]# 1.00CD:127 Normal [facility] Consent for Treatmenton Consent for Treatment [id number]#1 .00CD:127 Normal [facility] Consent for Treatment [id number]#1 .00CD:127 Normal [facility] Creatinineon 10-12-2021 Creatinine [Mass/Vol] 0.7 mg/dL Normal 0.5-1.3 [facility] Comment on above: Performed By: #### 1 [id number], 7309162, 9143994, 7698202, 2798853 #### [facility] [address] [place] [address] Glucoseon 10-12-2021 Glucose [Mass/Vol] 94 mg/dL Normal 55-199 [facility] Comment on above: Performed By: #### 1 [id number], 5061564, 7661165, 1151509, 4266883 #### [facility] [address] [place] [address] Lyteson 10-12-2021 Anion gap [Moles/Vol] 14 mmol/L Normal 6-16 [facility] Comment on above: Performed By: #### 1 2129624, 3563382, 6818973, 4039846, 9334693 #### [facility] [address] [place] [address] Chloride [Moles/Vol] 102 mmol/L Normal 101-111 [facility] Comment on above: Performed By: #### 1 2553349, 6826048, 5063591, 7041628, 6445616 #### [facility] [address] [place] [address] CO2 [Moles/Vol] 25 mmol/L Normal 21-31 [facility] Comment on above: Performed By: #### 1 9673181, 4303593, 2806231, 7124893, 5936012 #### [facility] [address] [place] [address] Potassium [Moles/Vol] 3.7 mmol/L Normal 3.5-5.3 [facility] Comment on above: Performed By: #### 1 7280829, 0698525, 4353615, 7920747, 7734723 #### [facility] [address] [place] [address] Sodium [Moles/Vol] 137 mmol/L Normal 135-145 [facility] Comment on above: Performed By: #### 1 0402539, 1996191, 0811067, 2604744, 8916250 #### [facility] [address] [place] [address] PT & PTTon 10-12-2021 aPTT Coag (PPP) [Time] 44.4 second(s) High 25.1-36.5 [facility] Comment on above: Result Comment: Hepa rin therapeutic range (represented by Anti-Factor Xa activity of 0.2 - 0.4 U/mL) corresponds to PTT of 56.6 - 109.0 sec. Performed By: #### 2 768490, 1418625, [id number] #### [facility] [address] [place] [address] INR Coag (PPP) [Relative time] 1.2 {INR} Invalid Interpretation Code [facility] Comment on above: Result Comment: INR results are specifically intended to assess patients stabilized on long-term Anticoagulation therapy suggested INR?s ?Less Intensive Anticoagulation? 2.0 ? 3.0 Conventional Range 3.0 ? 4.5 Performed By: #### 2 117408, 8594390, [id number] #### [facility] [address] [place] [address] PT Coag (PPP) [Time] 13.9 second(s) High 10.2-12.9 [facility] Comment on above: Performed By: #### 2 015028, 5596127, 13776788 #### [facility] [address] [place] [address] Physician Orderon 10-12-2021 Physician Order [id number]#1 .00CD:127 Normal [facility] Progress Note-Physicianon Progress Note-Physician Patient: JACQUI PEREZ [...] review: No qualifying data available . Plan [place] [employer] Anesthesiologists (ASA) physical status classification: Class II. Anesthetic Preoperative Plan Anesthesia: General. . Anesthetic plan, risks, benefits, and alternatives discussed with the patient and/or family. Pt. and/or family present and agree to proceed as planned.. Discussed the importance of abstaining from tobacco products, and offered counseling if desired. Normal [facility] Comment on above: Result Comment: Elec tronically Signed By: Jayjay Tello JR, DO\.br\Date and Time Signed: 10/12/21 10:11 EST XR Chest 2 Viewson 2 XR Chest 2 Views Exam Date/Time: 10/12/2021 [...] Contreras M.D. Transcribed by: KIRK Technologist: LIO Perry [facility] eGFRon 10-12-2021 GFR/1.73 sq M.predicted among blacks MDRD (S/P/Bld) [Vol rate/Area] mL/min/{1.73_m2} Normal >=59 [facility] Comment on above: Order Comment: Order added by Discern Expert. Result Comment: eGFR is race adjusted. AA=. Performed By: #### 1 [id number], 1891239, 1283234, 9711748, 3814449 #### [facility] [address] [place] [address] GFR/1.73 sq M.predicted among non-blacks MDRD (S/P/Bld) [Vol rate/Area] mL/min/{1.73_m2} Normal >=59 [facility] Comment on above: Order Comment: Order added by Discern Expert. Result Comment: [employer] [place] [employer] wayne kidney disease could be indicated at eGFR's of less than 60 mL/min/1.73m2. Kidney failure is indicated at less than 15 mL/min/1.73m2. Performed By: #### 1 0717372, 0299255, 0402627, 6823833, 3956389 #### [facility] [address] [place] [address] [facility]PREH[facility]IVE [facility] 09-20-2021 Albumin [Mass/Vol] 4.7 g/dL Normal 3.6-5.1 [facility] Comment on above: Performed By: #### 7 014, 70304 #### [facility] [address], [address] [place] [id number] Licensed Embalmer: Rei Esteban MD Albumin/Globulin [Mass ratio] 1.7 {ratio} Normal 1.0-2.5 [facility] Comment on above: Performed By: #### 7 538, 66718 #### [facility] [place] [address] Licensed Embalmer: Rei Esteban MD ALP [Catalytic activity/Vol] 75 U/L Normal 31-125 [facility] Comment on above: Performed By: #### 7 600, 83481 #### [facility] of [address], [address] [place] [address] Licensed Embalmer: Rei Esteban MD ALT [Catalytic activity/Vol] 12 U/L Normal 6-29 [facility] Comment on above: Performed By: #### 7 600, 27918 #### [facility] [place] [address] Licensed Embalmer: Rei Esteban MD AST [Catalytic activity/Vol] 13 U/L Normal 10-35 [facility] Comment on above: Performed By: #### 7 600, 09114 #### [facility] [place] [address] Licensed Embalmer: Rei Esteban MD Bilirubin [Mass/Vol] 0.5 mg/dL Normal 0.2-1.2 [facility] Comment on above: Performed By: #### 7 600, 38758 #### [facility] [place] [address] Licensed Embalmer: Rei Esteban MD BUN/CREATININE RATIO NOT APPLICABLE Normal 6-22 [facility] Comment on above: Performed By: #### 7 600, 68480 #### [facility] [place] [address] Licensed Embalmer: Rei Esteban MD Calcium [Mass/Vol] 10.1 mg/dL Normal 8.6-10.2 [facility] Comment on above: Performed By: #### 7 600, 72665 #### [facility] [place] [address] Licensed Embalmer: Rei Esteban MD Chloride [Moles/Vol] 101 mmol/L Normal 98-110 [facility] Comment on above: Performed By: #### 7 600, 70549 #### [facility] [place] [address] Licensed Embalmer: Rei Esteban MD CO2 [Moles/Vol] 31 mmol/L Normal 20-32 [facility] Comment on above: Performed By: #### 7 600, 24102 #### [facility] [place] [address] Licensed Embalmer: Rie Esteban MD Creatinine [Mass/Vol] 0.76 mg/dL Normal 0.50-1.10 [facility] Comment on above: Performed By: #### 7 600, 35221 #### [facility] [place] [address] Licensed Embalmer: Rei Esteban MD eGFR NON-AFR. TOGOLESE 93 mL/min/1.73m2 Normal > OR = 60 [facility] Comment on above: Performed By: #### 7 600, 90916 #### [facility] [place] [address] Licensed Embalmer: Rei Esteban MD GFR/1.73 sq M.predicted among blacks MDRD (S/P/Bld) [Vol rate/Area] 108 mL/min/{1.73_m2} Normal > OR = 60 [facility] Comment on above: Performed By: #### 7 600, 74408 #### [facility] [place] [address] Licensed Embalmer: Rei Esteban MD Globulin (S) [Mass/Vol] 2.7 g/dL Normal 1.9-3.7 [facility] Comment on above: Performed By: #### 7 600, 05926 #### [facility] [place] [address] Licensed Embalmer: Rei Esteban MD Glucose [Mass/Vol] 86 mg/dL Normal 65-99 [facility] Comment on above: Result Comment: Fasting reference interval Performed By: #### 7 600, 19376 #### [facility] of [address] [address] Licensed Embalmer: Rei Esteban MD Potassium [Moles/Vol] 3.9 mmol/L Normal 3.5-5.3 [facility] Comment on above: Performed By: #### 7 600, 88636 #### [facility] of [address], [address] [place] [address] Licensed Embalmer: Rei Esteban MD Protein [Mass/Vol] 7.4 g/dL Normal 6.1-8.1 [facility] Comment on above: Performed By: #### 7 600, 68931 #### [facility] of [address], [address] [place] [address] Licensed Embalmer: Rei Esteban MD Sodium [Moles/Vol] 140 mmol/L Normal 135-146 [facility] Comment on above: Performed By: #### 7 600, 80228 #### [facility] of [address], [address] [place] [address] Licensed Embalmer: Rei Esteban MD Urea nitrogen [Mass/Vol] 13 mg/dL Normal 7-25 [facility] Comment on above: Performed By: #### 7 600, 92155 #### [facility] [place] [address] Licensed Embalmer: Rei Esteban MD LIPID PANEL, STANDARD 02-0 Cholesterol [Mass/Vol] 248 mg/dL High <200 [facility] Comment on above: Order Comment: FASTI NG:YES FASTING: YES Performed By: #### 7 600, 98254 #### [facility] of [address], [address] [place] [address] Licensed Embalmer: Rei Esteban MD Cholesterol in HDL [Mass/Vol] 68 mg/dL Normal > OR = 50 [facility] Comment on above: Order Comment: FASTI NG:YES FASTING: YES Performed By: #### 7 600, 36232 #### [facility] of [address], [address] [place] [address] Licensed Embalmer: Rei Esteban MD Cholesterol in LDL [Mass/Vol] 157 mg/dL High [facility] Comment on above: Order Comment: FASTI NG:YES FASTING: YES Result Comment: Refe rence range: <100 Desirable range <100 mg/dL for primary prevention; <70 mg/dL for patients with CHD or diabetic patients with > or = 2 CHD risk factors. LDL-C is now calculated using the Keshai calculation, which is a validated novel method providing better accuracy than the Friedewald equation in the estimation of LDL-C. Ed SS et al. FOZIA. 2013;310(19): 1299-4425 (http://education.[employer]/faq/NOT740) Performed By: #### 7 600, 43224 #### [facility] [address], [address] [place] [address] Licensed Embalmer: Rei Esteban MD Cholesterol.total/ Cholesterol in HDL [Mass ratio] 3.6 {ratio} Normal <5.0 [facility] Comment on above: Order Comment: FASTI NG:YES FASTING: YES Performed By: #### 7 600, 71487 #### [facility] [address], [address] [place] [address] Licensed Embalmer: Rie Esteban MD NON HDL CHOLESTEROL 180 mg/dL (calc) High <130 [facility] Comment on above: Order Comment: FASTI NG:YES FASTING: YES Result Comment: For patients with diabetes plus 1 major ASCVD risk factor, treating to a non-HDL-C goal of <100 mg/dL (LDL-C of <70 mg/dL) is considered a therapeutic option. Performed By: #### 7 600, 43163 #### [facility] [address], [address] [place] [address] Licensed Embalmer: Rei Esteban MD Triglyceride [Mass/Vol] 110 mg/dL Normal <150 [facility] Comment on above: Order Comment: FASTI NG:YES FASTING: YES Performed By: #### 7 600, 17105 #### [facility] [address], [address] [place] [address] Licensed Embalmer: Rei Esteban MD CBC (INCLUDES DIFF/PLT)on Basophils (Bld) [#/Vol] 0.032 10*3/uL Normal 0-200 [facility] Comment on above: Performed By: #### 5 8984, , 6399 #### [facility] [place] [address] Licensed Embalmer: Rei Esteban MD Basophils/100 WBC (Bld) 0.4 % Normal [facility] Comment on above: Performed By: #### 5 8984, , 6399 #### [facility] of [address], [address] [place] [address] Licensed Embalmer: Rei Esteban MD Eosinophils (Bld) [#/Vol] 0.205 10*3/uL Normal 15-500 [facility] Comment on above: Performed By: #### 5 8984, , 99 #### [facility] [place] [address] Licensed Embalmer: Rei Esteban MD Eosinophils/100 WBC (Bld) 2.6 % Normal [facility] Comment on above: Performed By: #### 5 8984, , 6399 #### [facility] [place] [address] Licensed Embalmer: Rei Esteban MD Erythrocyte distribution width (RBC) [Ratio] 13.2 % Normal 11.0-15.0 [facility] Comment on above: Performed By: #### 5 8984, , 6399 #### [facility] [place] [address] Licensed Embalmer: Rei Esteban MD Hematocrit (Bld) [Volume fraction] 39.6 % Normal 35.0-45.0 [facility] Comment on above: Performed By: #### 5 8984, 66468, 6399 #### [facility] [place] [address] Licensed Embalmer: Rei Esteban MD Hemoglobin (Bld) [Mass/Vol] 13.1 g/dL Normal 11.7-15.5 [facility] Comment on above: Performed By: #### 5 8984, , 6399 #### [facility] [place] [address] Licensed Embalmer: Rei Esteban MD Lymphocytes (Bld) [#/Vol] 3.042 10*3/uL Normal 850-3900 [facility] Comment on above: Performed By: #### 5 89, , 6399 #### [facility] [place] [address] Licensed Embalmer: Rei Esteban MD Lymphocytes/100 WBC (Bld) 38.5 % Normal [facility] Comment on above: Performed By: #### 5 89, , 6399 #### [facility] [place] [address] Licensed Embalmer: Rei Esteban MD MCH (RBC) [Entitic mass] 29.6 pg Normal 27.0-33.0 [facility] Comment on above: Performed By: #### 5 8984, , 6399 #### [facility] [place] [address] Licensed Embalmer: Rei Esteban MD MCHC (RBC) [Mass/Vol] 33.1 g/dL Normal 32.0-36.0 [facility] Comment on above: Performed By: #### 5 8984, , 6399 #### [facility] [place] [address] Licensed Embalmer: Rei Esteban MD MCV (RBC) [Entitic vol] 89.4 fL Normal 80.0-100.0 [facility] Comment on above: Performed By: #### 5 89, 35180, 6399 #### [facility] [place] [address] Licensed Embalmer: Rei Esteban MD Monocytes (Bld) [#/Vol] 0.316 10*3/uL Normal 200-950 [facility] Comment on above: Performed By: #### 5 89, 99170, 6399 #### [facility] of [address], [address] [place] [address] Licensed Embalmer: Rei Esteban MD Monocytes/100 WBC (Bld) 4.0 % Normal [facility] Comment on above: Performed By: #### 5 8984, 24803, 6399 #### [facility] of [address], [address] [place] [address] Licensed Embalmer: Rei Esteban MD Neutrophils (Bld) [#/Vol] 4.306 10*3/uL Normal 4380-7673 [facility] Comment on above: Performed By: #### 5 89, 15721, 6399 #### [facility] of [address], [address] [place] [address] Licensed Embalmer: Rei Esteban MD Neutrophils/100 WBC (Bld) 54.5 % Normal [facility] Comment on above: Performed By: #### 5 8984, , 6399 #### [facility] of [address], [address] [place] [address] Licensed Embalmer: Rei Esteban MD Platelet mean volume (Bld) [Entitic vol] 11.5 fL Normal 7.5-12.5 [facility] Comment on above: Performed By: #### 5 8984, 63328, 6399 #### [facility] of [address], [address] [place] [address] Licensed Embalmer: Rei Esteban MD Platelets (Bld) [#/Vol] 296 10*3/uL Normal 140-400 [facility] Comment on above: Performed By: #### 5 8984, 10935, 6399 #### [facility] of [address], [address] [place] [address] Licensed Embalmer: Rei Esteban MD RBC (Bld) [#/Vol] 4.43 10*6/uL Normal 3.80-5.10 [facility] Comment on above: Performed By: #### 5 8984, , 6399 #### [facility] of [address], [address] [place] [address] Licensed Embalmer: Rei Esteban MD WBC (Bld) [#/Vol] 7.9 10*3/uL Normal 3.8-10.8 [facility] Comment on above: Performed By: #### 5 8984, 96071, 6399 #### [facility] of [address], [address] [place] [address] Licensed Embalmer: Rei Esteban MD [facility] 07-13-2021 Albumin [Mass/Vol] 4.6 g/dL Normal 3.6-5.1 [facility] Comment on above: Performed By: #### 5 8984, 61605, 6399 #### [facility] of [address], [address] [place] [address] Licensed Embalmer: Rei Esteban MD Albumin/Globulin [Mass ratio] 1.6 {ratio} Normal 1.0-2.5 [facility] Comment on above: Performed By: #### 5 8984, 21794, 6399 #### [facility] of [address], [address] [place] [address] Licensed Embalmer: Rei Esteban MD ALP [Catalytic activity/Vol] 88 U/L Normal 31-125 [facility] Comment on above: Performed By: #### 5 8984, 15205, 6399 #### [facility] of [address], [address] [place] [address] Licensed Embalmer: Rei Esteban MD ALT [Catalytic activity/Vol] 21 U/L Normal 6-29 [facility] Comment on above: Performed By: #### 5 8984, 45088, 6399 #### [facility] of [address], [address] [place] [address] Licensed Embalmer: Rei Esteban MD AST [Catalytic activity/Vol] 18 U/L Normal 10-35 [facility] Comment on above: Performed By: #### 5 8984, 11942, 6399 #### [facility] of [address], [address] [place] [address] Licensed Embalmer: Rei Esteban MD Bilirubin [Mass/Vol] 0.3 mg/dL Normal 0.2-1.2 [facility] Comment on above: Performed By: #### 5 8984, 16319, 6399 #### [facility] [place] [address] Licensed Embalmer: Rei Esteban MD BUN/CREATININE RATIO NOT APPLICABLE Normal 6-22 [facility] Comment on above: Performed By: #### 5 8984, , 6399 #### [facility] [place] [address] Licensed Embalmer: Rei Esteban MD Calcium [Mass/Vol] 9.3 mg/dL Normal 8.6-10.2 [facility] Comment on above: Performed By: #### 5 8984, 43759, 6399 #### [facility] [place] [address] Licensed Embalmer: Rei Esteban MD Chloride [Moles/Vol] 103 mmol/L Normal 98-110 [facility] Comment on above: Performed By: #### 5 8984, 19776, 6399 #### [facility] [place] [address] Licensed Embalmer: Rei Esteban MD CO2 [Moles/Vol] 26 mmol/L Normal 20-32 [facility] Comment on above: Performed By: #### 5 8984, 29148, 6399 #### [facility] [place] [address] Licensed Embalmer: Rei Esteban MD Creatinine [Mass/Vol] 0.80 mg/dL Normal 0.50-1.10 [facility] Comment on above: Performed By: #### 5 8984, 60856, 6399 #### [facility] [place] [address] Licensed Embalmer: Rei Esteban MD eGFR NON-AFR. TOGOLESE 87 mL/min/1.73m2 Normal > OR = 60 [facility] Comment on above: Performed By: #### 5 8984, 76299, 6399 #### [facility] [address], [address] [place] [address] Licensed Embalmer: Rei Esteban MD GFR/1.73 sq M.predicted among blacks MDRD (S/P/Bld) [Vol rate/Area] 101 mL/min/{1.73_m2} Normal > OR = 60 [facility] Comment on above: Performed By: #### 5 8984, , 6399 #### [facility] [address], [address] [place] [address] Licensed Embalmer: Rei Esteban MD Globulin (S) [Mass/Vol] 2.8 g/dL Normal 1.9-3.7 [facility] Comment on above: Performed By: #### 5 8984, , 6399 #### [facility] [address], [address] [place] [address] Licensed Embalmer: Rei Esteban MD Glucose [Mass/Vol] 118 mg/dL High 65-99 [facility] Comment on above: Result Comment: Fasting reference interval For someone without known diabetes, a glucose value between 100 and 125 mg/dL is consistent with prediabetes and should be confirmed with a follow-up test. Performed By: #### 5 8984, , 6399 #### [facility] [address], [address] [place] [address] Licensed Embalmer: Rei Esteban MD Potassium [Moles/Vol] 4.0 mmol/L Normal 3.5-5.3 [facility] Comment on above: Performed By: #### 5 8984, 81783, 6399 #### [facility] [address], [address] [place] [address] Licensed Embalmer: Rei Esteban MD Protein [Mass/Vol] 7.4 g/dL Normal 6.1-8.1 [facility] Comment on above: Performed By: #### 5 8984, , 6399 #### [facility] [place] [address] Licensed Embalmer: Rei Esteban MD Sodium [Moles/Vol] 141 mmol/L Normal 135-146 [facility] Comment on above: Performed By: #### 5 8984, 68936, 6399 #### [facility] [place] [address] Licensed Embalmer: Rei Esteban MD Urea nitrogen [Mass/Vol] 18 mg/dL Normal 7-25 [facility] Comment on above: Performed By: #### 5 8984, 04071, 6399 #### [facility] [place] [address] Licensed Embalmer: Rei Esteban MD TSH+FREE T4on 07-13-2021 Free T4 [Mass/Vol] 1.2 ng/dL Normal 0.8-1.8 [facility] Comment on above: Performed By: #### 5 8984, 89027, 6399 #### [facility] [place] [address] Licensed Embalmer: Rei Esteban MD TSH Qn 2.93 m[IU]/L Normal [facility] Comment on above: Result Comment: Refe rence Range > or = 20 Years 0.40-4.50 Ranges First trimester 0.26-2.66 Second trimester 0.55-2.73 Third trimester 0.43-2.91 Performed By: #### 5 8984, 51259, 6399 #### [facility] [place] [address] Licensed Embalmer: Rei Esteban MD SARS COV 2 AB [...] providers and patients using the following websites: [email or web address] fact-sheet8 https://www.Avidbots.YouTube/home/Covid-19/Patients/ antibody/fact-sheet8 Healthcare Providers: For additional information please refer to: http://education.Ogin.YouTube/faq/QFX041 (This link is being provided for informational/ educational purposes only.) This test has been authorized by the FDA under an Emergency Use Authorization (EUA) for use by authorized laboratories. The FDA authorized labeling is available on the [employer] website: www.Avidbots.YouTube/Covid19. Performed By: #### 3 4499 #### [facility] [address], [address] [place] [address] Licensed Embalmer: Rei Esteban MD CBC (INCLUDES DIFF/PLT)on Basophils (Bld) [#/Vol] 0.017 10*3/uL Normal 0-200 [facility] Comment on above: Performed By: #### 6 399 #### [facility] of [place] [address] Licensed Embalmer: Rei Esteban MD Basophils/100 WBC (Bld) 0.2 % Normal [facility] Comment on above: Performed By: #### 6 399 #### [facility] [place] [address] Licensed Embalmer: Rei Esteban MD Eosinophils (Bld) [#/Vol] 0.252 10*3/uL Normal 15-500 [facility] Comment on above: Performed By: #### 6 399 #### [facility] [place] [address] Licensed Embalmer: Rei Esteban MD Eosinophils/100 WBC (Bld) 3.0 % Normal [facility] Comment on above: Performed By: #### 6 399 #### [facility] [place] [address] Licensed Embalmer: Rei Esteban MD Erythrocyte distribution width (RBC) [Ratio] 12.7 % Normal 11.0-15.0 [facility] Comment on above: Performed By: #### 6 399 #### [facility] [place] [address] Licensed Embalmer: Rei Esteban MD Hematocrit (Bld) [Volume fraction] 39.4 % Normal 35.0-45.0 [facility] Comment on above: Performed By: #### 6 399 #### [facility] [place] [address] Licensed Embalmer: Rei Esteban MD Hemoglobin (Bld) [Mass/Vol] 13.1 g/dL Normal 11.7-15.5 [facility] Comment on above: Performed By: #### 6 399 #### [facility] [place] [address] Licensed Embalmer: Rei Esteban MD Lymphocytes (Bld) [#/Vol] 2.654 10*3/uL Normal 850-3900 [facility] Comment on above: Performed By: #### 6 399 #### [facility] [place] [address] Licensed Embalmer: Rei Esteban MD Lymphocytes/100 WBC (Bld) 31.6 % Normal [facility] Comment on above: Performed By: #### 6 399 #### [facility] [place] [address] Licensed Embalmer: Rei Esteban MD MCH (RBC) [Entitic mass] 29.9 pg Normal 27.0-33.0 [facility] Comment on above: Performed By: #### 6 399 #### [facility] [place] [address] Licensed Embalmer: Rei Esteban MD MCHC (RBC) [Mass/Vol] 33.2 g/dL Normal 32.0-36.0 [facility] Comment on above: Performed By: #### 6 399 #### [facility] [place] [address] Licensed Embalmer: Rei Esteban MD MCV (RBC) [Entitic vol] 90.0 fL Normal 80.0-100.0 [facility] Comment on above: Performed By: #### 6 399 #### [facility] [place] [address] Licensed Embalmer: Rei Esteban MD Monocytes (Bld) [#/Vol] 0.42 10*3/uL Normal 200-950 [facility] Comment on above: Performed By: #### 6 399 #### [facility] [place] [address] Licensed Embalmer: Rei Esteban MD Monocytes/100 WBC (Bld) 5.0 % Normal [facility] Comment on above: Performed By: #### 6 399 #### [facility] of [address], [address] [place] [address] Licensed Embalmer: Rei Esteban MD Neutrophils (Bld) [#/Vol] 5.057 10*3/uL Normal 2049-7387 [facility] Comment on above: Performed By: #### 6 399 #### [facility] [place] [address] Licensed Embalmer: Rei Esteban MD Neutrophils/100 WBC (Bld) 60.2 % Normal [facility] Comment on above: Performed By: #### 6 399 #### [facility] [place] [address] Licensed Embalmer: Rei Esteban MD Platelet mean volume (Bld) [Entitic vol] 11.6 fL Normal 7.5-12.5 [facility] Comment on above: Performed By: #### 6 399 #### [facility] [place] [address] Licensed Embalmer: Rei Esteban MD Platelets (Bld) [#/Vol] 278 10*3/uL Normal 140-400 [facility] Comment on above: Performed By: #### 6 399 #### [facility] [place] [address] Licensed Embalmer: Rei Esteban MD RBC (Bld) [#/Vol] 4.38 10*6/uL Normal 3.80-5.10 [facility] Comment on above: Performed By: #### 6 399 #### [facility] of [address], [address] [place] [address] Licensed Embalmer: Rei Esteban MD WBC (Bld) [#/Vol] 8.4 10*3/uL Normal 3.8-10.8 [facility] Comment on above: Performed By: #### 6 399 #### [facility] of [address], [address] [place] [address] Licensed Embalmer: Rei Esteban MD [id number] 10-14-2020 SARS-CoV-2 Not Detected Normal [facility] Comment on above: Result Comment: The specimen is NEGATIVE for SARS-CoV-2, the novel coronavirus associated with COVID-19. A negative result does not rule out COVID-19. Katharina SARS-CoV-2 for use on the Katharina [employer] is a real-time RT-PCR test intended [...] this assay. Fact sheet for Healthcare Providers: https://www.fda.gov/media/346655/download Fact sheet for Patients: https://www.fda.gov/media/611497/download METHODOLOGY: RT-PCR Performed By: #### C OVID #### [place] [address] Clinical Product Specialist: Rico Puentes MD SARS-CoV-2 [facility] Comment on above: Performed By: #### C OVID #### [facility] [address] [place], [place] [id number] Clinical Product Specialist: Rico Puentes MD [id number] 10-13-2020 SARS-CoV-2 Source .NASOPHARYNGEAL SWAB Normal [facility] Comment on above: Performed By: #### C OVID #### [place] [id number] Clinical Product Specialist: Rico Puentes MD [id number] 10-07-2020 SARS-CoV-2 Not Detected Normal [facility] Comment on above: Result Comment: The specimen is NEGATIVE for SARS-CoV-2, the novel coronavirus associated with COVID-19. A negative result does not rule out COVID-19. Katharina SARS-CoV-2 for use on the Katharina [employer] is a real-time RT-PCR test intended [...] this assay. Fact sheet for Healthcare Providers: https://www.fda.gov/media/949990/download Fact sheet for Patients: https://www.fda.gov/media/014362/download METHODOLOGY: RT-PCR Performed By: #### C OVID #### [employer] [address] [place] [address] [id number] Clinical Product Specialist: Rico Puentes MD SARS-CoV-2 [facility] Comment on above: Performed By: #### C OVID #### [employer] [address] [place] [address] Clinical Product Specialist: Rico Puentes MD [id number] 10-06-2020 SARS-CoV-2 Source .NASOPHARYNGEAL SWAB Normal [facility] Comment on above: Performed By: #### C OVID #### [employer] [address] [place] [address] Clinical Product Specialist: Rico Puentes MD [id number] 09-20-2020 SARS-CoV-[address] [facility] Comment on above: Result Comment: The specimen is NEGATIVE for SARS-CoV-2, the novel coronavirus associated with COVID-19. A negative result does not rule out COVID-19. Katharina SARS-CoV-2 for use on the Katharina [employer] is a real-time RT-PCR test intended [...] this assay. Fact sheet for Healthcare Providers: https://www.fda.gov/media/545548/download Fact sheet for Patients: https://www.fda.gov/media/713108/download METHODOLOGY: RT-PCR Performed By: #### C OVID #### [address] [address] Clinical Product Specialist: Rico Puentes MD SARS-CoV-2 [facility] Comment on above: Performed By: #### C OVID #### [address] [id number] Clinical Product Specialist: Rico Puentes MD SARS-CoV-2,Rapid [facility] Comment on above: Performed By: #### C OVID #### [facility] [employer] [address] [place] [address] [id number] Clinical Product Specialist: Rico Puentes MD [id number] 09-18-2020 SARS-CoV-2 Source .NASOPHARYNGEAL SWAB [facility] Comment on above: Performed By: #### C OVID #### [address] [id number] Clinical Product Specialist: Rico Puentes MD [id number] 09-03-2020 SARS-CoV-[address] [facility] Comment on above: Result Comment: The specimen is NEGATIVE for SARS-CoV-2, the novel coronavirus associated with COVID-19. A negative result does not rule out COVID-19. Katharina SARS-CoV-2 for use on the Katharina [employer] is a real-time RT-PCR test intended [...] this assay. Fact sheet for Healthcare Providers: https://www.fda.gov/media/477968/download Fact sheet for Patients: https://www.fda.gov/media/588448/download METHODOLOGY: RT-PCR Performed By: #### C OVID #### [address] [id number] Clinical Product Specialist: Rico Puentes MD SARS-CoV-2 [facility] Comment on above: Performed By: #### C OVID #### [address] [id number] Clinical Product Specialist: Rico Puentes MD SARS-CoV-2,Rapid [facility] Comment on above: Performed By: #### C OVID #### [address] [address] Clinical Product Specialist: Rico Puentes MD [id number] 09-02-2020 SARS-CoV-2 Source .NASOPHARYNGEAL SWAB [facility] Comment on above: Performed By: #### C OVID #### [address] [id number] Clinical Product Specialist: Rico Puentes MD [id number] 08-21-2020 SARS-CoV-2 Not Detected Normal Not Detected [facility] Comment on above: Result Comment: (NOT E) This nucleic acid amplification test was developed and its performance characteristics determined by [employer]. Nucleic acid amplification tests include PCR and [...] detected) result in this assay. Performed At: [address] [id number] Roxi Donis PhD Ph:[phone] Performed By: #### A COV #### [facility] [address] [place] [address] Clinical Product Specialist: Phillip Schumacher MD [id number] 08-14-2020 SARS-CoV-2 Not Detected Normal Not Detected [facility] Comment on above: Result Comment: (NOT E) This nucleic acid amplification test was developed and its performance characteristics determined by [employer]. Nucleic acid amplification tests include PCR and [...] detected) result in this assay. Performed At: [facility] [address] [facility] [place] [id number] Jan Dailey MD Ph:[phone] Performed By: #### A COV #### [facility] [address] [place], [place] [address] Clinical Product Specialist: Phillip Schumacher MD [id number] 07-30-2020 SARS-CoV-2 Not Detected Normal Not Detected [facility] Comment on above: Result Comment: (NOT E) This nucleic acid amplification test was developed and its performance characteristics determined by [employer]. Nucleic acid amplification tests include PCR and [...] detected) result in this assay. Performed At: [facility] [address] [facility] [place] [id number] Jan Dailey MD Ph:[phone] Performed By: #### A COV #### [facility] [address] [place] [address] Clinical Product Specialist: Phillip Schumacher MD [id number] 07-25-2020 SARS-CoV-2 Not Detected Normal Not Detected [facility] Comment on above: Result Comment: (NOT E) This nucleic acid amplification test was developed and its performance characteristics determined by [employer]. Nucleic acid amplification tests include PCR and [...] detected) result in this assay. Performed At: [facility] [address] [facility] [place] [id number] Jan Dailey MD Ph:[phone] Performed By: #### A COV #### [facility] [address] [place] [address] Clinical Product Specialist: Phillip Schumacher MD [id number] 07-18-2020 SARS-CoV-2 Not Detected Normal Not Detected [facility] Comment on above: Result Comment: (NOT E) Testing was performed using the [employer] SARS-CoV-2 assay. This nucleic acid amplification test was developed and its performance characteristics determined by [employer]. Nucleic acid amplification tests include PCR and [...] detected) result in this assay. Performed At: [facility] [address] [id number] Lewis Vaughn MD Ph:[phone] Performed By: #### A COV #### [facility] [address] [place] [address] Clinical Product Specialist: Phillip Schumacher MD [id number] 07-03-2020 SARS-CoV-2 Not Detected Normal Not Detected [facility] Comment on above: Result Comment: (NOT E) This nucleic acid amplification test was developed and its performance characteristics determined by [employer]. Nucleic acid amplification tests include PCR and [...] detected) result in this assay. Performed At: [facility] [address] [facility], [place] [id number] Jan Dailey MD Ph:[phone] Performed By: #### A COV #### [facility] [address] [place], [place] [address] Clinical Product Specialist: Phillip Schumacher MD Vital Signs Date Time Vital Sign Value Performing Clinician Facility 03-24-2025 14:11-0400 Diastolic blood pressure 60 mm[Hg] Willi FurPowerPracticalng DO [facility] 03-24-2025 14:11-0400 Heart rate 86 /min Willi PayPlugng DO [facility] 03-24-2025 14:11-0400 SaO2% (BldA) [Mass fraction] 91 % Willi PayPlugng DO [facility] 03-24-2025 14:11-0400 Systolic blood pressure 110 mm[Hg] Willi FurPowerPracticalng DO [facility] 03-24-2025 13:50-0400 Body height 172.7 cm Boyaa Inter[employer]eng DO [facility] 03-24-2025 13:50-0400 Body mass index (BMI) [Ratio] 29.6 kg/m2 WilliContinuityX Solutionslong DO [facility] 03-24-2025 13:50-0400 Body temperature 98.49 [degF] WilliContinuityX Solutionslong DO [facility] 03-24-2025 13:50-0400 Body weight 88.27 kg Boyaa [employer] DO [facility] 03-24-2025 13:50-0400 Respiratory rate 18 /min Boyaa [employer] DO Work Phone: [facility] 10-15-2024 16:35-0500 Body height 172.7 cm Doni LONGDILIA Work Phone: [facility] [facility] 10-15-2024 16:35-0500 Body mass index (BMI) [Ratio] 29.74 kg/m2 Doni Rios APRN-SOCIAL WORK ASSISTANT Work Phone: [facility] [facility] 10-15-2024 16:35-0500 Body temperature 98.6 [degF] Doni Rios APRN-SOCIAL WORK ASSISTANT Work Phone: [facility] 10-15-2024 16:35-0500 Body weight 88.72 kg Doni Rios APRN-SOCIAL WORK ASSISTANT Work Phone: [facility] 10-15-2024 16:35-0500 Diastolic blood pressure 82 mm[Hg] Doni Rios APRN-SOCIAL WORK ASSISTANT Work Phone: [facility] [facility] 10-15-2024 16:35-0500 Heart rate 79 /min Doni Rios APRN-SOCIAL WORK ASSISTANT Work Phone: [facility] [facility] 10-15-2024 16:35-0500 Respiratory rate 18 /min Doni Rios APRN-DILIA Work Phone: [facility] 10-15-2024 16:35-0500 SaO2% (BldA) [Mass fraction] 99 % Doni Rios APRN-SOCIAL WORK ASSISTANT Work Phone: [facility] [facility] 10-15-2024 16:35-0500 Systolic blood pressure 110 mm[Hg] Doni Rios APRN-SOCIAL WORK ASSISTANT Work Phone: [facility] 10-10-2024 08:56-0500 Body height 172.7 cm Kamran Garibay DPM Work Phone: [facility] 10-10-2024 08:56-0500 Body mass index (BMI) [Ratio] 28.89 kg/m2 Kamran Garibay DPM Work Phone: [facility] 10-10-2024 08:56-0500 Body weight 86.18 kg Kamran Garibay DPM Work Phone: [facility] 11-06-2023 14:44-0400 Body height 172.7 cm Willi Furlong DO Work Phone: [facility] 11-06-2023 14:44-0400 Body mass index (BMI) [Ratio] 30.71 kg/m2 Willi Furlong DO Work Phone: [facility] 11-06-2023 14:44-0400 Body temperature 97.81 [degF] Willi Furlong DO Work Phone: [facility] 11-06-2023 14:44-0400 Body weight 91.63 kg Willi Furlong DO Work Phone: [facility] 11-06-2023 14:44-0400 Diastolic blood pressure 70 mm[Hg] Willi Furlong DO Work Phone: [facility] 11-06-2023 14:44-0400 Heart rate 77 /min Willi Furlong DO Work Phone: [facility] [place] 11-06-2023 14:44-0400 SaO2% (BldA) [Mass fraction] 97 % Willi Furlong DO Work Phone: [facility] 11-06-2023 14:44-0400 Systolic blood pressure 110 mm[Hg] Willi Furlong DO Work Phone: [facility] 01-17-2022 14:15-0400 Body height 172.72 cm Bull O[facility] Other [place] Other 01-17-2022 14:15-0400 Body mass index (BMI) [Ratio] 30.86 kg/m2 Bull [employer] Other [place] Other 01-17-2022 14:15-0400 Body weight 92.08 kg Bull [employer] Other [place] Other Encounters Encounter Date Encounter Type Care Provider Facility Start: 04-06-2025 ambulatory BUTLER Cathryn [facility] Start: 04-02-2025 End: 04-02-2025 Orders Only Willi Ridley DO [facility] Comment on above: Disorder of right ro tator cuff (Primary Dx) Start: 03-25-2025 End: 03-25-2025 Orders Only Willi Ridley DO Work Phone: [facility] Comment on above: Pain of right scapul a (Primary Dx) Start: 03-24-2025 End: 03-24-2025 Office outpatient visit 15 minutes Willi Ridley DO Work Phone: [facility] Comment on above: Trigger point of rig ht shoulder region (Primary Dx) Start: 03-24-2025 End: 03-24-2025 ambulatory [facility] Start: 10-15-2024 End: 10-15-2024 ambulatory [facility] Start: 10-15-2024 End: 10-15-2024 Patient encounter procedure Doni Rios EXPERIENCE SPECIALIST-SOCIAL WORK ASSISTANT Work Phone: [facility] [facility] Start: 10-15-2024 End: 10-15-2024 Periodic preventive med est patient 40-64yrs Doni Rios EXPERIENCE SPECIALIST-SOCIAL WORK ASSISTANT Work Phone: [facility] Comment on above: Annual physical exam (Primary Dx); Blood tests for routine general physical examination; Encounter for screening mammogram for malignant neoplasm of breast; Asymptomatic menopausal state; Encounter for screening for osteoporosis; Special screening for malignant neoplasm of colon Start: 10-15-2024 End: 10-15-2024 Physical examination Doni Rios EXPERIENCE SPECIALIST-SOCIAL WORK ASSISTANT Work Phone: [facility] Work Phone: Start: 10-15-2024 End: 10-15-2024 ambulatory [facility] Start: 10-15-2024 Encounter for genera l adult medical examination without abnormal findings [facility] Start: 10-10-2024 End: 10-10-2024 Bamboo flowsheet Kamran Garibay DPM Work Phone: [facility] Start: 10-10-2024 End: 10-10-2024 Bamboo flowsheet Kamran Garibay DPM Work Phone: [facility] Start: 10-10-2024 End: 10-10-2024 ambulatory KAMRAN GARIBAY Not Available Start: 10-10-2024 End: 10-10-2024 Office outpatient new 45 minutes Kamran Garibay DPM Work Phone: [facility] Comment on above: Plantar fasciitis (P rimary Dx); Right foot pain; Equinus contracture of right ankle Start: 11-09-2023 Telephone encounter Melody Gonsalez CMA [facility] Start: 11-06-2023 End: 11-06-2023 ambulatory [facility] Start: 11-06-2023 Encounter for genera l adult medical examination without abnormal findings [facility] Start: 11-06-2023 End: 11-06-[address] [facility] DO Work Phone: [facility] [facility] Work Phone: Start: 11-06-2023 End: 11-06-2023 Periodic preventive med est patient [age][facility] DO Work Phone[facility] [...] 01-17-2022 End: 01-17-2022 ambulatory Bull Gonzalez Other [place] Other Start: 01-17-2022 Office outpatient ne w 30 minutes Bull Gonzalez [facility] Start: 12-16-2021 End: 12-17-[address] WILLI RIDLEY Facility:[facility] Start: 10-13-2020 End: 10-14-2020 Patient encounter procedure BILL HILARIO [facility] Start: 10-13-2020 End: 10-13-2020 Subsequent hospital visit by physician NAEEM FENTON Start: 10-06-2020 End: 10-07-2020 Patient encounter procedure BILLSUN RICH [facility] Start: 10-06-2020 End: 10-06-2020 Subsequent hospital visit by physician NAEEM FENTON Start: 09-18-2020 End: 09-19-2020 Patient encounter procedure BILLVirgie RICH [facility] Start: 09-01-2020 End: 09-02-2020 Patient encounter procedure AYDE RICH [facility] Start: 09-01-2020 End: 09-01-2020 Subsequent hospital visit by physician NAEEM FENTON Start: 08-19-2020 End: 08-20-2020 Patient encounter procedure BILLVirgie RICH [facility] Start: 08-19-2020 End: 08-19-2020 Subsequent hospital visit by physician NAEEM FENTON Start: 08-11-2020 End: 08-12-2020 Patient encounter procedure BILL RICH [facility] Start: 08-11-2020 End: 08-11-2020 Subsequent hospital visit by physician NAEEM FENTON Start: 07-29-2020 End: 07-30-2020 Patient encounter procedure BILLVirgie SANDSI [facility] Start: 07-29-2020 End: 07-29-2020 Subsequent hospital visit by physician NAEEM BUITRAGO [facility] Start: 07-22-2020 End: 07-23-2020 Patient encounter procedure AYDE RICH [facility] Start: 07-22-2020 End: 07-22-2020 Subsequent hospital visit by physician NAEEM BU[facility]RAGO [facility] Start: 07-15-2020 End: 07-16-2020 Patient encounter procedure AYDE RICH [facility] Start: 07-15-2020 End: 07-15-2020 Subsequent hospital visit by physician NAEEM BUITRAGO [facility] Start: 06-30-2020 End: 07-01-2020 Patient encounter procedure AYDE RICH [facility] Start: 06-30-2020 End: 06-30-2020 Subsequent hospital visit by physician NAEME BUITRAGO [facility] Procedures Date Procedure Procedure Detail Performing Clinician Start: 03-24-2025 Adult depression scr eening assessment Willi Furlong DO Work Phone: Start: 11-21-2024 Mammography Willi Fur long DO Work Phone: Start: 10-15-2024 Adult depression scr eening assessment Doni Rios EXPERIENCE SPECIALIST-SOCIAL WORK ASSISTANT Work Phone: Start: 10-10-2024 Radex calcaneus mini mum 2 views Kamran Garibay DPM Work Phone: Start: 11-12-2023 Mammography Doni Marce tejo EXPERIENCE SPECIALIST-SOCIAL WORK ASSISTANT Work Phone: Start: 11-06-2023 Adult depression scr eening assessment Willi Furlong DO Work Phone: Start: 07-29-2020 COVID-19 AMBULATORY LEENA S RICH Start: 07-22-2020 COVID-19 AMBULATORY LEENA S RICH Start: 07-15-2020 COVID-19 AMBULATORY LEENA S RICH Start: 06-30-2020 COVID-19 AMBULATORY LEENA S RICH Plan of Treatment Date Care Activity Detail Author Start: 11-10-2027 Screening for malign ant neoplasm of colon Colon Cancer Screening 3 Year [facility] Start: 03-24-2026 Adult BMI Screening Adult BMI Screen ing [facility] Start: 03-24-2026 Depression Screening Depression Scre ening [facility] Start: 03-24-2026 Tobacco Screening Tobacco Screening [facility] Start: 11-21-2025 Screening for malign ant neoplasm of breast Mammogram [facility] Start: 10-15-2025 Adult BMI Follow Up Plan Adult BMI Follow Up Plan [facility] Start: 10-15-2025 Adult BMI Screening Adult BMI Screen ing [facility] Start: 10-15-2025 Depression Screening Depression Scre ening [facility] Start: 10-15-2025 Tobacco Screening Tobacco Screening [facility] Start: 04-13-2025 Influenza vaccination Influenza Vacc ine [facility] Start: 03-25-2025 End: 03-25-2026 XR Scapula - right Views X-ray scapula right Imaging Routine Pain of right scapula Expected: 03/25/2025, Expires: 03/25/2026 [facility] Work Phone: Comment on above: Expected: 03/25/2025 , Expires: 03/25/2026 Start: 11-19-2024 End: 11-19-2024 Patient encounter procedure 11/19/2024 4:00 PM EDT Office Visit [facility] [address] [place] [id number] Kamran Garibay, DPM [address] [place], [place] [id number] [facility] Start: 11-11-2024 Screening for malign ant neoplasm of breast Mammogram [facility] Start: 11-05-2024 Adult BMI Screening Adult BMI Screen ing [facility] Start: 11-05-2024 Depression Screening Depression Scre ening [facility] Start: 11-05-2024 Tobacco Screening Tobacco Screening [facility] Start: 10-26-2024 DTaP,Tdap and Td Vac cines (2 - Td or Tdap) DTaP,Tdap and Td Vaccines (2 - Td or Tdap) [facility] Start: 10-23-2024 Screening for malign ant neoplasm of colon Colon Cancer Screening 3 Year Colog[facility]ard [facility] Start: 10-15-2024 End: 10-15-2025 DBT Breast - bilateral screening Mammography screening bilateral with CAD Imaging Routine Encounter for screening mammogram for malignant neoplasm of breast Expected: 10/15/2024, Expires: 10/15/2025 [facility] Comment on above: Expected: 10/15/2024 , Expires: 10/15/2025 Start: 10-15-2024 End: 10-15-2025 DXA Skeletal system Views for bone density Dexa scan central skeletal Imaging Routine Asymptomatic menopausal state Encounter for screening for osteoporosis Expected: 10/15/2024, Expires: 10/15/2025 [facility] Comment on above: Expected: 10/15/2024 , Expires: 10/15/2025 Start: 04-13-2024 Influenza vaccination Influenza Vacc ine [facility] Start: 11-15-2023 Administration of varicella zoster vaccine Zoster (Shingles) Vaccine (1 of 2) [facility] Comment on above: Postponed from 10/30 (Patient Refused) Start: 11-11-2023 Influenza vaccination Influenza Vacc ine [facility] Comment on above: Postponed from 04/13 (Patient Refused) Start: 11-06-2023 End: 11-05-2024 DBT Breast - bilateral screening Mammography screening bilateral with CAD Imaging Routine Encounter for screening mammogram for malignant neoplasm of breast Expected: 11/06/2023, Expires: 11/05/2024 [facility] Work Phone: Comment on above: Expected: 11/06/2023 , Expires: 11/05/2024 Start: 10-20-2023 Adult BMI Follow Up Plan Adult BMI Follow Up Plan [facility] Start: 2022 Administration of varicella zoster vaccine Zoster (Shingles) Vaccine (1 of 2) [facility] Start: 04-13-2020 Influenza vaccination Flu vaccine (# 1) [place], [place] Start: 2012 Lipid panel Lipid screen [place], [place] Start: 2012 Screening for malign ant neoplasm of breast Mammogram [facility] Start: 1993 Screening for malign ant neoplasm of cervix Cervical cancer screen [place] Start: 10-31-1991 DTaP/Tdap/Td vaccine (1 - Tdap) DTaP/Tdap/Td vaccine (1 - Tdap) [place] Start: 10-31-[address] [facility] [place] [place] Start: 1972 Hepatitis C screening Hepatitis C sc reen [place] End: 10-15-2025 CBC W Auto Differential panel - Blood CBC auto differential Lab Routine Blood tests for routine general physical examination 1 Occurrences starting 10/15/2024 until 10/15/2025 [facility] Comment on above: 1 Occurrences starti ng 10/15/2024 until 10/15/2025 [facility] Lab Routine Special screening for malignant neoplasm of colon Ordered: 10/15/2024 [facility] Comment on above: Ordered: 10/15/2024 End: 10-15-2025 Comprehensive metabolic 2000 panel - Serum or Plasma Comprehensive metabolic panel Lab Routine Blood tests for routine general physical examination 1 Occurrences starting 10/15/2024 until 10/15/2025 [employer] Phone: Comment on above: 1 Occurrences starti ng 10/15/2024 until 10/15/2025 End: 09-01-2020 COVID-19 COVID-19 Lab Routine Once for 1 Occurrences starting 09/01/2020 until 09/01/2020 [place] Comment on above: Once for 1 Occurrenc es starting 09/01/2020 until 09/01/2020 COVID-19 [facility] [place] End: 10-06-2020 COVID-19 COVID-19 Lab Routine Once for 1 Occurrences starting 10/06/2020 until 10/06/2020 [facility] Phone: Comment on above: Once for 1 Occurrenc es starting 10/06/2020 until 10/06/2020 End: 10-13-2020 COVID-19 COVID-19 Lab Routine Once for 1 Occurrences starting 10/13/2020 until 10/13/2020 [facility] Phone: Comment on above: Once for 1 Occurrenc es starting 10/13/2020 until 10/13/2020 End: 07-15-2020 Covid-19 Ambulatory Covid-19 Ambulatory Lab Routine Once for 1 Occurrences starting 07/15/2020 until 07/15/2020 [facility], [place] Comment on above: Once for 1 Occurrenc es starting 07/15/2020 until 07/15/2020 Covid-19 Ambulatory [facility], [place] End: 07-22-2020 Covid-19 Ambulatory Covid-19 Ambulatory Lab Routine Once for 1 Occurrences starting 07/22/2020 until 07/22/2020 [facility] Comment on above: Once for 1 Occurrenc es starting 07/22/2020 until 07/22/2020 End: 07-29-2020 Covid-19 Ambulatory Covid-19 Ambulatory Lab Routine Once for 1 Occurrences starting 07/29/2020 until 07/29/2020 [facility], [place] Comment on above: Once for 1 Occurrenc es starting 07/29/2020 until 07/29/2020 End: 08-11-2020 Covid-19 Ambulatory Covid-19 Ambulatory Lab Routine Once for 1 Occurrences starting 08/11/2020 until 08/11/2020 [facility], [place] Comment on above: Once for 1 Occurrenc es starting 08/11/2020 until 08/11/2020 End: 08-19-2020 Covid-19 Ambulatory Covid-19 Ambulatory Lab Routine Once for 1 Occurrences starting 08/19/2020 until 08/19/2020 [facility], [place] Comment on above: Once for 1 Occurrenc es starting 08/19/2020 until 08/19/2020 End: 06-30-2020 Covid-19 Ambulatory Covid-19 Ambulatory Lab Routine Once for 1 Occurrences starting 06/30/2020 until 06/30/2020 [facility], [place] Comment on above: Once for 1 Occurrenc es starting 06/30/2020 until 06/30/2020 End: 10-15-2025 Hemoglobin A1c/Hemoglobin.total in Blood Hemoglobin A1c Lab Routine Blood tests for routine general physical examination 1 Occurrences starting 10/15/2024 until 10/15/2025 [facility] Comment on above: 1 Occurrences starti ng 10/15/2024 until 10/15/2025 End: 10-15-2025 Lipid 1996 panel - Serum or Plasma Lipid profile Lab Routine Blood tests for routine general physical examination 1 Occurrences starting 10/15/2024 until 10/15/2025 [facility] Comment on above: 1 Occurrences starti ng 10/15/2024 until 10/15/2025 End: 11-05-2024 Thyrotropin [Units/volume] in Serum or Plasma TSH Lab Routine Class 1 obesity due to excess calories with serious comorbidity and body mass index (BMI) of 30.0 to 30.9 in adult 1 Occurrences starting 11/06/2023 until 11/05/2024 [facility] Comment on above: 1 Occurrences starti ng 11/06/2023 until 11/05/2024 Thyrotropin [Units/volume] in Serum or Plasma TSH Lab Routine Class 1 obesity due to excess calories with serious comorbidity and body mass index (BMI) of 30.0 to 30.9 in adult 11/06/2023 10:01 PM EDT [facility] Immunizations Immunization Date Immunization Notes Care Provider Kulwinder castellanos 10-26-2014 tetanus toxoid, redu charo diphtheria toxoid, and acellular pertussis vaccine, adsorbed Willi Jajaalfred DO Work Phone: [facility] Payers Date Payer Category Payer Managed Care Other (unspecified) [employer] [id number] 2022 Private Health Insurance [id number]. [id number] 2022 Unknown [id number] 1972 Unknown [id number] 2.16.840.1.228819.3.579. 2.175 1972 Unknown [id number] 2.16.840.1.604325.3.579. 2.175 1972 Unknown [id number] 2.16.840.1.369304.3.579. 2.175 1972 Unknown [id number] 2.16.840.1.858845.3.579. 2.175 1972 Unknown [id number] 2.16.840.1.556892.3.579. 2.175 1972 Unknown [id number] 2.16.840.1.484995.3.579. 2.175 1972 Unknown [id number] 2.16.840.1.159984.3.579. 2.175 1972 Unknown [id number] 2.16.840.1.234467.3.579. 2.175 1972 Unknown [id number] 2.16.840.1.416844.3.579. 2.175 1972 Unknown [id number] 2.16.840.1.479597.3.579. 2.175 1972 Unknown [id number] 2.16.840.1.929607.3.579. 2.593 1972 Unknown [id number] 2.16.840.1.430629.3.579. 2.593 1972 Unknown [id number] 2.16.840.1.244888.3.579. 2.1259 1972 Unknown [id number] 2.16.840.1.136516.3.579. 2.1259 1972 Unknown [id number] 2.16.840.1.672487.3.579. 2.1286 1972 Unknown [id number] 2.16.840.1.791906.3.579. 2.1286 1972 Unknown [id number] 2.16.840.1.236698.3.579. 2.1286 1972 Unknown [id number] 2.16.840.1.447526.3.579. 2.1286 1972 Unknown [id number] 2.16.840.1.820121.3.579. 2.1286 1959 Self-pay [id number] 1959 Unknown [id number] 1.2.840.724631.1.13.239. 2.7.3.432226.315 Social History Date Type Detail Facility Tobacco smoking stat [facility] [place] Start: 1970 Sex Assigned At Not on file [place] Start: 11-14-2022 End: 11-06-2023 Sex Assigned At [facility] [email or web address] Other Start: 11-06-2023 End: 10-10-2024 Tobacco smoking status [facility] Ex-smoker [facility] History of tobacco use Current smoker [facility] History of tobacco use Cigarette Smoker P [facility] Start: 11-14-2022 End: 11-06-2023 Cigarettes smoked current (pack per day) - Reported 0.5 [facility] Start: 11-06-2023 Tobacco use and exposure Smokeless tobacco non-user [facility] Start: 11-06-2023 End: 03-24-2025 Alcohol intake Lifetime non-drinker (finding) [facility] Has the [employer], or [employer] threatened to shut off services in your home in past 12Mo No [facility] Are you now , , , , never or living with a partner? [facility] How often to you hav e a drink containing alcohol? Never [facility] How many standard drinks containing alcohol do you have on a typical day? Patient does not drink [facility] Do you feel stress - tense, restless, nervous, or anxious, or unable to sleep at night because your mind is troubled all the time - these days [OSQ] Not at all [facility] Tobacco smoking stat [facility] Tobacco smoking consumption unknown [facility] Start: 03-18-2015 Sex Female (finding) [facility] Clinical Notes 10-12-2021 to 03-24-2025 Willi Ridley, DO - 03/24/2025 2:00 PM EDTDoni Rios, EXPERIENCE SPECIALIST-SOCIAL WORK ASSISTANT - 10/15/2024 4:40 PM Derrick Garibay, DPM - 10/10/2024 8:45 AM Montse Ridley, [...] Cancel: $ Arthrocentesis documented in this encounter [facility] [employer] [place] 10-15-2024 History of Presen t illness Narrative Images from the original note were not included. [address] [facility] [id number] SUBJECTIVE: Patient ID: Jacqui Perez is a [...] year Annual physical MARCO ANTONIO Nixon 10/15/24 [id number] documented in this encounter [facility] 10-10-2024 History of Presen t illness Narrative [...] Kamran Garibay DPM documented in this encounter [facility] 11-09-2023 Miscellaneous Notes ----- Message from Willi [...] notified and understands documented in this encounter [facility] 11-09-2023 Telephone encounter Note ----- Message [...] was fine. Her kidney tests were great. [facility] 11-09-2023 Telephone encounter Note Patient notified and understands [facility] 11-06-2023 History of Presen t illness [...] ear normal. Nose: Nose normal. Mouth/Throat: Lips: [place]. Mouth: Mucous membranes are moist. Pharynx: Oropharynx [...] something. Check TSH. documented in this encounter [facility] 01-17-2022 Evaluation note Encounter Date Diagnosis Assessment [...] helpful. This is not a surgical problem [facility] Other 05-06-2022 NotePROCEDURE: XR SCAPULA RT COMPARISON: 12/16/2021 shoulder HISTORY: Pain in thoracic spine FINDINGS: BONES:No fracture, acute abnormality, or significant arthropathy. SOFT TISSUES:Negative. No visible soft tissue swelling. EFFUSION:None visible. OTHER: Negative. IMPRESSION: Normal examination. Electronically authenticated by: GIUSEPPE WHATLEY Date: 2021-12-16 17:06[facility]03-02-2022 [id number] [facility] Well adult health check- Primary Unspecified general medical examination Class 1 obesity due to excess calories with serious comorbidity and body mass index (BMI) of 30.0 to 30.9 in adult Encounter for screening mammogram for malignant neoplasm of breast Constipation, unspecified constipation type Supraventricular tachycardia (CMS-HCC) Other specified cardiac dysrhythmias Hyperlipidemia, unspecified hyperlipidemia type documented [facility] this encounter [facility] Diagnosis Plantar fasciitis- Primary Plantar fascial fibromatosis Right foot pain Pain in soft tissues of limb [place] contracture of right ankle documented in this encounter [facility]* Diagnosis Annual physical exam- Primary [...] malignant neoplasms, colon documented [facility] Diagnosis Trigger point of right shoulder region- Primary documented in [facility] encounter [facility]* Diagnosis Pain of right scapula- Primary [facility]* Diagnosis Pain of right scapula- Primary documented in this encounter [facility]* Diagnosis Disorder of right rotator cuff- Primary documented in this encounter [facility] SystemHistory general Narrative - Reported* Type Description Date Medical History GERD Medical History Supraventricular Tachycardia Surgical History Cardiac ablation 1996 Surgical History total hysterectomy 2012 Hospitalization History see above [facility] Other InstructionsNot on filedocumented in this encounter [facility] SystemInstructionsNot on filedocumented in this encounter [facility] SystemInstructions* Attachments The following attachments cannot be sent through Care Everywhere. * Diet and health (Namibian) [facility] SystemInstructionsNot on file documented in [facility] SystemInstructionsNot on file [facility] in [facility] Summary Purpose Family History No Family [...] section and content) DATE CREATED AUTHOR 10/14/2020 [facility] DATE CREATED AUTHOR AUTHOR'S ORGANIZ ATION 09/20/2021 [facility] DATE CREATED AUTHOR AUTHOR'S ORGANIZ ATION 2021 [facility] DATE CREATED AUTHOR AUTHOR'S ORGANIZ ATION 11/18/[address] [facility] DATE CREATED AUTHOR AUTHOR'S ORGANIZ ATION 10/12/2024 [facility] DATE CREATED AUTHOR AUTHOR'S ORGANIZ ATION 10/18/2024 [facility] DATE CREATED AUTHOR AUTHOR'S ORGANIZ ATION 03/26/2025 [facility] DATE CREATED AUTHOR AUTHOR'S ORGANIZ ATION 04/07/2025 [facility] REASON FOR VISIT (unrecogniz ed section and [...] Care Teams (unrecognized sec tion and content) Recreation Aide Relationship Specialty Start Date End Date Willi Ridley DO [address] [place] [address] PCP - General Family Medicine 05/19/22 Recreation Aide Relationship Specialty Start Date End Date Willi Ridley DO [address] [place] [address] PCP - General Family Medicine 05/19/22 Recreation Aide Relationship Specialty Start Date End Date Willi Ridley MD [address] [place] [address] PCP - General Family Medicine 10/10/24 Recreation Aide Relationship Specialty Start Date End Date Willi Ridley DO [address] [place] [address] PCP - General Family Medicine 05/19/22 Recreation Aide Relationship Specialty Start Date End Date Willi Ridley DO [address] [place] [address] PCP - General Family Medicine 05/19/22 Recreation Aide Relationship Specialty Start Date End Date Willi Ridley DO [address] [place] [address] PCP - General Family Medicine 05/19/22 Recreation Aide Relationship Specialty Start Date End Date Willi Ridley DO [address], [place] [address] PCP - General Family Medicine 05/19/22 FOR RECORDS PERTAINING TO [...] BE BASED ON THE PRIMARY CLINICAL RECORDS. [employer] [facility]. provides no warranty or guarantee of the accuracy or completeness of information in this document.
[2025-04-09 18:38] VITALS: BP 120/81; PULSE 89; TEMP 36.8; O2SAT 99; BMI 28.9
--- NOTE | 2025-04-09 19:27 | CT_ITS ---
[address] [address] Patient Name: JACQUI SANTIAGO MRN: [id number] date: 1970 Sex: F Assigned Patient Location: ER Current Patient Location: ER Accession/Order Number: [id number] Exam Date: 04/09/2025 20:00 Report Date: 04/09/2025 20:14 At the request of: MARIE BUITRAGO Procedure: CT abdomen pelvis w con CT abdomen pelvis w con 04/09/2025 8:03 PM SIGNS AND SYMPTOMS: Abdominal pain, diarrhea, bloody stools TECHNIQUE: Multidetector ct axial images of the abdomen and pelvis were obtained with IV contrast. Multiplanar reformats were performed and reviewed to further define anatomy and possible pathology. CT was performed with one or more of the following dose reduction techniques: Automated exposure control, adjustment of the mA and/or kV according to patient size, or use of iterative reconstruction technique. COMPARISON: None. FINDINGS: Lower Chest: Within normal limits. ABDOMEN: Liver: Within normal limits. Bile Ducts: Normal caliber. Gallbladder: No calcified gallstones. Normal caliber wall. Pancreas: Within normal limits. Spleen: Within normal limits. Adrenals: Within normal limits. Kidneys: There is a 5 mm nonobstructing stone in the left renal collecting system. Pelvis: Reproductive Organs: No pelvic masses. Ureters: Within normal limits. Bladder: Within normal limits. Bowel: There is wall thickening involving the transverse, descending, and sigmoid colon with adjacent mild fat stranding suspicious for colitis. This may be infectious or inflammatory. No evidence of bowel obstruction. Mesenteric Lymph Nodes: No enlarged mesenteric lymph nodes. Peritoneum: No ascites or free air, no fluid collection. Vessels: Atherosclerotic changes are noted in the lower abdominal aorta. Retroperitoneum: Within normal limits. Abdominal Wall: Within normal limits. Bones: Degenerative changes are noted in the lumbar spine. CT/CT abdomen pelvis w con IMPRESSION: There is wall thickening involving the transverse, descending, and sigmoid colon with adjacent mild fat stranding suspicious for colitis. This may be infectious or inflammatory. No evidence of bowel obstruction or obstructive uropathy. There is a 5 mm nonobstructing stone in the left renal collecting system. Impression dictated by: David Martines M.D. 04/09/2025 8:14 PM Dictation Location: [place] [address] Electronically authenticated by: [id number] Y Date: 04/09/2025 20:14
--- NOTE | 2025-04-09 19:46 | ED_ITS ---
HPI - Abdominal Pain General Chief Complaint: Abdominal Pain Stated Complaint: ABDOMINAL PAIN/RECTAL BLEEDING Time Seen by Provider: 04/09/25 19:04 Source: patient Mode of arrival: walk-in Limitations: no limitations History of Present Illness HPI narrative: 54-year-old female presents with 2 days of low abdominal pain, described as diffuse pressure without clear exacerbating factors. She reports diarrhea that began this morning, now noting blood in the stool. She experienced nausea earlier today but denies current nausea or vomiting. Denies urinary symptoms, chest pain, shortness of breath, or recent alcohol use. No personal history of diverticulitis. She had a colonoscopy several years ago that was reportedly normal, though she is unsure of the exact year. She reports chills today but has not measured a fever. Related Data Previous Rx's ?Medication ?Instructions ?Recorded ciprofloxacin HCl 500 mg tablet 500 mg PO Q12H #20 tab s 04/09/25 (Cipro) Allergies Allergy/AdvReac Type Severity Reaction Status Date / Time No Known Drug Allergies Allergy Verified 04/09/25 18:38 PFSH PFS Social History Little interest or pleasure in doing things: not at all Feeling down, depressed, or hopeless: not at all Exam Narrative Exam Narrative: General: Alert, oriented ?3, in no acute distress. Vital Signs: Afebrile, BP, HR, RR, and oxygen saturation within normal limits Abdomen: Soft, mildly tender in lower quadrants, no rebound, guarding, or rigidity. No palpable masses, no hepatosplenomegaly. Bowel sounds present and normal. Non-surgical abdomen. : No costovertebral angle tenderness, no suprapubic distension. Cardiac: Regular rate and rhythm, no murmurs, rubs, or gallops. Respiratory: Lungs clear to auscultation bilaterally, normal effort. Neuro: Alert, oriented, cranial nerves II-XII intact, motor and sensory exam normal. Extremities: No edema, pulses intact, no tenderness or deformity. Skin: Warm, dry, no rashes or lesions. Other: No signs of dehydration or acute distress. Constitutional Vital Signs, click to edit/add: Last Vital Signs Temp 98.3 F 04/09/25 18:38 Pulse 89 04/09/25 18:38 Resp 18 04/09/25 18:38 BP 120/81 04/09/25 18:38 Pulse Ox 99 04/09/25 18:38 O2 Del Method Room Air 04/09/25 18:38 Course Reevaluation(s) Reevaluation #1: Patient stil feelin same. Denies needing pain meds still. No vomiting. Colitis on CT. Notified of CT finding of kidney stone. I will treat with cipro outpatient and she can try pepto bismol as needed. Will give a dose of antibiotics here and finish IV hydration, reassess, and plan on DC after PO trial. Time: 20:48 Vital Signs Vital signs: Vital Signs Temperature 98.3 F 04/09/25 18:38 Pulse Rate 89 04/09/25 18:38 Respiratory Rate 18 04/09/25 18:38 Blood Pressure 120/81 04/09/25 18:38 Pulse Oximetry 99 04/09/25 18:38 Oxygen Delivery Method Room Air 04/09/25 18:38 Temperature 98.3 F 04/09/25 18:38 Pulse Rate 89 04/09/25 18:38 Respiratory Rate 18 04/09/25 18:38 Blood Pressure 120/81 04/09/25 18:38 Pulse Oximetry 99 04/09/25 18:38 Oxygen Delivery Method Room Air 04/09/25 18:38 MDM - Abdominal Pain MDM Narrative Medical decision making narrative: 54-year-old female with 2 days of diffuse lower abdominal pain and new-onset bloody diarrhea, but negative fecal occult here in the ED. Exam notable for mild lower abdominal tenderness without peritoneal signs; vitals stable and afebrile. Labs and imaging ordered to evaluate for colitis. CT abdomen/pelvis demonstrates findings consistent with colitis. WBC mildly elevated at 13. Negative fecal occult blood test. No recent travel, antibiotic use, or sick contacts, making infectious etiologies such as C. difficile or Giardia less likely. Patient clinically stable, tolerating oral intake, and declined additional pain medications. Empiric antibiotics (ciprofloxacin) initiated. Hydration with IV fluids administered. Patient advised outpatient follow-up with primary care or gastroenterology. Return precautions reviewed, including worsening abdominal pain, persistent or worsening diarrhea, fever, vomiting, or inability to tolerate fluids. Medical Records Attestation: I reviewed the patient's medical records. Lab Data Attestation: I reviewed the patient's lab results. Labs: Lab Results 04/09/25 04/09/25 Range/Units 19:40 19:44 WBC 13.4 H (4.0-11.0) 10^3/uL RBC 4.46 (4.20-5.40) 10^6/uL Hgb 13.7 (12.0-16.0) g/dL Hct 41.0 (36.0-48.0) % MCV 91.9 (81.0-99.0) fL MCH 30.7 (26.7-34.0) pg MCHC 33.4 (29.9-35.2) g/dL RDW 13.9 (11.0-15.0) % Plt Count 276 (150-450) 10^3/uL MPV 10.7 (9.5-13.5) fL Neut % (Auto) 79.3 H (43.0-75.0) % Lymph % (Auto) 16.7 L (20.5-60.0) % Young % (Auto) 3.5 (1.7-12.0) % Eos % (Auto) 0.2 L (0.9-7.0) % Baso % (Auto) 0.1 L (0.2-2.0) % Neut # (Auto) 10.6 H (1.4-6.5) 10^3/uL Lymph # (Auto) 2.2 (1.2-3.8) 10^3/uL Young # (Auto) 0.5 (0.3-0.8) 10^3/uL Eos # (Auto) 0.0 (0.0-0.7) 10^3/uL Baso # (Auto) 0.0 (0.0-0.1) 10^3/uL Abs Immat Gran (auto) 0.03 (0.00-0.03) 10^3/uL Imm/Tot Granulo (auto) 0.2 (0.0-0.5) % Sodium 140 (136-145) mmol/L Potassium 3.7 (3.5-5.1) mmol/L Chloride 105 (98-107) mmol/L Carbon Dioxide 25.9 (21.0-32.0) mmol/L Anion Gap 12.8 BUN 14.0 (7.0-18.0) mg/dL Creatinine 0.67 (0.55-1.02) mg/dL Est GFR ( Amer) >60 (>=60 mL/min/1.73m^2) Est GFR (Non-Af Amer) >60 (>=60 mL/min/1.73m^2) BUN/Creatinine Ratio 20.9 Glucose 97 (74-106) mg/dL Calcium 9.1 (8.5-10.1) mg/dL Total Bilirubin 0.4 (0.2-1.0) mg/dL AST 18 (15-37) U/L ALT 36 (14-59) U/L Alkaline Phosphatase 92 (46-116) U/L Total Protein 7.3 (6.4-8.2) g/dL Albumin 3.7 (3.4-5.0) g/dL Globulin 3.6 g/dL Albumin/Globulin Ratio 1.0 Urine Color Lt. yellow (YELLOW) Urine Clarity Cloudy A (CLEAR) Urine pH 6.5 (5.0-9.0) Ur Specific Gonzales 1.015 (1.005-1.025) Urine Protein Negative (NEG/TRACE) mg/dL Urine Glucose (UA) Negative (NEGATIVE) mg/dL Urine Ketones Negative (NEGATIVE) mg/dL Urine Occult Blood Negative (NEGATIVE) Urine Nitrite Negative (NEGATIVE) Urine Bilirubin Negative (NEGATIVE) Urine Urobilinogen 0.2 (0.2-1.0) EU/dL Ur Leukocyte Esterase Small A (NEGATIVE) Urine RBC None seen (0-2) #/HPF Urine WBC 5-10 A (NONE SEEN) #/HPF Ur Squamous Epith Cells Moderate A (NONE/RARE) #/LPF Urine Crystals None seen (None Seen) #/HPF Amorphous Sediment Many Urine Bacteria Moderate A (NONE SEEN) #/HPF Urine Casts None seen (NONE SEEN) #/LPF Urine Mucus Small A (NONE SEEN) Ur Culture Indicated[place] [place] Occult Blood Negative Blood Type B Positive Antibody Screen Negative Imaging Data CT scan - abdomen: Attestation: I have reviewed the pertinent imaging results. Radiologist's impression: ITS Impressions Abdomen/Pelvis CT 04/09/25 19:27 IMPRESSION: There is wall thickening involving the transverse, descending, and sigmoid colon with adjacent mild fat stranding suspicious for colitis. This may be infectious or inflammatory. No evidence of bowel obstruction or obstructive uropathy. There is a 5 mm nonobstructing stone in the left renal collecting system. Impression dictated by: David Martines M.D. 04/09/2025 8:14 PM Dictation Location: [place] [address] Electronically authenticated by: [id number] Y Date: 04/09/2025 20:14 Discharge Plan Discharge Chief Complaint: Abdominal Pain Clinical Impression: Colitis Patient Disposition: Home, Self-Care Time of Disposition Decision: 21:49 Condition: Good Prescriptions / Home Meds: New ciprofloxacin HCl [Cipro] 500 mg tablet 500 mg PO Q12H Qty: 20 0RF Print Language: Romanian Instructions: Colitis (ED) Additional Instructions: Discharge Instructions: You were seen in the ED for lower abdominal pain and diarrhea with some blood in your stool. Tests and imaging suggest inflammation of your colon (colitis). You received IV fluids and were started on antibiotics (ciprofloxacin) to help treat the infection. Home Care: * Drink plenty of fluids to stay hydrated. * Take your antibiotics exactly as prescribed. * Rest and avoid heavy meals until your symptoms improve. When to Seek Care: Call or return to the ED if you develop: * Worsening abdominal pain * Persistent or worsening diarrhea * Fever or chills * Vomiting or inability to keep fluids down * Large amounts of blood in your stool Follow up with your primary care provider or boarding machine operator as soon as possible to monitor your recovery. Referrals: JORGE TORRES [Primary Care Provider, Family Practice] - 1 week Discharge Date/Time: 04/09/25 22:09
[2025-04-09 20:00] LABS: Hematocrit 41.0 % (36.0-48.0); Hemoglobin 13.7 g/dL (12.0-16.0); Immature Granulocytes Abs Auto 0.03 10^3/uL (0.00-0.03); Immature Granulocytes Pct Auto 0.2 % (0.0-0.5); Lymphocytes Absolute Auto 2.2 10^3/uL (1.2-3.8); Mean Corpuscular HGB Conc 33.4 g/dL (29.9-35.2); Mean Corpuscular Hemoglobin 30.7 pg (26.7-34.0); Mean Corpuscular Volume 91.9 fL (81.0-99.0); Platelet Count 276 10^3/uL (150-450); Red Blood Count 4.46 10^6/uL (4.20-5.40); White Blood Count 13.4 10^3/uL (4.0-11.0)
[2025-04-09 20:01] LABS: Glucose Urine UA NEGATIVE (NEGATIVE)
[2025-04-09 20:05] VITALS: PULSE 80
[2025-04-09 20:08] LABS: Cast Seen? NONE SEEN #/LPF (NONE SEEN); Crystals Seen? None Seen #/HPF (None Seen); Urine Culture Indicated YES-FRMC
[2025-04-09] MEDS: 0.9 % SODIUM CHLORIDE 1,000 ML 1000 ML IV (20:08)
[2025-04-09 20:12] LABS: Alanine Aminotransferase 36 U/L (14-59); Albumin Globulin Ratio 1.0; Albumin Level 3.7 g/dL (3.4-5.0); Alkaline Phosphatase 92 U/L (46-116); Anion Gap 12.8; Aspartate Amino Transferase 18 U/L (15-37); Blood Urea Nitrogen 14.0 mg/dL (7.0-18.0); Calcium 9.1 mg/dL (8.5-10.1); Carbon Dioxide 25.9 mmol/L (21.0-32.0); Chloride 105 mmol/L (98-107); Estimated GFR (African America >60 (>=60 mL/min/1.73m^2); Estimated GFR (Non-African Ame >60 (>=60 mL/min/1.73m^2); Globulin 3.6 g/dL; Glucose 97 mg/dL (74-106); Potassium 3.7 mmol/L (3.5-5.1); Sodium 140 mmol/L (136-145); Total Protein 7.3 g/dL (6.4-8.2)
[2025-04-09] MEDS: CIPROFLOXACIN HCL 500 MG TABLET PO (21:38)
== END 2025-04-09 22:09 | disposition home or self-care (01) ==
PROVIDERS: Physician Assistant; Emergency Provider Emergency Medicine; PCP Family Medicine
DX: K52.9 Noninfective gastroenteritis and colitis, unspecified (principal)
CPT/HCPCS: 36415; 74177; 80053; 81001; 85025; 86850; 86900; 86901; 87086; 96360; 99285; G0328; Q9967

== ENCOUNTER 2025-05-07 15:01 | Outpatient (OUT) | payer OTHER, SELFPAY ==
--- OUTSIDE RECORDS SUMMARY | 2025-05-07 15:06 | XMS_ITS | CCD ---
Author Organization [facility] Care Team Providers Care Hospitalist Program Director Name Role Phone Unavailable Primary Care Provider Unavailabl e RICH, BILL Referring Unavailable RICH, BILL Referring Unavailable RICH, BILL Referring Unavailable RICH, BILL Referring Unavailable RICH, BILL Referring Unavailable RICH, BILL Referring Unavailable RICH, BILL Referring Unavailable RICH, BILL Referring Unavailable RICH, BILL Referring Unavailable RICH, BILL Referring Unavailable OleBull zapata Unavailable BRIAN, DR WILLI Lockett Admitting Unavailable FURLONG, DR WILLI Lockett Attending Unavailable FURLONG, DR WILLI Lockett Primary Care Unavailable FURLONG, DR WILLI Lockett Admitting Unavailable FURLONG, DR WILLI Lockett Attending Unavailable FURLONG, DR WILLI Lockett Primary Care Unavailable FURLONG, DR WILLI Lockett Consulting Unavailable ORELAND, DR GIUSEPPE Cardoso Consulting Unavailable MATRINEZYAN De Los Santos Consulting Unavailable Furlong Willi BOTELLO Primary Care Provider Willi Ridley MD Primary Care Provider Unavailable Primary Care Provider UnavailKAMRAN Wang Attending Unavailable KAMRAN GARIBAY Referring Unavailable WILLI RIDLEY Referring Unavailable FURLOWILLI CAROLINA Primary Care Unavailable DONI RIOS Referring Unavailable WILLI RIDLEY Primary Care Unavailable Furlong Willi BOTELLO Primary Care Provider [phone] Marker Bernadine BOTELLO Attending Provider WILLI RIDLEY Referring Unavailable LIZETLOWILLI CAROLINA Primary Care Unavailable DONI RIOS Attending Unavailable FURLOWILLI CAROLINA Attending Unavailable FURLONG, WILLI Lockett Referring Unavailable FURLONG, WILLI Lockett Primary Care Unavailable FURLONG, WILLI Lockett Attending Unavailable FURLONG, WILLI Lockett Referring Unavailable FURLONG, WILLI Lockett Primary Care Unavailable Marker, Bernadine Soto Attending Unavailable Marker, Bernadine Soto Admitting Unavailable FURLONG, WILLI Lockett Referring Unavailable FURLONG, WILLI Lockett Primary Care Unavailable Medications Current Medications Medication Drug Class(es) Dates Sig (Normalized) Sig (Original) ascorbic acid 500 mg oral tablet (5 sources) Vitamin C take 1 tablet by mouth in the morning ascorbic acid (VITAMIN C) 500 mg tablet Take 1 tablet (500 mg total) by mouth in the morning. Active Calcium (1 source) Phosphate Binder, Calcium Calcium Active linaclotide 0.072 mg oral capsule (1 source) Guanylate Cyclase-C Agonist Start: 04-23-2025 take 1 capsule by mouth in the morning linaCLOtide (LINZESS) 72 mcg capsule Take 1 capsule (72 mcg total) by mouth in the morning. 8 capsule 04/23/2025 Active Magnesium (1 source) Magnesium Active meloxicam 15 mg oral tablet (2 sources) Nonsteroidal Anti-inflammatory Drug Start: 10-10-2024 End: 10-31-2024 take 1 tablet by mouth once daily meloxicam (Mobic) 15 MG tablet Indications: Plantar fasciitis Take 1 tablet (15 mg) by mouth Daily for 21 days 21 tablet 10/10/2024 10/31/2024 Active omeprazole 20 mg delayed release oral tablet (6 sources) Proton Pump Inhibitor take 1 tablet by mouth in the morning omeprazole (PriLOSEC OTC) 20 mg EC tablet Take 1 tablet (20 mg total) by mouth in the morning. Active Vit D2 (1 source) Vit D2 Active Vitamin B Complex (8 sources) Start: 11-14-2022 take 1 tablet by mouth in the [...] oral tablet (1 source) Vitamin C Start: 10-12-2021 End: 11-06-2023 vit A,C and L-yeaocw-ipygoucx (OCUVITE) 300 mcg-200 mg-27 mg-2 mg tablet Take 1,000 mg by mouth. 0 10/12/2021 11/06/2023 Discontinued (Therapy completed) calcium carb,gluc/mag ox,gluc (CALCIUM MAGNESIUM ORAL) (8 sources) End: 04-23-2025 calcium carb,gluc/mag ox,gluc (CALCIUM MAGNESIUM ORAL) Take by mouth. 04/23/2025 Discontinued (Therapy completed) calcium carb,glu c/mag ox,gluc (CALCIUM MAGNESIUM ORAL) Take by mouth. Active calcium carb,glu c/mag ox,gluc (CALCIUM MAGNESIUM ORAL) Take by mouth. 0 Active fish,bora,flax oils-om3,6,9no1 (OMEGA 3-6-9) 1,200 mg capsule (8 sources) Start: 11-14-2022 End: 04-23-2025 take 2 capsules by mouth in the morning fish,bora,flax oils-om3,6,9no1 (OMEGA 3-6-9) 1,200 mg capsule Take 2 capsules by mouth in the morning. 60 capsule 11/14/2022 04/23/2025 Discontinued (Therapy completed) Start: 11-14-2022 take 2 capsules by m outh in the morning fish,bora,flax oils-om3,6,9no1 (OMEGA 3-6-9) 1,200 mg capsule Take 2 capsules by mouth in the morning. 60 capsule 11/14/2022 Active Start: 11-14-2022 take 2 capsules by m outh in the morning fish,bora,flax oils-om3,6,9no1 (OMEGA 3-6-9) 1,200 mg capsule Take 2 capsules by mouth in the morning. 60 capsule 0 11/14/2022 Active methylPREDNISolone (4 sources) Corticosteroid Start: 10-10-2024 End: 03-24-2025 methylPREDNISolone (MEDROL, ALEC,) 4 mg tablet See [...] Active Problems Problem Classification Problem Date Documented Da te Episodic/Chronic Cardiac dysrhythmias (11 sources) Supraventricular tachycardia; Translations: [Supraventricular tachycardia ([facility])] Onset: 3 Resolved: 4 11-06-2023 Chronic Disorders of lipid metabolism (9 sources) Hyperlipidemia; Translations: [Hyperlipidemia, unspecified] Onset: 3 11-06-2023 Chronic Esophageal disorders (9 sources) Gastroesophageal reflux disease; Translations: [GERD (gastroesophageal reflux disease)] Onset: 3 10-19-2022 Chronic Noninfectious gastroenteritis (3 sources) Colitis; Translations: [Noninfective gastroenteritis and colitis, unspecified] Onset: 5 04-23-2025 Episodic Other acquired deformities (2 sources) Equinus contracture [...] of synovium and tendon, right shoulder] Onset: 5 Episodic Other gastrointestinal disorders (2 sources) Chronic idiopathic constipation; Translations: [Chronic idiopathic constipation] 04-23-2025 Chronic Other gastrointestinal disorders (1 source) Chronic idiopathic constipation; Translations: [Chronic idiopathic constipation] Onset: 4 Chronic Other non-traumatic joint disorders (2 sources) Pain in right shoulder; Translations: [PAIN IN RIGHT SHOULDER] Onset: 2 Episodic Other non-traumatic joint disorders (1 source) Shoulder joint pain; Translations: [Pain in right shoulder] 03-24-2025 Episodic Other nutritional; endocrine; and metabolic disorders (9 sources) Obesity caused by energy imbalance; Translations: [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] Onset: 4 11-06-2023 Chronic Other nutritional; endocrine; and metabolic disorders (1 source) 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; Translations: [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] Onset: 4 Chronic Other nutritional; endocrine; and metabolic disorders (1 source) Body mass index (BMI) 30.0-30.9, adult; Translations: [Body mass index (BMI) 30.0-30.9, adult] Onset: 4 Chronic Residual codes; unclassified (1 source) Menopause present; Translations: [Asymptomatic menopausal state] 10-15-2024 Episodic Spondylosis; intervertebral disc disorders; other back problems (8 sources) Degeneration of lumbar intervertebral disc; Translations: [Other intervertebral disc degeneration, lumbar region] Onset: 3 10-19-2022 Chronic Unclassified (1 source) Supraventricular tachycardia, unspecified; Translations: [Supraventricular tachycardia, unspecified] Onset: 4 Unclassified (1 source) Painful Shoulder Onset: 5 Unclassified (1 source) Annual Exam Onset: 5 Past or Other Problems Problem Classification Problem Date Documented Da te Episodic/Chronic Mood disorders (8 sources) Mood disorders Onset: 11-06-2023 Resolved: 04-23-2025 11-06-2023 Other connective tissue disease (1 source) Other enthesopathies, not elsewhere classified Onset: 01-17-2022 Resolved: 01-17-2022 Episodic Other gastrointestinal disorders (9 sources) Constipation; Translations: [Constipation, unspecified] Onset: 11-06-2023 11-06-2023 Episodic Other screening for suspected conditions (not mental disorders or infectious disease) (7 sources) Patient encounter status; Translations: [Encounter for screening mammogram for malignant neoplasm of breast] Onset: 10-15-2024 11-06-2023 Episodic Residual codes; unclassified (1 source) Asymptomatic menopausal state; Translations: [Asymptomatic menopausal state] Onset: 10-15-2024 Episodic Spondylosis; intervertebral disc disorders; other back problems (4 sources) Pain in thoracic spine; Translations: [PAIN IN THORACIC SPINE] Onset: 12-16-2021 Episodic Unclassified (8 sources) Onset: 10-19-2022 Resolved: 10-15-2024 10-19-2022 Results Test Name Value Interpretation Reference Range Facility Urine Cultureon 04-09-2025 Bacteria identified Cx Nom (U) 50,000 colonies/ml mixed bacterial skin contaminants 2 Days PERFORMED BY: [place] [address] PATHOLOGIST MILL DRESSER MAC Perry [facility] Comment on above: Performed By: #### C UU #### [address] CBC AND AUTO DIFFon 10-16-19 Erythrocyte distribution width (RBC) [Ratio] 14.2 % Normal 11.5-15.0 [facility] Comment on above: Performed By: #### 2 4331-1, HA1C, CBCA, CMP #### [facility] ([id number]) [address], [address] [place] [address] Hematocrit (Bld) [Volume fraction] 38.7 % Normal 35-47 [facility] Comment on above: Performed By: #### 2 4331-1, HA1C, CBCA, CMP #### [facility] ([id number]) [address], [facility] [address] [place] [address] Hemoglobin (Bld) [Mass/Vol] 12.8 g/dL Normal 11.7-15.5 [facility] Comment on above: Performed By: #### 2 4331-1, HA1C, CBCA, CMP #### [facility] ([id number]) [address], [facility] [address] [place] [address] Lymphocytes (Bld) [#/Vol] 2.7 10*3/uL Normal 1.0-3.5 [facility] Comment on above: Performed By: #### 2 4331-1, HA1C, CBCA, CMP #### [facility] ([id number]) [address] [address] Lymphocytes/100 WBC (Bld) 27.9 % Normal [facility] Comment on above: Performed By: #### 2 4331-1, HA1C, CBCA, CMP #### [facility] ([id number]) [address], [facility] [address] [place] [address] MCH (RBC) [Entitic mass] 30.6 pg Normal 27-34 [facility] Comment on above: Performed By: #### 2 4331-1, HA1C, CBCA, CMP #### [facility] ([id number]) [address] [address] [place] [address] MCHC (RBC) [Mass/Vol] 33.0 g/dL Normal 32-36 [facility] Comment on above: Performed By: #### 2 4331-1, HA1C, CBCA, CMP #### [facility] ([id number]) [address] [address] [place] [address] MCV (RBC) [Entitic vol] 93 fL Normal 80-100 [facility] Comment on above: Performed By: #### 2 4331-1, HA1C, CBCA, CMP #### [facility] ([id number]) [address] [address] Monocytes (Bld) [#/Vol] 0.5 10*3/uL Normal 0-0.9 [facility] Comment on above: Performed By: #### 2 4331-1, HA1C, CBCA, CMP #### [facility] ([id number]) [address], [facility] [address] [place] [address] Monocytes/100 WBC (Bld) 4.8 % Normal [facility] Comment on above: Performed By: #### 2 4331-1, HA1C, CBCA, CMP #### [facility] ([id number]) [address] [address] Neutrophils (Bld) [#/Vol] 6.5 10*3/uL Normal 1.5-6.6 [facility] Comment on above: Performed By: #### 2 4331-1, HA1C, CBCA, CMP #### [facility] ([id number]) [address] [address] [place] [address] Platelet mean volume (Bld) [Entitic vol] 10.3 fL Normal 7-12 [facility] Comment on above: Performed By: #### 2 4331-1, HA1C, CBCA, CMP #### [facility] ([id number]) [address], [facility] [address] [place] [address] Platelets (Bld) [#/Vol] 268 10*3/uL Normal 150-450 [facility] Comment on above: Performed By: #### 2 4331-1, HA1C, CBCA, CMP #### [facility] ([id number]) [address] [address] RBC COUNT 4.17 X10E12/L Normal 3.80-5.20 [facility] Comment on above: Performed By: #### 2 4331-1, HA1C, CBCA, CMP #### [facility] ([id number]) [address] [address] RBC morphology finding Nom (Bld) NORMAL Normal [facility] Comment on above: Performed By: #### 2 4331-1, HA1C, CBCA, CMP #### [facility] ([id number]) [address], [address] [place] [address] [address] SEG NEUTROPHIL 67.3 % Normal [facility] Comment on above: Performed By: #### 2 4331-1, HA1C, CBCA, CMP #### [facility] ([id number]) [address] [address] WBC (Bld) [#/Vol] 9.7 10*3/uL Normal 4.0-11.0 [facility] Comment on above: Performed By: #### 2 4331-1, HA1C, CBCA, CMP #### [facility] ([id number]) [address] [address] [place] [address] COMPREHENSIVE METABOLIC PANE Blanco 10-15-2024 Albumin [Mass/Vol] 4.4 g/dL Normal 3.2-5.3 [facility] Comment on above: Performed By: #### 2 4331-1, HA1C, CBCA, CMP #### [facility] ([id number]) [address] [place] [address] ALP [Catalytic activity/Vol] 87 U/L Normal 39-130 [facility] Comment on above: Performed By: #### 2 4331-1, HA1C, CBCA, CMP #### [facility] ([id number]) [address], [address] [place] [address] ALT [Catalytic activity/Vol] 19 U/L Normal 0-31 [facility] Comment on above: Performed By: #### 2 4331-1, HA1C, CBCA, CMP #### [facility] ([id number]) [address], [address] [place] [address] Anion gap [Moles/Vol] 10 mmol/L Normal 5-15 [facility] Comment on above: Performed By: #### 2 4331-1, HA1C, CBCA, CMP #### [facility] ([id number]) [address], [address] [place] [address] AST [Catalytic activity/Vol] 16 U/L Normal 0-41 [facility] Comment on above: Performed By: #### 2 4331-1, HA1C, CBCA, CMP #### [facility] ([id number]) [address], [address] [place] [address] Bilirubin [Mass/Vol] 0.3 mg/dL Normal 0.3-1.2 [facility] Comment on above: Performed By: #### 2 4331-1, HA1C, CBCA, CMP #### [facility] ([id number]) [address], [address] [place] [address] Calcium [Mass/Vol] 9.5 mg/dL Normal 8.5-10.5 [facility] Comment on above: Performed By: #### 2 4331-1, HA1C, CBCA, CMP #### [facility] ([id number]) [address], [address] [place] [address] Chloride [Moles/Vol] 102 mmol/L Normal 98-109 [facility] Comment on above: Performed By: #### 2 4331-1, HA1C, CBCA, CMP #### [facility] ([id number]) [address] [address] CO2 [Moles/Vol] 28 mmol/L Normal 22-32 [facility] Comment on above: Performed By: #### 2 4331-1, HA1C, CBCA, CMP #### [facility] ([id number]) [address] [address] Creatinine [Mass/Vol] 0.76 mg/dL Normal 0.40-1.00 [facility] Comment on above: Result Comment: METH OD TRACEABLE TO IDMS STANDARD Performed By: #### 2 4331-1, HA1C, CBCA, CMP #### [facility] ([id number]) [address] [address] eGFR (CKD-EPI) NON-RACE DEPENDENT >90 Normal >59 [facility] Comment on above: Result Comment: Reported eGFR is based on the CKD-EPI 2020 equation that does not use a race coefficient. Performed By: #### 2 4331-1, HA1C, CBCA, CMP #### [facility] ([id number]) [address] [address] Glucose [Mass/Vol] 111 mg/dL High 65-99 [facility] Comment on above: Performed By: #### 2 4331-1, HA1C, CBCA, CMP #### [facility] ([id number]) [address] [address] Potassium [Moles/Vol] 3.9 mmol/L Normal 3.5-5.0 [facility] Comment on above: Performed By: #### 2 4331-1, HA1C, CBCA, CMP #### [facility] ([id number]) [address], [address] [place] [address] Protein [Mass/Vol] 7.2 g/dL Normal 6.0-8.0 [facility] Comment on above: Performed By: #### 2 4331-1, HA1C, CBCA, CMP #### [facility] ([id number]) [address], [facility] [address] [place] [address] Sodium [Moles/Vol] 140 mmol/L Normal 134-146 [facility] Comment on above: Performed By: #### 2 4331-1, HA1C, CBCA, CMP #### [facility] ([id number]) [address] [address] Urea nitrogen [Mass/Vol] 25 mg/dL High 5-23 [facility] Comment on above: Performed By: #### 2 4331-1, HA1C, CBCA, CMP #### [facility] ([id number]) [address], [facility] [address] [place] [address] HGB A1C (GLYCO-HGB)on 2024 Glucose [Mass/Vol] 105 mg/dL Normal [facility] Comment on above: Performed By: #### 2 4331-1, HA1C, CBCA, CMP #### [facility] ([id number]) [address] [address] HbA1c (Bld) [Mass fraction] 5.3 % Normal 4.4-5.6 [facility] Comment on above: Result Comment: NOTE ADA Guidelines Result HgbA1c Normal : less than 5.7 % Prediabetes : 5.7 % to 6.4 % Diabetes : > 6.4 % Use with caution in patients with abnormal hemoglobin variants as the half-life of red blood cells and in vivo glycation rates are affected. Performed By: #### 2 4331-1, HA1C, CBCA, CMP #### [facility] ([id number]) [address], [address] [place] [address] Lipid 1996 panelon 5 Cholesterol [Mass/Vol] 210 mg/dL High 150-200 [facility] Comment on above: Performed By: #### 2 4331-1, HA1C, CBCA, CMP #### [facility] ([id number]) [address], [address] [place] [address] Cholesterol in HDL [Mass/Vol] 72 mg/dL Normal >39 [facility] Comment on above: Result Comment: HDL <40 mg/dL - High Risk HDL > or = 40mg/dL- Desirable HDL >60 mg/dL - Negative Risk Performed By: #### 2 4331-1, HA1C, CBCA, CMP #### [facility] ([id number]) [address], [address] [place] [address] Cholesterol in LDL [Mass/Vol] 120 mg/dL Normal <130 [facility] Comment on above: Result Comment: LDL <100 mg/dL - Desirable LDL >160 mg/dL - High Risk Performed By: #### 2 4331-1, HA1C, CBCA, CMP #### [facility] ([id number]) [address], [address] [place] [address] Cholesterol in VLDL [Mass/Vol] 18 mg/dL Normal 0-30 [facility] Comment on above: Performed By: #### 2 4331-1, HA1C, CBCA, CMP #### [facility] ([id number]) [address], [address] [place] [address] CHOLESTEROL:HDL 2.9 Normal 1.0-5.0 [facility] Comment on above: Performed By: #### 2 4331-1, HA1C, CBCA, CMP #### [facility] ([id number]) [address], [address] [place] [address] Triglyceride [Mass/Vol] 92 mg/dL Normal 27-150 [facility] Comment on above: Performed By: #### 2 4331-1, HA1C, CBCA, CMP #### [facility] ([id number]) [address], [address] [place] [address] XR Calcaneus - right 2 Views on 10-10-2024 Imaging Result: Lateral, calcaneal axial views are weight-bearing. Slight 1st ray elevation. Enthesophyte at the insertion of the Achilles tendon and plantar fascia. Joints appear well-maintained. No fractures or dislocations. [facility] ([facility] Comprehensive metabolic pane blanco 11-07-2023 Albumin [Mass/Vol] 4.5 g/dL 3.2 - 5.3 g/dL [facility] ALP [Catalytic activity/Vol] 78 U/L 39 - 130 U/L [facility] ALT No additional P-5'-P [Catalytic activity/Vol] 33 U/L High 0 - 31 U/L [facility] Anion gap [Moles/Vol] 9 mmol/L 5 - 15 mmol/L [facility] AST [Catalytic activity/Vol] 23 U/L 0 - 41 U/L [facility] Bilirubin [Mass/Vol] 0.4 mg/dL 0.3 - 1.2 mg/dL [facility] Calcium [Mass/Vol] 9.8 mg/dL 8.5 - 10. 5 mg/dL [facility] Chloride [Moles/Vol] 102 mmol/L 98 - 109 mmol/L [facility] CO2 [Moles/Vol] 28 mmol/L 22 - 32 mmol/L [facility] Creatinine [Mass/Vol] 0.65 mg/dL 0.40 - 1.00 mg/dL [facility] Comment on above: METHOD TRACEABLE TO IDID STANDARD eGFR (CKD-EPI)non-race dependent - PINF [facility] Comment on above: Reported eGFR is based on the CKD-EPI 2020 equation that does not use a race coefficient. Glucose [Mass/Vol] 82 mg/dL 65 - 99 mg/dL [facility] Potassium [Moles/Vol] 3.5 mmol/L 3.5 - 5.0 mmol/L [facility] Protein [Mass/Vol] 7.1 g/dL 6.0 - 8.0 g/dL [facility] Sodium [Moles/Vol] 139 mmol/L 134 - 146 mmol/L [facility] Urea nitrogen [Mass/Vol] 19 mg/dL 5 - 23 mg/dL [facility] Lipid 1996 panelon Cholesterol [Mass/Vol] 230 mg/dL High 150 - 200 mg/dL [facility] Cholesterol in HDL [Mass/Vol] 75 mg/dL 39 - PINF mg/dL [facility] Comment on above: HDL <40 mg/dL - High Risk HDL > or = 40mg/dL- Desirable HDL >60 mg/dL - Negative Risk Cholesterol in LDL [Mass/Vol] 139 mg/dL High NINF - 130 mg/dL [facility] Comment on above: LDL <100 mg/dL - Desirable LDL >160 mg/dL - High Risk Cholesterol in VLDL [Mass/Vol] 16 mg/dL 0 - 30 mg/dL [facility] Cholesterol.total/ Cholesterol in HDL [Mass ratio] 3.1 {ratio} 1.0 - 5.0 [facility] Triglyceride [Mass/Vol] 80 mg/dL 27 - 150 mg/dL [facility] No Panel Informationon 11-06 Interpretation and review of laboratory results Abnormal [facility] COMPREHENSIVE METABOLIC PANE Blanco 11-06-2023 Albumin [Mass/Vol] 4.5 g/dL Normal 3.2-5.3 [facility] Comment on above: Performed By: #### 2 4331-1, 3016-3, CMP #### [facility] ([id number]) [address], [address] [place] [address] ALP [Catalytic activity/Vol] 78 U/L Normal 39-130 [facility] Comment on above: Performed By: #### 2 4331-1, 6-3, CMP #### [facility] ([id number]) [address], [address] [place] [address] ALT [Catalytic activity/Vol] 33 U/L High 0-31 [facility] Comment on above: Performed By: #### 2 4331-1, 3015-3, CMP #### [facility] ([id number]) [address], [address] [place] [address] Anion gap [Moles/Vol] 9 mmol/L Normal 5-15 [facility] Comment on above: Performed By: #### 2 4331-1, 6-3, CMP #### [facility] ([id number]) [address], [address] [place] [address] AST [Catalytic activity/Vol] 23 U/L Normal 0-41 [facility] Comment on above: Performed By: #### 2 4331-1, 6-3, CMP #### [facility] ([id number]) [address], [address] [place] [address] Bilirubin [Mass/Vol] 0.4 mg/dL Normal 0.3-1.2 [facility] Comment on above: Performed By: #### 2 4331-1, 6-3, CMP #### [facility] ([id number]) [address] [address] [place] [address] Calcium [Mass/Vol] 9.8 mg/dL Normal 8.5-10.5 [facility] Comment on above: Performed By: #### 2 4331-1, 6-3, CMP #### [facility] ([id number]) [address], [address] [place] [address] Chloride [Moles/Vol] 102 mmol/L Normal 98-109 [facility] Comment on above: Performed By: #### 2 4331-1, 3015-3, CMP #### [facility] ([id number]) [address], [facility] [address] [place] [address] CO2 [Moles/Vol] 28 mmol/L Normal 22-32 [facility] Comment on above: Performed By: #### 2 4331-1, 3015-3, CMP #### [facility] ([id number]) [address], [address] [place] [address] Creatinine [Mass/Vol] 0.65 mg/dL Normal 0.40-1.00 [facility] Comment on above: Result Comment: METH OD TRACEABLE TO IDMS STANDARD Performed By: #### 2 4331-1, 3015-3, CMP #### [facility] ([id number]) [address], [address] [place] [address] eGFR (CKD-EPI) NON-RACE DEPENDENT >90 Normal >59 [facility] Comment on above: Result Comment: Reported eGFR is based on the CKD-EPI 2020 equation that does not use a race coefficient. Performed By: #### 2 4331-1, 6-3, CMP #### [facility] ([id number]) [address], [address] [place] [address] Glucose [Mass/Vol] 82 mg/dL Normal 65-99 [facility] Comment on above: Performed By: #### 2 4331-1, 3015-3, CMP #### [facility] ([id number]) [address], [address] [place] [address] Potassium [Moles/Vol] 3.5 mmol/L Normal 3.5-5.0 [facility] Comment on above: Performed By: #### 2 4331-1, 3016-3, CMP #### [facility] ([id number]) [address], [address] [place] [address] Protein [Mass/Vol] 7.1 g/dL Normal 6.0-8.0 [facility] Comment on above: Performed By: #### 2 4331-1, 3016-3, CMP #### [facility] ([id number]) [address], [address] [place] [address] Sodium [Moles/Vol] 139 mmol/L Normal 134-146 [facility] Comment on above: Performed By: #### 2 4331-1, 3016-3, CMP #### [facility] ([id number]) [address], [address] [place] [address] Urea nitrogen [Mass/Vol] 19 mg/dL Normal 5-23 [facility] Comment on above: Performed By: #### 2 4331-1, 3016-3, CMP #### [facility] ([id number]) [address], [address] [place] [address] Lipid 1996 panelon 4 Cholesterol [Mass/Vol] 230 mg/dL High 150-200 [facility] Comment on above: Performed By: #### 2 4331-1, 3016-3, CMP #### [facility] ([id number]) [address], [address] [place] [address] Cholesterol in HDL [Mass/Vol] 75 mg/dL Normal >39 [facility] Comment on above: Result Comment: HDL <40 mg/dL - High Risk HDL > or = 40mg/dL- Desirable HDL >60 mg/dL - Negative Risk Performed By: #### 2 4331-1, 6-3, CMP #### [facility] ([id number]) [address], [address] [place] [address] Cholesterol in LDL [Mass/Vol] 139 mg/dL High <130 [facility] Comment on above: Result Comment: LDL <100 mg/dL - Desirable LDL >160 mg/dL - High Risk Performed By: #### 2 4331-1, 6-3, CMP #### [facility] ([id number]) [address], [address] [place] [address] Cholesterol in VLDL [Mass/Vol] 16 mg/dL Normal 0-30 [facility] Comment on above: Performed By: #### 2 4331-1, 6-3, CMP #### [facility] ([id number]) [address], [address] [place] [address] CHOLESTEROL:HDL 3.1 Normal 1.0-5.0 [facility] Comment on above: Performed By: #### 2 4331-1, 6-3, CMP #### [facility] ([id number]) [address], [address] [place] [address] Triglyceride [Mass/Vol] 80 mg/dL Normal 27-150 [facility] Comment on above: Performed By: #### 2 4331-1, 3016-3, CMP #### [facility] ([id number]) [address], [address] [place] [address] TSH Qnon 11-06-2023 TSH 1.97 uIU/mL Normal 0.49-4.67 [facility] Comment on above: Performed By: #### 2 4331-1, 3016-3, [facility] #### [facility] ([id number]) [address] [facility] [facility] [place] [address] XR SHOULDER RT 2V or >on XR [...] by: YAN MARTINEZ Date: 2021-12-16 16:27 Normal [facility] IntraOperative Documentson 0 10-21-2021 IntraOperative Documents [id number]# 1.00CD:127 Normal [facility] Operative Reporton Operative Report SURGERY DATE: 10/13/2021 [...] good condition. Mariya Tobar Jr. Dictated: 10/13/2021 [id number] Transcribed: 10/13/2021 cc:Willi Ridley D.O. [facility] Comment on above: Result Comment: Elec tronically Signed By: Bettina Ocampo MD\.br\Date and Time Signed: 10/20/21 08:25 EST Postoperative Documentson Postoperative Documents [id number]# 1.00CD:127 [facility] Main OR Intraoperative Recor don 10-18-2021 Main OR Intraoperative Record IntraOp Document Type FT Summary Primary Physician: Bettina Ocampo MD Finalized Date/Time: 10/18/21 14:18:21 Pt. Name: JACQUI PEREZ/Sex: 1970 Female Med Rec #: [id number] Physician: Bettina Ocampo MD Financial #: [id number] Pt. Type: A Room/Bed: Admit/Disch: 10/13/21 09:52:43 - 10/13/21 13:50:00 Institution: Case Times FT Entry 1 Patient Times In Room 10/13/21 11:33:00 Out Room 10/13/21 12:03:00 Procedure Times Start 10/13/21 11:42:00 Stop 10/13/21 11:57:00 Anesthesia Times Start 10/13/21 11:33:00 Stop 10/13/21 12:03:00 Last Modified By: JOSELITO RN, EMILAI Brown 10/13/21 12:03:54 General Comments: 10/18/21 Chart opened to review and send charges [facility]FA Case Attendance FT Entry 1 Entry 2 Entry 3 Case Attendee Vivek LAU, Anabel Ocampo MD, Bettina Gage TRIAGE ASSISTANT, Jenny Garvin Role Performed Anesthesiologist Surgeon - Primary TRIAGE ASSISTANT/SA Weapons Mechanic Time In 10/13/21 11:33:00 10/13/21 11:33:00 10/13/21 11:33:00 Time Out 10/13/21 12:03:00 10/13/21 12:03:00 10/13/21 12:03:00 Procedure SUBMANDIBULAR CYST SUBMANDIBULAR CYST SUBMANDIBULAR CYST EXCISION EXCISION EXCISION SIALOLITHOTO(Left) SIALOLITHOTO(Left) SIALOLITHOTO(Left) Comments DR. TELLO SUPERVISING Last Modified By: JOSELITO RN, EMILIA YEE RN, EMILIA MOULTON RN 10/13/21 12:05:05 10/13/21 12:05:05 10/13/21 12:05:05 Entry 4 Entry 5 Entry 6 Case Attendee Chris RN, Toya YEE RN, EMILIA Diaz TRIAGE ASSISTANT, Elidia Dia Role Performed Parachute Folder - Primary Parachute Folder - Primary Scrub - Primary Time In 10/13/21 11:33:00 10/13/21 11:33:00 10/13/21 11:33:00 Time Out 10/13/21 12:03:00 10/13/21 12:03:00 10/13/21 12:03:00 Procedure SUBMANDIBULAR CYST SUBMANDIBULAR CYST SUBMANDIBULAR CYST EXCISION EXCISION EXCISION SIALOLITHOTO(Left) SIALOLITHOTO(Left) SIALOLITHOTO(Left) Comments Last Modified By: JOSELITO RN, EMILIA YEE RN, EMILIA MOULTON RN 10/13/21 12:05:05 10/13/21 12:05:05 10/13/21 12:05:05 Entry [...] Antibiotic No Time Out Vivek LAU, Anabel De Los Santos, Given Participants Terrence VALLE, Bettina Middleton, Merari [...] Entry 1 (more content not included)... Normal [facility] Coding Summary.on 10-14-2021 Coding Summary. CD:[id number] G h0bWw+PGhlYWQ+LU7OZHG jT91dtVTtzZ2XN6rATF1E POZQIRRTMB6OYP8caZC7Q QalG3MnrvSs OfixnDCxRG89LJs6RWR4a VcrBAeucJ2hlBQuZ4f8Du VtTM41mG49FGqtVHUaBnV 3LjZpbjsgbWFy J9mnYaRxpFYsQas+PHRhY mxlIHdpZHRoPScxMDAlJy PjrXhfZL8wWr1pHUCpKGU vbGxhcHNlOiBj f5rhJQKyXQhhNS2irNkiF 6XyuNR8TJBnv5p7Yu32yF I+OPQbQLP5qEzfENdhd81 6FpRpc8hvTZO5 sJVwLOqzZED7C21zy9F7D NQlXOZeFWL6hMG0xS7qlV mfvkpzW3KnrJYoSsO2XFV 8rOXkvV0guCeq tdimfO4eRpy+G85ZXL0PP IDOKO4FHue6Y9SqLdmyrL I+DG72PWGiPA01jKKdxUG yk4eevCd9LuKi VQEgNTD8pXxtYZwgd5DzL CKmB76yoQJeh9Y0CNBlwB qiiARfGwNdqUI2vV9uFIo nyrvuj1evnoze Conhu6xvgx47uP63A38vN UbrWPZfEWD9ZOGaUXYyaX ahzh4mjK2zKr2+QTjif9i qz2duqPc6LfNn EARldoXlfDayGHZ2p4VjT a34Z8RsdUdac4PjGaz7jy 25gBBnm6H0mAU9TFjsNVP erM0sZEtvTeY9 GUJaSdBmpP55nQUaGQhcT r9ccHmyjQtuNC4rHOQqmr xiHKOrtN6qEJYcqLOpaUb eBG8eXLHtpxay i936TiTrJGO9PAGjgHKyT 5BpzZ4dKrGhSYRyOOPeT1 NynFJrMQriV686LVyqYaU 2RZDtgqZjD5Ck IUQxlEohGlQ2w0J8Sj0Vd 7EzuagjWFH4TFwlQZZyQn Q8GjTbUaI0W7EpGac3VOJ geXrgFW9kQ8Ky NZIscqteemxyaVV2CQLwP TNvdZ58dKWcMQlmTu7ms2 P2u182GBFjHXSbhX65Uj2 udDogMTBwdCBU vI1wsipjs6dedxmzIjCnP WDbAOp4ENg5HUBzcRvrZb SiSVV1RvQ5LFQ3sNFyzH8 blYwfscmaoL3n Oyc+Z54ylT1hIQG4QXG8d ynaZEMhirOnPF97ZZ17T3 RyPjwvdGFibGU+PGRpdiB fuNexBY6bIjAh i8pra0PhVUpzA8LpDXRkR AssTji7AEQlPWJ2iBL9lU 5iTILjGPvch4J8cYL4L6G xdiTdrq8sx8mu IHKfNVpdX04fpMLel2E6M EAynBW2AXFfaBloJvXknF 93Oyc+FGUucNplm5DbNdp fq5isc5aqgBj8 AjAiDSBohdJsjLvcZVH3e 0WwYw58I92tOWwkSPPeZK QaWYIlJRRowGjcor4yfU8 wIi8+PGNvbCB3 xRQ6zQ6eHJYxIgS4QDzgV 142OlIqkGVrSicfu0oua5 ehhIa7JiPnWMXesvToeVl qUMZ1j0PqQa78 R45uCPjaDTXvHXUyHPIrY ZFqaJbkdw1quX0gGt2+PC 9ou6yewp96rQ38vRE+PHR pFCC4cRgwJUkc YNOglE3wNUmmLlI7KABmF rJegV85cIKiDVljVa1voN eyrLvrOC2vPBVyzusjc56 6IqUim8ohJVFm eQCaJMpuVMZ2Z87qz2W5W NQuHQIaXVU9rDQ4vK1sgP lnbjogbGVmdDsgdmVydGl gFUfkPLzsM713 IHRvcDsnPlBhdGllbnQgT wTlCZw4N5KbLvq1IHXjiA zvVK8gnVYbKFzdMz2euHf uyIomUQ2fGVRa lloib798QvCri4otYKZyq ZYyWVwfOPM8T14sp4E8IF KtKNCkSVH0rXW6qU1kyYo nbjogbGVmdDsg udYxwJmiULupWOolF958E HRvcDsnPkJpcnRoIERhdG P5YL89TI68cOBhr8C3dEA 2M7AzJCQkxtxa sauoeWR0DLAkROJwwA19V l6dwPphDq5vAYEaIJZ9FP FlzXHqE6AatC4gGcInHXR bVBObF7ApnYXa BZwzT776QJzaGjD9PIZcg tYpV3IbAXNhaVbuGvH3k9 S5Jw1TD6N7YY20UB78bRC pw2A1gXP8V6Mk VLZojfmemmcrwEH9RSKoN YExhD95Xx0plJlfHs8xFQ OuQNM9BYDgwLKmJ9MssM8 yOiAjMDAwMDAw O9SdnYGePOmgA858JWqxZ kZ6FKUioiZtD7IuOKIkrV pdInA0k8J1Ck2QFOm0GP2 3WC84jELaa1C1 iDY4M9LoKNBwayadrmpdz FV3UUWlHAOccU22Fb8ffS dnSp4hHIJtZZZ1WXVxsHN iN2LldN0qYfYf UUGkGJQzT0QweLUtMBviV 990XHcrVeQ8ULVnwvKoY2 PzMUBwhMubLhI4m9Z2Vf3 SQGKuFF56ZGJ1 mQO3LF98IL59K8AyGajqe GFibGU+PHRhYmxlIHdpZH RoPScxMDAlJyBzdHlsZT0 kZc8wKKKoLTHo iQodvDZiDkDhh7yqIWIfA QwtQS4mdWtsZ2RtgWH3ZJ Qzv0q8Kc02S09aA8NtdWP +BXEjtTY7mTS3 hE3mZmVsYjN2XBjvU492C aNkeWBmQdjbn5ggf8zetQ q1ShJ3QDLvdoGjxWkiGSW 1o0FoOb31K04y IHdpZHRoPSIxNSUiIHZhb Vocgk4cdG3cGf9+PGNvbC L2wYY6nJ9qNwIvWxG2TTx aS535RpLbsQZf Hxddn0tem5cyrRa8VlNeQ SRwrlQypOzlZRZ2a1OsOf 75R6ZldJxvz8VqRlt5ay5 6mYPis8E2bVV3 B2GmPKUpucpamRQcoPqeY Q8zSBCovdkmLLLpkU1oXH ZvY7s4SqVvGkK8CUkkX3U ahbN1KKFxrGBq MRubWFB6U24ga4U6WVKyD GFfWIK4rMM6xW3gmPmruq ogbGVmdDsgdmVydGljYWw sSNzwT365MIAx gYpsLDBrwP4pRRGrkPAix SrrPQ3cDKVwyozmQjNHUv vJQB4gROFUPrl8K2YcYyf 4UDGlrUidBG5j oDIpPLoaLb2csRwpbQmxN C1yBFPlxptbOIGsqC7mOZ EyfUExuEzkUC3kEHXqlei pe809CrHlLGH4 GWImtLGhG4AanM8zAbUrM UIaVTPsD5PsiCFrRVvgE8 83LAczFmV9BSCpjcYuB9K sLWFsaWduOiB0 y9R1Je5lEq7dSA0fEBjbT I31GN21wUByg8U9mKL2X0 MmIYOuhrillfpwmJF7FLT fIQFnyJ30fUEv MHudGv6ie7Q8u268QWNiD HLlmY27Bg2hkYsaBNFjgO QAqR9frxzvt4imestvIbB gITJnULk5ZHx1 TGUioEbqLuDbBDV4BwB1M RM6wEUtvQ3wvBqwakoznO 9wOyc+VNbbRXDmsgK8I2F gEie5WLYibMno NQ7haBEcKAuyGg3suRvql UkuFM1zSKVktuyxUGWfxY 8xZZDqgJXgcUhoQH2oPJV fwwidr796LtZx OOI5VXOkrPWmO9FvnU4pN zStUHTzCJKnV6QkaGWdNJ joD287XRtrZgQ9ALRgvuP nA0PrUVNmtYdw ZzF2y2T3Dm8SEN1hjWB8S 6TsCto9NKIwzLpnJA9ivK FiOLkhKm3xqLgmnKwjWF2 wNTBpbjtwYWRk mR6eCYAonQXhwWrtWM1yB JCmecnme633QwOtITM1SA MwiHUaA1DtsC1rIcAjVRW pFMRoG5WqsXNj WDciB389DDvtUmV1CJYay zCnW8ZnEJKyqKipToA5w4 G0Fq5TcLD0yJB3j2U4Z0D bdXNlUEQ2TBN6 dnzmods7H9LuYmjtlCV+P S95SEZeHC52vOZqiGQrn1 ipnDy2BlDdXFDpWFC0sSz lYWqro8CfGYEl X28rvZFlu7R0CTNxwLpkj HCgSnAkyRH2uA2gTGialh kjj0mmicmeWuwje1mbgd5 8vU53S72eEDjo ZHRoPSIzMCUiIHZhbGlnb k7glL3zZm2+VFPehMJ8jP Y4vA7lMaLaYuG5KDiyM04 9InRvcCIvPjxj j9uie5bmxNv4ZiEtWOBkx qSmlGlrGSD2q4SkVd58S3 9sIHdpZHRoPSIyMCUiIHZ vbKyfei5ftI7c Ii8+JA4pj8qdst27gE55l HI+IXEeHVL6zGnvKAszFK KvqR3rQKtzIgL5CWNhLlH fxA23oZFiZWqi Yo7taKmenSrzPL8sNGWzf nffb688EzCbk9lfHCRfvY AyRWnkJCY3A54zg7F9TLW uNJZcJRA1oKM3 sD6voIbfbsnwbYLpbUtcm mKwqZesDDtbDQylX640TH SvtBcxXeZwtEIvH3dxcgW EBQ9tRovwrEO+ UMVpNOA7uKqwNMbtHEUsh M6fHFXdI3x4MuLnPrI0XR reW3RfluU3CSBwiNEdCSX psWJOyN7fapux a1ukixurXcAvYPElNBx5T Cd2GJUepJlpCrPwRJU0Pb W6AQY5bHWfoK0xxCyjrkw jnA9tQiv+RklO OjwvdGQ+MJFpPNO6yWtdA TqnSOIkvS9aNMYmF9x8Nb HhIrN4KNwfI1VvmdY6FWG vbGQgMTBwdCBU aA5vzwimp0ihxtbtHlAlR PKgSSa6PMy3FIYeiSerUy TpCKF5EmQ1TXV2iGEkfF9 dyNeyonkdaO3u Oyc+TVJOOjwvdGQ+PHRkI PS0hGadVShbPTTknO9sRI RtH3k7CuTqTiY9VJykV7D rjtX5PEBseSCr OPDcdHLAhW8bcelda5qjp ifxWhNiHWThNLe4FDq0NB FgbKhkNoQiYJG6GlF9CPE 2pQDdmV6jjNzc butqmO4kNil+DFI0IUV2M R16PS69S2GcAsyxkOCepE U+PHRhYmxlIHdpZHRoPSc xMDAlJyBzdHls ZT0n (more content not included)... [facility] Consent for Anesthesiaon Consent for Anesthesia [id number]#1 .00CD:127 [facility] Discharge Instructionson Discharge Instructions [id number]#1 .00CD:127 [facility] Physician Orderon 10-14-2021 Physician Order [id number]#1 .00CD:127 [facility] Physician Order [id number]#1 .00CD:127 [facility] Physician Order [id number]#1 .00CD:127 [facility] Preoperative Documentson Preoperative Documents [id number]#1 .00CD:127 [facility] Prescriptions/Work Noteson 0 10-14-2021 Prescriptions/Work Notes [id number]#1 .00CD:127 [facility] Coding Summary.on 10-13-2021 Coding Summary. CD:[id number] G h0bWw+PGhlYWQ+AB4BQGL tO17dqLKyiC8FX8gMLA1M PJDGHYHKVZ7OQU9evEH4T ZvpT4AqytVe YpylnHQjQT63PPx0OSN7e RtlBBkspD0fuSNlP3d8Rg XhVG55qA17LUwaTZIoCfG 3LjZpbjsgbWFy B7keDnRziDBwLst+PHRhY mxlIHdpZHRoPScxMDAlJy HkvGroZM8wAu1nSKVcEQQ vbGxhcHNlOiBj e6ycESTxAXwnDR2rqDeiU 5XyjOR5NRTzj2x1Te48rV I+AJXtZXA8bXywJBrxt09 4ViKjq0frLFL4 kRErLJwyWAR8T37bx8X7V UNlJXCuOMD1kHQ3lK6kfJ nevztsT8CjgXYkNzJ5YXA 6vFAxcT8bsMdt tywvhF2nNxu+P32PAT9SO DOZOZ4AXgg2W9ZzJufbyN I+KY72MHPtNN10hAHlhPH gr7kfhRh0FmUq PGOiMVN0yVbjJMbtj9XgB KFoO27pvDCew7L5DRObmV dvuLDeAdMzrXD3lX9yJBb wrueqv9xukkcu Wkpgm9pswf89oP28F08nX TfbPNFuMEA6ZEDrJQRmbC xsba2nxN6dMj9+MLpei9o wd7sovGr4RjPx XHSeblCryJnwIWG1z3HgU q96E7NojRugn2GnGgn0vt 95kGOiw2H2yWB8PLtmYRN dvI7yNBeoHvT6 LEOvGvIxfZ62yKMlNMslD n9vcJamwSahTA0xAIVtfj arUDExvR3dEVQkyFNdcUd aWC9zPSXinonr u798DxSzZFR3XNEctQInP 8UksF2kLtOvJBIgPQBwF8 WpnONbTSseC037TLsmYtR 9UIOqqyMmY1Ii CTPkzFdxMtI9j9M1Hy3In 2HclfcgEGH4GTngKITvDm PzPhAwZgG4B1MdLll3HMZ eyBzmMC9pS7St EYVgphafvhiveFS3VVBoZ TZcyC99wFOyYIzlCb8eq0 H9r976EQHhQZChtC08Yl5 udDogMTBwdCBU kG0fyeded3racuyiYoFrG WGuTXg9CMn6YISmcGqfNm SvYIY5QdB6TYQ7pNXtgA0 koLkjolcklT9z Oyc+A06vhA9vTJF6WCT3w spzDMAzpfRtMC55VF68G3 RyPjwvdGFibGU+PGRpdiB dzGrxDV1rDrMh j8iuc1NmWAtoZ4JfQAGyQ XawEmw3HBSbJWT1dBI4nU 0vIMUmAMrnc6D9uAO3K8C dezZhpv5xr7gj KWAxDOihE15niIVqb3Z1G XLlaNC8VMZyhMkwVfCyiD 93Oyc+PQGlrDdvh6PsNrr lj1bzp2cffAz0 KtZfQDPlohRzfUuhKFY1z 7XkKa64H72qYUisEAUwLY TxJNIyJFKcgPgweg4tpV3 wIi8+PGNvbCB3 mTO9rW8sTFHdFfQ5ELemY 135UsTzgSEeGorwi1bqt2 uluYz1LdTgHSAxchAkaQs bXWB9z4RrYs26 R26aHErrCYJhWLYtETFjC XFywUwjwy7byM7fDr0+PC 4hd2xvwr09uY39tFU+PHR cNHS7aKspEKxq BGMkrW1uRHnhEkM1OGLcK dKdqX93vHXwHCviLl8lgG gcpTwqKL5uHTCmearrd15 2JgKpr8lcVEWu wINnSBxnIKM2U41oa5U0T TXkDMFeLZL2fKL9uE9gfP lnbjogbGVmdDsgdmVydGl oYErzWHhtN591 IHRvcDsnPlBhdGllbnQgT mWhZBu7Y0NsYkr8XHUcnN gzDL2wcYEpUTeqRk3dnLv zhTdyVR1sDYSh ypddz725YtTwd3feERVfy ABcMLqwBWF6P99pe9U9AA QcXCVmTUU1gJK0dM5puNq nbjogbGVmdDsg fpPzdFoxLBnwQNnmH555O HRvcDsnPkJpcnRoIERhdG B1JD71LM98iVAfd8J5sOC 4X6KvKYHwdnda joipzAL5SCPqNXIrzB49S c0jpIomNw9aVQSsVWJ9UG PsmDWiQ6JdiV0jEfWrJPN dCKUvA5MtvVVa PMlhE739SNnjWvP8VKFky dJsF9IzETDxqAmaPqS0n5 E4Vs7LE4H4BY79JQ91fJM ss9Y2uSF5W9Wx UAMuswvieuiwrMB2GZByS SYhaT09Mg8hsKdjXw7rNU GqZMI0SSYgdFFjH2FxsK4 yOiAjMDAwMDAw H3JhmMMlBXgdT560GRceL yC0TMKloiClC7BkCVElgS qoYxC5z3E2Kb2DMQk5QU5 8CJ37kAWye5J6 iUG0O1RyKFLyxrpmdmzpx GV4FTBwPNWlcB19Cm9muD naZi0dLBQpYWB7RCVchPU pF6AsrZ8gIwFr VBKnDENsN1JkpUClTLyaV 824DBbqSoT7JYIltaRgU3 IzGQYlvGttRgX7r5J5Fn2 THFCyFF06AZF2 lOF8TF92RP41P8BkEvjlw GFibGU+PHRhYmxlIHdpZH RoPScxMDAlJyBzdHlsZT0 rOj5sTGHaIDCu tMbafRBcEsLzz6hmXDJkE YutCT1stTirI2SztEC6IW Ryu5r4Uv34E77dS5LnoQZ +HSQboJU9gBF7 dQ4lDuTuCiJ6MTssG875B dFwzLEkVcqhx1hac1uviP l1MkB9WEYfhnYigYanHAH 0o8BxKo98H38u IHdpZHRoPSIxNSUiIHZhb Ikyvy6rpO8iRz7+PGNvbC M3rFA2nR4yWuVkFrR5ZPn oG366LnXvvCEe Pfoiy6pes3ksnTm2UuPhS XCbfuIscGifEXW2y7EbGv 32Y8HvjKmso7PmVpj9sk7 8iVWif2N3jAS4 X4PbNCCqhccwpJYzpXpyC Z0tCMLodqqcAISilE7rOP NgA8b9ZvRaAgM3BGjzV0L zwzW8CIBppZMy KZqqPZI9Y60qn5H4XUSoB WJcBCV5wSH5xB3eiExxpo ogbGVmdDsgdmVydGljYWw uRLsdC525KZXr pKsmKGAabV2cWEOrzHDxq GemRU9rXBQaslmfTlDCMc yAJH8tGFOCEuc5W0NoQfy 9KNVbaLorDM4w iULgDYkyKm2odWsqoHnxF H5fLZAghmqvEJJlfR8pLO RcmZKeyVgeSF7xAUCkvof nf290XsNhVGQ5 OJSbsYFxT6KwxE7zQnRvK HRgFHJiI0XugTLnMDybR3 53CJcmMrI1PNKnzcNyL3M sLWFsaWduOiB0 p3K1Kz2sWo0eJC2mPViqP U33VL43sIIcn5I3fTH9M9 WjEVXtijxssdbtcPP4ZBC kJTGlqA82sAMy DLwwKu6wv0Y0t866NERrN SPtsR36Sy2nmJhdAJFluJ UVsN3xksfkx8ahtiohVxA aILQiJUm3EHm8 EWMlaSaxDjHpMTT2IyI9V QS3qJAisK4giCxeglwliS 9wOyc+AAaqPJIbkbX2K2U xTks9WRQhtOzz AF4xmMSyZWdbDn1ivShiw ZtjOV9uRDEmycykSYDdpL 1qWJIklPWnaSnfIP3dJWL hsdaci498DhNz XHF9LCIylNHqP5JthX7kT zIxQONcKFNdQ5IxwKRoDI vbC604ISenZnZ3IWUqaeS fH8LwUAPijBcf WjR5p2E7Nr5JDA1osME1R 0UkOpb2EJGpbFzaZT4hkO VsGUtoEr1xlUfbiFxnAF7 wNTBpbjtwYWRk cE3gORYzpQIiaCumCX1kJ PFwqzlhc805XcEnPAI1LC EkkJAkS2GffV0hHbZdXVD dKGKnB0AllRVc CGxiN610ALpxYaN9XCEsr mOoQ3PdORPjjDzjVdU1m0 J5Nw5UiBRyKBMhIX89UD1 0JD01K6FjKwlu dGFibGU+PHRhYmxlIHdpZ HRoPScxMDAlJyBzdHlsZT 5iIk2iJCWnDGAxiHarkKS wSvTxi9bfAQOy CQayQO6zpWxgN5EapCG8X FZcd0l9Kz31Y61eM4SetA A+OEJxhKA2pIW9yN7vHpF eHmZ9UGewX814 TbBovFRqLzrys0ysy0tby Qf1QlDnTRZbutFimEnuHO S9x5OvKf65T96sZZkhAHU oPSIyMCUiIHZh dCwnnf4zlB4lTx7+PGNvb AF6zSE5gB2gIiWgJlB5JW hhX723JxPxoTXsUquhM54 fS0NdbFI+PHRy Vlu8TDUbhKjdHN8mgTNsH IhfGl3aCQF8YuZuIzQrMT rcM8CmYWJqjvpykdaeuTC 2FQMiJVUxxR89 Ga5pdPirZw0mOTDoOGT6D QSscQEfA3RdoS6yXpDqBS PmCHMwC5IrgSXdTPrkG42 3MEqiAsE5WUNn keYeV4DqXKEtqPabGpI3l 1U0Wf9WqSupcKKyKI6zBu PcFJc6Z5IwWwg8ZOXpwOo lCT4nhOSjYVbw Cp9xiIoweHhxAD8cNACyw zylt119SmKpc1qaGOBynA WvVLcoBBA8Z37bw8E8VHV pHMEgBFN2vIB1 tD1seEvsdxcntEZlhXlpm sEbgPerDRoxSMgjA377SO VauVkbLqGMPvw7G8TiVwg 6GQDnfIgqEH8e eVKhJSraQv4faJhslAglC D9gGBGgdvevk278HvUbv8 ieEIHxeBLkLGvnYDV4N03 jd0A4JQYrFIIh PIG1kIJ1xF9vbUldnlykc GVmdDsgdmVydGljYWwtYW fnY728POFkyVktYt9GIpi 5F3BjMhp8JZPm dLybGL5vhEPaAWdeOy0fl GgurEigYK8uPMZnhzgzd1 92PgAjx0hkPAUssZPaWUx dTIW5M29ki9H0 IIAkOAZaRTY4kQA5oE6kj GlnbjogbGVmdDsgdmVydG mnCYbkGVmmC772SLFwxYs nPlBheWVyOjwv dGQ+CW43nb07A5LpIjtwX po1JNQmEIE1wRJ3cE5gXU IhCEohe4N5pIA8X9JmgvA wtk4ai5jcKCDo ZTog (more content not included)... Normal [facility] Consent for Treatmenton 03 Consent for Treatment [id number]#1 .00CD:127 Normal [facility] H&P Updateon 10-13-2021 H&P Update [id number]#1. 00CD:127 Normal [facility] Inpatient Patient Summaryon 10-13-2021 Inpatient Patient Summary [place] [id number] [facility] Clinical Discharge Instructions PERSON INFORMATION Name: [...] cap By Mouth every day. Comment: Normal [facility] IntraOperative Documentson 0 10-13-2021 IntraOperative Documents [id number]#1 .00CD:127 Normal [facility] IntraOperative Documents [id number]#1 .00CD:127 Normal [facility] Main OR PACU I Recordon Main OR PACU I Record PACU Phase I Document Type FT Summary Primary Physician: Bettina Ocampo MD Finalized Date/Time: 10/13/21 12:45:08 Pt. Name: JACKJACQUI.O.B./Sex: 1970 Female Med Rec #: [id number] Physician: Bettina Ocampo MD Financial #: [id number] Pt. Type: A Room/Bed: [place] [address] Admit/Disch: 10/13/21 09:52:43 - Institution: Case Times [...] By: Deanna Alvarez RN 10/13/21 12:45 Normal [facility] Main OR PACU II Recordon Main OR PACU II Record PACU Phase II Document Type FT Summary Primary Physician: Bettina Ocampo MD Finalized Date/Time: 10/13/21 13:54:02 Pt. Name: JACQUI PEREZ/Sex: 1970 Female Med Rec #: [id number] Physician: Bettina Ocampo MD Financial #: [id number] Pt. Type: A Room/Bed: [place] [address] Admit/Disch: 10/13/21 09:52:43 - Institution: Case Times [...] By: Ophelia Bourne RN 10/13/21 13:54 Normal [facility] Main OR Preoperative Recordo n 10-13-2021 Main OR Preoperative Record PreOp Document Type FT Summary Primary Physician: Bettina Ocampo MD Finalized Date/Time: 10/13/21 11:37:46 Pt. Name: JACQUI PEREZ/Sex: 1970 Female Med Rec #: [id number] Physician: Bettina Ocampo MD Financial #: [id number] Pt. Type: A Room/Bed: [facility]03/13 Admit/Disch: 10/13/21 09:52:43 - Institution: Case Times [...] By: EMILIA YEE RN 10/13/21 11:37 Normal [facility] Monitor Recordon 10-13-2021 Monitor Record [id number] 1.00CD:127 Normal [facility] Monitor Record [id number]# 1.00CD:127 Normal [facility] Outpatient Surgery Discharge Instructionon 10-13-2021 Outpatient Surgery Discharge Instruction [place] [id number] Patient Discharge Instructions PERSON INFORMATION Name: JACQUI PEREZ Date of : 1970 Current Date: 10/13/2021 12:34:16 PHYSICIANS Admitting Physician: Bettina Ocampo MD Discharge Diagnosis: Sialolithiasis of submandibular gland JACQUI [...] THE NEAREST EMERGENCY ROOM OR CALL 911 JACK Deras TORI, have received the attached patient education materials/instruction s and have verbalized understanding: May we do a follow up call? Yes No I was present when discharge instructions were given Patient Signature Date Clinican/Nurse Signature Date Follow up: With: Address: When: Bettina Ocampo Comments: Keep scheduled appointment Pharmacy Information: You may receive a survey from [facility] asking you to rate your care experience. Your feedback is important and will help us understand what we do well and how we can improve the quality of care we provide to you, your loved ones and our community. It?s an honor to serve you. Thank you for choosing [facility] HERE ARE THE MEDICATION CHANGES THAT OCCURRED [...] PATIENT EDUCATION INFORMATION Instructions: Medication Leaflets: Normal [facility] Patient Education - Texton 0 10-13-2021 Patient Education - Text Normal [facility] Progress Note-Physicianon Progress Note-Physician Patient: JACQUI PEREZ [...] Problems SVT (supraventricular tachycardia) / SNOMED CT 58986785 / Confirmed Heart palpitations / SNOMED CT 445889897 / Confirmed GERD (gastroesophageal reflux disease) / SNOMED CT 248207689 / Confirmed Basal cell carcinoma on nose / SNOMED CT 235395629 / Confirmed DDD (degenerative disc disease), lumbar / SNOMED CT 88466955 / Confirmed Hyperlipidemia / SNOMED CT 39050864 / Confirmed Physical Examination Intake and Output [...] 4 . Respiratory: Adequate air exchange with latter day of preoperative function.. Cardiovascular: Cardiovascular function is stable and has returned to preoperative levels.. Neurologic: Pt has returned to preoperative baseline.. Review / Management Condition: Stable. Assessment Anesthetic outcome No anesthetic complications noted. Plan Transfer/ Discharge: Patient can be discharged from PACU when criteria met. Condition good. Normal [facility] Comment on above: Result Comment: Elec tronically [...] data available Respiratory: Adequate air exchange with latter day of preoperative function.. Cardiovascular: Cardiovascular function is stable and has returned to preoperative levels.. Neurologic: Pt has returned to preoperative baseline.. Review / Management Condition: Stable. Assessment Anesthetic outcome No anesthetic complications noted. Plan Transfer/ Discharge: Patient can be discharged from PACU when criteria met. Condition good. Normal [facility] Comment on above: Result Comment: Elec tronically Signed By: Jayjay Tello JR, DO Auto Diffon 10-12-2021 Basophils/100 WBC (Bld) 0.6 % Normal 0.0-2.0 [facility] Comment on above: Order Comment: Order Added by Discern Expert. Performed By: #### 2 820849, [id number], [id number] #### [facility] [address] [place] [address] 54887 Basophils/Leukocyt es Auto (Bld) [Pure # fraction] 0.0 E9/L Normal 0.0-0.2 [facility] Comment on above: Order Comment: Order Added by Discern Expert. Performed By: #### 2 042193, 7471016, [id number] #### [facility] [address] [place] [address] 19764 Eosinophils/100 WBC (Bld) 3.1 % Normal 0.0-8.0 [facility] Comment on above: Order Comment: Order Added by Discern Expert. Performed By: #### 2 594877, 0139621, 10303939 #### [facility] [address] [place] [address] 16396 Eosinophils/Leukoc ytes Auto (Bld) [Pure # fraction] 0.2 E9/L Normal 0.0-0.5 [facility] Comment on above: Order Comment: Order Added by Discern Expert. Performed By: #### 2 737473, 3462309, 30543551 #### [facility] [address] [place] [address] 60683 Lymphocytes/100 WBC (Bld) 40.9 % Normal 14.0-50.0 [facility] Comment on above: Order Comment: Order Added by Discern Expert. Performed By: #### 2 885887, 9487434, [id number] #### [facility] [address] [place] [address] 95352 Lymphocytes/Leukoc ytes Auto (Bld) [Pure # fraction] 2.4 E9/L Normal 1.0-4.0 [facility] Comment on above: Order Comment: Order Added by Discern Expert. Performed By: #### 2 212686, 0445742, 84237089 #### [facility] [address] [place] [address] 99129 Monocytes/100 WBC (Bld) 4.5 % Normal 4.0-14.0 [facility] Comment on above: Order Comment: Order Added by Discern Expert. Performed By: #### 2 701663, 8293393, 49185968 #### [facility] [address] [place] [address] Monocytes/Leukocyt es Auto (Bld) [Pure # fraction] 0.3 E9/L Normal 0.2-1.0 [facility] Comment on above: Order Comment: Order Added by Discern Expert. Performed By: #### 2 502527, 7380799, 92454900 #### [facility] [address] [place] [address] Neutrophils/100 WBC (Bld) 50.9 % Normal 36.0-75.0 [facility] Comment on above: Order Comment: Order Added by Discern Expert. Performed By: #### 2 724511, 4794462, 83131405 #### [facility] [address] [place] [address] 17457 Neutrophils/Leukoc ytes Auto (Bld) [Pure # fraction] 3.0 E9/L Normal 2.0-7.5 [facility] Comment on above: Order Comment: Order Added by Discern Expert. Performed By: #### 2 101159, 9937252, 00156560 #### [facility] [address] [place] [address] 63223 BUNon 10-12-2021 Urea nitrogen [Mass/Vol] 21 mg/dL Normal 5-21 [facility] Comment on above: Performed By: #### 1 9728975, 8057831, 4751769, 4314358, 7816784 #### [facility] [address] [place] [address] CBC w/ Auto Diffon Erythrocyte distribution width (RBC) [Ratio] 14.2 % Normal 10.9-14.2 [facility] Comment on above: Performed By: #### 2 845088, 7092937, 79308792 #### [facility] [address] [place] [address] Hematocrit (Bld) [Volume fraction] 40.1 % Normal 34.0-46.0 [facility] Comment on above: Performed By: #### 2 666866, 8169195, 33197562 #### [facility] [address] [place] [address] Hemoglobin (Bld) [Mass/Vol] 13.6 g/dL Normal 12.0-16.0 [facility] Comment on above: Performed By: #### 2 342031, 1473242, 75735448 #### [facility] [address] [place] [address] 68302 MCH (RBC) [Entitic mass] 29.9 pg Normal 27.0-34.0 [facility] Comment on above: Performed By: #### 2 256528, 9832091, 28758733 #### [facility] [address] [place] [address] 14016 MCHC (RBC) [Mass/Vol] 33.9 g/dL Normal 31.4-36.0 [facility] Comment on above: Performed By: #### 2 022923, 2159776, 67619884 #### [facility] [address] [place] [address] 41684 MCV (RBC) [Entitic vol] 88.4 fL Normal 80.0-100.0 [facility] Comment on above: Performed By: #### 2 653658, 1625596, 60888237 #### [facility] [address] [place] [address] Platelet mean volume (Bld) [Entitic vol] 9.3 fL Normal 6.4-10.8 [facility] Comment on above: Performed By: #### 2 313065, 6720844, 44781349 #### [facility] [address] [place] [address] Platelets (Bld) [#/Vol] 261.0 E9/L Normal 150.0-500.0 [facility] Comment on above: Performed By: #### 2 092573, 6190610, 29760507 #### [facility] [address] [place] [address] RBC (Bld) [#/Vol] 4.5 E12/L Normal 4.3-5.9 [facility] Comment on above: Performed By: #### 2 641055, 2547154, 67418196 #### [facility] [address] [place] [address] WBC corrected for nucl RBC Auto (Bld) [#/Vol] 5.9 E9/L Normal 4.0-11.0 [facility] Comment on above: Performed By: #### 2 529764, 3407065, 17802010 #### [facility] [address] [place] [address] 59406 COVID-19 ([facility])on 10-12-2021 SARS-CoV-2 (COVID-19) RNA CHANDLER+probe Ql (Resp) Not detected Normal Not Detected [facility] Comment on above: Result Comment: This test result should be correlated with clinical presentations and medical history by a healthcare provider to determine its clinical significance. This assay was performed by a reverse transcriptase real-time polymerase chain reaction (rt PCR) method on the [employer] system. This test has been authorized only [...] or revoked sooner. Performed By: #### 2 [id number] #### [facility] [address] [place] [address] 99720 SARS-CoV-2 (COVID-19) RNA CHANDLER+probe Ql (Unsp spec) Pass Normal Pass [facility] Comment on above: Performed By: #### 2 [id number] #### [facility] [address] [place] [address] Specimen source Nom (Unsp spec) Nasal Normal [facility] Comment on above: Performed By: #### 2 [id number] #### [facility] [address] [place] [address] ADMITTED TO INTENSIVE CARE UNIT FOR CONDITION OF INTEREST:FIND:PT: NO Normal [facility] Comment on above: Performed By: #### 2 [id number] #### [facility] [address] [place] [address] EMPLOYED IN A HEALTHCARE SETTING:FIND:PT: Unknown Normal [facility] Comment on above: Performed By: #### 2 [id number] #### [facility] [address] [place] [address] FIRST TEST FOR CONDITION OF INTEREST:FIND:PT: Unknown Normal [facility] Comment on above: Performed By: #### 2 [id number] #### [facility] [address] [place] [address] HAS SYMPTOMS RELATED TO CONDITION OF INTEREST:FIND:PT: NO Normal [facility] Comment on above: Performed By: #### 2 [id number] #### [facility] [address] [place] [address] HOSPITALIZED FOR CONDITION OF INTEREST:FIND:PT: NO Normal [facility] Comment on above: Performed By: #### 2 [id number] #### [facility] [address] [place] [address] STATUS:FIND:PT: NO Normal [facility] Comment on above: Performed By: #### 2 [id number] #### [facility] [address] [place] [address] RESIDES IN A CONGREGATE CARE SETTING:FIND:PT: NO Normal [facility] Comment on above: Performed By: #### 2 [id number] #### [facility] [address] [place] [address] CT Soft Tissue Neck w/o Cont raston 10-12-2021 CT Soft Tissue Neck w/o Contrast Exam Date/Time: 10/12/2021 13:36 EST Reason for Exam: LEFT SUBMANDIBULAR STONE Report IMPRESSION: 9 mm left and 3 mm right [place] duct sialoliths prominence of the left Duluth's duct. CT Soft Tissue Neck w/o Contrast [...] There is mild prominence of the left [place]'s duct. Thyroid gland unremarkable. Carotid arteries and [...] MD Transcribed by: KIRK Technologist: ÁNGEL Normal [facility] Consent for Procedure/Surger yon 10-12-2021 Consent for Procedure/Surgery [id number]# 1.00CD:127 Normal [facility] Consent for Treatmenton Consent for Treatment [id number]#1 .00CD:127 Normal [facility] Consent for Treatment [id number]#1 .00CD:127 Normal [facility] Creatinineon 10-12-2021 Creatinine [Mass/Vol] 0.7 mg/dL Normal 0.5-1.3 [facility] Comment on above: Performed By: #### 1 9277465, 5524130, 8660415, 0745492, 0311151 #### [facility] [address] [place] [address] Glucoseon 10-12-2021 Glucose [Mass/Vol] 94 mg/dL Normal 55-199 [facility] Comment on above: Performed By: #### 1 9759252, 1767143, 6775476, 0290507, 1678723 #### [facility] [address] [place] [address] Lyteson 10-12-2021 Anion gap [Moles/Vol] 14 mmol/L Normal 6-16 [facility] Comment on above: Performed By: #### 1 6959308, 8915870, 7100500, 6939924, 7635576 #### [facility] [address] [place] [address] Chloride [Moles/Vol] 102 mmol/L Normal 101-111 [facility] Comment on above: Performed By: #### 1 6584822, 8761577, 4360686, 4807829, 1179085 #### [facility] [address] [place] [address] CO2 [Moles/Vol] 25 mmol/L Normal 21-31 [facility] Comment on above: Performed By: #### 1 5722374, 8988229, 2155442, 4949210, 8555718 #### [facility] [address] [place] [address] Potassium [Moles/Vol] 3.7 mmol/L Normal 3.5-5.3 [facility] Comment on above: Performed By: #### 1 5287204, 7239698, 9714355, 1217781, 5969397 #### [facility] [address] [place] [address] Sodium [Moles/Vol] 137 mmol/L Normal 135-145 [facility] Comment on above: Performed By: #### 1 6506681, 6338862, 1925282, 0188952, 4632904 #### [facility] [address] [place] [address] PT & PTTon 10-12-2021 aPTT Coag (PPP) [Time] 44.4 second(s) High 25.1-36.5 [facility] Comment on above: Result Comment: Hepa rin therapeutic range (represented by Anti-Factor Xa activity of 0.2 - 0.4 U/mL) corresponds to PTT of 56.6 - 109.0 sec. Performed By: #### 2 072788, 3566919, 97953989 #### [facility] [address] [place] [address] INR Coag (PPP) [Relative time] 1.2 {INR} Invalid Interpretation Code [facility] Comment on above: Result Comment: INR results are specifically intended to assess patients stabilized on long-term Anticoagulation therapy suggested INR?s ?Less Intensive Anticoagulation? 2.0 ? 3.0 Conventional Range 3.0 ? 4.5 Performed By: #### 2 801616, 9966392, 25198321 #### [facility] [address] [place] [address] PT Coag (PPP) [Time] 13.9 second(s) High 10.2-12.9 [facility] Comment on above: Performed By: #### 2 008856, 4017526, 94010626 #### [facility] [address] [place] [address] Physician Orderon 10-12-2021 Physician Order [id number]#1 .00CD:127 Normal [facility] Progress Note-Physicianon Progress Note-Physician Patient: JACQUI PEREZ [...] review: No qualifying data available . Plan [place] [employer]esthesi[employer] (ASA) physical status classification: Class II. Anesthetic Preoperative Plan Anesthesia: General. . Anesthetic plan, risks, benefits, and alternatives discussed with the patient and/or family. Pt. and/or family present and agree to proceed as planned.. Discussed the importance of abstaining from tobacco products, and offered counseling if desired. Normal [facility] Comment on above: Result Comment: Elec tronically [...] M.D. Transcribed by: KIRK Technologist: LIO Perry [facility] eGFRon 10-12-2021 GFR/1.73 sq M.predicted among blacks MDRD (S/P/Bld) [Vol rate/Area] mL/min/{1.73_m2} Normal >=59 [facility] Comment on above: Order Comment: Order added by Discern Expert. Result Comment: eGFR is race adjusted. AA=. Performed By: #### 1 7437784, 0485665, 0827814, 7321861, 5009657 #### [facility] [address] [place] [address] GFR/1.73 sq M.predicted among non-blacks MDRD (S/P/Bld) [Vol rate/Area] mL/min/{1.73_m2} Normal >=59 [facility] Comment on above: Order Comment: Order added by Discern Expert. Result Comment: Mat Packer wayne kidney disease could be indicated at eGFR's of less than 60 mL/min/1.73m2. Kidney failure is indicated at less than 15 mL/min/1.73m2. Performed By: #### 1 5742677, 3859255, 7646124, 1859997, 0205566 #### [facility] [address] [place] [address] COMPREHENSIVE METABOLIC PANE [place] 09-20-2021 Albumin [Mass/Vol] 4.7 g/dL Normal 3.6-5.1 [facility] Comment on above: Performed By: #### 7 600, 62374 #### [facility] [address] [address] Bead Supervisor: Rei Esteban MD Albumin/Globulin [Mass ratio] 1.7 {ratio} Normal 1.0-2.5 [facility] Comment on above: Performed By: #### 7 600, 74556 #### [facility] [address], [address] [place] [address] Bead Supervisor: Rei Esteban MD ALP [Catalytic activity/Vol] 75 U/L Normal 31-125 [facility] Comment on above: Performed By: #### 7 600, 31224 #### [facility] of [address], [address] [place] [address] Bead Supervisor: Rei Esteban MD ALT [Catalytic activity/Vol] 12 U/L Normal 6-29 [facility] Comment on above: Performed By: #### 7 600, 97952 #### [facility] of [address], [address] [place] [address] Bead Supervisor: Rei Esteban MD AST [Catalytic activity/Vol] 13 U/L Normal 10-35 [facility] Comment on above: Performed By: #### 7 600, 92693 #### [facility] [place] [address] Bead Supervisor: Rei Esteban MD Bilirubin [Mass/Vol] 0.5 mg/dL Normal 0.2-1.2 [facility] Comment on above: Performed By: #### 7 600, 58900 #### [facility] [place] [address] Bead Supervisor: Rei Esteban MD BUN/CREATININE RATIO NOT APPLICABLE Normal 6-22 [facility] Comment on above: Performed By: #### 7 600, 56653 #### [facility] [address], [address] [place] [address] Bead Supervisor: Rei Esteban MD Calcium [Mass/Vol] 10.1 mg/dL Normal 8.6-10.2 [facility] Comment on above: Performed By: #### 7 600, 57920 #### [facility] of [place] [address] Bead Supervisor: Rei Esteban MD Chloride [Moles/Vol] 101 mmol/L Normal 98-110 [facility] Comment on above: Performed By: #### 7 600, 62939 #### [facility] of [place] [address] [place] [address] Bead Supervisor: Rei Esteban MD CO2 [Moles/Vol] 31 mmol/L Normal 20-32 [facility] Comment on above: Performed By: #### 7 600, 19085 #### [facility] of [address], [address] [place] [address] Bead Supervisor: Rei Esteban MD Creatinine [Mass/Vol] 0.76 mg/dL Normal 0.50-1.10 [facility] Comment on above: Performed By: #### 7 600, 92704 #### [facility] of [address], [address] [place] [address] Bead Supervisor: Rei Esteban MD eGFR NON-AFR. EGYPTIAN 93 mL/min/1.73m2 Normal > OR = 60 [facility] Comment on above: Performed By: #### 7 600, 45407 #### [facility] of [address], [address] [place] [address] Bead Supervisor: Rei Esteban MD GFR/1.73 sq M.predicted among blacks MDRD (S/P/Bld) [Vol rate/Area] 108 mL/min/{1.73_m2} Normal > OR = 60 [facility] Comment on above: Performed By: #### 7 600, 66145 #### [facility] of [address], [address] [place] [address] Bead Supervisor: Rei Esteban MD Globulin (S) [Mass/Vol] 2.7 g/dL Normal 1.9-3.7 [facility] Comment on above: Performed By: #### 7 600, 35720 #### [facility] of [address], [address] [place] [address] Bead Supervisor: Rei Esteban MD Glucose [Mass/Vol] 86 mg/dL Normal 65-99 [facility] Comment on above: Result Comment: Fasting reference interval Performed By: #### 7 600, 63035 #### [facility] of [address], [address] [place] [address] Bead Supervisor: Rei Esteban MD Potassium [Moles/Vol] 3.9 mmol/L Normal 3.5-5.3 [facility] Comment on above: Performed By: #### 7 600, 14816 #### [facility] [address], [address] [place] [address] Bead Supervisor: Rei Esteban MD Protein [Mass/Vol] 7.4 g/dL Normal 6.1-8.1 [facility] Comment on above: Performed By: #### 7 600, 06570 #### [facility] [address], [address] [place] [address] Bead Supervisor: Rei Esteban MD Sodium [Moles/Vol] 140 mmol/L Normal 135-146 [facility] Comment on above: Performed By: #### 7 600, 42046 #### [facility] of [address], [address] [place] [address] Bead Supervisor: Rei Esteban MD Urea nitrogen [Mass/Vol] 13 mg/dL Normal 7-25 [facility] Comment on above: Performed By: #### 7 600, 49053 #### [facility] [place] [address] Bead Supervisor: Rei Esteban MD LIPID PANEL, [facility] 0 Cholesterol [Mass/Vol] 248 mg/dL High <200 [facility] Comment on above: Order Comment: FASTI NG:YES FASTING: YES Performed By: #### 7 600, 88449 #### [facility] of [address], [address] [place] [address] Bead Supervisor: Rei Esteban MD Cholesterol in HDL [Mass/Vol] 68 mg/dL Normal > OR = 50 [facility] Comment on above: Order Comment: FASTI NG:YES FASTING: YES Performed By: #### 7 600, 63478 #### [facility] [place] [address] Bead Supervisor: Rei Esteban MD Cholesterol in LDL [...] LDL-C. Ed SS et al. FOZIA. 2013;310(19): 4979-1539 (http://education.[email or web address].1 Traveller/faq/YFM107) Performed By: #### 7 600, 81978 #### [facility] [address], [address] [place] [address] Bead Supervisor: Rei Esteban MD Cholesterol.total/ Cholesterol in HDL [Mass ratio] 3.6 {ratio} Normal <5.0 [facility] Comment on above: Order Comment: FASTI NG:YES FASTING: YES Performed By: #### 7 600, 79485 #### [facility] [address], [address] [place] [address] Bead Supervisor: Rei Esteban MD NON HDL CHOLESTEROL 180 mg/dL (calc) High <130 [facility] Comment on above: Order Comment: FASTI NG:YES FASTING: YES Result Comment: For patients with diabetes plus 1 major ASCVD risk factor, treating to a non-HDL-C goal of <100 mg/dL (LDL-C of <70 mg/dL) is considered a therapeutic option. Performed By: #### 7 600, 86393 #### [facility] [address], [address] [place] [address] Bead Supervisor: Rei Esteban MD Triglyceride [Mass/Vol] 110 mg/dL Normal <150 [facility] Comment on above: Order Comment: FASTI NG:YES FASTING: YES Performed By: #### 7 600, 19863 #### [facility] [address], [address] [place] [address] Bead Supervisor: Rei Esteban MD CBC (INCLUDES DIFF/PLT)on Basophils (Bld) [#/Vol] 0.032 10*3/uL Normal 0-200 [facility] Comment on above: Performed By: #### 5 8984, 48528, 6399 #### [facility] [place] [address] Bead Supervisor: Rei Esteban MD Basophils/100 WBC (Bld) 0.4 % Normal [facility] Comment on above: Performed By: #### 5 8984, , 6399 #### [facility] [place] [address] Bead Supervisor: Rei Esteban MD Eosinophils (Bld) [#/Vol] 0.205 10*3/uL Normal 15-500 [facility] Comment on above: Performed By: #### 5 8984, , 6399 #### [facility] [place] [address] Bead Supervisor: Rei Esteban MD Eosinophils/100 WBC (Bld) 2.6 % Normal [facility] Comment on above: Performed By: #### 5 8984, , 6399 #### [facility] [place] [address] Bead Supervisor: Rei Esteban MD Erythrocyte distribution width (RBC) [Ratio] 13.2 % Normal 11.0-15.0 [facility] Comment on above: Performed By: #### 5 8984, 77545, 6399 #### [facility] [place] [address] Bead Supervisor: Rei Esteban MD Hematocrit (Bld) [Volume fraction] 39.6 % Normal 35.0-45.0 [facility] Comment on above: Performed By: #### 5 8984, 55247, 6399 #### [facility] [place] [address] Bead Supervisor: Rei Esteban MD Hemoglobin (Bld) [Mass/Vol] 13.1 g/dL Normal 11.7-15.5 [facility] Comment on above: Performed By: #### 5 8984, 72815, 6399 #### [facility] of [address], [address] [place] [address] Bead Supervisor: Rei Esteban MD Lymphocytes (Bld) [#/Vol] 3.042 10*3/uL Normal 850-3900 [facility] Comment on above: Performed By: #### 5 8984, 84791, 6399 #### [facility] [place] [address] Bead Supervisor: Rei Esteban MD Lymphocytes/100 WBC (Bld) 38.5 % Normal [facility] Comment on above: Performed By: #### 5 89, 21588, 6399 #### [facility] [place] [address] Bead Supervisor: Rei Esteban MD MCH (RBC) [Entitic mass] 29.6 pg Normal 27.0-33.0 [facility] Comment on above: Performed By: #### 5 89, , 6399 #### [facility] [place] [address] Bead Supervisor: Rei Esteban MD MCHC (RBC) [Mass/Vol] 33.1 g/dL Normal 32.0-36.0 [facility] Comment on above: Performed By: #### 5 89, 95228, 6399 #### [facility] [place] [address] Bead Supervisor: Rei Esteban MD MCV (RBC) [Entitic vol] 89.4 fL Normal 80.0-100.0 [facility] Comment on above: Performed By: #### 5 89, 18163, 6399 #### [facility] [place] [address] Bead Supervisor: Rei Esteban MD Monocytes (Bld) [#/Vol] 0.316 10*3/uL Normal 200-950 [facility] Comment on above: Performed By: #### 5 89, 51465, 6399 #### [facility] [address] [place] [address] Bead Supervisor: Rei Esteban MD Monocytes/100 WBC (Bld) 4.0 % Normal [facility] Comment on above: Performed By: #### 5 8984, 43453, 6399 #### [facility] of [address], [address] [place] [address] Bead Supervisor: Rei Esteban MD Neutrophils (Bld) [#/Vol] 4.306 10*3/uL Normal 2633-7167 [facility] Comment on above: Performed By: #### 5 89, 86407, 6399 #### [facility] of [address], [address] [place] [address] Bead Supervisor: Rei Estbean MD Neutrophils/100 WBC (Bld) 54.5 % Normal [facility] Comment on above: Performed By: #### 5 8984, , 6399 #### [facility] of [address], [address] [place] [address] Bead Supervisor: Rei Esteban MD Platelet mean volume (Bld) [Entitic vol] 11.5 fL Normal 7.5-12.5 [facility] Comment on above: Performed By: #### 5 8984, 50062, 6399 #### [facility] of [address], [address] [place] [address] Bead Supervisor: Rei Esteban MD Platelets (Bld) [#/Vol] 296 10*3/uL Normal 140-400 [facility] Comment on above: Performed By: #### 5 8984, 93602, 6399 #### [facility] of [address], [address] [place] [address] Bead Supervisor: Rei Esteban MD RBC (Bld) [#/Vol] 4.43 10*6/uL Normal 3.80-5.10 [facility] Comment on above: Performed By: #### 5 8984, 31684, 6399 #### [facility] of [address], [address] [place] [address] Bead Supervisor: Rei Esteban MD WBC (Bld) [#/Vol] 7.9 10*3/uL Normal 3.8-10.8 [facility] Comment on above: Performed By: #### 5 8984, 01048, 6399 #### [facility] [place] [address] Bead Supervisor: Rei Esteban MD [facility] METABOLIC PANE [facility] 07-13-2021 Albumin [Mass/Vol] 4.6 g/dL Normal 3.6-5.1 [facility] Comment on above: Performed By: #### 5 8984, 73526, 6399 #### [facility] [place] [address] Bead Supervisor: Rei Esteban MD Albumin/Globulin [Mass ratio] 1.6 {ratio} Normal 1.0-2.5 [facility] Comment on above: Performed By: #### 5 8984, 98059, 6399 #### [facility] [place] [address] Bead Supervisor: Rei Esteban MD ALP [Catalytic activity/Vol] 88 U/L Normal 31-125 [facility] Comment on above: Performed By: #### 5 8984, 84356, 6399 #### [facility] [place] [address] Bead Supervisor: Rei Esteban MD ALT [Catalytic activity/Vol] 21 U/L Normal 6-29 [facility] Comment on above: Performed By: #### 5 8984, 55778, 6399 #### [facility] [place] [address] Bead Supervisor: Rei Esteban MD AST [Catalytic activity/Vol] 18 U/L Normal 10-35 [facility] Comment on above: Performed By: #### 5 8984, 37275, 6399 #### [facility] [place] [address] Bead Supervisor: Rei Esteban MD Bilirubin [Mass/Vol] 0.3 mg/dL Normal 0.2-1.2 [facility] Comment on above: Performed By: #### 5 8984, 73254, 6399 #### [facility] [place] [address] Bead Supervisor: Rei Esteban MD BUN/CREATININE RATIO NOT APPLICABLE Normal 6-22 [facility] Comment on above: Performed By: #### 5 8984, 44843, 6399 #### [facility] [place] [address] Bead Supervisor: Rei Esteban MD Calcium [Mass/Vol] 9.3 mg/dL Normal 8.6-10.2 [facility] Comment on above: Performed By: #### 5 8984, , 6399 #### [facility] [place] [address] Bead Supervisor: Rei Esteban MD Chloride [Moles/Vol] 103 mmol/L Normal 98-110 [facility] Comment on above: Performed By: #### 5 8984, 89883, 6399 #### [facility] [place] [address] Bead Supervisor: Rei Esteban MD CO2 [Moles/Vol] 26 mmol/L Normal 20-32 [facility] Comment on above: Performed By: #### 5 8984, 78381, 6399 #### [facility] [place] [address] Bead Supervisor: Rei Esteban MD Creatinine [Mass/Vol] 0.80 mg/dL Normal 0.50-1.10 [facility] Comment on above: Performed By: #### 5 8984, 83995, 6399 #### [facility] [place] [address] Bead Supervisor: Rei Esteban MD eGFR NON-AFR. EGYPTIAN 87 mL/min/1.73m2 Normal > OR = 60 [facility] Comment on above: Performed By: #### 5 8984, 99736, 6399 #### [facility] [place] [address] Bead Supervisor: Rei Esteban MD GFR/1.73 sq M.predicted among blacks MDRD (S/P/Bld) [Vol rate/Area] 101 mL/min/{1.73_m2} Normal > OR = 60 [facility] Comment on above: Performed By: #### 5 8984, 18854, 6399 #### [facility] [place] [address] Bead Supervisor: Rei Esteban MD Globulin (S) [Mass/Vol] 2.8 g/dL Normal 1.9-3.7 [facility] Comment on above: Performed By: #### 5 8984, 09063, 6399 #### [facility] [place] [address] Bead Supervisor: Rei Esteban MD Glucose [Mass/Vol] 118 mg/dL High 65-99 [facility] Comment on above: Result Comment: Fasting reference interval For someone without known diabetes, a glucose value between 100 and 125 mg/dL is consistent with prediabetes and should be confirmed with a follow-up test. Performed By: #### 5 8984, 60591, 3299 #### [facility] [place] [address] Bead Supervisor: Rei Esteban MD Potassium [Moles/Vol] 4.0 mmol/L Normal 3.5-5.3 [facility] Comment on above: Performed By: #### 5 8984, 36087, 6399 #### [facility] [place] [address] Bead Supervisor: Rei Esteban MD Protein [Mass/Vol] 7.4 g/dL Normal 6.1-8.1 [facility] Comment on above: Performed By: #### 5 8984, 09595, 6399 #### [facility] [place] [address] Bead Supervisor: Rei Esteban MD Sodium [Moles/Vol] 141 mmol/L Normal 135-146 [facility] Comment on above: Performed By: #### 5 8984, 83527, 6399 #### [facility] [place] [address] Bead Supervisor: Rei Esteban MD Urea nitrogen [Mass/Vol] 18 mg/dL Normal 7-25 [facility] Comment on above: Performed By: #### 5 8984, 08853, 6399 #### [facility] [place] [address] Bead Supervisor: Rei Esteban MD TSH+FREE T4on 07-13-2021 Free T4 [Mass/Vol] 1.2 ng/dL Normal 0.8-1.8 [facility] Comment on above: Performed By: #### 5 8984, 66652, 6399 #### [facility] [place] [address] Bead Supervisor: Rei Esteban MD TSH Qn 2.93 m[IU]/L Normal [facility] Comment on above: Result Comment: Refe rence Range > or = 20 Years 0.40-4.50 Ranges First trimester 0.26-2.66 Second trimester 0.55-2.73 Third trimester 0.43-2.91 Performed By: #### 5 8984, 29824, 6399 #### [facility] [place] [address] Bead Supervisor: Rei Esteban MD SARS COV 2 [...] providers and patients using the following websites: https://www.[employer].Tengaged/home/Covid-19/HCP/antibody/ fact-sheet8 https://www.[employer].Tengaged/home/Covid-19/Patients/ antibody/fact-sheet8 Healthcare Providers: For additional information please refer to: http://education.[employer].Tengaged/faq/ZFG407 (This link is being provided for informational/ educational purposes only.) This test has been authorized by the FDA under an Emergency Use Authorization (EUA) for use by authorized laboratories. The FDA authorized labeling is available on the [employer] website: www.[employer].Tengaged/Covid19. Performed By: #### 3 4499 #### [facility] [address], [address] [place] [phone] Bead Supervisor: Rei Esteban MD CBC (INCLUDES DIFF/PLT)on Basophils (Bld) [#/Vol] 0.017 10*3/uL Normal 0-200 [facility] Comment on above: Performed By: #### 6 399 #### [facility] [place] [address] Bead Supervisor: Rei Esteban MD Basophils/100 WBC (Bld) 0.2 % Normal [facility] Comment on above: Performed By: #### 6 399 #### [facility] [place] [address] Bead Supervisor: Rei Esteban MD Eosinophils (Bld) [#/Vol] 0.252 10*3/uL Normal 15-500 [facility] Comment on above: Performed By: #### 6 399 #### [facility] [place] [address] Bead Supervisor: Rei Esteban MD Eosinophils/100 WBC (Bld) 3.0 % Normal [facility] Comment on above: Performed By: #### 6 399 #### [facility] [place] [address] Bead Supervisor: Rei Esteban MD Erythrocyte distribution width (RBC) [Ratio] 12.7 % Normal 11.0-15.0 [facility] Comment on above: Performed By: #### 6 399 #### [facility] [place] [address] Bead Supervisor: Rei Esteban MD Hematocrit (Bld) [Volume fraction] 39.4 % Normal 35.0-45.0 [facility] Comment on above: Performed By: #### 6 399 #### [facility] [place] [address] Bead Supervisor: Rei Esteban MD Hemoglobin (Bld) [Mass/Vol] 13.1 g/dL Normal 11.7-15.5 [facility] Comment on above: Performed By: #### 6 399 #### [facility] of [address] [place] [address] Bead Supervisor: Rei Esteban MD Lymphocytes (Bld) [#/Vol] 2.654 10*3/uL Normal 850-3900 [facility] Comment on above: Performed By: #### 6 399 #### [facility] [place] [address] Bead Supervisor: Rei Esteban MD Lymphocytes/100 WBC (Bld) 31.6 % Normal [facility] Comment on above: Performed By: #### 6 399 #### [facility] [place] [address] Bead Supervisor: Rei Esteban MD MCH (RBC) [Entitic mass] 29.9 pg Normal 27.0-33.0 [facility] Comment on above: Performed By: #### 6 399 #### [facility] [place] [address] Bead Supervisor: Rei Esteban MD MCHC (RBC) [Mass/Vol] 33.2 g/dL Normal 32.0-36.0 [facility] Comment on above: Performed By: #### 6 399 #### [facility] [place] [address] Bead Supervisor: Rei Esteban MD MCV (RBC) [Entitic vol] 90.0 fL Normal 80.0-100.0 [facility] Comment on above: Performed By: #### 6 399 #### [facility] [place] [address] Bead Supervisor: Rei Esteban MD Monocytes (Bld) [#/Vol] 0.42 10*3/uL Normal 200-950 [facility] Comment on above: Performed By: #### 6 399 #### [facility] [place] [address] Bead Supervisor: Rei Esteban MD Monocytes/100 WBC (Bld) 5.0 % Normal [facility] Comment on above: Performed By: #### 6 399 #### [facility] [place] [address] Bead Supervisor: Rei Esteban MD Neutrophils (Bld) [#/Vol] 5.057 10*3/uL Normal 0942-5277 [facility] Comment on above: Performed By: #### 6 399 #### [facility] [place] [address] Bead Supervisor: Rei Esteban MD Neutrophils/100 WBC (Bld) 60.2 % Normal [facility] Comment on above: Performed By: #### 6 399 #### [facility] [place] [address] Bead Supervisor: Rei Esteban MD Platelet mean volume (Bld) [Entitic vol] 11.6 fL Normal 7.5-12.5 [facility] Comment on above: Performed By: #### 6 399 #### [facility] [place] [address] Bead Supervisor: Rei Esteban MD Platelets (Bld) [#/Vol] 278 10*3/uL Normal 140-400 [facility] Comment on above: Performed By: #### 6 399 #### [facility] [place] [address] Bead Supervisor: Rei Esteban MD RBC (Bld) [#/Vol] 4.38 10*6/uL Normal 3.80-5.10 [facility] Comment on above: Performed By: #### 6 399 #### [facility] [place] [address] Bead Supervisor: Rei Esteban MD WBC (Bld) [#/Vol] 8.4 10*3/uL Normal 3.8-10.8 [facility] Comment on above: Performed By: #### 6 399 #### [facility] [place] [address] Bead Supervisor: Rei Esteban MD [id number] 10-14-2020 SARS-CoV-2 Not Detected Normal [facility] Comment on above: Result Comment: The specimen is NEGATIVE for SARS-CoV-2, the novel coronavirus associated with COVID-19. A negative result does not rule out COVID-19. [facility] SARS-CoV-2 for use on the [employer] is a real-time RT-PCR test intended [...] this assay. Fact sheet for Healthcare Providers: https://www.fda.gov/media/178453/download Fact sheet for Patients: https://www.fda.gov/media/932639/download METHODOLOGY: RT-PCR Performed By: #### C OVID #### [employer] [place] [id number] Sharepoint Consultant: Rico Puentes MD SARS-CoV-2 [facility] Comment on above: Performed By: #### C OVID #### [facility] [address] [place] [address] [phone] Sharepoint Consultant: Rico Puentes MD [id number] 10-13-2020 SARS-CoV-2 Source .NASOPHARYNGEAL SWAB Normal [facility] Comment on above: Performed By: #### C OVID #### [address] [address] Sharepoint Consultant: Rico Puentes MD [id number] 10-07-2020 SARS-CoV-2 Not Detected Normal [facility] Comment on above: Result Comment: The specimen is NEGATIVE for SARS-CoV-2, the novel coronavirus associated with COVID-19. A negative result does not rule out COVID-19. Kathar[employer] SARS-CoV-2 for use on the [employer] is a real-time RT-PCR test intended [...] this assay. Fact sheet for Healthcare Providers: https://www.fda.gov/media/792244/download Fact sheet for Patients: https://www.fda.gov/media/652132/download METHODOLOGY: RT-PCR Performed By: #### C OVID #### [address] [id number] Sharepoint Consultant: Rico Puentes MD SARS-CoV-2 [facility] Comment on above: Performed By: #### C OVID #### [facility] [address] [place] [address] [phone] Sharepoint Consultant: Rico Puentes MD [id number] 10-06-2020 SARS-CoV-2 Source .NASOPHARYNGEAL SWAB Normal [facility] Comment on above: Performed By: #### C OVID #### [facility] [address] [place] [address] Sharepoint Consultant: Rico Puentes MD [id number] 09-20-2020 SARS-CoV-2 Not Detected [facility] Comment on above: Result Comment: The specimen is NEGATIVE for SARS-CoV-2, the novel coronavirus associated with COVID-19. A negative result does not rule out COVID-19. [employer] SARS-CoV-2 for use on the [employer] is a real-time RT-PCR test intended [...] this assay. Fact sheet for Healthcare Providers: https://www.fda.gov/media/722356/download Fact sheet for Patients: https://www.fda.gov/media/191304/download METHODOLOGY: RT-PCR Performed By: #### C OVID #### [address] [address] Sharepoint Consultant: Rico Puentes MD SARS-CoV-2 [facility] Comment on above: Performed By: #### C OVID #### [address] [address] Sharepoint Consultant: Rioc Puentes MD SARS-CoV-2,Rapid [facility] Comment on above: Performed By: #### C OVID #### [address] [id number] Sharepoint Consultant: Rico Puentes MD [id number] 09-18-2020 SARS-CoV-2 Source .NASOPHARYNGEAL SWAB [facility] Comment on above: Performed By: #### C OVID #### [address] [phone] Sharepoint Consultant: Rico Puentes MD [id number] 09-03-2020 SARS-CoV-2 [facility]ed [facility] Comment on above: Result Comment: The specimen is NEGATIVE for SARS-CoV-2, the novel coronavirus associated with COVID-19. A negative result does not rule out COVID-19. Katharina SARS-CoV-2 for use on the [employer] is a real-time RT-PCR test intended [...] this assay. Fact sheet for Healthcare Providers: https://www.fda.gov/media/248417/download Fact sheet for Patients: https://www.fda.gov/media/453108/download METHODOLOGY: RT-PCR Performed By: #### C OVID #### [address] [id number] Sharepoint Consultant: Rico Puentes MD SARS-CoV-2 [facility] Comment on above: Performed By: #### C OVID #### [facility] [address] [place] [address] [phone] Sharepoint Consultant: Rico Puentes MD SARS-CoV-2,Rapid [facility] Comment on above: Performed By: #### C OVID #### [facility] [address] [place] [address] [phone] Sharepoint Consultant: Rico Puentes MD [id number] 09-02-2020 SARS-CoV-2 Source .NASOPHARYNGEAL SWAB [facility] Comment on above: Performed By: #### C OVID #### [facility] [address] [place] [address] [phone] Sharepoint Consultant: MD WILD Simpson-CoV-2on 08-21-2020 SARS-CoV-2 Not Detected Normal Not Detected [facility] Comment on above: Result Comment: (NOT E) This nucleic acid amplification test was developed and its performance characteristics determined by [employer]. Nucleic acid amplification tests include PCR and [...] detected) result in this assay. Performed At: [facility] [id number] Roxi Donis PhD Ph:[phone] Performed By: #### A COV #### [facility] [address] [place] [address] Sharepoint Consultant: Phillip Schumacher MD [id number] 08-14-2020 SARS-CoV-2 Not Detected Normal Not Detected [facility] Comment on above: Result Comment: (NOT E) This nucleic acid amplification test was developed and its performance characteristics determined by [employer]. Nucleic acid amplification tests include PCR and [...] detected) result in this assay. Performed At: [facility] [employer] [place], [place] [id number] Jan Dailey MD Ph:[phone] Performed By: #### A COV #### [facility] [address] [place] [address] Sharepoint Consultant: Phillip Schumacher MD [id number] 07-30-2020 SARS-CoV-2 Not Detected Normal Not Detected [facility] Comment on above: Result Comment: (NOT E) This nucleic acid amplification test was developed and its performance characteristics determined by [employer]. Nucleic acid amplification tests include PCR and [...] detected) result in this assay. Performed At: [facility] [employer] [place], [place] [id number] Jan Dailey MD Ph:[phone] Performed By: #### A COV #### [facility] [address] [place] [address] Sharepoint Consultant: Phillip Schumacher MD [id number] 07-25-2020 SARS-CoV-2 Not Detected Normal Not Detected [facility] Comment on above: Result Comment: (NOT E) This nucleic acid amplification test was developed and its performance characteristics determined by [employer]. Nucleic acid amplification tests include PCR and [...] detected) result in this assay. Performed At: [facility] [address] [facility] [place] [id number] Jan Dailey MD Ph:[phone] Performed By: #### A COV #### [facility] [address] [place] [address] Sharepoint Consultant: Phillip Schumacher MD [id number]-VbL-7dd 07-18-2020 SARS-CoV-2 Not Detected Normal Not Detected [facility] Comment on above: Result Comment: (NOT E) Testing was performed using the [employer] SARS-CoV-2 assay. This nucleic acid amplification test was developed and its performance characteristics determined by [employer]. Nucleic acid amplification tests include PCR and [...] detected) result in this assay. Performed At: =[facility] [address] [place] [id number] Lewis Vaughn MD Ph:[phone] Performed By: #### A COV #### [facility] [address] [place] [address] Sharepoint Consultant: Phillip Schumacher MD [id number] 07-03-2020 SARS-CoV-2 Not Detected Normal Not Detected [facility] Comment on above: Result Comment: (NOT E) This nucleic acid amplification test was developed and its performance characteristics determined by [employer]. Nucleic acid amplification tests include PCR and [...] detected) result in this assay. Performed At: [facility] [address] [employer] [facility] [place] [id number] Jan Dailey MD Ph:[phone] Performed By: #### A COV #### [facility] [address] [place], [place] [id number] Sharepoint Consultant: Phillip Schumacher MD Vital Signs Date Time Vital Sign Value Performing Clinician Facility 04-23-2025 12:57-0400 Body height 172.7 cm Willi [facility] 04-23-2025 12:57-0400 Body mass index (BMI) [Ratio] 29.38 kg/m2 Willi Furlong DO [facility] 04-23-2025 12:57-0400 Body temperature 97.9 [degF] Willi Furlong DO [facility] 04-23-2025 12:57-0400 Body weight 87.64 kg Willi [facility] 04-23-2025 12:57-0400 Diastolic blood pressure 68 mm[Hg] Willi Furlong DO [facility] 04-23-2025 12:57-0400 Heart rate 94 /min Willi Furlong DO [facility] 04-23-2025 12:57-0400 Respiratory rate 18 /min Willi Furlong DO [facility] 04-23-2025 12:57-0400 SaO2% (BldA) [Mass fraction] 98 % Willi Furlong DO [facility] 04-23-2025 12:57-0400 Systolic blood pressure 108 mm[Hg] Willi Furlong DO [facility] 03-24-2025 14:11-0400 Diastolic blood pressure 60 mm[Hg] Willi Furlong DO Work Phone: [facility] 03-24-2025 14:11-0400 Heart rate 86 /min Willi Furlong DO Work Phone: [facility] 03-24-2025 14:11-0400 SaO2% (BldA) [Mass fraction] 91 % Willi Furlong DO Work Phone: [facility] 03-24-2025 14:11-0400 Systolic blood pressure 110 mm[Hg] Willi Furlong DO Work Phone: [facility] 03-24-2025 13:50-0400 Body height 172.7 cm Willi Furlong DO Work Phone: [facility] 03-24-2025 13:50-0400 Body mass index (BMI) [Ratio] 29.6 kg/m2 Willi Furlong DO Work Phone: [facility] 03-24-2025 13:50-0400 Body temperature 98.49 [degF] Willi Furlong DO Work Phone: [facility] 03-24-2025 13:50-0400 Body weight 88.27 kg Willi Furlong DO Work Phone: [facility] 03-24-2025 13:50-0400 Respiratory rate 18 /min Willi Furlong DO Work Phone: [facility] 10-15-2024 16:35-0500 Body height 172.7 cm Doni Rios BONE CHAR P[employer]ER[employer]ASH [employer]OP FARMER Work Phone: [facility] 10-15-2024 16:35-0500 Body mass index (BMI) [Ratio] 29.74 kg/m2 Doni Rios BONE [employer] P[employer] FARMER Work Phone: [facility] 10-15-2024 16:35-0500 Body temperature 98.6 [degF] Doni Rios BONE CHAR P[employer]ER[employer]CASH [employer]OP FARMER Work Phone: [facility] 10-15-2024 16:35-0500 Body weight 88.72 kg Doni Rios APRN-DILIA Work Phone: [facility] 10-15-2024 16:35-0500 Diastolic blood pressure 82 mm[Hg] Doni Rios APRN-CASH CROP FARMER Work Phone: [facility] 10-15-2024 16:35-0500 Heart rate 79 /min Doni Rios APRN-DILIA Work Phone: [facility] 10-15-2024 16:35-0500 Respiratory rate 18 /min Doni Rios APRN-DILIA Work Phone: [facility] 10-15-2024 16:35-0500 SaO2% (BldA) [Mass fraction] 99 % Doni Rios APRN-DILIA Work Phone: [facility] 10-15-2024 16:35-0500 Systolic blood pressure 110 mm[Hg] Doni Rios APRN-DILIA Work Phone: [facility] 10-10-2024 08:56-0500 Body height 172.7 cm Kamran Garibay DPM Work Phone: [facility] 10-10-2024 08:56-0500 Body mass index (BMI) [Ratio] 28.89 kg/m2 Kamran Garibay DPM Work Phone: [facility] 10-10-2024 08:56-0500 Body weight 86.18 kg Kamran Garibay DPM Work Phone: [facility] 11-06-2023 14:44-0400 Body height 172.7 cm Willi Furlong DO Work Phone: [facility] 11-06-2023 14:44-0400 Body mass index (BMI) [Ratio] 30.71 kg/m2 Willi Furlong DO Work Phone: [facility] 11-06-2023 14:44-0400 Body temperature 97.81 [degF] Willi Ridley DO Work Phone: [facility] 11-06-2023 14:44-0400 Body weight 91.63 kg Willi Ridley DO Work Phone: [facility] 11-06-2023 14:44-0400 Diastolic blood pressure 70 mm[Hg] Willi Ridley DO Work Phone: [facility] 11-06-2023 14:44-0400 Heart rate 77 /min Willi Ridley DO Work Phone: [facility] 11-06-2023 14:44-0400 SaO2% (BldA) [Mass fraction] 97 % Willi Ridley DO Work Phone: [facility] 11-06-2023 14:44-0400 Systolic blood pressure 110 mm[Hg] Willi Ridley DO Work Phone: [facility] [employer] 01-17-2022 14:15-0400 Body height 172.72 cm Bull Lisa Other [employer] Other 01-17-2022 14:15-0400 Body mass index (BMI) [Ratio] 30.86 kg/m2 Bull Olexa Other [employer] Other 01-17-2022 14:15-0400 Body weight 92.08 kg Bull Chasexa Other [employer] Other Encounters Encounter Date Encounter Type Care Provider Facility Start: 04-23-2025 End: 04-23-2025 Office outpatient visit 25 minutes Willi Ridley DO Work Phone: [facility] Comment on above: Colitis (Primary Dx) ; Chronic idiopathic constipation; Supraventricular tachycardia Start: 04-23-2025 End: 04-23-2025 ambulatory [facility] Start: 04-09-2025 End: 04-09-2025 ambulatory Bernadine Gaitan [facility] Work Phone: Start: 04-09-2025 End: 04-09-2025 Departed Referred Bernadine Gaitan DO -LAB [facility] Start[facility]25 [facility] Start: 04-02-2025 End: 04-02-2025 Orders Only [facility] Comment on above: Disorder of right ro tator cuff (Primary Dx) Start: 03-25-2025 End: 03-25-2025 Orders Only Willi Wilkinsonnayan DO [facility] Comment on above: Pain of right scapul a (Primary Dx) Start: 03-24-2025 End: 03-24-2025 Office outpatient visit 15 minutes Willi Ridley DO [facility] Comment on above: Trigger point of rig ht shoulder region (Primary Dx) Start: 03-24-2025 End: 03-24-2025 ambulatory [facility] Start: 10-15-2024 End: 10-15-2024 ambulatory [facility] Stephanie RIOS [facility] Start: 10-15-2024 End: 10-15-2024 Patient encounter procedure Doni Rios B[employer] F[employer]ER Work Phone: [facility] Start: 10-15-2024 End: 10-15-2024 Periodic preventive med est patient 40-64yrs Doni Rios APRN-CASH CROP FARMER Work Phone: [facility] Comment on above: Annual physical exam (Primary Dx); Blood tests for routine general physical examination; Encounter for screening mammogram for malignant neoplasm of breast; Asymptomatic menopausal state; Encounter for screening for osteoporosis; Special screening for malignant neoplasm of colon Start: 10-15-2024 End: 03-05-2025 Physical examination Doni Rios APRN-CASH CROP FARMER Work Phone: [facility] Work Phone: Start: 10-15-2024 End: 10-15-2024 ambulatory [facility] Start: 10-15-2024 Encounter for genera l adult medical examination without abnormal findings [facility] [facility] Start: 10-10-2024 End: 10-10-2024 Bamboo flowsheet Kamran Garibay DPM Work Phone: [facility] Start: 10-10-2024 End: 10-10-2024 Bamboo flowsheet Kamran Garibay DPM Work Phone: [facility] Start: 10-10-2024 End: 10-10-2024 ambulatory KAMRAN GARIBAY Not Available Start: 10-10-2024 End: 10-10-2024 Office outpatient new 45 minutes Kamran Garibay DPM Work Phone: [facility] Comment on above: Plantar fasciitis (P rimary Dx); Right foot pain; Equinus contracture of right ankle Start: 11-09-2023 Telephone encounter [facility]ody Gonsalez C[facility] Start: 11-06-2023 End: 11-06-2023 ambulatory [facility] Start: 11-06-2023 Encounter for genera l adult medical examination without abnormal findings [facility] Start: 11-06-2023 End: 11-06-2023 Patient [facility] Work Phone: [facility] Work Phone: Start: 11-06-2023 End: 11-06-2023 Periodic preventive med est patient 40-64yrs [facility] Work Phone: [facility] Comment on above: Well adult health ch nehemias (Primary Dx); Class 1 obesity due to excess calories with serious comorbidity and body mass index (BMI) of 30.0 to 30.9 in adult; Encounter for screening mammogram for malignant neoplasm of breast; Constipation, unspecified constipation type; Supraventricular tachycardia; Hyperlipidemia, unspecified hyperlipidemia type Start: 11-24-[address] WILLI RIDLEY Fac ility:[facility] Start: 01-17-2022 End: 01-17-2022 ambulatory Bull Gonzalez Other [employer] Other Start: 01-17-2022 Office outpatient ne w 30 minutes Bull Gonzalez [facility] [place] Start: 12-16-2021 End: 12-17-[address] WILLI RIDLEY Facility:[facility] Start: 10-13-2020 End: 10-14-2020 Patient encounter procedure BILL RICH [facility] Start: 10-13-2020 End: 10-13-2020 Subsequent hospital visit by physician NAEEM FENTON Start: 10-06-2020 End: 10-07-2020 [facility] Start: 10-06-2020 End: 10-06-2020 Subsequent hospital visit by physician NAEEM FENTON Start: 09-18-2020 End: 09-19-2020 Patient encounter procedure BILL [facility] Start: 09-01-2020 End: 09-02-2020 Patient encounter procedure BILL [facility] Start: 09-01-2020 End: 09-01-2020 Subsequent hospital visit by physician NAEEM FENTON Start: 08-19-2020 End: 08-20-2020 Patient encounter procedure BILL RICH [facility] Start: 08-19-2020 End: 08-19-2020 Subsequent hospital visit by physician NAEEM FENTON Start: 08-11-2020 End: 08-12-2020 Patient encounter procedure BILL RICH [facility] Start: 08-11-2020 End: 08-11-2020 Subsequent hospital visit by physician NAEEM FENTON Start: 07-29-2020 End: 07-30-2020 Patient encounter procedure AYDE RICH [facility] Start: 07-29-2020 End: 07-29-2020 Subsequent hospital visit by physician NAEEM BUITRAGO [facility] DO[facility] Start: 07-22-2020 End: 07-23-2020 Patient encounter procedure AYDE RICH [facility] Start: 07-22-2020 End: 07-22-2020 Subsequent hospital visit by physician NAEEM BUITRAGO LAB DOCTOR Start: 07-15-2020 End: 07-16-2020 Patient encounter procedure AYDE RICH [facility] Start: 07-15-2020 End: 07-15-2020 Subsequent hospital visit by physician NAEEM BUITRAGO LAB DOCTOR Start: 06-30-2020 End: 07-01-2020 Patient encounter procedure AYDE RICH [facility] Start: 06-30-2020 End: 06-30-2020 Subsequent hospital visit by physician NAEEM BUITRAGO LAB DOCTOR Procedures Date Procedure Procedure Detail Performing Clinician Start: 04-23-2025 Adult depression scr eening assessment Willi Furlong DO Work Phone: Start: 03-24-2025 Adult depression scr eening assessment Willi Furlong DO Work Phone: Start: 11-21-2024 Mammography Willi Fur long DO Work Phone: Start: 10-15-2024 Adult depression scr eening assessment Doni Rios [employer] Work Phone: Start: 10-10-2024 Radex calcaneus mini mum 2 views Kamran Garibay DPM Work Phone: Start: 11-12-2023 Mammography Doin Marce burnhamo [employer] Work Phone: Start: 11-06-2023 Adult depression scr eening assessment Willi Furlong DO Work Phone: Start: 07-29-2020 COVID-19 AMBULATORY LEENA S RICH Start: 07-22-2020 COVID-19 AMBULATORY LEENA S RICH Start: 07-15-2020 COVID-19 AMBULATORY LEENA S RICH Start: 06-30-2020 COVID-19 AMBULATORY LEENA RICH Plan of Treatment Date Care Activity Detail Author Start: 11-10-2027 Screening for malign ant neoplasm of colon Colon Cancer Screening 3 Year Cologuard [facility] Start: 04-23-2026 Adult BMI Screening Adult BMI Screen ing [facility] Start: 04-23-2026 Depression Screening Depression Scre ening [facility] Start: 04-23-2026 Tobacco Screening Tobacco Screening [facility] Start: 03-24-2026 Adult BMI Screening Adult BMI Screen ing [facility] Start: 03-24-2026 Depression Screening Depression Scre ening [facility] Start: 03-24-2026 Tobacco Screening Tobacco Screening [facility] Start: 11-21-2025 Screening for malign ant neoplasm of breast Mammogram [facility] Start: 10-15-2025 Adult BMI Follow Up Plan Adult BMI Follow Up Plan [facility] Start: 10-15-2025 Adult BMI Screening Adult BMI Screen ing [facility] Start: 10-15-2025 Depression Screening Depression Scre ening [facility] Start: 10-15-2025 Tobacco Screening Tobacco Screening [facility] Start: 04-13-2025 Influenza vaccination Influenza Vacc ine [facility] Start: 04-09-2025 Urine culture [facility] Start: 04-09-2025 Bacteria identified in Urine by Culture Urine Culture [facility] Start: 03-25-2025 End: 03-25-2026 XR Scapula - right Views X-ray scapula right Imaging Routine Pain of right scapula Expected: 03/25/2025, Expires: 03/25/2026 [email or web address] Work Phone: Comment on above: Expected: 03/25/2025 , Expires: 03/25/2026 Start: 11-19-2024 End: 11-19-2024 Patient encounter procedure 11/19/2024 4:00 PM EDT Office Visit [facility] [address] [place] [address] Kamran Garibay, DPM [address] [place] [address] [facility] Start: 11-11-2024 Screening for malign ant neoplasm of breast Mammogram [facility] Start: 11-05-2024 Adult BMI Screening Adult BMI Screen ing [facility] Start: 11-05-2024 Depression Screening Depression Scre ening [facility] Start: 11-05-2024 Tobacco Screening Tobacco Screening [facility] Start: 10-26-2024 DTaP,Tdap and Td Vac cines (2 - Td or Tdap) DTaP,Tdap and Td Vaccines (2 - Td or Tdap) [facility] Start: 10-23-2024 Screening for malign ant neoplasm of colon Colon Cancer Screening 3 Year Cologuard [facility] Start: 10-15-2024 End: 10-15-2025 DBT Breast - bilateral screening Mammography screening bilateral with CAD Imaging Routine Encounter for screening mammogram for malignant neoplasm of breast Expected: 10/15/2024, Expires: 10/15/2025 [facility] Comment on above: Expected: 10/15/2024 , Expires: 10/15/2025 Start: 10-15-2024 End: 10-15-2025 DXA Skeletal system Views for bone density Dexa scan central skeletal Imaging Routine Asymptomatic menopausal state Encounter for screening for osteoporosis Expected: 10/15/2024, Expires: 10/15/2025 [facility] Comment on above: Expected: 10/15/2024 , Expires: 10/15/2025 Start: 04-13-2024 Influenza vaccination Influenza Vacc ine [facility] Start: 11-15-2023 Administration of varicella zoster vaccine Zoster (Shingles) Vaccine (1 of 2) [facility] Comment on above: Postponed from 10/30 (Patient Refused) Start: 11-11-2023 Influenza vaccination Influenza Vacc ine [facility] Comment on above: Postponed from 04/13 (Patient Refused) Start: 11-06-2023 End: 11-05-2024 DBT Breast - bilateral screening Mammography screening bilateral with CAD Imaging Routine Encounter for screening mammogram for malignant neoplasm of breast Expected: 11/06/2023, Expires: 11/05/2024 [employer] Work Phone: Comment on above: Expected: 11/06/2023 , Expires: 11/05/2024 Start: 10-20-2023 Adult BMI Follow Up Plan Adult BMI Follow Up Plan [facility] Start: 2022 Administration of varicella zoster vaccine Zoster (Shingles) Vaccine (1 of 2) [facility] Start: 04-13-2020 Influenza vaccination Flu vaccine (# 1) [place], [place] Start: 2012 Lipid panel Lipid screen [place], [place] Start: 2012 Screening for malign ant neoplasm of breast Mammogram [facility] Start: 1993 Screening for malign ant neoplasm of cervix Cervical cancer screen [place], [place] Start: 10-31-1991 DTaP/Tdap/Td vaccine (1 - Tdap) DTaP/Tdap/Td vaccine (1 - Tdap) [place], [place] Start: 10-31-1987 HIV screening HIV screen [place], [place] Start: 1972 Hepatitis C screening Hepatitis C sc reen [place], [place] End: 10-15-2025 CBC W Auto Differential panel - Blood CBC auto differential Lab Routine Blood tests for routine general physical examination 1 Occurrences starting 10/15/2024 until 10/15/2025 [facility] Comment on above: 1 Occurrences starti ng 10/15/2024 until 10/15/2025 Cologuard [facility] Cologuar d [facility] Lab Routine Special screening for malignant neoplasm of colon Ordered: 10/15/2024 [facility] Comment on above: Ordered: 10/15/2024 End: 10-15-2025 Comprehensive metabolic 2000 panel - Serum or Plasma Comprehensive metabolic panel Lab Routine Blood tests for routine general physical examination 1 Occurrences starting 10/15/2024 until 10/15/2025 [employer] Work Phone: Comment on above: 1 Occurrences starti ng 10/15/2024 until 10/15/2025 End: 09-01-2020 COVID-19 COVID-19 Lab Routine Once for 1 Occurrences starting 09/01/2020 until 09/01/2020 [facility] [place] Comment on above: Once for 1 Occurrenc es starting 09/01/2020 until 09/01/2020 COVID-19 [facility] [place] End: 10-06-2020 COVID-19 COVID-19 Lab Routine Once for 1 Occurrences starting 10/06/2020 until 10/06/2020 [facility] Phone: Comment on above: Once for 1 Occurrenc es starting 10/06/2020 until 10/06/2020 End: 10-13-2020 COVID-19 COVID-19 Lab Routine Once for 1 Occurrences starting 10/13/2020 until 10/13/2020 [facility] Phone: Comment on above: Once for 1 Occurrenc es starting 10/13/2020 until 10/13/2020 End: 07-15-2020 Covid-19 Ambulatory Covid-19 Ambulatory Lab Routine Once for 1 Occurrences starting 07/15/2020 until 07/15/2020 [place], [place] Comment on above: Once for 1 Occurrenc es starting 07/15/2020 until 07/15/2020 Covid-19 Ambulatory [facility], [place] End: 07-22-2020 Covid-19 Ambulatory Covid-19 Ambulatory Lab Routine Once for 1 Occurrences starting 07/22/2020 until 07/22/2020 [place], [place] Comment on above: Once for 1 Occurrenc es starting 07/22/2020 until 07/22/2020 End: 07-29-2020 Covid-19 Ambulatory Covid-19 Ambulatory Lab Routine Once for 1 Occurrences starting 07/29/2020 until 07/29/2020 [facility] Comment on above: Once for 1 Occurrenc es starting 07/29/2020 until 07/29/2020 End: 08-11-2020 Covid-19 Ambulatory Covid-19 Ambulatory Lab Routine Once for 1 Occurrences starting 08/11/2020 until 08/11/2020 [facility] Comment on above: Once for 1 Occurrenc es starting 08/11/2020 until 08/11/2020 End: 08-19-2020 Covid-19 Ambulatory Covid-19 Ambulatory Lab Routine Once for 1 Occurrences starting 08/19/2020 until 08/19/2020 [facility] Comment on above: Once for 1 Occurrenc es starting 08/19/2020 until 08/19/2020 End: 06-30-2020 Covid-19 Ambulatory Covid-19 Ambulatory Lab Routine Once for 1 Occurrences starting 06/30/2020 until 06/30/2020 [facility] [place] Comment on above: Once for 1 Occurrenc es starting 06/30/2020 until 06/30/2020 End: 10-15-2025 Hemoglobin A1c/Hemoglobin.total in Blood Hemoglobin A1c Lab Routine Blood tests for routine general physical examination 1 Occurrences starting 10/15/2024 until 10/15/2025 [facility] Comment on above: 1 Occurrences starti ng 10/15/2024 until 10/15/2025 End: 10-15-2025 Lipid 1996 panel - Serum or Plasma Lipid profile Lab Routine Blood tests for routine general physical examination 1 Occurrences starting 10/15/2024 until 10/15/2025 [facility] Comment on above: 1 Occurrences starti ng 10/15/2024 until 10/15/2025 End: 11-05-2024 Thyrotropin [Units/volume] in Serum or Plasma TSH Lab Routine Class 1 obesity due to excess calories with serious comorbidity and body mass index (BMI) of 30.0 to 30.9 in adult 1 Occurrences starting 11/06/2023 until 11/05/2024 [facility] Comment on above: 1 Occurrences starti ng 11/06/2023 until 11/05/2024 Thyrotropin [Units/volume] in Serum or Plasma TSH Lab Routine Class 1 obesity due to excess calories with serious comorbidity and body mass index (BMI) of 30.0 to 30.9 in adult 11/06/2023 10:01 PM EDT [facility] Immunizations Immunization Date Immunization Notes Care Provider Kulwinder castellanos 10-26-2014 tetanus toxoid, redu charo diphtheria toxoid, and acellular pertussis vaccine, adsorbed Willi Ridley DO Work Phone: [facility] Payers Date Payer Category Payer Self-pay 2022 Managed Care Other (unspecified) [employer] [id number] 2022 Private Health Insurance [id number] 2022 Unknown [id number] 1972 Unknown [id number] 2.16.840.1.633818.3.579. 2.175 1972 Unknown [id number] 2.16.840.1.500086.3.579. 2.175 1972 Unknown [id number] 2.16.840.1.925936.3.579. 2.175 1972 Unknown [id number] 2.16.840.1.273686.3.579. 2.175 1972 Unknown [id number] 2.16.840.1.155670.3.579. 2.175 1972 Unknown [id number] 2.16.840.1.878173.3.579. 2.175 1972 Unknown [id number] 2.16.840.1.588401.3.579. 2.175 1972 Unknown [id number] 2.16.840.1.428992.3.579. 2.175 1972 Unknown [id number] 2.16.840.1.709022.3.579. 2.175 1972 Unknown [id number] 2.16.840.1.035009.3.579. 2.175 1972 Unknown [id number] 2.16.840.1.151423.3.579. 2.593 1972 Unknown [id number] 2.16.840.1.756344.3.579. 2.593 1972 Unknown [id number] 2.16.840.1.598929.3.579. 2.1259 1972 Unknown [id number] 2.16.840.1.154765.3.579. 2.1259 1972 Unknown [id number] 2.16.840.1.589079.3.579. 2.1286 1972 Unknown [id number] 2.16.840.1.176032.3.579. 2.1286 1972 Unknown [id number] 2.16.840.1.603493.3.579. 2.1286 1972 Unknown [id number] 2.16.840.1.491201.3.579. 2.1286 1972 Unknown [id number] 2.16.840.1.388726.3.579. 2.1286 1972 Unknown [id number] 2.16.840.1.621377.3.579. 2.1286 1959 Self-pay [id number] 1959 Unknown [id number] 1.2.840.259028.1.13.239. 2.7.3.153872.315 Social History Date Type Detail Facility Tobacco smoking stat [facility] Unknown if ever smoked [facility] Start: 1970 Sex Assigned At Not on file [facility] Start: 11-14-2022 End: 11-06-2023 Sex Assigned At [facility] [employer] Other Start: 01-17-2022 End: 11-06-2023 Tobacco smoking status NYIS Ex-smoker [facility] History of tobacco use Current smoker [facility] History of tobacco use Cigarette Smoker P [facility] Start: 11-14-2022 End: 11-06-2023 Cigarettes smoked current (pack per day) - Reported 0.5 [facility] Start: 11-06-2023 Tobacco use and exposure Smokeless tobacco non-user [facility] Start: 11-06-2023 End: 04-23-2025 Alcohol intake Lifetime non-drinker (finding) [facility] Has the [employer], or [employer] threatened to shut off services in your home in past 12Mo No [facility] Are you now , , , , never or living with a partner? [facility] How often to you hav e a drink containing alcohol? Never [facility] How many standard drinks containing alcohol do you have on a typical day? Patient does not drink [facility] Do you feel stress - tense, restless, nervous, or anxious, or unable to sleep at night because your mind is troubled all the time - these days [OSQ] Not at all [facility] Tobacco smoking stat [facility] Tobacco smoking consumption unknown [facility] Start: 03-18-2015 Sex Female (finding) [facility] Start: 1970 Sex Assigned At Female [facility] Clinical Notes 10-12-2021 to 04-23-2025 Willi Ridley, DO - 04/23/2025 1:00 PM EDHolly Ridley, DO - 03/24/2025 2:00 PM Alfa Rios, [employer] - 10/15/2024 4:40 PM Derrick Garibay DPM - 10/10/2024 8:45 AM EST Note Date & Type Note Facility 04-23-2025 History of Presen t illness Narrative Subjective Patient ID: Jacqui Perez is a 54 y.o. female. Jacqui presents for ER follow up for colitis. She started with real bad abdominal pain, sharp and made her sweat. Thn she had real hard stool then it turned soft. She then saw mucousy, bloody stool then went to the ER. It was over a couple days. She was given a course of ciprofloxacin and it has resolved. It happened once a couple months before but wasn't as bad and resolved on its own. She had a colonoscopy in 2015 and was ok. She had a Cologuard in October which was negative. She has been having issues with constipation her whole life. She can go days without a bowel movement. It is usually hard. She is drinking a lot of fluids. She has had frequent episodes of palpitations over the last few months and they are getting worse. It feels like her heart is skipping a beat. She had an ablation in 1996 in [place]. She was diagnosed with PSVT. She would like to see a seismic interpreter. The following portions of the patient's history were reviewed and updated as appropriate: allergies, current medications, past family history, past medical history, past social history, past surgical history, problem list, and medication reconciliation was completed including current medication and post discharge medication. Review of Systems Constitutional: Negative. HENT: Negative. Eyes: Negative. Respiratory: Negative. Cardiovascular: Positive for palpitations. Gastrointestinal: Positive for constipation. Genitourinary: Negative. Musculoskeletal: Negative. Neurological: Negative. Hematological: Negative. Psychiatric/Behavioral: Negative. Objective Physical Exam Vitals reviewed. Constitutional: Appearance: She is overweight. HENT: Head: Normocephalic. Eyes: General: No scleral icterus. Extraocular Movements: Extraocular movements intact. Conjunctiva/sclera: Conjunctivae normal. Pulmonary: Effort: Pulmonary effort is normal. No respiratory distress. Abdominal: General: Bowel sounds are normal. There is no distension. Palpations: Abdomen is soft. There is no mass. Tenderness: There is no abdominal tenderness. There is no guarding or rebound. Hernia: No hernia is present. Neurological: General: No focal deficit present. Mental Status: She is alert and oriented to person, place, and time. Psychiatric: Mood and Affect: Mood normal. Behavior: Behavior normal. Thought Content: Thought content normal. Judgment: Judgment normal. Assessment/Plan Jacqui was seen today for tbh/ f/u colitis. Diagnoses and all orders for this visit: Colitis - Cancel: Colonoscopy; Future - Ambulatory referral to Gastroenterology ([facility]); Future CT scan results reviewed from [place] [facility] ER. Suggested a colitis. It seems to have resolved at this time. I am going to refer to GI. She requested GI in [place]. Chronic idiopathic constipation - Cancel: Colonoscopy; Future - Ambulatory referral to Gastroenterology ([facility]); Future I am going to try Linzess 72 mcg daily. She was given a sample of 8 pills. We can increase to 145 mcg which is the recommended dose. Patient is in agreement with this. We will also refer to GI. Supraventricular tachycardia - Ambulatory referral to Cardiology ([facility]); Future We will refer to cardiology for further evaluation. She prefers [facility]. We will refer to their clinic in [place]. Other orders - linaCLOtide (LINZESS) 72 mcg capsule; Take 1 capsule (72 mcg total) by mouth in the morning. documented in this encounter [facility] 03-24-2025 History of Presen t illness Narrative [...] Cancel: $ Arthrocentesis documented in this encounter [facility] 10-15-2024 History of Presen t illness Narrative Images from the original note were not included. Dustin W CLAY HWCherise [facility] [id number] SUBJECTIVE: Patient ID: Jacqui Perez is a [...] year Annual physical MARCO ANTONIO Nixon 10/15/24 [id number] [facility] 10-10-2024 History of Presen t illness Narrative [...] Kamran Garibay DPM documented in this encounter [facility] 11-09-2023 Miscellaneous Notes ----- Message from [...] notified and understands documented in this encounter [facility] 11-09-2023 Telephone encounter Note ----- Message from [...] was fine. Her kidney tests were great. [facility] 11-09-2023 Telephone encounter Note Patient notified and understands [facility] 11-06-2023 History of Presen t illness Narrative [...] ear normal. Nose: Nose normal. Mouth/Throat: Lips: [place]. Mouth: Mucous membranes are moist. Pharynx: Oropharynx [...] something. Check TSH. documented in this encounter [facility] 01-17-2022 Evaluation note Encounter Date Diagnosis Assessment [...] helpful. This is not a surgical problem [employer] Other 05-06-2022 NotePROCEDURE: XR SCAPULA RT COMPARISON: 12/16/2021 shoulder HISTORY: Pain in thoracic spine FINDINGS: BONES:No fracture, acute abnormality, or significant arthropathy. SOFT TISSUES:Negative. No visible soft tissue swelling. EFFUSION:None visible. OTHER: Negative. IMPRESSION: Normal examination. Electronically authenticated by: GIUSEPPE WHATLEY Date: 2021-12-16 17:06[facility]03-02-2022 [id number]:[id number] [facility] Well adult health check- Primary Unspecified general medical examination Class 1 obesity due to excess calories with serious comorbidity and body mass index (BMI) of 30.0 to 30.9 in adult Encounter for screening mammogram for malignant neoplasm of breast Constipation, unspecified constipation type Supraventricular tachycardia ([facility]) Other specified cardiac dysrhythmias Hyperlipidemia, unspecified hyperlipidemia type documented in this encounter [facility] SystemEvaluation note* Diagnosis Plantar fasciitis- Primary Plantar fascial fibromatosis Right foot pain Pain in soft tissues of limb [place] contracture of right ankle documented in this encounter [facility] HealthcareEvaluation note* Diagnosis Annual physical exam- [...] malignant neoplasms, colon documented in this encounter [facility] SystemEvaluation note* Diagnosis Trigger point of right shoulder region- Primary documented [facility] this [facility]* Diagnosis Pain of right scapula- Primary [facility] in this [facility] Diagnosis Pain of right scapula- Primary documented in this [facility]* Diagnosis Disorder of right rotator cuff- Primary documented in this encounter [facility] System[facility] noteNo assessment information available [facility] Work Phone: Evaluation note* Diagnosis Colitis- Primary Other and unspecified noninfectious gastroenteritis and colitis Chronic idiopathic constipation Unspecified constipation Supraventricular tachycardia Other specified cardiac dysrhythmias [facility] this [facility] System[facility] general Narrative - Reported* Type Description Date Medical History GERD Medical History Supraventricular Tachycardia Surgical History Cardiac ablation 1996 Surgical History total hysterectomy 2012 Hospitalization History see above [employer] Other InstructionsNot on filedocumented in this encounter [facility] [place] SystemInstructionsNot on filedocumented in this encounter [facility] [place] System[facility]ructions* Attachments The following attachments cannot be sent through Care Everywhere. * Diet and health (Sammarinese) [facility]ructionsNot on file documented in this [facility] SystemInstructionsNot on file [facility] SystemInstructionsNot on file documented in [facility] SystemReason for referral (narrative)No reason for referral information availableB[facility] Work Phone: Summary Purpose Family History No Family History Records Found Relationship Condition Age at Onset Recorded Date/T jes father Unknown Malignant neoplasm Unknown Malignant neoplasm of kidney Unknown mother Hypertension Unknown Hyperlipidemia Unknown Advance Directives No Advanced Directives Records FoundNo Advanced Directives Records FoundNo Advanced Directives Records FoundNo Advanced Directives Records FoundNo Advanced Directives Records FoundNo Advanced Directives Records FoundNo Advanced Directives Records FoundNo Advanced Directives Records FoundNo Advanced Directives Records Found Additional Source Comments INFORMATION SOURCE (unrecogn ized section and content) DATE CREATED AUTHOR 10/14/2020 [facility] DATE CREATED AUTHOR AUTHOR'S ORGANIZ ATION 09/20/2021 [facility] DATE CREATED AUTHOR AUTHOR'S ORGANIZ ATION 2021 [employer] [facility] DATE CREATED AUTHOR AUTHOR'S ORGANIZ ATION 11/18/2022 [facility] DATE CREATED AUTHOR AUTHOR'S ORGANIZ ATION 10/12/2024 [facility] DATE CREATED AUTHOR AUTHOR'S ORGANIZ ATION 10/18/2024 [facility] DATE CREATED AUTHOR AUTHOR'S ORGANIZ ATION 04/25/2025 [facility] DATE CREATED AUTHOR AUTHOR'S ORGANIZ ATION 04/28/2025 [facility] DATE CREATED AUTHOR AUTHOR'S ORGANIZ ATION 05/01/2025 [facility] REASON FOR VISIT (unrecogniz ed [...] on. SS 11 Reason Comments Painful Shoulder Reason Comments TBH/ f/u colitis Care Teams (unrecognized sec tion and content) Hospitalist Program Director Relationship Specialty Start Date End Date Willi Ridley DO [address], [place] [address] PCP - General Family Medicine 05/19/22 Hospitalist Program Director Relationship Specialty Start Date End Date Willi Ridley DO [address], [place] [address] PCP - General Family Medicine 05/19/22 Hospitalist Program Director Relationship Specialty Start Date End Date Willi Ridley MD [address], [place] [address] PCP - General Family Medicine 2/28/25 Hospitalist Program Director Relationship Specialty Start Date End Date Furlong, Willi G, DO [address], [place] [address] PCP - General Family Medicine 05/19/22 Hospitalist Program Director Relationship Specialty Start Date End Date Willi Ridley DO [address], [place] [address] PCP - General Family Medicine 05/19/22 Hospitalist Program Director Relationship Specialty Start Date End Date Willi Ridley DO [address], [place] [address] PCP - General Family Medicine 05/19/22 Hospitalist Program Director Relationship Specialty Start Date End Date Willi Ridley DO [address], [address] [address] PCP - General Family Medicine 05/19/22 Team Status: Inactive Member Role Status Dates Bernadineelisa Soto DO Arnie Attending Provider Active Start: April 09, 2025 End: April 09, 2025 Hospitalist Program Director Relationship Specialty Start Date End Date Willi Ridley DO [address] [place] [address] [place] [address] PCP - General Family Medicine 05/19/22 Goals (unrecognized section and content) Goals may be documented in a n alternate section FOR RECORDS PERTAINING TO PATIENTS WHO ARE [...] BE BASED ON THE PRIMARY CLINICAL RECORDS. [facility]. provides no warranty or guarantee of the accuracy or completeness of information in this document.
[2025-05-07 15:45] LABS: Free T3 2.42 pg/mL (2.18-3.98); Thyroid Stimulating Hormone 2.074 uIU/mL (0.358-3.740)
== END 2025-05-07 15:02 | disposition home or self-care (01) ==
LOC: LAB 15:02
PROVIDERS: PCP Family Medicine; Visit Provider Internal Medicine Cardiovascular Disease
DX: R00.2 Palpitations (principal)
CPT/HCPCS: 36415; 84439; 84443; 84481

== ENCOUNTER 2025-05-14 06:47 | Outpatient (OUT) | payer BC, SELFPAY ==
--- OUTSIDE RECORDS SUMMARY | 2025-05-07 13:35 | XMS_ITS ---
Author Name Auto Generated Organization [facility] Care Team Providers Care Tongue Presser Name Role Phone MARÍA BARAJAS Attending Unavailable FURLONGJORGE Referring Unavailable FURLONG, JORGE Lockett Primary Care Unavailable DONI SANCHES Attending Unavailable FURLONG, JORGE G Primary Care Unavailable SANCHESDONI MERA Referring Unavailable FURLONG, JORGE G Attending Unavailable FURLONG, JORGE G Referring Unavailable FURLONG, JORGE G Primary Care Unavailable FURLONG, JORGE G Primary Care Unavailable FURLONG, JORGE G Referring Unavailable FURLONG, JORGE G Attending Unavailable FURLONG, JORGE G Referring Unavailable FURLONG, JORGE G Primary Care Unavailable MarkerBernadine Attending Unavailable MarkerBernadine Admitting Unavailable GARDENIA VAZQUEZ Attending Unavailable GARDENIA VAZQUEZ Referring Unavailable PROBLEMS DATE TYPE CONDITION / CODE ATTENDING STATUS [facility] 05/06/2025 Admitting Diagnosis Supraventricular tachycardia, unspecified / I47.10(ICD-10) MARÍA BARAJAS Active [facility] 05/07/2025 Admitting Diagnosis Palpitations / R00.2(ICD-10) MARÍA BARAJAS Active [facility] 05/07/2025 Admitting Diagnosis Other forms of dyspnea / R06.09(ICD-10) MARÍA BARAJAS Active [facility] 11/06/2023 Unknown Chronic idiopath ic constipation / K59.04(ICD-10) [facility] 11/06/2023 Unknown Supraventricular tachycardia, unspecified / I47.10(ICD-10) JORGE TORRES [facility] 04/23/2025 Unknown Noninfective gastroenteritis and colitis, unspecified / K52.9(ICD-10) JORGE TORRES [facility] 04/06/2025 Unknown Unspecified diso rder of synovium and tendon, right shoulder / M67.911(ICD-10) [facility] 04/06/2025 Unknown Pain in right sh oulder / M25.511(ICD-10) [facility] 03/24/2025 Unknown Painful Shoulder / UNK(Unknown) [facility] [place] 10/15/2024 Unknown Encounter for ge neral adult medical examination without abnormal findings / Z00.00(ICD-10) [facility] 10/15/2024 Unknown Encounter for screening mammogram for malignant neoplasm of breast / Z12.31(ICD-10) [facility] 10/15/2024 Unknown Asymptomatic menopausal state / Z78.0(ICD-10) [facility] 10/15/2024 Unknown Encounter for screening for osteoporosis / Z13.820(ICD-10) [facility] 10/15/2024 Unknown Encounter for screening for malignant neoplasm of colon / Z12.11(ICD-10) [facility] 10/15/2024 Unknown Annual Exam / FREETEXT(AOF) [facility] PROCEDURES No Procedure Records Found RESULTS URINE CULTURE Observed: 04/09/2025 7:40 PM Status: F Source: [facility] 50,000 colonies/ml mixed bacterial skin contaminants 2 Days PERFORMED BY: [facility] [address] [place] [address] PATHOLOGIST BOAT TENDER MAC DAMICO M.D. Performed By: #### CUU #### [facility] [address] CBC AND AUTO DIFF Collected: 10/15/2024 4:48 PM Status: COMPLETED Source: [facility] TYPE CODE TESTS RESULT OUT OF RANGE REFERENCE UNITS LAB WBC(LOINC) WBC COUNT 9.7 4.0-11.0 X10E9/L LAB RBC(LOINC) RBC COUNT 4.17 3.80-5.20 X10E12/L LAB HGB(LOINC) HEMOGLOBIN 12.8 11.7-15.5 g/dL LAB HCT(LOINC) HEMATOCRIT 38.7 35-47 % LAB MCV(LOINC) MCV 93 80-100 fL LAB MCH(LOINC) MCH 30.6 27-34 pg LAB MCHC(LOINC) MCHC 33.0 32-36 g/dL LAB RDW(LOINC) RDW 14.2 11.5-15.0 % LAB PLTC(LOINC) PLATELET COUNT 268 150-450 X10E9 /L LAB MPV(LOINC) MPV 10.3 7-12 fL LAB NEUTM(LOINC) SEG NEUTROPHIL 67.3 % LAB LYMM(LOINC) LYMPHOCYTE 27.9 % LAB MONOM(LOINC) MONOCYTE 4.8 % LAB ANEUTM(LOINC) ABSOLUTE NEUTROPHILS 6.5 1.5-6.6 X10E9/L LAB ALYMM(LOINC) ABSOLUTE LYMPHOCYTE 2.7 1.0-3.5 X10E9/L LAB AMONOM(LOINC) ABSOLUTE MONOCYTES 0.5 0-0.9 X10E9/L LAB RBCMOR(LOINC) RBC MORPHOLOGY NORMAL Performed By: #### CBCA, CMP , 99849-6, HA1C #### [facility] ([id number]) [address], [address] [place] [address] COMPREHENSIVE METABOLIC PANEL Collected: 2024 4:48 PM Status: COMPLETED Source: [facility] TYPE CODE TESTS RESULT OUT OF RANGE REFERENCE UNITS LAB NA(LOINC) SODIUM 140 134-146 mmol/L LAB K(LOINC) POTASSIUM 3.9 3.5-5.0 mmol/L LAB CL(LOINC) CHLORIDE 102 98-109 mmol/L LAB CO2(LOINC) CARBON DIOXIDE 28 22-32 mmol/L LAB AGAP(LOINC) ANION GAP 10 5-15 mmol/L LAB BUN(LOINC) BLOOD UREA NITROGEN 25 High 5-23 mg/dL LAB CRET(LOINC) CREATININE 0.76 0.40-1.00 mg/dL Result Comment: METHOD TRACE ABLE TO IDMS STANDARD LAB GLU(LOINC) GLUCOSE 111 High 65-99 mg/dL LAB CA(LOINC) CALCIUM 9.5 8.5-10.5 mg/dL LAB TP(LOINC) TOTAL PROTEIN 7.2 6.0-8.0 g/dL LAB ALB(LOINC) ALBUMIN 4.4 3.2-5.3 g/dL LAB ALK(LOINC) ALKALINE PHOSPHATASE 87 39-130 U/L LAB AST(LOINC) AST 16 0-41 U/L LAB ALT1(LOINC) ALT 19 0-31 U/L LAB TBIL(LOINC) BILIRUBIN,TOTAL 0.3 0.3-1.2 mg/d L LAB EGFR(LOINC) eGFR (CKD-EPI) NON-RACE DEPENDENT >90 >59 ml/min/1 .73sq.m Result Comment: Reported eGFR is based on the CKD-EPI 2020 equation that does not use a race coefficient. Performed By: #### CBCA, CMP , 97655-9, HA1C #### [facility] ([id number]) [address] [place] [address], [address] [place] [address] LIPID PROFILE Collected: 10/15/2024 4:48 PM Status: COMPLETED Source: [facility] TYPE CODE TESTS RESULT OUT OF RANGE REFERENCE UNITS LAB CHOL(LOINC) CHOLESTEROL 210 High 150-200 mg/dL LAB TRIG(LOINC) TRIGLYCERIDE 92 27-150 mg/dL LAB HDL(LOINC) HDL CHOLESTEROL 72 >39 mg/dL Result Comment: HDL <40 mg/dL - High Risk HDL > or = 40mg/dL- Desirable HDL >60 mg/dL - Negative Risk LAB VLDL(LOINC) VERY LOW LIPOPROTEIN 18 0-30 mg/dL LAB LDL(LOINC) LDL (CALC) 120 <130 mg/dL Result Comment: LDL <100 mg/dL - Desirable LDL >160 mg/dL - High Risk LAB CHDL(LOINC) CHOLESTEROL:HDL 2.9 1.0-5.0 Performed By: #### CBCA, CMP , 44942-0, HA1C #### [facility] ([id number]) [address] [place] [address], [address] [place] [id number] HGB A1C (GLYCO-HGB) Collected: 10/15/2024 4:48 PM Status: COMPLETED Source: [facility] TYPE CODE TESTS RESULT OUT OF RANGE REFERENCE UNITS LAB HBA1C([facility]) HEMOGLOBIN A1C 5.3 4.4-5.6 % Result Comment: NOTE ADA Guidelines Result HgbA1c Normal : less than 5.7 % Prediabetes : 5.7 % to 6.4 % Diabetes : > 6.4 % Use with caution in patients with abnormal hemoglobin variants as the half-life of red blood cells and in vivo glycation rates are affected. LAB EAG([facility]) AVERAGE GLUCOSE 105 mg/dL Performed By: #### CBCA, CMP , 32603-3, HA1C #### [facility] ([id number]) [address] [place] [address], [address] [place] [address] ALLERGIES DATE TYPE / CODE NAME / CODE REACTION SEVERITY SOURCE SYSTEMIC/321695460( SNOMED CT) NO KNOWN ALLERGIES [facility] Drug Class/[id number](SNO MED CT) NO KNOWN ALLERGIES [facility] ENCOUNTERS ADMIT/DISCHARGE ACCOUNT NUMBER ADMITTING ENCOUNTER CLASS LOCATION SOURCE 05/07/2025/05/08/20 [id number] Ambulatory Building:[facility] 04/23/2025/04/23/20 [id number] Ambulatory Buildin 91 [facility] 04/09/2025/04/09/20 [id number] [facility] 04/06/2025 [id number] Ambulatory Building:PF M _11PTCLYDE [facility] 03/24/2025/03/24/20 [id number] Ambulatory Buildin 91 [facility] 10/15/2024/10/16/19 [id number] Ambulatory Building:PTH _PML [facility] 10/15/2024/10/16/19 [id number] Ambulatory Buildin 91 [facility] 10/10/2024/10/10/19 [id number] Ambulatory Building:FH OD [facility] EPIC 10/10/2024/10/10/19 [id number] Ambulatory Building:[facility] EPIC PAYERS ENCOUNTER GUARANTOR PAYER SUBSCRIBER SOURCE 05/07/2025 Primary Insurance:[employer] RESOURCESPolicy Number: [id number] Date:2022-08-13 ASTRID BARRINDOB: [id number] [place] [address] [facility] 04/23/2025 JACQUI BARRINDOB: [place] [address]Ikv: () Primary Insurance:[employer] B[employer]EF[employer]/WHIRLPOOLPoli cy Number: [id number] Date:2022-08-13 ASTRID BARRINDOB: [id number] [place] [address]Sew: (HP) (WP) [facility] 04/09/2025 Primary Insuranc e:Self PayPolicy Number: Effective Date:2025-04-09 [facility]06/2025 JACQUI BARRINDOB: [place] [address]Gin: (HP) Primary Insurance:[employer]EF[employer]/WHIRLPOOLPoli cy Number: [id number] Date:2022-08-13 ASTRID HARRISKLINDOB: [id number] [place] [address]Yap: (HP) (WP) [facility] 03/24/2025 JACQUI Vaughn CONKLINDOB: [place] [address]Jwb: (HP) Primary Insurance:[employer]ENEF[employer]/WHIRLPOOLPoli cy Number: [id number] Date:2022-08-13 ASTRID HARRISKLINDOB: [id number] [place] [address]Ujx: (HP) (WP) [facility] 10/15/2024 JACQUI Vaughn CONKLINDOB: [place] [address]Rbs: (HP) Primary Insurance:[employer]ENEF[employer]/WHIRLPOOLPoli cy Number: [id number] Date:2022-08-13 ASTRID HARRISKLINDOB: [id number] [place] [address]Wng: (HP) (WP) [facility] 10/15/2024 JACQUI Vaughn CONKLINDOB: [place] [address]Zxc: (HP) Primary Insurance:[employer]ENEF[employer]/WHIRLPOOLPoli cy Number: [id number] Date:2022-08-13 ASTRID HARRISKLINDOB: [id number] [place] [address]Fbt: () () [facility] 10/10/2024 JACQUI Vaughn MOMOINDOB: [place] [address]Nnj: () Primary Insurance:[facility] Number: [id number] Date:2024-07-26 JACQUI Vaughn MOMOINDOB: [id number] [place] [address] [facility] 10/10/2024 JACQUI S MOMOINDOB: [place] [address]Qqd: () Primary Insurance:[facility] Number: [id number] Date:2024-07-26 JACQUI S MOMOINDOB: [id number] [place] [address] [facility]
--- NOTE | 2025-05-14 07:00 | CA_ITS ---
Patient Name: JACQUI SANTIAGO MR#: [id number] : 1970 Exam Date: 05/14/2025 Ordering Doctor: DR. AMRÍA BARAJAS M.D. ECHOCARDIOGRAM REPORT PROCEDURE: CA ECHO DOPPLER COMPLETE INDICATIONS: Dyspnea on exertion, h/o ablation COMPARISON: None. DESCRIPTION: COMPLETE ECHOCARDIOGRAM Real-time transthoracic echocardiography with 2D, M-mode, spectral and color flow Doppler performed. QUALITY: Technical quality was good. LEFT VENTRICLE: Normal chamber size. Normal left ventricular wall thickness. Normal systolic function. Estimated left ventricular ejection fraction is 55-60%. LV EF: Normal left ventricular ejection fraction, (>55%). DIASTOLIC: Normal diastolic function. ATRIAL SEPTUM: Visually appears intact. LEFT ATRIUM: Normal chamber size. RIGHT ATRIUM: Normal chamber size. RIGHT VENTRICLE: Normal chamber size. Normal right ventricular systolic function. TRICUSPID VALVE: Normal mobility and thickness. No stenosis with mild regurgitation. No evidence of pulmonary hypertension. RVSP 24 mmHg MITRAL VALVE: Normal mobility and thickness. No evidence of mitral valve stenosis. There is no mitral annular calcification. Trivial mitral regurgitation. AORTIC VALVE: Normal trileaflet appearance. No visible sclerosis. Normal leaflet mobility. No evidence of aortic valve stenosis. No aortic regurgitation. AORTIC ROOT: Normal diameter and appearance, measuring 3.1 cm. Ascending aorta is normal in size, measuring 2.9 cm. PULMONIC VALVE: Normal thickness and mobility. No stenosis. Trivial regurgitation. PERICARDIUM: No evidence of pericardial effusion. IVC: Collapses with inspiration. IVC is normal in size. PLEURA: CONCLUSION: 1. Normal ventricular size and systolic function. Estimated LVEF is 55-60%. 2. Normal diastolic function. 3. No significant valvular dysfunction. 4. Normal right-sided pressures. Adult Echocardiography Procedure Report Left Ventricle LVEDD (3.7 - 5.6 cm): 4.78 cm LVESD (2.2 - 4.0 cm): 3.54 cm LVIVS thickness (0.6 - 1.2 cm): 0.93 cm LVPW thickness (0.5 - 1.0 cm): 0.92 cm e': 0.17 m/s E - e': 3.76 LVOT Max Gradient: 2.71 mm[Hg] LVOT Area (cm2): 0.82 m/s Peak Velocity (LVOT): 0.82 m/s Mean Velocity (LVOT): 0.59 m/s LVOT Diameter 2.13 cm Left Ventricular Ejection Fraction: 55-60 % Left Atrium LA Volume Index (2D A2C): 27.20 ml/m2 Left Atrium Systolic Dimension: 3.72 cm Mitral Valve MV E to A Ratio: 1.11 Mitral Valve A-Wave Peak Velocity: 0.58 m/s Mitral Valve E-Wave Peak Velocity: 0.65 m/s Right Ventricle Aorta AO Root Diam: 3.11 cm Ascending Ao Diam: 2.90 cm Aortic Valve AoV Area (Peak Meet): 2.50 cm2, 2.50 cm2 AoV Area (VTI): 2.37 cm2, 2.37 cm2 Peak Velocity(Antegrade Flow): 1.17 m/s Peak Gradient(Antegrade Flow): 5.46 mm[Hg] Mean Velocity(Antegrade Flow): 0.81 m/s Mean Gradient(Antegrade Flow): 2.99 mm[Hg] Velocity Time Integral: 27.07 cm Tricuspid Valve Peak Velocity (Regurgitant Flow): 2.30 m/s Pulmonic Valve Peak Velocity: 0.94 m/s Peak Gradient: 3.53 mm[Hg] Right Atrium Right Atrium Systolic Pressure: 39.09 ml, 39.09 ml Dictated by: Conrad Dalal M.D. on 05/14/2025 at 10:07 Approved by: Conrad Dalal M.D. on 05/14/2025 at 10:10
== END 2025-05-14 06:48 | disposition home or self-care (01) ==
LOC: CARD 06:49
PROVIDERS: PCP Family Medicine; Visit Provider Internal Medicine Cardiovascular Disease
DX: R06.09 Other forms of dyspnea (principal)
CPT/HCPCS: 93306